=== PATIENT | male | born 1930 | race Caucasian/White ===

== ENCOUNTER 2016-03-02 11:19 | Inpatient (IN) | payer MEDICARE, BC ==
[2016-03-02] MEDS ORDERED: SODIUM CHLORIDE 0.9% 1,000 ML IV STA ×2 (11:51)
--- NOTE | 2016-03-02 12:03 | ED ---
Recheck HPI - General Chief Complaint: Recheck/Abnormal Lab/Rx Stated Complaint: LOW BLOOD PRESSURE Time Seen by Provider: 03/02/16 11:43 Source: patient, family, RN notes reviewed Mode of arrival: wheelchair - History of Present Illness Initial Comments: This 85-year-old male with a history of multiple medical problems was sent over from his doctor's office for evaluation for low blood pressure. States she's been having low blood pressure for last couple days he had CAT scan of his chest done at [facility] he was noted have low blood pressure that was low then it did improve. Today he presents feeling somewhat weak occasionally lightheaded no fevers chills nausea vomiting sweats he states she's been trying drink up to 8 glasses of water per day he denies any chest pain shortness of breath or any other symptoms at this time. - Related Data Home Medications Medication Instructions Recorded Confirmed Aspirin 81 mg PO DAILY 05/20/14 03/02/16 Clopidogrel [Plavix] 75 mg PO DAILY 05/20/14 03/02/16 Docusate [Colace] 100 mg PO DAILY PRN 05/20/14 03/02/16 Ipratropium-Albuterol Nebulize 3 ml IH RT-QID 05/20/14 03/02/16 [Duoneb 0.5 mg-3 mg/3 ml Soln] Lisinopril 40 mg PO BID 05/20/14 03/02/16 Tamsulosin [Flomax] 0.4 mg PO BID 05/20/14 03/02/16 amLODIPine [Norvasc] 5 mg PO DAILY 05/20/14 03/02/16 metFORMIN HCL [metFORMIN HCL ER] 1,000 mg PO BID 05/20/14 03/02/16 guaiFENesin [Mucinex] 600 mg PO BID 01/24/15 03/02/16 Areds Ii Eye Vitamins 1 tab PO BID 03/02/16 03/02/16 Atorvastatin [Lipitor] 20 mg PO DAILY 03/02/16 03/02/16 Budesonide/Formoterol Fumarate 2 puff INHALATION RT-BID 03/02/16 03/02/16 [Symbicort 160-4.5 Mcg Inhaler] Ibuprofen [Motrin] 600 mg PO Q8HR PRN 03/02/16 03/02/16 Lactose-Reduced Food [Boost] 237 ml PO DAILY 03/02/16 03/02/16 Melatonin 3 mg PO HS 03/02/16 03/02/16 Metoprolol Tartrate [Lopressor] 25 mg PO BID 03/02/16 03/02/16 Allergies Allergy/AdvReac Type Severity Reaction Status Date / Time No Known Allergies Allergy Verified 03/02/16 12:44 Review of Systems ROS Statement: Those systems with pertinent positive or pertinent negative responses have been documented in the HPI. ROS Other: All systems not noted in ROS Statement are negative. Past Medical History Past Medical History: Chest Pain / Angina, COPD, Diabetes Mellitus, Eye Disorder , Hyperlipidemia, Hypertension, Renal Disease, Vascular Disorder Additional Past Medical History / Comment(s): 01/15/15irregular heart beat, PVD , SPOT ON RT LUNG AND ESOPHAGUS -01/15/15 History of Any Multi-Drug Resistant Organisms: None Reported Past Surgical History: Heart Catheterization Additional Past Surgical History / Comment(s): veins unblocked in both legs, carotid endarectomy left side, cataracts removal, COLONOSCOPY, BILAT CATARACTS REMOVED, HAD BILAT EYE INJECTIONS 01/11/15 FOR MACULAR DEGENERATION Past Anesthesia/Blood Transfusion Reactions: No Reported Reaction Past Psychological History: No Psychological Hx Reported Smoking Status: Former smoker Past Alcohol Use History: Rare Past Drug Use History: None Reported - Past Family History Brother(s) Family Medical History: Coronary Artery Disease (CAD), Diabetes Mellitus Father Additional Family Medical History / Comment(s): kidney failure Mother Family Medical History: Congestive Heart Failure (CHF), Coronary Artery Disease (CAD) General Exam - General Exam Comments Initial Comments: This is a well-developed well-nourished awake alert oriented 3 male General appearance: alert, in no apparent distress Head exam: Present: atraumatic, normocephalic, normal inspection Eye exam: Present: normal appearance, PERRL, EOMI. Absent: scleral icterus, conjunctival injection, periorbital swelling ENT exam: Present: mucous membranes dry Neck exam: Present: normal inspection. Absent: tenderness, meningismus, lymphadenopathy Respiratory exam: Present: normal lung sounds bilaterally. Absent: respiratory distress, wheezes, rales, rhonchi, stridor Cardiovascular Exam: Present: regular rate, normal rhythm, normal heart sounds. Absent: systolic murmur, diastolic murmur, rubs, gallop, clicks GI/Abdominal exam: Present: soft, normal bowel sounds. Absent: distended, tenderness, guarding, rebound, rigid Extremities exam: Present: normal inspection, full ROM, normal capillary refill. Absent: tenderness, pedal edema, joint swelling, calf tenderness Back exam: Present: normal inspection Neurological exam: Present: alert, oriented X3, CN II-XII intact Psychiatric exam: Present: normal affect, normal mood Skin exam: Present: warm, dry, intact, normal color. Absent: rash Course Vital Signs 03/02/16 03/02/16 03/02/16 11:34 11:44 12:25 Temperature 97.1 F L Pulse Rate 83 76 75 Respiratory 20 16 15 Rate Blood Pressure 82/51 104/56 120/63 O2 Sat by Pulse 92 L 96 91 L Oximetry 03/02/16 03/02/16 13:23 14:23 Temperature 97.1 F L Pulse Rate 76 74 Respiratory 16 16 Rate Blood Pressure 140/65 133/65 O2 Sat by Pulse 92 L 94 L Oximetry Medical Decision Making - Medical Decision Making Patient did get some improvement after IV hydration sodium however was 123 his blood pressure did improve. The patient and his were informed of the findings. I did discuss the case with Dr. Donald the patient will be admitted he will have a nephrology consult. - Lab Data Result diagrams: 03/02/16 11:50 03/02/16 11:50 Lab Results 03/02/16 03/02/16 03/02/16 Range/Units 11:50 11:50 11:50 WBC 9.0 (3.8-10.6) k/uL RBC 4.49 (4.30-5.90) m/uL Hgb 13.5 (13.0-17.5) gm/dL Hct 41.5 (39.0-53.0) % MCV 92.6 (80.0-100.0) fL MCH 30.0 (25.0-35.0) pg MCHC 32.4 (31.0-37.0) g/dL RDW 13.3 (11.5-15.5) % Plt Count 267 (150-450) k/uL Neutrophils % 87 % Lymphocytes % 6 % Monocytes % 6 % Eosinophils % 0 % Basophils % 0 % Neutrophils # 7.8 H (1.3-7.7) k/uL Lymphocytes # 0.5 L (1.0-4.8) k/uL Monocytes # 0.5 (0-1.0) k/uL Eosinophils # 0.0 (0-0.7) k/uL Basophils # 0.0 (0-0.2) k/uL Sodium 123 L (137-145) mmol/L Potassium 5.1 (3.5-5.1) mmol/L Chloride 91 L (98-107) mmol/L Carbon Dioxide 22 (22-30) mmol/L Anion Gap 10 mmol/L BUN 17 (9-20) mg/dL Creatinine 1.00 (0.66-1.25) mg/dL Est GFR (MDRD) Af Amer >60 (>60 ml/min/1.73 sqM) Est GFR (MDRD) Non-Af >60 (>60 ml/min/1.73 sqM) Glucose 125 H (74-99) mg/dL Calcium 8.8 (8.4-10.2) mg/dL Magnesium 1.6 (1.6-2.3) mg/dL Total Bilirubin 1.0 (0.2-1.3) mg/dL AST 32 (17-59) U/L ALT 38 (21-72) U/L Alkaline Phosphatase 71 (38-126) U/L Total Creatine Kinase 59 (55-170) U/L CK-MB (CK-2) 2.7 H* (0.0-2.4) ng/mL CK-MB (CK-2) Rel Index 4.6 Total Protein 6.4 (6.3-8.2) g/dL Albumin 3.8 (3.5-5.0) g/dL Amylase 75 (30-110) U/L Urine Color Urine Appearance (Clear) Urine pH (5.0-8.0) Ur Specific [place] (1.001-1.035) Urine Protein (Negative) Urine Glucose (UA) (Negative) Urine Ketones (Negative) Urine Blood (Negative) Urine Nitrate (Negative) Urine Bilirubin (Negative) Urine Urobilinogen (<2.0) mg/dL Ur Leukocyte Esterase (Negative) Urine RBC (0-5) /hpf Urine WBC (0-5) /hpf Urine Mucus (None) /hpf 03/02/16 Range/Units 12:20 WBC (3.8-10.6) k/uL RBC (4.30-5.90) m/uL Hgb (13.0-17.5) gm/dL Hct (39.0-53.0) % MCV (80.0-100.0) fL MCH (25.0-35.0) pg MCHC (31.0-37.0) g/dL RDW (11.5-15.5) % Plt Count (150-450) k/uL Neutrophils % % Lymphocytes % % Monocytes % % Eosinophils % % Basophils % % Neutrophils # (1.3-7.7) k/uL Lymphocytes # (1.0-4.8) k/uL Monocytes # (0-1.0) k/uL Eosinophils # (0-0.7) k/uL Basophils # (0-0.2) k/uL Sodium (137-145) mmol/L Potassium (3.5-5.1) mmol/L Chloride (98-107) mmol/L Carbon Dioxide (22-30) mmol/L Anion Gap mmol/L BUN (9-20) mg/dL Creatinine (0.66-1.25) mg/dL Est GFR (MDRD) Af Amer (>60 ml/min/1.73 sqM) Est GFR (MDRD) Non-Af (>60 ml/min/1.73 sqM) Glucose (74-99) mg/dL Calcium (8.4-10.2) mg/dL Magnesium (1.6-2.3) mg/dL Total Bilirubin (0.2-1.3) mg/dL AST (17-59) U/L ALT (21-72) U/L Alkaline Phosphatase (38-126) U/L Total Creatine Kinase (55-170) U/L CK-MB (CK-2) (0.0-2.4) ng/mL CK-MB (CK-2) Rel Index Total Protein (6.3-8.2) g/dL Albumin (3.5-5.0) g/dL Amylase (30-110) U/L Urine Color Yellow Urine Appearance Clear (Clear) Urine pH 6.0 (5.0-8.0) Ur Specific [place] 1.015 (1.001-1.035) Urine Protein 1+ H (Negative) Urine Glucose (UA) Negative (Negative) Urine Ketones Trace H (Negative) Urine Blood Negative (Negative) Urine Nitrate Negative (Negative) Urine Bilirubin Negative (Negative) Urine Urobilinogen <2.0 (<2.0) mg/dL Ur Leukocyte Esterase Negative (Negative) Urine RBC 2 (0-5) /hpf Urine WBC 1 (0-5) /hpf Urine Mucus Rare H (None) /hpf - EKG Data -: EKG Interpreted by Nh EKG shows normal: sinus rhythm (Sinus rhythm rate is 76. Interval 186 QRS duration 92 ET/QTC of 372/418 low-voltage poor R-wave progression.) - Radiology Data Radiology results: image reviewed (No definite acute findings) Disposition Clinical Impression: Hyponatremia syndrome, Hypotension, Dehydration Disposition: ADMITTED IP TO THIS HOSP Condition: Stable
--- NOTE | 2016-03-02 12:20 | XR ---
EXAMINATION TYPE: XR chest 2V DATE OF EXAM: 03/02/2016 12:13 PM COMPARISON: 05/20/2014 HISTORY: Cough FINDINGS: The lungs are clear and there is no pneumothorax, pleural effusion, or focal pneumonia. Hyperinflation suggests COPD. Prominent anterior margin the right first rib is stable. No overt failu re. Prominence the pulmonary artery suggests pulmonary arterial hypertension. Degenerative change of the spine noted. Subsegmental changes at the left lung base are stable compatible with chronic scar o r atelectasis. IMPRESSION: 1. No acute process. Correlate for COPD.
[2016-03-02 12:30] LABS: Basophils % (A) 0 %; CH 30.5; CHCM 33.1; Eosinophils % (A) 0 %; HCT 41.5 % (39.0-53.0); HDW 2.31; HGB 13.5 gm/dL (13.0-17.5); Luc # (Auto) 0.11; Luc % (Auto) 1; Lymphocytes # (A) 0.5 k/uL (1.0-4.8); Lymphocytes % (A) 6 %; MCHC 32.4 g/dL (31.0-37.0); MCV 92.6 fL (80.0-100.0); Mean Platelet Volume 7.1; Monocytes # (A) 0.5 k/uL (0-1.0); Monocytes % (A) 6 %; Neutrophils # (A) 7.8 k/uL (1.3-7.7); Neutrophils % (A) 87 %; RBC 4.49 m/uL (4.30-5.90); RDW 13.3 % (11.5-15.5); WBC (Perox) 8.99
[2016-03-02 12:37] LABS: Appearance,Urine Clear (Clear); Bilirubin,Urine Negative (Negative); Glucose,Urine (UA) Negative (Negative); Ketones,Urine Trace (Negative); Leukocyte Esterase,Urine Negative (Negative); Mucus,Urine Rare /hpf; Nitrite,Urine Negative (Negative); Particle Count 994; Protein,Urine 1+ (Negative); RBC,Urine 2 /hpf (0-5); Specific Gravity,Urine 1.015 (1.001-1.035); UA Billing (MACRO vs. MICRO) MICRO; Urobilinogen,Urine <2.0 mg/dL (<2.0); WBC,Urine 1 /hpf (0-5)
[2016-03-02 12:40] LABS: ALT 38 U/L (21-72); AST 32 U/L (17-59); Alkaline Phosphatase 71 U/L (38-126); Amylase 75 U/L (30-110); Anion Gap 10 mmol/L; Blood Urea Nitrogen 17 mg/dL (9-20); Calcium 8.8 mg/dL (8.4-10.2); Carbon Dioxide 22 mmol/L (22-30); Chloride 91 mmol/L (98-107); Glucose 125 mg/dL (74-99); Magnesium 1.6 mg/dL (1.6-2.3); Non-African American GFR(MDRD) >60 (>60 ml/min/1.73 sqM); Potassium 5.1 mmol/L (3.5-5.1); Sodium 123 mmol/L (137-145); Total Protein 6.4 g/dL (6.3-8.2)
[2016-03-02 13:10] LABS: Creatine Kinase MB 2.7 ng/mL (0.0-2.4)
[2016-03-02] MEDS ORDERED: NALOXONE 0.4 MG/ML 1 ML VIAL IV PRN (16:17)
[2016-03-02] MEDS ORDERED: IBUPROFEN 600 MG TAB PO PRN (16:19)
[2016-03-02] MEDS ORDERED: DOCUSATE 100 MG CAP PO PRN (16:19)
[2016-03-02 18:55] LABS: Anion Gap 6 mmol/L; Blood Urea Nitrogen 16 mg/dL (9-20); Calcium 8.5 mg/dL (8.4-10.2); Carbon Dioxide 27 mmol/L (22-30); Chloride 94 mmol/L (98-107); Glucose 164 mg/dL (74-99); Non-African American GFR(MDRD) >60 (>60 ml/min/1.73 sqM); Potassium 4.4 mmol/L (3.5-5.1); Sodium 127 mmol/L (137-145)
[2016-03-02] MEDS: SODIUM CHLORIDE 0.9% 1,000 ML IV SCH (19:45)
[2016-03-02] MEDS: SYMBICORT 160-4.5 MCG INHALER INHALATION SCH (20:38)
[2016-03-02] MEDS: IPRATROPIUM-ALBUTEROL 3 ML NEB IH SCH (20:38)
[2016-03-02] MEDS: MELATONIN 3 MG TABLET PO SCH (20:52)
[2016-03-02] MEDS: TAMSULOSIN 0.4 MG CAP.ER.24H PO SCH (20:53)
[2016-03-02] MEDS: guaiFENesin 600 MG TABLET.ER PO SCH (20:53)
[2016-03-02] MEDS: LISINOPRIL 20 MG TAB PO SCH (20:53)
[2016-03-02] MEDS: METOPROLOL TARTRATE 25 MG TAB PO SCH (20:53)
[2016-03-02 21:40] LABS: Glucose,Whole Blood 101 mg/dL (75-99)
[2016-03-02] MEDS: metFORMIN 500 MG TAB PO SCH (21:46)
[2016-03-03 07:05] LABS: Glucose,Whole Blood 122 mg/dL (75-99)
[2016-03-03] MEDS: ATORVASTATIN 20 MG TAB PO SCH (08:13)
[2016-03-03] MEDS: LISINOPRIL 20 MG TAB PO SCH (08:13)
[2016-03-03] MEDS: metFORMIN 500 MG TAB PO SCH ×2 (08:13→21:28)
[2016-03-03] MEDS: CLOPIDOGREL 75 MG TAB PO SCH (08:13)
[2016-03-03] MEDS: ASPIRIN 81 MG CHEW PO SCH (08:13)
[2016-03-03] MEDS: METOPROLOL TARTRATE 25 MG TAB PO SCH ×2 (08:13→20:22)
[2016-03-03] MEDS: amLODIPine 5 MG TAB PO SCH (08:13)
[2016-03-03] MEDS: guaiFENesin 600 MG TABLET.ER PO SCH ×2 (08:13→20:16)
[2016-03-03] MEDS: TAMSULOSIN 0.4 MG CAP.ER.24H PO SCH ×2 (08:13→20:16)
[2016-03-03 08:32] LABS: ALT 36 U/L (21-72); AST 18 U/L (17-59); Alkaline Phosphatase 78 U/L (38-126); Anion Gap 8 mmol/L; Blood Urea Nitrogen 12 mg/dL (9-20); Calcium 8.5 mg/dL (8.4-10.2); Carbon Dioxide 24 mmol/L (22-30); Chloride 99 mmol/L (98-107); Glucose 126 mg/dL (74-99); Non-African American GFR(MDRD) >60 (>60 ml/min/1.73 sqM); Potassium 4.3 mmol/L (3.5-5.1); Sodium 131 mmol/L (137-145); Total Bilirubin 0.5 mg/dL (0.2-1.3); Total Protein 5.1 g/dL (6.3-8.2)
[2016-03-03] MEDS ORDERED: NON-FORMULARY DRUG (Lactose-Reduced Food [Boost] 237 ML) PO SCH (09:00)
[2016-03-03] MEDS: IPRATROPIUM-ALBUTEROL 3 ML NEB IH SCH ×4 (09:35→20:58)
[2016-03-03] MEDS: SYMBICORT 160-4.5 MCG INHALER INHALATION SCH ×2 (09:35→20:58)
--- NOTE | 2016-03-03 11:45 | P.NPCON ---
History of Present Illness - Reason for Consult hyponatremia - History of Present Illness Reason for consultation: Hyponatremia History of present illness: Patient is a 85-year-old male seen in renal consultation for hyponatremia. Patient went to his primary care physician's office and was noted to be hypotensive with systolic blood pressure in the 80s was subsequently sent to the hospital. Patient states his appetite hasn't been as good the last few days but he has been drinking quite a bit of water. His sodium was 123 on admission for which she was given normal saline bolus and started on 0.9 saline at 75 mL an hour. Sodium level did improve to 127 and overnight he received maintenance IV fluids. Sodium level this morning is 131. Hemodynamically he is stable. He denies any chest pain or shortness of breath. Admits to good urine output. Denies any hematuria or dysuria. Denies any prior history of kidney disease. His urinalysis does reveal 1+ proteinuria without any hematuria. Renal ultrasound from January 2016 revealed no evidence of hydronephrosis and normal sized kidneys. He does have diabetes mellitus. Vital signs are stable. General: The patient appeared well nourished and normally developed. HEENT: Head exam is unremarkable. Neck is without jugular venous distension. LUNGS: Lungs are clear to auscultation and percussion. Breath sounds decreased. HEART: Rate and Rhythm are regular. First and second heart sounds normal. No murmurs, rubs or gallops. ABDOMEN: Abdominal exam reveals normal bowel sounds. Non-tender and non- distended. No evidence of peritonitis. EXTREMITITES: No clubbing, cyanosis, or edema. Past Medical History Past Medical History: Chest Pain / Angina, COPD, Diabetes Mellitus, Eye Disorder , Hyperlipidemia, Hypertension, Memory Impairment, Pneumonia, Vascular Disorder Additional Past Medical History / Comment(s): " irregular heart beat",emphysema PVD,HOME 2 2 LITERS N/C NEEDED, SPOT ON RT LUNG AND ESOPHAGUS -01/15/15 PT AND FAMILY STATED "NO DX OF CANCER OF YET, IN FACT SPOTS HAVE SHRUNK IN SIZE " HAD A CT SCAN OF CHEST 02-29-16 AT [facility] NO RESULTS BACK YET. 2 MONTHS AGO HAD U/ S OF KIDNEY FAMILY STATED BECAUSE HE ELEVATED PROTIEN IN HIS URINE BUT THAT THEY HAVE'NT GOTTEN RESULTS OF IT YET. BRONCHITS, MACULAR DEGENERATION,OCC CONSTIPATION.APPETITE DOWN PAST YEAR NOTHING "TASTES GOOD" WT LOSS APPROX 15-20 # OVER 7 MONTHS". History of Any Multi-Drug Resistant Organisms: None Reported Past Surgical History: Heart Catheterization Additional Past Surgical History / Comment(s): veins unblocked in both legs, carotid endarectomy left side, cataracts removal, COLONOSCOPY, BILAT CATARACTS REMOVED, HAD BILAT EYE INJECTIONS 01/11/15 FOR MACULAR DEGENERATION, BRONCOSCOPY 01-26-15 Past Anesthesia/Blood Transfusion Reactions: No Reported Reaction Past Psychological History: No Psychological Hx Reported Additional Psychological History / Comment(s): PT LIVES AT HOME WITH HIS , IS INDEPENDANT. NO HOME CARE SERVICES. Smoking Status: Former smoker Past Alcohol Use History: Rare Additional Past Alcohol Use History / Comment(s): STARTED SMOKING AT AGE 19(1948 ), QUIT 2011 WAS SMOKING 1.5 PPD Past Drug Use History: None Reported - Past Family History Brother(s) Family Medical History: Coronary Artery Disease (CAD), Diabetes Mellitus Father Additional Family Medical History / Comment(s): kidney failure Mother Family Medical History: Congestive Heart Failure (CHF), Coronary Artery Disease (CAD) Medications and Allergies Home Medications Medication Instructions Recorded Confirmed Type Aspirin 81 mg PO DAILY 05/20/14 03/02/16 History Clopidogrel [Plavix] 75 mg PO DAILY 05/20/14 03/02/16 History Docusate [Colace] 100 mg PO DAILY PRN 05/20/14 03/02/16 History Ipratropium-Albuterol Nebulize 3 ml IH RT-QID 05/20/14 03/02/16 History [Duoneb 0.5 mg-3 mg/3 ml Soln] Lisinopril 40 mg PO BID 05/20/14 03/02/16 History Tamsulosin [Flomax] 0.4 mg PO BID 05/20/14 03/02/16 History amLODIPine [Norvasc] 5 mg PO DAILY 05/20/14 03/02/16 History metFORMIN HCL [metFORMIN HCL ER] 1,000 mg PO BID 05/20/14 03/02/16 History guaiFENesin [Mucinex] 600 mg PO BID 01/24/15 03/02/16 History Areds Ii Eye Vitamins 1 tab PO BID 03/02/16 03/02/16 History Atorvastatin [Lipitor] 20 mg PO DAILY 03/02/16 03/02/16 History Budesonide/Formoterol Fumarate 2 puff INHALATION RT-BID 03/02/16 03/02/16 History [Symbicort 160-4.5 Mcg Inhaler] Ibuprofen [Motrin] 600 mg PO Q8HR PRN 03/02/16 03/02/16 History Lactose-Reduced Food [Boost] 237 ml PO DAILY 03/02/16 03/02/16 History Melatonin 3 mg PO HS 03/02/16 03/02/16 History Metoprolol Tartrate [Lopressor] 25 mg PO BID 03/02/16 03/02/16 History Allergies Allergy/AdvReac Type Severity Reaction Status Date / Time No Known Allergies Allergy Verified 03/02/16 12:44 Physical Exam Vitals: Vital Signs Temp Pulse Pulse Resp BP BP Pulse Ox 03/03/16 09:44 76 03/03/16 09:36 76 03/03/16 07:00 97.0 F L 101 H 19 131/78 98 03/02/16 23:00 97.3 F L 78 18 156/73 97 03/02/16 20:48 78 03/02/16 20:39 78 03/02/16 20:35 79 18 135/69 90 L 03/02/16 18:42 95.6 F L 83 16 130/63 94 L 03/02/16 17:51 97.1 F L 80 16 125/60 98 03/02/16 16:47 96.7 F L 81 16 140/62 94 L Intake and Output 03/02/16 03/03/16 03/03/16 22:59 06:59 14:59 Intake Total 550 Output Total 600 1000 Balance -600 -450 Intake: Intake, IV Titration 550 Amount Sodium Chloride 0.9% 1, 550 000 ml @ 50 mls/hr IV . Q20H [facility] Rx#:[id number] Output: Urine 600 1000 Other: Voiding Method Urinal Toilet Urinal # Voids 1 2 Results - Lab Results Most recent lab results Calcium 8.5 mg/dL (8.4-10.2) 03/03/16 07:47 Magnesium 1.6 mg/dL (1.6-2.3) 03/02/16 11:50 03/02/16 11:50 01/07/17 07:47 Assessment and Plan Plan: Assessment: #1. Hypotonic hypovolemic hyponatremia improved with IV hydration. Sodium level of 131 this morning. #2. Hypotension. Improved with IV hydration. Rule out adrenal insufficiency. #3. Diabetes mellitus. #4. 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 He does have proteinuria on urinalysis. Plan: Continue with normal saline to be run at 50 mL an hour. Check a.m. cortisol level. Quantify proteinuria. Repeat electrolytes in the morning. Avoid NSAIDs. Thank you for the consultation. I will continue to follow patient with you during his hospital stay.
[2016-03-03 12:07] LABS: Glucose,Whole Blood 97 mg/dL (75-99)
--- NOTE | 2016-03-03 12:40 | P.HPIM ---
History of Present Illness H&P Date: 03/03/16 Chief Complaint: Weakness, lightheadedness This is an 85-year-old male patient of Dr. Mike with a past medical history of angina, COPD, diabetes mellitus type 2, hyperlipidemia, hypertension, peripheral vascular disease. He gives history that he went to [facility] as Dr. Holder sent him there for follow-up regarding abnormal chest CAT scan that showed a spot on his right lung and esophagus. Patient was there [address] [facility] and was noted at that time to have a low blood pressure and they're going to admit him but he ended up improving and was sent home. He states he has had low blood pressure for the last couple of days and has been trying to drink a glass of of water per day. He states he has been feeling woozy and tired but not too bad. He states he has had the same trouble in the past a couple months ago. He states that was after he was given prednisone and he was feeling weak and tired but his blood pressure did not drop at that time. He states he just finished of course of steroids 1 week ago and after that he has been feeling weak ever since. Patient had an appointment at Dr. Mike saw the nurse practitioner and was sent into [facility] for evaluation. He was found to be 123 and chloride 91. Chest x-ray showed no acute findings. Initial blood pressure was 82/51 and repeat was 104/ 56. Patient was started on IV fluids at 100 mL per hour and was given fluid bolus and then admitted to the [facility] floor and a consult requested with nephrology. Repeat sodium is 131 and chloride 99. Serum osmolality 273, urine osmolality 318, urine random sodium 94. Patient does state that he is feeling much improved today. We have also ordered a fasting cortisol level which is pending. Review of Systems All systems: negative Constitutional: Reports fatigue, Reports lethargy, Reports weakness, Denies chills, Denies fever Eyes: denies blurred vision, denies pain Ears, nose, mouth and throat: Reports vertigo, Denies headache, Denies sore throat Cardiovascular: Reports lightheadedness, Denies chest pain, Denies shortness of breath Respiratory: Denies cough Gastrointestinal: Denies abdominal pain, Denies diarrhea, Denies nausea, Denies vomiting Musculoskeletal: Denies myalgias Integumentary: Denies pruritus, Denies rash Neurological: Denies numbness, Denies weakness Psychiatric: Denies anxiety, Denies depression Endocrine: Denies fatigue, Denies weight change Past Medical History Past Medical History: Chest Pain / Angina, COPD, Diabetes Mellitus, Eye Disorder , Hyperlipidemia, Hypertension, Memory Impairment, Pneumonia, Vascular Disorder Additional Past Medical History / Comment(s): Chronic hypoxic respiratory failure with home O2 at 2 and half liters, SPOT ON RT LUNG AND ESOPHAGUS -01/09 , PVD with carotid stenosis 90% on the left and 50% on the right, proteinuria, bronchitis, macular degeneration, WT LOSS APPROX 15-20 # OVER 7 MONTHS". History of Any Multi-Drug Resistant Organisms: None Reported Past Surgical History: Heart Catheterization Additional Past Surgical History / Comment(s): veins unblocked in both legs, carotid endarectomy left side, bilateral cataract removal and intraocular lens implants, BILAT EYE INJECTIONS 01/11/15 FOR MACULAR DEGENERATION, BRONCOSCOPY , colonoscopy Past Anesthesia/Blood Transfusion Reactions: No Reported Reaction Past Psychological History: No Psychological Hx Reported Additional Psychological History / Comment(s): PT LIVES AT HOME WITH HIS , IS INDEPENDANT. NO HOME CARE SERVICES. Smoking Status: Former smoker Past Alcohol Use History: Rare Additional Past Alcohol Use History / Comment(s): STARTED SMOKING AT AGE 19(1948 ), QUIT 2011 WAS SMOKING 1.5 PPD Past Drug Use History: None Reported - Past Family History Brother(s) Family Medical History: Coronary Artery Disease (CAD), Diabetes Mellitus Father Additional Family Medical History / Comment(s): kidney failure Mother Family Medical History: Congestive Heart Failure (CHF), Coronary Artery Disease (CAD) Medications and Allergies Home Medications Medication Instructions Recorded Confirmed Type Aspirin 81 mg PO DAILY 05/20/14 03/02/16 History Clopidogrel [Plavix] 75 mg PO DAILY 05/20/14 03/02/16 History Docusate [Colace] 100 mg PO DAILY PRN 05/20/14 03/02/16 History Ipratropium-Albuterol Nebulize 3 ml IH RT-QID 05/20/14 03/02/16 History [Duoneb 0.5 mg-3 mg/3 ml Soln] Lisinopril 40 mg PO BID 05/20/14 03/02/16 History Tamsulosin [Flomax] 0.4 mg PO BID 05/20/14 03/02/16 History amLODIPine [Norvasc] 5 mg PO DAILY 05/20/14 03/02/16 History metFORMIN HCL [metFORMIN HCL ER] 1,000 mg PO BID 05/20/14 03/02/16 History guaiFENesin [Mucinex] 600 mg PO BID 01/24/15 03/02/16 History Areds Ii Eye Vitamins 1 tab PO BID 03/02/16 03/02/16 History Atorvastatin [Lipitor] 20 mg PO DAILY 03/02/16 03/02/16 History Budesonide/Formoterol Fumarate 2 puff INHALATION RT-BID 03/02/16 03/02/16 History [Symbicort 160-4.5 Mcg Inhaler] Ibuprofen [Motrin] 600 mg PO Q8HR PRN 03/02/16 03/02/16 History Lactose-Reduced Food [Boost] 237 ml PO DAILY 03/02/16 03/02/16 History Melatonin 3 mg PO HS 03/02/16 03/02/16 History Metoprolol Tartrate [Lopressor] 25 mg PO BID 03/02/16 03/02/16 History Allergies Allergy/AdvReac Type Severity Reaction Status Date / Time No Known Allergies Allergy Verified 03/02/16 12:44 Physical Exam Vitals: Vital Signs Temp Pulse Pulse Resp BP BP Pulse Ox 03/03/16 09:36 76 03/03/16 07:00 97.0 F L 101 H 19 131/78 98 03/02/16 23:00 97.3 F L 78 18 156/73 97 03/02/16 20:48 78 03/02/16 20:39 78 03/02/16 20:35 79 18 135/69 90 L 03/02/16 18:42 95.6 F L 83 16 130/63 94 L 03/02/16 17:51 97.1 F L 80 16 125/60 98 03/02/16 16:47 96.7 F L 81 16 140/62 94 L Intake and Output 03/02/16 03/03/16 03/03/16 22:59 06:59 14:59 Intake Total 550 Output Total 600 1000 Balance -600 -450 Intake: Intake, IV Titration 550 Amount Sodium Chloride 0.9% 1, 550 000 ml @ 50 mls/hr IV . Q20H [facility] Rx#:[id number] Output: Urine 600 1000 Other: Voiding Method Urinal Toilet # Voids 1 2 Gen: This is an 85-year-old male. He is found sitting up in bed and appears to be in no acute distress. HEENT: Head is atraumatic, normocephalic. Pupils equal, round. Sclerae is anicteric. NECK: Supple. No JVD. No lymphadenopathy. No thyromegaly. LUNGS: Clear to auscultation. No wheezes or rhonchi. No intercostal retractions. HEART: Regular rate and rhythm. No murmur. ABDOMEN: Soft. Bowel sounds are present. No masses. No tenderness. EXTREMITIES: No pedal edema. No calf tenderness. NEUROLOGICAL: Patient is awake, alert and oriented x3. Cranial nerves 2 through 12 are grossly intact. Results CBC & Chem 7: 03/02/16 11:50 03/03/16 07:47 Labs: Abnormal Lab Results - Last 24 Hours (Table) 03/02/16 03/02/16 03/03/16 Range/Units 18:20 21:12 06:58 Sodium 127 L (137-145) mmol/L Chloride 94 L (98-107) mmol/L Glucose 164 H (74-99) mg/dL POC Glucose (mg/dL) 101 H 122 H (75-99) mg/dL Total Protein (6.3-8.2) g/dL Albumin (3.5-5.0) g/dL 03/03/16 Range/Units 07:47 Sodium 131 L (137-145) mmol/L Chloride (98-107) mmol/L Glucose 126 H (74-99) mg/dL POC Glucose (mg/dL) (75-99) mg/dL Total Protein 5.1 L (6.3-8.2) g/dL Albumin 3.1 L (3.5-5.0) g/dL Thrombosis Risk Factor Assmnt - DVT/VTE Prophylaxis DVT/VTE Prophylaxis: Pharmacologic Prophylaxis ordered - Choose All That Apply Any of the Below Risk Factors Present?: Yes Each Factor Represents 1 point: Abnormal pulmonary function (COPD) Other Risk Factors: Yes Each Risk Factor Represents 3 Points: Age 75 years or older Thrombosis Risk Factor Assessment Total Risk Factor Score: 4 Thrombosis Risk Factor Assessment Level: Moderate Risk Assessment and Plan Plan: 1. Generalized weakness and lightheadedness secondary to electrolyte abnormalities with hyponatremia and hypochloremia. Patient has been on IV fluids. Nephrology consult is appreciated. Recheck metabolic panel in the morning. TSH and free T4 added. 2. Hypotension rule out adrenal insufficiency. Patient was recently on oral steroids which were completed 1 week ago when symptoms started. Fasting cortisol level ordered. 3. History of hypertension. Continue Norvasc 5 mg daily and lisinopril 40 mg daily, Lopressor 25 mg twice daily. 4. Hypotonic hypovolemic hyponatremia. Continue as in #1. 5. 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 6. Diabetes mellitus type 2. Continue metformin 1000 mg twice daily. 7. Benign prostatic hypertrophy. Continue Flomax or 0.4 mg twice daily. 8. Moderate protein calorie malnutrition with recent weight loss of 15-20 pounds over 7 months, BMI of 20. Continue protein supplement. 9. COPD. Continue Symbicort 2 puffs twice daily and DuoNeb treatments 4 times daily as needed. 10. Hyperlipidemia. Continue Lipitor 20 mg daily. 11. Chronic hypoxic respiratory failure on home O2 at 2 L. 12. DVT prophylaxis. Heparin subcu. 13. Gastrointestinal prophylaxis. Protonix daily. Patient will be admitted to the hospital for a minimum of 2 night stay. Discharge plan: Most likely return home. PT and OT evaluations requested. Impression and plan of care have been directed as dictated by the signing physician. Dot Koehler nurse practitioner acting as scribe for signing physician. Time with Patient: Greater than 30
[2016-03-03 12:55] VITALS: BMI 20.2
[2016-03-03] MEDS: HEPARIN SODIUM,PORCINE 5,000 UNIT/ML 1 ML VIAL SQ SCH (16:19)
[2016-03-03] MEDS: VIT A,C & E-LUTEIN-MINERALS 1 EACH TAB PO SCH (16:19)
[2016-03-03] MEDS: SODIUM CHLORIDE 0.9% 1,000 ML IV SCH (16:20)
[2016-03-03 17:39] LABS: Glucose,Whole Blood 108 mg/dL (75-99)
[2016-03-03] MEDS: MELATONIN 3 MG TABLET PO SCH (20:15)
[2016-03-03 20:58] LABS: Glucose,Whole Blood 169 mg/dL (75-99)
[2016-03-04] MEDS: HEPARIN SODIUM,PORCINE 5,000 UNIT/ML 1 ML VIAL SQ SCH ×4 (01:28→23:30)
[2016-03-04 07:35] LABS: Glucose,Whole Blood 129 mg/dL (75-99)
[2016-03-04] MEDS: SYMBICORT 160-4.5 MCG INHALER INHALATION SCH ×2 (07:47→20:31)
[2016-03-04] MEDS: IPRATROPIUM-ALBUTEROL 3 ML NEB IH SCH ×4 (07:48→20:31)
[2016-03-04] MEDS: amLODIPine 5 MG TAB PO SCH (07:57)
[2016-03-04] MEDS: metFORMIN 500 MG TAB PO SCH ×2 (07:58→20:01)
[2016-03-04] MEDS: ATORVASTATIN 20 MG TAB PO SCH (07:58)
[2016-03-04] MEDS: CLOPIDOGREL 75 MG TAB PO SCH (07:58)
[2016-03-04] MEDS: ASPIRIN 81 MG CHEW PO SCH (07:58)
[2016-03-04] MEDS: guaiFENesin 600 MG TABLET.ER PO SCH ×2 (07:58→20:01)
[2016-03-04] MEDS: METOPROLOL TARTRATE 25 MG TAB PO SCH ×2 (07:59→20:01)
[2016-03-04] MEDS: LISINOPRIL 20 MG TAB PO SCH (07:59)
[2016-03-04] MEDS: TAMSULOSIN 0.4 MG CAP.ER.24H PO SCH ×2 (07:59→20:01)
[2016-03-04 10:01] LABS: Anion Gap 9 mmol/L; Blood Urea Nitrogen 12 mg/dL (9-20); Calcium 8.8 mg/dL (8.4-10.2); Carbon Dioxide 27 mmol/L (22-30); Chloride 97 mmol/L (98-107); Glucose 181 mg/dL (74-99); Non-African American GFR(MDRD) >60 (>60 ml/min/1.73 sqM); Potassium 4.3 mmol/L (3.5-5.1); Sodium 133 mmol/L (137-145)
--- NOTE | 2016-03-04 11:16 | P.PN ---
Subjective Patient is seen in follow-up for hyponatremia. Sodium level was 123 on admission and has been improving with IV hydration. It is up to 133 today. Cortisol level is normal. He is hemodynamically stable. Appetite is good. No vomiting or diarrhea. Vital signs are stable. General: The patient appeared well nourished and normally developed. HEENT: Head exam is unremarkable. Neck is without jugular venous distension. LUNGS: Lungs are clear to auscultation and percussion. Breath sounds decreased. HEART: Rate and Rhythm are regular. First and second heart sounds normal. No murmurs, rubs or gallops. ABDOMEN: Abdominal exam reveals normal bowel sounds. Non-tender and non- distended. No evidence of peritonitis. EXTREMITITES: No clubbing, cyanosis, or edema. Objective - Vital Signs Vital signs: Vital Signs Temp 97.7 F 03/04/16 07:00 Pulse 72 03/04/16 08:01 Resp 20 03/04/16 07:00 BP 150/67 03/04/16 07:00 Pulse Ox 94 L 03/04/16 07:00 Intake & Output 03/03/16 03/04/16 03/04/16 18:59 06:59 18:59 Intake Total 250 650 Output Total 300 900 800 Balance -50 -250 -800 Weight 65.771 kg Intake: IV 550 Sodium Chloride 0.9% 1, 550 000 ml @ 50 mls/hr IV . Q20H COUNTS INCLUDE 234 BEDS AT THE [facility] Rx#:[id number] Oral 250 100 Output: Urine 300 900 800 Other: Voiding Method Urinal Urinal - Labs CBC & Chem 7: 03/02/16 11:50 03/04/16 09:19 Labs: Abnormal Lab Results - Last 24 Hours (Table) 03/03/16 03/03/16 03/03/16 Range/Units 11:30 17:35 20:53 Sodium (137-145) mmol/L Chloride (98-107) mmol/L Glucose (74-99) mg/dL POC Glucose (mg/dL) 108 H 169 H (75-99) mg/dL Ur Random Sodium 94 H (30-90) mmol/L 03/04/16 03/04/16 Range/Units 07:34 09:19 Sodium 133 L (137-145) mmol/L Chloride 97 L (98-107) mmol/L Glucose 181 H (74-99) mg/dL POC Glucose (mg/dL) 129 H (75-99) mg/dL Ur Random Sodium (30-90) mmol/L Assessment and Plan Plan: Assessment: #1. Hypotonic hypovolemic hyponatremia improved with IV hydration. Sodium level of 133 this morning. #2. Hypotension. Improved with IV hydration. Cortisol level normal. #3. Diabetes mellitus. #4. 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 He does have proteinuria on urinalysis. Plan: Continue with normal saline to be run at 50 mL an hour. Quantify proteinuria. Repeat electrolytes in the morning. Avoid NSAIDs. Stable to be discharged home from nephrology standpoint. I advised him to limit his fluid intake to less than 50 ounces a day.
[2016-03-04] MEDS: VIT A,C & E-LUTEIN-MINERALS 1 EACH TAB PO SCH (12:22)
[2016-03-04 13:13] LABS: Glucose,Whole Blood 103 mg/dL (75-99)
[2016-03-04 17:10] LABS: Glucose,Whole Blood 130 mg/dL (75-99)
[2016-03-04] MEDS: MELATONIN 3 MG TABLET PO SCH (20:01)
[2016-03-04 20:45] LABS: Glucose,Whole Blood 176 mg/dL (75-99)
[2016-03-05 07:04] LABS: Glucose,Whole Blood 127 mg/dL (75-99)
[2016-03-05 07:48] VITALS: BP 119/56; RESP 16; TEMP 96.7
[2016-03-05] MEDS: SYMBICORT 160-4.5 MCG INHALER INHALATION SCH (08:25)
[2016-03-05] MEDS: IPRATROPIUM-ALBUTEROL 3 ML NEB IH SCH (08:25)
[2016-03-05 08:28] VITALS: PULSE 90
[2016-03-05 09:21] LABS: Anion Gap 11 mmol/L; Blood Urea Nitrogen 11 mg/dL (9-20); Carbon Dioxide 24 mmol/L (22-30); Chloride 98 mmol/L (98-107); Glucose 134 mg/dL (74-99); Non-African American GFR(MDRD) >60 (>60 ml/min/1.73 sqM); Potassium 4.2 mmol/L (3.5-5.1); Sodium 133 mmol/L (137-145)
[2016-03-05] MEDS: metFORMIN 500 MG TAB PO SCH (10:10)
[2016-03-05] MEDS: HEPARIN SODIUM,PORCINE 5,000 UNIT/ML 1 ML VIAL SQ SCH (10:10)
[2016-03-05] MEDS: amLODIPine 5 MG TAB PO SCH (10:11)
[2016-03-05] MEDS: guaiFENesin 600 MG TABLET.ER PO SCH (10:11)
[2016-03-05] MEDS: ATORVASTATIN 20 MG TAB PO SCH (10:11)
[2016-03-05] MEDS: ASPIRIN 81 MG CHEW PO SCH (10:11)
[2016-03-05] MEDS: TAMSULOSIN 0.4 MG CAP.ER.24H PO SCH (10:11)
[2016-03-05] MEDS: CLOPIDOGREL 75 MG TAB PO SCH (10:11)
[2016-03-05] MEDS: LISINOPRIL 20 MG TAB PO SCH (10:11)
[2016-03-05] MEDS: METOPROLOL TARTRATE 25 MG TAB PO SCH (10:11)
--- NOTE | 2016-03-05 14:29 | P.PN ---
Subjective This is an 85-year-old male patient of Dr. Mike with a past medical history of angina, COPD, diabetes mellitus type 2, hyperlipidemia, hypertension, peripheral vascular disease. He gives history that he went to [facility] as Dr. Holder sent him there for follow-up regarding abnormal chest CAT scan that showed a spot on his right lung and esophagus. Patient was there 3 days ago at [facility] and was noted at that time to have a low blood pressure and they're going to admit him but he ended up improving and was sent home. He states he has had low blood pressure for the last couple of days and has been trying to drink a glass of of water per day. He states he has been feeling woozy and tired but not too bad. He states he has had the same trouble in the past a couple months ago. He states that was after he was given prednisone and he was feeling weak and tired but his blood pressure did not drop at that time. He states he just finished of course of steroids 1 week ago and after that he has been feeling weak ever since. Patient had an appointment at Dr. Mike saw the nurse practitioner and was sent into [facility] for evaluation. He was found to be 123 and chloride 91. Chest x-ray showed no acute findings. Initial blood pressure was 82/51 and repeat was 104/ 56. Patient was started on IV fluids at 100 mL per hour and was given fluid bolus and [facility] and a consult requested with nephrology. Repeat sodium is 131 and chloride 99. Serum osmolality 273, urine osmolality 318, urine random sodium 94. Patient does state that he is feeling much improved today. We have also ordered a fasting cortisol level which is pending. 03/04: fasting cortisol level was 12, serum osmolality 273, urine osmolality 318, urine sodium 94, TSH 0.555. Patient diagnosed with SIADH and placed on fluid restriction of 1200 mL. IV fluids changed to saline lock. Awaiting repeat electrolytes. Objective - Vital Signs Vital signs: Vital Signs Temp 97.7 F 03/04/16 07:00 Pulse 72 03/04/16 08:01 Resp 20 03/04/16 07:00 BP 150/67 03/04/16 07:00 Pulse Ox 94 L 03/04/16 07:00 Intake & Output 03/03/16 03/04/16 03/04/16 18:59 06:59 18:59 Intake Total 250 650 Output Total 300 900 800 Balance -50 -250 -800 Weight 65.771 kg Intake: IV 550 Sodium Chloride 0.9% 1, 550 000 ml @ 50 mls/hr IV . Q20H [facility] Rx#:[id number] Oral 250 100 Output: Urine 300 900 800 Other: Voiding Method Urinal Urinal - Exam Gen: This is an 85-year-old male. He is found sitting up in bed and appears to be in no acute distress. HEENT: Head is atraumatic, normocephalic. Pupils equal, round. Sclerae is anicteric. NECK: Supple. No JVD. No lymphadenopathy. No thyromegaly. LUNGS: Clear to auscultation. No wheezes or rhonchi. No intercostal retractions. HEART: Regular rate and rhythm. No murmur. ABDOMEN: Soft. Bowel sounds are present. No masses. No tenderness. EXTREMITIES: No pedal edema. No calf tenderness. NEUROLOGICAL: Patient is awake, alert and oriented x3. Cranial nerves 2 through 12 are grossly intact. - Labs CBC & Chem 7: 03/02/16 11:50 03/05/16 08:19 Labs: Abnormal Lab Results - Last 24 Hours (Table) 03/03/16 03/03/16 03/03/16 Range/Units 07:47 11:30 17:35 POC Glucose (mg/dL) 108 H (75-99) mg/dL Osmolality 273 L (280-301) mosm/kg Ur Random Sodium 94 H (30-90) mmol/L 03/03/16 03/04/16 Range/Units 20:53 07:34 POC Glucose (mg/dL) 169 H 129 H (75-99) mg/dL Osmolality (280-301) mosm/kg Ur Random Sodium (30-90) mmol/L Assessment and Plan Plan: 1. Generalized weakness and lightheadedness secondary to electrolyte abnormalities with hyponatremia and hypochloremia. Patient has been on IV fluids. Nephrology consult is appreciated. Recheck metabolic panel in the morning. TSH and free T4 added. 2. Hypotension rule out adrenal insufficiency. Patient was recently on oral steroids which were completed 1 week ago when symptoms started. Fasting cortisol level ordered. 3. History of hypertension. Continue Norvasc 5 mg daily and lisinopril 40 mg daily, Lopressor 25 mg twice daily. 4. Hypotonic hypovolemic hyponatremia. Continue as in #1. 5. 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 6. Diabetes mellitus type 2. Continue metformin 1000 mg twice daily. 7. Benign prostatic hypertrophy. Continue Flomax or 0.4 mg twice daily. 8. Moderate protein calorie malnutrition with recent weight loss of 15-20 pounds over 7 months, BMI of 20. Continue protein supplement. 9. COPD. Continue Symbicort 2 puffs twice daily and DuoNeb treatments 4 times daily as needed. 10. Hyperlipidemia. Continue Lipitor 20 mg daily. 11. Chronic hypoxic respiratory failure on home O2 at 2 L. 12. DVT prophylaxis. Heparin subcu. 13. Gastrointestinal prophylaxis. Protonix daily. Patient will be admitted to the hospital for a minimum of 2 night stay. Discharge plan: Most likely return home. PT and OT evaluations requested. Impression and plan of care have been directed as dictated by the signing physician. Dot Koehler nurse practitioner acting as scribe for signing physician. Time with Patient: Greater than 30
--- NOTE | 2016-03-05 14:37 | P.DS ---
Providers Date of admission: 03/02/16 16:20 Expected date of discharge: 03/05/16 Attending physician: Maria Esther Guan [facility] Course: This is an 85-year-old male patient of Dr. Mike with a past medical history of angina, COPD, diabetes mellitus type 2, hyperlipidemia, hypertension, peripheral vascular disease. He gives history that he went to [facility] as Dr. Holder sent him there for follow-up regarding abnormal chest CAT scan that showed a spot on his right lung and esophagus. Patient was there 3 days ago at [facility] and was noted at that time to have a low blood pressure and they're going to admit him but he ended up improving and was sent home. He states he has had low blood pressure for the last couple of days and has been trying to drink a glass of of water per day. He states he has been feeling woozy and tired but not too bad. He states he has had the same trouble in the past a couple months ago. He states that was after he was given prednisone and he was feeling weak and tired but his blood pressure did not drop at that time. He states he just finished of course of steroids 1 week ago and after that he has been feeling weak ever since. Patient had an appointment at Dr. Mike saw the nurse practitioner and was sent into [facility] for evaluation. He was found to be 123 and chloride 91. Chest x-ray showed no acute findings. Initial blood pressure was 82/51 and repeat was 104/ 56. Patient was started on IV fluids at 100 mL per hour and was given fluid bolus and [facility] and a consult requested with nephrology. Repeat sodium is 131 and chloride 99. Serum osmolality 273, urine osmolality 318, urine random sodium 94. Patient does state that he is feeling much improved today. We have also ordered a fasting cortisol level which is pending. 03/04: fasting cortisol level was 12, serum osmolality 273, urine osmolality 318, urine sodium 94, TSH 0.555. Patient diagnosed with SIADH and placed on fluid restriction of 1200 mL. IV fluids changed to saline lock. Awaiting repeat electrolytes. 03/05: Sodium yesterday was 133 and today 133. He has been on fluid restriction of 1200 mL per day. Patient has been instructed to continue fluid restriction. 1 pressure has been on the low side for which lisinopril will be decreased frequency to 40 mg daily. Patient has been instructed to avoid prednisone in the future as he has now had 2 episodes of weakness and lightheadedness after completing prednisone course. Patient is being discharged home today in stable condition. Discharge diagnoses: 1. Generalized weakness and lightheadedness secondary to electrolyte abnormalities with hyponatremia and hypochloremia due to SIADH. 2. Hypotension rule out adrenal insufficiency ruled out as cortisol level was normal. Patient may be having transient adrenal insufficiency with hypotension. He has been instructed to avoid prednisone. 3. History of hypertension. 4. Hypotonic hypovolemic hyponatremia. 5. 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 6. Diabetes mellitus type 2. 7. Benign prostatic hypertrophy. 8. Moderate protein calorie malnutrition with recent weight loss of 15-20 pounds over 7 months, BMI of 20. 9. COPD without exacerbation. 10. Hyperlipidemia. 11. Chronic hypoxic respiratory failure on home O2 at 2 L. Discharge plan: home. Impression and plan of care have been directed as dictated by the signing physician. Dot Koehler nurse practitioner acting as scribe for signing physician. Patient Condition at Discharge: Good Plan - Discharge Summary Discharge Medication List Aspirin 81 mg PO DAILY 05/20/14 [History] Clopidogrel [Plavix] 75 mg PO DAILY 05/20/14 [History] Docusate [Colace] 100 mg PO DAILY PRN 05/20/14 [History] Ipratropium-Albuterol Nebulize [Duoneb 0.5 mg-3 mg/3 ml Soln] 3 ml IH RT-QID [History] Tamsulosin [Flomax] 0.4 mg PO BID 05/20/14 [History] amLODIPine [Norvasc] 5 mg PO DAILY 05/20/14 [History] metFORMIN HCL [metFORMIN HCL ER] 1,000 mg PO BID 05/20/14 [History] guaiFENesin [Mucinex] 600 mg PO BID 01/24/15 [History] Areds Ii Eye Vitamins 1 tab PO BID 03/02/16 [History] Atorvastatin [Lipitor] 20 mg PO DAILY 03/02/16 [History] Budesonide/Formoterol Fumarate [Symbicort 160-4.5 Mcg Inhaler] 2 puff INHALATION RT-BID 03/02/16 [History] Ibuprofen [Motrin] 600 mg PO Q8HR PRN 03/02/16 [History] Lactose-Reduced Food [Boost] 237 ml PO DAILY 03/02/16 [History] Melatonin 3 mg PO HS 03/02/16 [History] Metoprolol Tartrate [Lopressor] 25 mg PO BID 03/02/16 [History] Lisinopril 40 mg PO DAILY #0 03/05/16 [Rx] Follow up Appointment(s)/Referral(s): Percy Mike MD [Primary Care Provider] - 1 Week Alphonso Comer DO [STAFF PHYSICIAN] - 1 Week Patient Instructions/Handouts: Dehydration (DC), Hyponatremia (DC), Type 2 Diabetes in Adults (DC) Activity/Diet/Wound Care/Special Instructions: heart healthy diet Fluid restriction 1200 cc/day activity as tolerated No NSAIDS Discharge Disposition: HOME SELF-CARE
== END 2016-03-05 11:55 | disposition home or self-care (01) | DRG 644 ==
LOC: EC 11:19 → 4MS4W 16:20
PROVIDERS: ADMIT Internal Medicine; ATTEND Internal Medicine
DX: E22.2 Syndrome of inappropriate secretion of antidiuretic hormone (principal); E44.0 Moderate protein-calorie malnutrition; J96.11 Chronic respiratory failure with hypoxia; I95.9 Hypotension, unspecified; E27.3 Drug-induced adrenocortical insufficiency; E11.22 Type 2 diabetes mellitus with diabetic chronic kidney disease; Z99.81 Dependence on supplemental oxygen; J44.9 Chronic obstructive pulmonary disease, unspecified; E86.0 Dehydration; E78.5 Hyperlipidemia, unspecified; E87.8 Other disorders of electrolyte and fluid balance, not elsewhere classified; H35.30 Unspecified macular degeneration; I12.9 Hypertensive chronic kidney disease with stage 1 through stage 4 chronic kidney disease, or unspecified chronic kidney disease; I73.9 Peripheral vascular disease, unspecified; Z96.1 Presence of intraocular lens; Z87.891 Personal history of nicotine dependence; N18.2 Chronic kidney disease, stage 2 (mild); N40.0 Benign prostatic hyperplasia without lower urinary tract symptoms; Z79.82 Long term (current) use of aspirin; Z82.49 Family history of ischemic heart disease and other diseases of the circulatory system; Z68.20 Body mass index [BMI] 20.0-20.9, adult; T38.0X5A Adverse effect of glucocorticoids and synthetic analogues, initial encounter; Z79.899 Other long term (current) drug therapy
CPT/HCPCS: 36415; 71020; 80048; 80053; 81001; 82043; 82150; 82533; 82550; 82553; 83735; 83930; 83935; 84300; 84443; 85025; 93005; 94640; 94760; 96360; 96361; 99285

== ENCOUNTER 2017-05-23 10:06 | Inpatient (IN) | payer MEDICARE, BC ==
[2017-05-23] MEDS ORDERED: IPRATROPIUM 0.5 MG/2.5 ML NEBU INHALATION STA (10:32)
[2017-05-23] MEDS ORDERED: LEVOFLOXACIN 750MG-D5W PMX 750 MG in DEXTROSE/WATER 1 150ML.BAG IVPB STA (10:32)
[2017-05-23] MEDS ORDERED: methylPREDNISolone SOD SUCCI 125 MG/2 ML VIAL IV STA (10:32)
[2017-05-23] MEDS ORDERED: FUROSEMIDE 10 MG/ML 4 ML VIAL IV STA (10:32)
[2017-05-23] MEDS ORDERED: SODIUM CHLORIDE 0.9% 1,000 ML IV STA (10:32)
[2017-05-23] MEDS ORDERED: ALBUTEROL NEBULIZED 2.5 MG/3 ML INHALATION STA (10:32)
[2017-05-23 10:57] LABS: Basophils % (A) 0 %; Eosinophils # (A) 0.2 k/uL (0-0.7); Eosinophils % (A) 2 %; HCT 37.6 % (39.0-53.0); HGB 12.4 gm/dL (13.0-17.5); Lymphocytes # (A) 0.4 k/uL (1.0-4.8); Lymphocytes % (A) 5 %; MCH 29.4 pg (25.0-35.0); MCHC 32.8 g/dL (31.0-37.0); MCV 89.4 fL (80.0-100.0); Mean Platelet Volume 7.1; Monocytes # (A) 0.6 k/uL (0-1.0); Monocytes % (A) 7 %; Neutrophils # (A) 6.7 k/uL (1.3-7.7); Neutrophils % (A) 84 %; Platelet Count 279 k/uL (150-450); RBC 4.21 m/uL (4.30-5.90); RDW 13.3 % (11.5-15.5)
[2017-05-23 10:59] LABS: INR 1.1 (<1.2); Prothrombin Time 10.5 sec (9.0-12.0)
[2017-05-23 11:00] LABS: Partial Thromboplastin Time 24.4 sec (22.0-30.0)
[2017-05-23 11:11] LABS: ABG Base Excess -7.9 mmol/L; ABG HCO3 17 mmol/L (21-25); ABG Oxygen Saturation 94.5 % (94-97); ABG PCO2 25 mmHg (35-45); ABG PH 7.42 (7.35-7.45); ABG PO2 70 mmHg (83-108); ABG TCO2 17 mmol/L (19-24)
[2017-05-23 11:18] LABS: Albumin 3.7 g/dL (3.5-5.0); Calcium 8.9 mg/dL (8.4-10.2); Potassium 4.7 mmol/L (3.5-5.1); Total Bilirubin 0.5 mg/dL (0.2-1.3); Total Protein 6.3 g/dL (6.3-8.2)
[2017-05-23 11:40] LABS: Creatine Kinase MB 7.4 ng/mL (0.0-2.4); Troponin I 0.067 ng/mL (0.000-0.034)
--- NOTE | 2017-05-23 12:10 | XR ---
EXAMINATION TYPE: XR chest 2V DATE OF EXAM: 05/23/2017 COMPARISON: Chest x-ray March 02, 2016. HISTORY: Difficulty in breathing. TECHNIQUE: Frontal and lateral views of the chest are obtained. FINDINGS: There is background chronic emphysematous change. There is no focal air space opacity, ple ural effusion, or pneumothorax seen. The cardiac silhouette size is within normal limits with athero sclerotic change in aortic knob. The osseous structures are demineralized. IMPRESSION: Chronic emphysematous change without acute pulmonary process.
[2017-05-23] MEDS ORDERED: ACETAMINOPHEN TAB 325 MG TAB PO PRN (12:32)
[2017-05-23] MEDS ORDERED: NITROGLYCERIN SL TABS 0.4 MG TAB SUBLINGUAL PRN (12:32)
[2017-05-23] MEDS ORDERED: HEPARIN SODIUM,PORCINE 5,000 UNIT/ML 1 ML VIAL IV ONE (12:32)
--- NOTE | 2017-05-23 12:32 | ED ---
SOB HPI - General Chief Complaint: Shortness of Breath Stated Complaint: Respiratory distress Time Seen by Provider: 05/23/17 10:25 Source: patient Mode of arrival: wheelchair Limitations: no limitations - History of Present Illness Initial Comments: 47 years old gentleman history of COPD and chronic shortness of breath he does wear oxygen at home with a shortness of breath got worse this morning he denies any chest pain no pleuritic chest pain no nausea no vomiting no diaphoresis he does have a history of COPD history of diabetes hypertension and prostate disease and COPD he has a lump on his lungs or mass on his lungs Dr. Madrid send him to [facility] and a keep an eye on the review of system is unremarkable for any abdominal pain frequency urgency dysuria and is TIA or CVA - Related Data Home Medications Medication Instructions Recorded Confirmed Clopidogrel [Plavix] 75 mg PO DAILY 05/20/14 05/23/17 Docusate [Colace] 100 mg PO DAILY PRN 05/20/14 05/23/17 Ipratropium-Albuterol Nebulize 3 ml INHALATION RT-QID 05/20/14 05/23/17 [Duoneb 0.5 mg-3 mg/3 ml Soln] Tamsulosin [Flomax] 0.8 mg PO DAILY 05/20/14 05/23/17 metFORMIN HCL [metFORMIN HCL ER] 1,000 mg PO BID 05/20/14 05/23/17 guaiFENesin [Mucinex] 600 mg PO BID PRN 01/24/15 05/23/17 Areds Ii Eye Vitamins 1 tab PO DAILY 03/02/16 05/23/17 Atorvastatin [Lipitor] 20 mg PO DAILY 03/02/16 05/23/17 Budesonide/Formoterol Fumarate 2 puff INHALATION RT-BID 03/02/16 05/23/17 [Symbicort 160-4.5 Mcg Inhaler] Lactose-Reduced Food [Boost] 237 ml PO DAILY 03/02/16 05/23/17 Melatonin 3 mg PO HS 03/02/16 05/23/17 Metoprolol Tartrate [Lopressor] 25 mg PO BID 03/02/16 05/23/17 Acyclovir [Zovirax] 400 mg PO TID 05/23/17 05/23/17 Dexamethasone [Hexadrol] 20 mg PO WE 05/23/17 05/23/17 Lenalidomide [Revlimid] 10 mg PO DIRECTED 05/23/17 05/23/17 Prochlorperazine [Compazine] 10 mg PO Q6H PRN 05/23/17 05/23/17 predniSONE 5 mg PO DAILY 05/23/17 05/23/17 Previous Rx's Medication Instructions Recorded Lisinopril 40 mg PO DAILY #0 03/05/16 Allergies Allergy/AdvReac Type Severity Reaction Status Date / Time No Known Allergies Allergy Verified 05/23/17 10:49 Review of Systems ROS Statement: Those systems with pertinent positive or pertinent negative responses have been documented in the HPI. ROS Other: All systems not noted in ROS Statement are negative. Past Medical History Past Medical History: Chest Pain / Angina, COPD, Diabetes Mellitus, Eye Disorder , Hyperlipidemia, Hypertension, Memory Impairment, Pneumonia, Vascular Disorder Additional Past Medical History / Comment(s): Chronic hypoxic respiratory failure with home O2 at 2 and half liters, SPOT ON RT LUNG AND ESOPHAGUS -01/09 , PVD with carotid stenosis 90% on the left and 50% on the right, proteinuria, bronchitis, macular degeneration, WT LOSS APPROX 15-20 # OVER 7 MONTHS". History of Any Multi-Drug Resistant Organisms: None Reported Past Surgical History: Heart Catheterization Additional Past Surgical History / Comment(s): veins unblocked in both legs, carotid endarectomy left side, bilateral cataract removal and intraocular lens implants, BILAT EYE INJECTIONS 01/11/15 FOR MACULAR DEGENERATION, BRONCOSCOPY , colonoscopy Past Anesthesia/Blood Transfusion Reactions: No Reported Reaction Past Psychological History: No Psychological Hx Reported Smoking Status: Former smoker Past Alcohol Use History: Rare Past Drug Use History: None Reported - Past Family History Brother(s) Family Medical History: Coronary Artery Disease (CAD), Diabetes Mellitus Father Additional Family Medical History / Comment(s): kidney failure Mother Family Medical History: Congestive Heart Failure (CHF), Coronary Artery Disease (CAD) General Exam Limitations: no limitations Course Vital Signs 05/23/17 05/23/17 05/23/17 10:16 10:18 10:19 Temperature 97.7 F Pulse Rate 95 64 Respiratory 26 H 16 24 Rate Blood Pressure 134/58 O2 Sat by Pulse 83 L 98 Oximetry 05/23/17 05/23/17 05/23/17 11:03 11:05 11:25 Temperature Pulse Rate 102 H 94 91 Respiratory 20 Rate Blood Pressure 165/70 O2 Sat by Pulse 98 Oximetry 05/23/17 11:50 Temperature Pulse Rate 100 Respiratory Rate Blood Pressure O2 Sat by Pulse Oximetry EKG is atrial flutter ventricular rate is 92 NM interval, QRS duration is 86 QT/ QTc is 338/417 and review of this EKG does not reveal any ST elevation noticed some T-wave inversion in aVL and S2 depression in V6, patient was reviewed and discussed with the Dr. Chu she agrees with the admission with the Dr. Madrid's consult cardiology consult and echocardiogram and heparinization that would help him with his elevated troponin as well as atrial flutter because I do not to see him on any Medical Decision Making - Lab Data Result diagrams: 05/23/17 10:23 05/23/17 10:23 Lab Results 05/23/17 05/23/17 05/23/17 Range/Units 10:23 10:23 10:23 WBC 8.0 (3.8-10.6) k/uL RBC 4.21 L (4.30-5.90) m/uL Hgb 12.4 L (13.0-17.5) gm/dL Hct 37.6 L (39.0-53.0) % MCV 89.4 (80.0-100.0) fL MCH 29.4 (25.0-35.0) pg MCHC 32.8 (31.0-37.0) g/dL RDW 13.3 (11.5-15.5) % Plt Count 279 (150-450) k/uL Neutrophils % 84 % Lymphocytes % 5 % Monocytes % 7 % Eosinophils % 2 % Basophils % 0 % Neutrophils # 6.7 (1.3-7.7) k/uL Lymphocytes # 0.4 L (1.0-4.8) k/uL Monocytes # 0.6 (0-1.0) k/uL Eosinophils # 0.2 (0-0.7) k/uL Basophils # 0.0 (0-0.2) k/uL PT (9.0-12.0) sec INR (<1.2) APTT (22.0-30.0) sec Sample Site ABG pH (7.35-7.45) ABG pCO2 (35-45) mmHg ABG pO2 (83-108) mmHg ABG HCO3 (21-25) mmol/L ABG Total CO2 (19-24) mmol/L ABG O2 Saturation (94-97) % ABG Base Excess mmol/L Ralph Test FiO2 % Sodium 124 L (137-145) mmol/L Potassium 4.7 (3.5-5.1) mmol/L Chloride 89 L (98-107) mmol/L Carbon Dioxide 19 L (22-30) mmol/L Anion Gap 16 mmol/L BUN 15 (9-20) mg/dL Creatinine 0.90 (0.66-1.25) mg/dL Est GFR (CKD-EPI)AfAm 90 (>60 ml/min/1.73 sqM) Est GFR (CKD-EPI)NonAf 78 (>60 ml/min/1.73 sqM) Glucose 222 H (74-99) mg/dL Calcium 8.9 (8.4-10.2) mg/dL Total Bilirubin 0.5 (0.2-1.3) mg/dL AST 34 (17-59) U/L ALT 38 (21-72) U/L Alkaline Phosphatase 76 (38-126) U/L Total Creatine Kinase 171 H (55-170) U/L CK-MB (CK-2) 7.4 H* (0.0-2.4) ng/mL CK-MB (CK-2) Rel Index 4.3 Troponin I 0.067 H* (0.000-0.034) ng/mL Total Protein 6.3 (6.3-8.2) g/dL Albumin 3.7 (3.5-5.0) g/dL 05/23/17 05/23/17 Range/Units 10:23 11:04 WBC (3.8-10.6) k/uL RBC (4.30-5.90) m/uL Hgb (13.0-17.5) gm/dL Hct (39.0-53.0) % MCV (80.0-100.0) fL MCH (25.0-35.0) pg MCHC (31.0-37.0) g/dL RDW (11.5-15.5) % Plt Count (150-450) k/uL Neutrophils % % Lymphocytes % % Monocytes % % Eosinophils % % Basophils % % Neutrophils # (1.3-7.7) k/uL Lymphocytes # (1.0-4.8) k/uL Monocytes # (0-1.0) k/uL Eosinophils # (0-0.7) k/uL Basophils # (0-0.2) k/uL PT 10.5 (9.0-12.0) sec INR 1.1 (<1.2) APTT 24.4 (22.0-30.0) sec Sample Site Left Radial ABG pH 7.42 (7.35-7.45) ABG pCO2 25 L (35-45) mmHg ABG pO2 70 L (83-108) mmHg ABG HCO3 17 L (21-25) mmol/L ABG Total CO2 17 L (19-24) mmol/L ABG O2 Saturation 94.5 (94-97) % ABG Base Excess -7.9 mmol/L Ralph Test Yes FiO2 32 % Sodium (137-145) mmol/L Potassium (3.5-5.1) mmol/L Chloride (98-107) mmol/L Carbon Dioxide (22-30) mmol/L Anion Gap mmol/L BUN (9-20) mg/dL Creatinine (0.66-1.25) mg/dL Est GFR (CKD-EPI)AfAm (>60 ml/min/1.73 sqM) Est GFR (CKD-EPI)NonAf (>60 ml/min/1.73 sqM) Glucose (74-99) mg/dL Calcium (8.4-10.2) mg/dL Total Bilirubin (0.2-1.3) mg/dL AST (17-59) U/L ALT (21-72) U/L Alkaline Phosphatase (38-126) U/L Total Creatine Kinase (55-170) U/L CK-MB (CK-2) (0.0-2.4) ng/mL CK-MB (CK-2) Rel Index Troponin I (0.000-0.034) ng/mL Total Protein (6.3-8.2) g/dL Albumin (3.5-5.0) g/dL Critical Care Time Total Critical Care Time: 45 Critical Care Time: Please see the my dictation patient came in with the atrial flutter he was short winded, neck treatments were started right away that helped him IV steroids started that helped him as well as interviewed noticed that his atrial flutter and not sure if is new or old but his troponin is elevated will require and heparinize him he admitted to Dr. Chu's service cardiology be consulted and Dr. Madrid be consulted Disposition Clinical Impression: Hypoxia, Metabolic acidosis, COPD exacerbation, Atrial flutter, Elevated troponin Disposition: ADMITTED IP TO THIS HOSP Condition: Good Referrals: Alexey Madrid DO [Primary Care Provider] - 1-2 days
[2017-05-23] MEDS ORDERED: guaiFENesin 600 MG TABLET.ER PO PRN (12:42)
[2017-05-23] MEDS ORDERED: DOCUSATE 100 MG CAP PO PRN (12:42)
[2017-05-23] MEDS ORDERED: PROCHLORPERAZINE 10 MG TAB PO PRN (12:42)
[2017-05-23] MEDS ORDERED: HEPARIN SOD,PORK IN 0.45% NACL 25,000 UNIT in 0.45% NACL 1 500ML.BAG IV SCH (12:45)
[2017-05-23] MEDS: SODIUM CHLORIDE 0.9% 1,000 ML IV SCH ×2 (13:15→23:01)
[2017-05-23] MEDS: LENALIDOMIDE 10 MG PO SCH (15:11)
[2017-05-23] MEDS: IPRATROPIUM-ALBUTEROL 3 ML NEB INHALATION SCH ×2 (15:18→19:43)
[2017-05-23] MEDS ORDERED: METOPROLOL SUCCINATE (ER) 25 MG TAB.ER.24H PO STA (16:01)
[2017-05-23] MEDS ORDERED: METOPROLOL TARTRATE 25 MG TAB PO STA (16:02)
[2017-05-23] MEDS: ACYCLOVIR 200 MG CAP PO SCH ×2 (16:05→21:40)
[2017-05-23 17:46] LABS: Troponin I 0.039 ng/mL (0.000-0.034)
--- NOTE | 2017-05-23 17:48 | P.CNPUL ---
History of Present Illness Consult date: 05/23/17 Reason for consult: COPD History of present illness: 87-year-old male patient known history of COPD, hypertension, diabetes mellitus and previous history of pulmonary nodules and mediastinal lymphadenopathy whereas been followed up in our office by Dr. Madrid. The patient has an FEV1 of 72% of predicted consistent with mild COPD and the patient has a diffusion capacity of 23% of predicted and the total lung capacity of 111% of predicted. Note that, the patient's abnormal pulmonary nodules are being monitored and the patient has had several CAT scans at [facility], and the last CAT scan was done on 02/11/2017 that showed Emphysematous changes in the lungs bilaterally consistent with centrilobular emphysema. There was persistent multiple noncalcified pulmonary nodules that are unchanged in size and position and configuration compared to the previous CAT scan from 08/10/2015 and 2014. The largest of these lesions is a 1.6 cm lesion that has spiculated border in the right upper lobe. Also, the patient has mediastinal lymphadenopathy that is not greater than 1 cm in size. No pericardial effusion. The size of the lymph nodes within the mediastinum have not changed significantly compared to the prior CAT scans. Other comorbid conditions include diabetes mellitus, hypertension, hyperlipidemia, peripheral vascular disease and macular degeneration and the patient has carotid artery disease with previous carotid endarterectomy and he is also known to have peripheral vascular disease with previous femoral bypass surgery. He is a [id number] smoking history and he quit smoking back in December 2004. No history of alcoholism. He takes prednisone 5 mg by mouth daily on a chronic basis. As for his COPD he takes Symbicort 160/4.52 puffs twice a day and albuterol solution on yesterday's basis in conjunction with ipratropium bromide..The patient has been also maintained on Revlimid and Decadron probably for treatment of multiple myeloma. Earlier, the patient was receiving Velcade injections and discovered switched to Revlimid. The patient apparently developed shingles also involving the left lower extremity that was treated on outpatient basis. The patient presented to the [facility] department today with increased shortness of breath. His shortness of breath has gotten worse since this morning. He denied having any chest pain. No pleurisy. No hemoptysis. No nausea vomiting or abdominal pain. His chest x-ray showed chronic emphysematous changes without any acute cardiopulmonary process. EKG showed a flutter with variable blocks and left axis deviation. The rate is controlled. The patient is also Q waves over the anterior septal leads. The blood work showed no significant leukocytosis. The blood gas showed a pH of 7.42 with a pCO2 of 25 and pO2 of 70 and this was done and FiO2 of 32%. Sodium level was low at 124 and a glucose was up to 22 and the patient had some limited troponin leak with a troponin level of 0.067. Liver function tests were within normal limits. The patient was placed on DuoNeb nebulized treatments around the clock, IV heparin and he was admitted to the hospital. Review of Systems Constitutional: Reports fatigue, Reports weakness Eyes: denies blurred vision, denies bulging eye, denies decreased vision Ears: deny: decreased hearing, ear discharge, earache, tinnitus Ears, nose, mouth and throat: Denies headache, Denies sore throat Cardiovascular: Reports decreased exercise tolerance, Reports dyspnea on exertion, Reports irregular heart beat, Reports shortness of breath Respiratory: Reports cough, Reports dyspnea, Reports excessive sputum, Reports home oxygen, Reports wheezing Gastrointestinal: Denies abdominal pain, Denies diarrhea, Denies nausea, Denies vomiting Genitourinary: Reports as per HPI Musculoskeletal: Denies myalgias Musculoskeletal: absent: ankle pain, ankle stiffness, ankle swelling Integumentary: Reports as per HPI, Reports lesions (Related to shingles in the left lower extremity) Neurological: Denies numbness, Denies weakness Endocrine: Reports as per HPI, Reports fatigue Hematologic/Lymphatic: Reports as per HPI Allergic/Immunologic: Reports as per HPI Past Medical History Past Medical History: Cancer, Chest Pain / Angina, COPD, Diabetes Mellitus, Eye Disorder, Hyperlipidemia, Hypertension, Memory Impairment, Pneumonia, Renal Disease, Vascular Disorder Additional Past Medical History / Comment(s): Chronic hypoxic respiratory failure with home O2 at 2l n/c(used to use as needed but lately has been using atc.), COPD with an FEV1 of 72% of predicted, multiple pulmonary nodules as mentioned being followed up by serial CAT scans, multiple myeloma currently on Revlimid and Decadron, PVD with carotid stenosis 90% on the left and 50% on the right, proteinuria, bronchitis,alfonzo eye macular degeneration, diabetes mellitus , hyperlipidemia, hypertension, BPH, WT LOSS APPROX 20 # OVER one year. Chronic constipation, Shingles of LLE History of Any Multi-Drug Resistant Organisms: None Reported Past Surgical History: Heart Catheterization Additional Past Surgical History / Comment(s): veins unblocked in both legs, carotid endarectomy left side, bilateral cataract removal and intraocular lens implants, BILAT EYE INJECTIONS 01/11/15 FOR MACULAR DEGENERATION, BRONCOSCOPY , colonoscopy Past Anesthesia/Blood Transfusion Reactions: No Reported Reaction Smoking Status: Former smoker - Past Family History Brother(s) Family Medical History: Coronary Artery Disease (CAD), Diabetes Mellitus Father Additional Family Medical History / Comment(s): kidney failure Mother Family Medical History: Congestive Heart Failure (CHF), Coronary Artery Disease (CAD) Medications and Allergies Home Medications Medication Instructions Recorded Confirmed Type Clopidogrel [Plavix] 75 mg PO DAILY 05/20/14 05/23/17 History Docusate [Colace] 100 mg PO DAILY PRN 05/20/14 05/23/17 History Ipratropium-Albuterol Nebulize 3 ml INHALATION RT-QID 05/20/14 05/23/17 History [Duoneb 0.5 mg-3 mg/3 ml Soln] Tamsulosin [Flomax] 0.8 mg PO DAILY 05/20/14 05/23/17 History metFORMIN HCL [metFORMIN HCL ER] 1,000 mg PO BID 05/20/14 05/23/17 History guaiFENesin [Mucinex] 600 mg PO BID PRN 01/24/15 05/23/17 History Areds Ii Eye Vitamins 1 tab PO DAILY 03/02/16 05/23/17 History Atorvastatin [Lipitor] 20 mg PO DAILY 03/02/16 05/23/17 History Budesonide/Formoterol Fumarate 2 puff INHALATION RT-BID 03/02/16 05/23/17 History [Symbicort 160-4.5 Mcg Inhaler] Lactose-Reduced Food [Boost] 237 ml PO DAILY 03/02/16 05/23/17 History Melatonin 3 mg PO HS 03/02/16 05/23/17 History Metoprolol Tartrate [Lopressor] 25 mg PO BID 03/02/16 05/23/17 History Lisinopril 40 mg PO DAILY #0 03/05/16 05/23/17 Rx Acyclovir [Zovirax] 400 mg PO TID 05/23/17 05/23/17 History Dexamethasone [Hexadrol] 20 mg PO WE 05/23/17 05/23/17 History Lenalidomide [Revlimid] 10 mg PO DIRECTED 05/23/17 05/23/17 History Prochlorperazine [Compazine] 10 mg PO Q6H PRN 05/23/17 05/23/17 History predniSONE 5 mg PO DAILY 05/23/17 05/23/17 History Allergies Allergy/AdvReac Type Severity Reaction Status Date / Time No Known Allergies Allergy Verified 05/23/17 10:49 Physical Exam Vitals: Vital Signs Temp Pulse Pulse Resp BP BP Pulse Ox 05/23/17 16:00 97.7 F 113 H 16 125/78 95 05/23/17 15:28 74 16 05/23/17 15:18 70 96 05/23/17 14:00 97.2 F L 127 H 20 164/95 92 L 05/23/17 13:25 97.8 F 105 H 22 148/98 96 05/23/17 12:00 111 H 20 146/63 96 05/23/17 11:50 100 05/23/17 11:25 91 05/23/17 11:05 94 05/23/17 11:03 102 H 20 165/70 98 05/23/17 10:19 24 05/23/17 10:18 64 16 134/58 98 05/23/17 10:16 97.7 F 95 26 H 83 L Intake and Output 05/23/17 05/23/17 05/23/17 06:59 14:59 22:59 Intake Total 16 Output Total 650 Balance -634 Intake: Intake, IV Titration 16 Amount Heparin Sod,Pork in 0.45% 16 NaCl 25,000 unit In 0.45 % NaCl 1 500ml.bag @ 12 UNITS/KG/HR 16 mls/hr IV .Q24H [facility] Rx#:[id number] Output: Urine 650 Other: Voiding Method Urinal # Voids 1 Weight 66.678 kg Head exam was generally normal. There was no scleral icterus or corneal arcus. Mucous membranes were moist.Neck was supple and without jugular venous distension, thyromegaly, or carotid bruits. Carotids were easily palpable bilaterally. There was no adenopathy.there is positive JVDs and the patient has a scar of previous endarterectomy on the left neck. Lung sounds are diminished bilaterally and the patient has prolongation of expiratory phase of breathing along with scattered rhonchi heard throughout the lung leos bilaterally.Cardiac exam revealed the PMI to be normally situated and sized. The rhythm was regular and no extrasystoles were noted during several minutes of auscultation. The first and second heart sounds were normal and physiologic splitting of the second heart sound was noted. There were no murmurs, rubs, clicks, or gallops.Abdominal exam revealed normal bowel sounds. The abdomen was soft, non-tender, and without masses, organomegaly, or appreciable enlargement of the abdominal aorta.Examination of the extremities revealed easily palpable radial, femoral and pedal pulses. There was no cyanosis, clubbing or edema.neurologically the patient is awake and alert and there is no focal neurological deficit.Examination of the skin revealed no evidence of significant rashes, suspicious appearing nevi or other concerning lesions.scars of a healed shingles involving the left lower extremity. Results - Laboratory Findings CBC and BMP: 05/23/17 10:23 05/23/17 10:23 ABG ABG pH 7.42 (7.35-7.45) 05/23/17 11:04 ABG pCO2 25 mmHg (35-45) L 05/23/17 11:04 ABG pO2 70 mmHg (83-108) L 05/23/17 11:04 ABG O2 Saturation 94.5 % (94-97) 05/23/17 11:04 PT/INR, D-dimer PT 10.5 sec (9.0-12.0) 05/23/17 10:23 INR 1.1 (<1.2) 05/23/17 10:23 Abnormal lab findings: Abnormal Labs 05/23/17 05/23/17 05/23/17 10:23 10:23 10:23 RBC 4.21 L Hgb 12.4 L Hct 37.6 L Lymphocytes # 0.4 L ABG pCO2 ABG pO2 ABG HCO3 ABG Total CO2 Sodium 124 L Chloride 89 L Carbon Dioxide 19 L Glucose 222 H Total Creatine Kinase 171 H CK-MB (CK-2) 7.4 H* Troponin I 0.067 H* 05/23/17 11:04 RBC Hgb Hct Lymphocytes # ABG pCO2 25 L ABG pO2 70 L ABG HCO3 17 L ABG Total CO2 17 L Sodium Chloride Carbon Dioxide Glucose Total Creatine Kinase CK-MB (CK-2) Troponin I - Diagnostic Findings Chest x-ray: image reviewed Assessment and Plan Plan: Assessment 1 acute COPD exacerbation. The patient excessive chest congestion and he is unable to expectorate. He is bronchospastic and wheezy. Reviewed the previous CAT scan of the chest and the patient extensive emphysema related to previous smoking. Pulmonary nodules have been monitored for more than 2 years and there' ve been stable and there is been no mediastinal lymphadenopathy 2 acute shortness of breath secondary to above 3 atrial flutter with 2 to one block with controlled rate. This may be of a new onset and the patient is currently on IV heparin. The rate is controlled 4 minimal troponin elevation, nonspecific 5 COPD FEV1 of 72% of predicted. The patient has severe diffusion impairment and the patient has been oxygen dependent 6 multiple myeloma initiated. With Velcade and currently on a combination of Revlimid and Decadron 7 shingles of the left lower extremity, treated 8 severe peripheral vascular disease with previous vascular intervention involving the legs 9 pulmonary nodules, stable on previous CAT scan monitoring the last CAT scan was done in January 2017 10 acute hyponatremia 13 carotid artery disease with a previous endarterectomy on the left, 50% lesion on the right, 14 diabetes mellitus 15 hyperlipidemia 16 hypertension 17 BPH 18 macular degeneration 19 we'll obtain [id number] smoking history, ex-smoker since 2004 Plan Put the patient on DuoNeb nebulized treatments around the clock. Continue Symbicort and add Spiriva one relation day. Add Mucinex DM for congestion regularly twice a day. Cover the patient with Levaquin 750 mg by mouth daily. IV Solu Medrol 60 mg every 6 hours in regards to COPD exacerbation. Continue IV heparin and the patient may need long-term anticoagulation regarding his new onset atrial flutter. He may also need a follow-up echocardiogram. Check troponins. Stop the oral prednisone for now as the patient will be going IV Solu Medrol treatment for the next few days. Shingles have been treated in the left lower extremity. Resume outpatient medications. Monitor sodium level. We 'll continue to follow.
[2017-05-23] MEDS: methylPREDNISolone SOD SUCCI 125 MG/2 ML VIAL IV SCH (19:39)
[2017-05-23] MEDS: SYMBICORT 160-4.5 MCG INHALER INHALATION SCH (19:43)
[2017-05-23 20:46] LABS: Glucose,Whole Blood 254 mg/dL (75-99)
[2017-05-23] MEDS: INSULIN ASPART 100 UNIT/ML 1 ML 10 ML VIAL SQ SCH (21:07)
[2017-05-23] MEDS: metFORMIN 500 MG TAB PO SCH (21:39)
[2017-05-23] MEDS: ATORVASTATIN 40 MG TAB PO SCH (21:39)
[2017-05-23] MEDS: guaiFENesin-DM 600/30MG 1 EACH TAB.ER.12H PO SCH (21:39)
[2017-05-23] MEDS: METOPROLOL TARTRATE 25 MG TAB PO SCH (21:39)
[2017-05-23] MEDS: MELATONIN 3 MG TABLET PO SCH (21:39)
--- NOTE | 2017-05-23 21:43 | ECHOF ---
Referral Reason:R/o motion abnormality MEASUREMENTS -------- HEIGHT: 152.4 cm WEIGHT: 66.7 kg BP: IVSd: 1.1 cm (0.6 - 1.1) LVIDd: 4.9 cm (3.9 - 5.3) LVPWd: 1.1 cm (0.6 - 1.1) IVSs: 1.4 cm LVIDs: 3.3 cm LVPWs: 1.7 cm LA Diam: 4.3 cm (2.7 - 3.8) LAESV Index (A-L): 35.29 ml/m Ao Diam: 4.0 cm (2.0 - 3.7) AV Cusp: 1.3 cm (1.5 - 2.6) LA Diam: 3.2 cm (2.7 - 3.8) MV EXCURSION: 18.048 mm (> 18.000) MV EF SLOPE: 154 mm/s (70 - 150) EPSS: 0.3 cm MV E Guerrero: 1.22 m/s MV DecT: 155 ms MV A Guerrero: 0.57 m/s MV E/A Ratio: 2.15 RAP: 5.00 mmHg RVSP: 51.26 mmHg FINDINGS -------- The rhythm appears to be atrial flutter. This was a technically adequate study. The left ventricular size is normal. There is mild concentric left ventricular hypertrophy. Overa ll left ventricular systolic function is moderately impaired with, an EF between 35 - 40 %. Anterse ptal Hypokinesis The right ventricle is normal in size. The left atrium is mildly dilated. LA is moderately dilated 34-39 ml/m2 The right atrial size is normal. There is mild aortic valve sclerosis. There is no evidence of aortic regurgitation. Mild mitral annular calcification present. Mild mitral regurgitation is present. Moderate tricuspid regurgitation present. There is moderate pulmonary hypertension. The right celi tricular systolic pressure, as measured by Doppler, is 51.26mmHg. There is no pulmonic regurgitation present. The aortic root size is normal. There is no pericardial effusion. CONCLUSIONS -------- 1. The rhythm appears to be atrial flutter. 2. This was a technically adequate study. 3. The left ventricular size is normal. 4. There is mild concentric left ventricular hypertrophy. 5. Anterseptal Hypokinesis 6. LA is moderately dilated 34-39 ml/m2 7. There is mild aortic valve sclerosis. 8. Mild mitral annular calcification present. 9. Mild mitral regurgitation is present. 10. Moderate tricuspid regurgitation present. 11. There is moderate pulmonary hypertension. 12. The right ventricular systolic pressure, as measured by Doppler, is 51.26mmHg. 13. There is no pulmonic regurgitation present. 14. The aortic root size is normal. 15. There is no pericardial effusion. EDITING INTERN: Velma Hess RDCS
[2017-05-23 23:22] LABS: Troponin I 0.032 ng/mL (0.000-0.034)
[2017-05-23 23:26] LABS: Creatine Kinase MB 7.8 ng/mL (0.0-2.4)
[2017-05-24] MEDS: methylPREDNISolone SOD SUCCI 125 MG/2 ML VIAL IV SCH ×5 (02:06→23:05)
[2017-05-24 05:55] LABS: Glucose,Whole Blood 153 mg/dL (75-99)
[2017-05-24] MEDS: INSULIN ASPART 100 UNIT/ML 1 ML 10 ML VIAL SQ SCH ×4 (06:41→21:19)
[2017-05-24] MEDS ORDERED: SODIUM CHLORIDE 0.9% 1,000 ML IV ONE (08:56)
[2017-05-24] MEDS ORDERED: predniSONE 5 MG TAB PO SCH (09:00)
[2017-05-24] MEDS ORDERED: NON-FORMULARY DRUG (Lactose-Reduced Food [Boost] 237 ML) PO SCH (09:00)
[2017-05-24] MEDS ORDERED: ASPIRIN 325 MG TAB PO SCH (09:00)
[2017-05-24] MEDS: IPRATROPIUM-ALBUTEROL 3 ML NEB INHALATION SCH ×4 (09:37→20:34)
[2017-05-24] MEDS: SYMBICORT 160-4.5 MCG INHALER INHALATION SCH ×2 (09:37→20:34)
--- NOTE | 2017-05-24 09:37 | CONS ---
CONSULTATION CHIEF COMPLAINT: Shortness of breath. Mr. Mendoza is an 87-year-old gentleman with history of questionable coronary artery disease, hypertension, diabetes, dyslipidemia, severe COPD on home O2, who follows with Dr. Gonzalez out of town and apparently has had some work done on his veins in the legs and there is also a questionable history of cardiac catheterization with or without a stent. He comes in complaining of worsening shortness of breath. He felt more and more short of breath yesterday, came to the ER and got admitted. His shortness of breath is moderate to severe intensity. There is no chest pain. No diaphoresis. No palpitations, dizziness or syncope. On his initial arrival to the emergency room, he was found to be in atrial flutter with controlled ventricular rate and also thought to have had COPD exacerbation. His tropes are at 0.06, 0.03 and 0.03, creatinine is normal at 0.9. EKG shows atrial flutter with nonspecific ST-T wave changes. An echocardiogram shows moderate LV dysfunction with an ejection fraction of 35% to 40% with evidence of anteroseptal hypokinesis. There is moderate pulmonary hypertension noted. Patient also has a history of esophageal cancer. It is unclear if there are mets to bones or not. Chest x-ray on this admission revealed emphysematous changes. Given the elevated troponins and his clinical presentation, I talked to him about undergoing heart catheterization. Understanding all the issues, he does not want to go through any invasive procedures. Will follow up with his own right of way clearer on discharge. At the moment, patient is stable, does not have any chest pain and his shortness of breath has improved after being treated with steroids and antibiotics. He apparently was wheezing quite a bit when he first arrived in the ER. PAST MEDICAL HISTORY: Significant for non-insulin diabetes, hypertension, dyslipidemia, COPD, peripheral vascular disease. Patient is on prednisone 5 mg daily, metformin 1000 b.i.d., Mucinex, Flomax, Compazine, Lopressor, lisinopril 40 mg daily, nebulizers, Colace, Plavix, Symbicort, Lipitor, Zovirax. No known drug allergies. FAMILY HISTORY: Negative for premature coronary artery disease. SOCIAL HISTORY: He denies current smoking, EtOH abuse, or drug abuse. REVIEW OF SYSTEMS: HEENT is unremarkable. CARDIAC: As described above. RESPIRATORY: As described above. GI: Negative. GENITOURINARY: Negative. ALLERGY/IMMUNOLOGY: Negative. SKIN: Negative. MUSCULOSKELETAL: Significant for arthritis. PSYCHOSOCIAL: Negative. ENDOCRINE: Negative. DERM: Negative. CONSTITUTIONAL: Significant for fatigue and tiredness. ONCOLOGICAL: Significant for esophageal cancer. PHYSICAL EXAM: Comfortable at rest. Heart rate is 95 to 100 beats per minute. Blood pressure 118/74, respiratory rate is 18, O2 sat is 94% on 3 L, afebrile. There is no jugular venous distention. Chest exam reveals bilateral occasional rhonchi. Carotid upstroke is diminished. Heart exam reveals first and second heart sounds. No gallop. No murmur. Abdomen is soft, nontender. Exam of extremities did not reveal any edema. Peripheral pulses are palpable. LABS: Showed that the tropes are mildly elevated. Sodium is low at 124, potassium is 4.7, creatinine is 0.9. Blood sugars are poorly controlled. ASSESSMENT: 1. Atypical atrial flutter. 2. Non ST-segment elevation myocardial infarction. 3. Ischemic cardiomyopathy. 4. Chronic obstructive pulmonary disease exacerbation. 5. Hypertension. 6. Diabetes dyslipidemia. PLAN: I reviewed his labs, echo on this admission, EKGs. I am going to obtain records from his right of way clearer. I will see if he is covered for Eliquis. If he is, I am going to put him on Eliquis and stop the heparin. He is otherwise on adequate medical therapy for his underlying CAD including aspirin, Plavix, Zestril, and metoprolol. MMODL / IJN: [id number] /
[2017-05-24 10:28] LABS: ALT 161 U/L (21-72); AST 143 U/L (17-59); Albumin 3.8 g/dL (3.5-5.0); Alkaline Phosphatase 141 U/L (38-126); Anion Gap 13 mmol/L; Blood Urea Nitrogen 17 mg/dL (9-20); Calcium 8.9 mg/dL (8.4-10.2); Carbon Dioxide 21 mmol/L (22-30); Chloride 91 mmol/L (98-107); Cholesterol 129 mg/dL (<200); Glucose 175 mg/dL (74-99); HDL Cholesterol 81 mg/dL (40-60); LDL Cholesterol,Calculated 36 mg/dL (0-99); Potassium 5.1 mmol/L (3.5-5.1); Sodium 125 mmol/L (137-145); Total Bilirubin 0.5 mg/dL (0.2-1.3); Total Protein 6.4 g/dL (6.3-8.2); Triglycerides 60 mg/dL (<150)
[2017-05-24] MEDS ORDERED: ASPIRIN 325 MG TAB PO STA (10:30)
[2017-05-24] MEDS ORDERED: SODIUM CHLORIDE 0.9% 1,000 ML in EMPTY BAG 1 BAG IV ONE (10:30)
[2017-05-24] MEDS ORDERED: ALPRAZolam 0.5 MG TAB PO PRN (10:30)
[2017-05-24] MEDS ORDERED: NITROGLYCERIN SL TABS 0.4 MG TAB SUBLINGUAL PRN (10:30)
[2017-05-24] MEDS ORDERED: ALPRAZolam 0.25 MG TAB PO PRN (10:30)
[2017-05-24] MEDS ORDERED: ATORVASTATIN 80 MG TAB PO STA (10:30)
[2017-05-24] MEDS: CLOPIDOGREL 75 MG TAB PO SCH (11:06)
[2017-05-24] MEDS: LISINOPRIL 20 MG TAB PO SCH (11:06)
[2017-05-24] MEDS: METOPROLOL TARTRATE 25 MG TAB PO SCH ×2 (11:06→21:18)
[2017-05-24] MEDS: metFORMIN 500 MG TAB PO SCH ×2 (11:08→21:18)
[2017-05-24] MEDS: ACYCLOVIR 200 MG CAP PO SCH ×3 (11:08→21:17)
[2017-05-24] MEDS: guaiFENesin-DM 600/30MG 1 EACH TAB.ER.12H PO SCH ×2 (11:08→21:18)
[2017-05-24] MEDS: SODIUM CHLORIDE 0.9% 1,000 ML IV SCH ×3 (11:08→17:51)
[2017-05-24 11:10] LABS: Glucose,Whole Blood 191 mg/dL (75-99)
[2017-05-24 12:15] VITALS: BMI 20.4
[2017-05-24] MEDS ORDERED: MIDAZOLAM 2 MG/2 ML VIAL IV ONE ×2 (12:43)
[2017-05-24] MEDS ORDERED: LIDOCAINE 2% INJ 20 MG/ML SQ ONE (12:45)
[2017-05-24] MEDS ORDERED: IV FLUID CONTINUATION 1,000 ML IV ONE (12:45)
[2017-05-24] MEDS ORDERED: IOHEXOL 350 MG/ML 125ML BOTTLE INJ ONE (13:03)
[2017-05-24] MEDS ORDERED: RX INFO: IV CONTRAST WAS GIVEN 1 EACH MISC MISCELLANE PRN (13:20)
[2017-05-24] MEDS: LENALIDOMIDE 10 MG PO SCH (13:50)
[2017-05-24] MEDS: TAMSULOSIN 0.4 MG CAP.ER.24H PO SCH (13:56)
[2017-05-24] MEDS: VIT A,C & E-LUTEIN-MINERALS 1 EACH TAB PO SCH (13:57)
[2017-05-24] MEDS: LEVOFLOXACIN 750 MG TAB PO SCH (13:57)
--- NOTE | 2017-05-24 13:59 | P.HPIM ---
History of Present Illness H&P Date: 05/24/17 This is an 85-year-old male patient of Dr. Mike and Dr. Madrid with a past medical history of angina, COPD on daily prednisone, chronic hypoxic respiratory failure on home O2 at 2 L nasal cannula, diabetes mellitus type 2, hyperlipidemia, hypertension, peripheral vascular disease, carotid artery disease with previous carotid endarterectomy, macular degeneration, multiple myeloma on Revlimid and Decadron, recent treatment for shingles in the left lower extremity. Patient does follow at [facility] regarding pulmonary nodules and mediastinal lymphadenopathy. 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 Patient states that he has been feeling bad for a couple weeks and that he could not do anything as he gets short of breath with even very little activities. He states he can only do activity for a couple seconds and then he has to quit. He states it's hard for him to get any phlegm out. He was previously on oxygen at 2 L just as needed for the past 3-6 months but now he is using it around the clock. He states shortness of breath starts as soon as he gets up in the morning and he can't catch his breath. He denies having any fever or chills. He has some sputum production with white and yellow phlegm. Patient came into [facility] emergency center for evaluation. He had a pulse ox of 83%, afebrile, heart rate initially in the 90s. White count was normal, hemoglobin 12.4, sodium 124, chloride 89, CO2 19, blood sugar 222. Initial troponin was 0.067 followed by 0.039, 0.030. ABGs showed a pH of 7.42, pCO2 25, PaO2 70, bicarb 17, total CO2 17, O2 saturation 94.5 and base excess -7.9. EKG was atrial flutter. Patient was started on IV steroids and then heparin drip for elevated troponin and admitted to the selective care unit. Chest x-ray shows chronic emphysematous change without acute pulmonary process. Echocardiogram reveals EF of 35-40%, mild concentric left ventricular hypertrophy, elderly moderately dilated at 34-39, refill scleral Chin, moderate tricuspid regurgitation and moderate pulmonary hypertension. Patient has been seen by Dr. Thai Shah in and patient is on DuoNeb treatments around the clock along with Symbicort, Spiriva, Mucinex, Levaquin and continued on IV Solu- Medrol. Consult in place with cardiology regarding elevated troponins and atrial flutter. Review of Systems All systems: negative Constitutional: Reports fatigue, Reports poor appetite, Denies chills, Denies fever, Denies weakness Eyes: denies blurred vision, denies pain Ears, nose, mouth and throat: Denies headache, Denies sore throat Cardiovascular: Reports decreased exercise tolerance, Reports dyspnea on exertion, Reports shortness of breath, Denies chest pain, Denies lightheadedness , Denies syncope Respiratory: Reports cough, Reports cough with sputum, Reports dyspnea, Reports home oxygen, Reports wheezing, Denies excessive sputum, Denies hemoptysis Gastrointestinal: Denies abdominal pain, Denies diarrhea, Denies nausea, Denies vomiting Musculoskeletal: Denies myalgias Integumentary: Denies pruritus, Denies rash Neurological: Denies numbness, Denies weakness Psychiatric: Denies anxiety, Denies depression Endocrine: Denies fatigue, Denies weight change Past Medical History Past Medical History: Cancer, Chest Pain / Angina, COPD, Diabetes Mellitus, Eye Disorder, Hyperlipidemia, Hypertension, Memory Impairment, Pneumonia, Renal Disease, Vascular Disorder Additional Past Medical History / Comment(s): Chronic hypoxic respiratory failure with home O2 at 2l n/c(used to use as needed but lately has been using atc.), COPD with an FEV1 of 72% of predicted, multiple pulmonary nodules as mentioned being followed up by serial CAT scans, multiple myeloma currently on Revlimid and Decadron, PVD with carotid stenosis 90% on the left and 50% on the right, proteinuria, bronchitis,alfonzo eye macular degeneration, diabetes mellitus , hyperlipidemia, hypertension, BPH, WT LOSS APPROX 20 # OVER one year. Chronic constipation, Shingles of LLE History of Any Multi-Drug Resistant Organisms: None Reported Past Surgical History: Heart Catheterization Additional Past Surgical History / Comment(s): veins unblocked in both legs, carotid endarectomy left side, bilateral cataract removal and intraocular lens implants, BILAT EYE INJECTIONS 01/11/15 FOR MACULAR DEGENERATION, BRONCOSCOPY , colonoscopy Past Anesthesia/Blood Transfusion Reactions: No Reported Reaction Smoking Status: Former smoker Additional Past Alcohol Use History / Comment(s): Patient started smoking at age 19 and quit in 2011 at one and half packs per day for total of 93 pack year history. Patient lives at home with his . He does not use any device for ambulation. He has home O2 in place. - Past Family History Brother(s) Family Medical History: Coronary Artery Disease (CAD), Diabetes Mellitus Father Additional Family Medical History / Comment(s): kidney failure Mother Family Medical History: Congestive Heart Failure (CHF), Coronary Artery Disease (CAD) Medications and Allergies Home Medications Medication Instructions Recorded Confirmed Type Clopidogrel [Plavix] 75 mg PO DAILY 05/20/14 05/23/17 History Docusate [Colace] 100 mg PO DAILY PRN 05/20/14 05/23/17 History Ipratropium-Albuterol Nebulize 3 ml INHALATION RT-QID 05/20/14 05/23/17 History [Duoneb 0.5 mg-3 mg/3 ml Soln] Tamsulosin [Flomax] 0.8 mg PO DAILY 05/20/14 05/23/17 History metFORMIN HCL [metFORMIN HCL ER] 1,000 mg PO BID 05/20/14 05/23/17 History guaiFENesin [Mucinex] 600 mg PO BID PRN 01/24/15 05/23/17 History Areds Ii Eye Vitamins 1 tab PO DAILY 03/02/16 05/23/17 History Atorvastatin [Lipitor] 20 mg PO DAILY 03/02/16 05/23/17 History Budesonide/Formoterol Fumarate 2 puff INHALATION RT-BID 03/02/16 05/23/17 History [Symbicort 160-4.5 Mcg Inhaler] Lactose-Reduced Food [Boost] 237 ml PO DAILY 03/02/16 05/23/17 History Melatonin 3 mg PO HS 03/02/16 05/23/17 History Metoprolol Tartrate [Lopressor] 25 mg PO BID 03/02/16 05/23/17 History Lisinopril 40 mg PO DAILY #0 03/05/16 05/23/17 Rx Acyclovir [Zovirax] 400 mg PO TID 05/23/17 05/23/17 History Dexamethasone [Hexadrol] 20 mg PO WE 05/23/17 05/23/17 History Lenalidomide [Revlimid] 10 mg PO DIRECTED 05/23/17 05/23/17 History Prochlorperazine [Compazine] 10 mg PO Q6H PRN 05/23/17 05/23/17 History predniSONE 5 mg PO DAILY 05/23/17 05/23/17 History Allergies Allergy/AdvReac Type Severity Reaction Status Date / Time No Known Allergies Allergy Verified 05/23/17 10:49 Physical Exam Vitals: Vital Signs Temp Pulse Pulse Resp BP BP BP 05/24/17 03:30 97.6 F 102 H 18 118/74 05/24/17 00:00 97.8 F 95 18 130/74 05/23/17 20:00 97.5 F L 79 18 147/79 05/23/17 19:54 77 16 05/23/17 19:44 71 16 05/23/17 16:20 120 H 05/23/17 16:00 97.7 F 113 H 16 125/78 05/23/17 15:28 74 16 05/23/17 15:18 70 05/23/17 14:00 97.2 F L 127 H 20 164/95 05/23/17 13:25 97.8 F 105 H 22 148/98 05/23/17 12:00 111 H 20 146/63 05/23/17 11:50 100 05/23/17 11:25 91 05/23/17 11:05 94 05/23/17 11:03 102 H 20 165/70 05/23/17 10:19 24 05/23/17 10:18 64 16 134/58 05/23/17 10:16 97.7 F 95 26 H Pulse Ox 05/24/17 03:30 94 L 05/24/17 00:00 95 05/23/17 20:00 95 05/23/17 19:54 05/23/17 19:44 05/23/17 16:20 05/23/17 16:00 95 05/23/17 15:28 05/23/17 15:18 96 05/23/17 14:00 92 L 05/23/17 13:25 96 05/23/17 12:00 96 05/23/17 11:50 05/23/17 11:25 05/23/17 11:05 05/23/17 11:03 98 05/23/17 10:19 05/23/17 10:18 98 05/23/17 10:16 83 L Intake and Output 05/23/17 05/24/17 05/24/17 22:59 06:59 14:59 Intake Total 307.2 960.667 Output Total 650 300 Balance -342.8 660.667 Intake: Intake, IV Titration 127.2 960.667 Amount Heparin Sod,Pork in 0.45% 127.2 135.667 NaCl 25,000 unit In 0.45 % NaCl 1 500ml.bag @ 12 UNITS/KG/HR 16 mls/hr IV .Q24H ALEX Rx#:[id number] Sodium Chloride 0.9% 1, 825 000 ml @ 75 mls/hr IV . [id number] STA Rx#:[id number] Oral 180 0 Output: Urine 650 300 Other: Voiding Method Urinal Urinal # Voids 1 Weight 64.5 kg Gen: This is an 85-year-old male. He is found sitting up in bed and appears to be in no acute distress. HEENT: Head is atraumatic, normocephalic. Pupils equal, round. Sclerae is anicteric. NECK: Supple. No JVD. No lymphadenopathy. No thyromegaly. LUNGS: Positive rales and crackles throughout scattered.. No intercostal retractions. HEART: Regular rate and rhythm. No murmur. ABDOMEN: Soft. Bowel sounds are present. No masses. No tenderness. EXTREMITIES: 1+ to 2+ pedal edema. No calf tenderness. NEUROLOGICAL: Patient is awake, alert and oriented x3. Cranial nerves 2 through 12 are grossly intact. Results CBC & Chem 7: 05/23/17 10:23 05/24/17 09:58 Labs: Abnormal Lab Results - Last 24 Hours (Table) 05/23/17 05/23/17 05/23/17 Range/Units 10:23 10:23 10:23 RBC 4.21 L (4.30-5.90) m/uL Hgb 12.4 L (13.0-17.5) gm/dL Hct 37.6 L (39.0-53.0) % Lymphocytes # 0.4 L (1.0-4.8) k/uL APTT (22.0-30.0) sec ABG pCO2 (35-45) mmHg ABG pO2 (83-108) mmHg ABG HCO3 (21-25) mmol/L ABG Total CO2 (19-24) mmol/L Sodium 124 L (137-145) mmol/L Chloride 89 L (98-107) mmol/L Carbon Dioxide 19 L (22-30) mmol/L Glucose 222 H (74-99) mg/dL POC Glucose (mg/dL) (75-99) mg/dL Total Creatine Kinase 171 H (55-170) U/L CK-MB (CK-2) 7.4 H* (0.0-2.4) ng/mL Troponin I 0.067 H* (0.000-0.034) ng/mL 05/23/17 05/23/17 05/23/17 Range/Units 11:04 16:47 19:14 RBC (4.30-5.90) m/uL Hgb (13.0-17.5) gm/dL Hct (39.0-53.0) % Lymphocytes # (1.0-4.8) k/uL APTT 33.4 H (22.0-30.0) sec ABG pCO2 25 L (35-45) mmHg ABG pO2 70 L (83-108) mmHg ABG HCO3 17 L (21-25) mmol/L ABG Total CO2 17 L (19-24) mmol/L Sodium (137-145) mmol/L Chloride (98-107) mmol/L Carbon Dioxide (22-30) mmol/L Glucose (74-99) mg/dL POC Glucose (mg/dL) (75-99) mg/dL Total Creatine Kinase 175 H (55-170) U/L CK-MB (CK-2) 8.0 H* (0.0-2.4) ng/mL Troponin I 0.039 H* (0.000-0.034) ng/mL 05/23/17 05/23/17 05/24/17 Range/Units 20:45 22:17 02:18 RBC (4.30-5.90) m/uL Hgb (13.0-17.5) gm/dL Hct (39.0-53.0) % Lymphocytes # (1.0-4.8) k/uL APTT 39.7 H (22.0-30.0) sec ABG pCO2 (35-45) mmHg ABG pO2 (83-108) mmHg ABG HCO3 (21-25) mmol/L ABG Total CO2 (19-24) mmol/L Sodium (137-145) mmol/L Chloride (98-107) mmol/L Carbon Dioxide (22-30) mmol/L Glucose (74-99) mg/dL POC Glucose (mg/dL) 254 H (75-99) mg/dL Total Creatine Kinase 176 H (55-170) U/L CK-MB (CK-2) 7.8 H* (0.0-2.4) ng/mL Troponin I (0.000-0.034) ng/mL 05/24/17 Range/Units 05:54 RBC (4.30-5.90) m/uL Hgb (13.0-17.5) gm/dL Hct (39.0-53.0) % Lymphocytes # (1.0-4.8) k/uL APTT (22.0-30.0) sec ABG pCO2 (35-45) mmHg ABG pO2 (83-108) mmHg ABG HCO3 (21-25) mmol/L ABG Total CO2 (19-24) mmol/L Sodium (137-145) mmol/L Chloride (98-107) mmol/L Carbon Dioxide (22-30) mmol/L Glucose (74-99) mg/dL POC Glucose (mg/dL) 153 H (75-99) mg/dL Total Creatine Kinase (55-170) U/L CK-MB (CK-2) (0.0-2.4) ng/mL Troponin I (0.000-0.034) ng/mL Thrombosis Risk Factor Assmnt - DVT/VTE Prophylaxis DVT/VTE Prophylaxis: Pharmacologic Prophylaxis ordered Assessment and Plan Plan: 1. New onset atrial flutter. Patient has been started on heparin drip and Lopressor. Patient required extra dose of Lopressor last evening. Cardiology consult in place. TSH and free T4 ordered. 2. Elevated troponin with possible non-ST elevated myocardial infarction. Cardiology consult. 3. Acute on chronic hypoxic respiratory failure with COPD exacerbation. Patient is normally on home O2 at 2 L nasal cannula. Consult with Dr. Mccullough is appreciated. Continue DuoNeb treatments 4 times daily, Symbicort 2 puffs twice daily, Mucinex, Levaquin, Solu-Medrol 60 mg IV every 6 hours. 4. Hypotonic hypovolemic hyponatremia. 5. History of hypertension. Continue lisinopril 40 mg daily, Lopressor 25 mg twice daily. 6. 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 Currently stable, avoid nephrotoxic agents and recheck lab work. 7. Diabetes mellitus type 2. Continue metformin 1000 mg twice daily and NovoLog scale before meals and at bedtime. 8. Benign prostatic hypertrophy. Continue Flomax or 0.4 mg twice daily. 9. Moderate protein calorie malnutrition with recent weight loss of 15-20 pounds over 10 months, BMI of 20. Continue protein supplement. 10. Multiple myeloma on Revlimid and Decadron. 11. Peripheral vascular disease with carotid artery disease previous endarterectomies. Continue Plavix. 12. Hyperlipidemia. Continue Lipitor 20 mg daily. 13. Chronic hypoxic respiratory failure on home O2 at 2 L. 14. DVT prophylaxis. Heparin gtt. 15 Gastrointestinal prophylaxis. Protonix daily. Patient will be admitted to the hospital for a minimum of 2 night stay. Discharge plan: Most likely return home. PT and OT evaluations requested. Impression and plan of care have been directed as dictated by the signing physician. Dot Koehler nurse practitioner acting as scribe for signing physician.
[2017-05-24] MEDS ORDERED: SODIUM CHLORIDE 0.9% 500 ML IV ONE (14:07)
--- NOTE | 2017-05-24 14:25 | CC ---
CARDIAC CATHETERIZATION REPORT INDICATION: Non ST-segment elevation [place]. PROCEDURE NOTE: After obtaining informed consent, left heart catheterization and coronary angiogram are performed via the right femoral artery using standard Danya catheters. The patient tolerated the procedure well without any obvious immediate complications. A femoral angiogram was performed and Angio-Seal was deployed for hemostasis. Patient received moderate conscious sedation and total sedation time was 15 minutes. FINDINGS: 1. HEMODYNAMICS: Left ventricular end-diastolic pressure is 14 mm. There is no significant gradient across the aortic valve. 2. LEFT VENTRICULOGRAM: Left ventriculogram is not performed. 3. ANGIOGRAPHIC DATA: Left main coronary artery: Left main coronary artery appears calcified but is free of significant stenosis. Divides into left anterior descending coronary artery and circumflex coronary artery. LAD shows 30% to 40% proximal atherosclerotic plaque, but rest of the LAD and the diagonals appear normal. Circumflex coronary artery is a large dominant system. It shows mild nonobstructive disease. There is a large ramus intermedius that comes off that shows moderate diffuse disease at its worse it is 60% to 70% stenosis. It is a small caliber vessel. Right coronary artery is a small nondominant vessel and is free of significant stenosis. CONCLUSIONS: Mild nonobstructive coronary artery disease with moderate to severe disease involving a small caliber ramus intermedius. PLAN: Patient's troponins may be related to plaque rupture and non ST-segment elevation [place]. He does not have vessels that can be stented to help him with his symptoms, so his management is going to be in the form of optimal medical therapy with aspirin, nitrates, beta blockers, RUBENS inhibitors and statins. Thank you for allowing us to participate in the care of this pleasant gentleman. MMODL / IJN: [id number] /
--- NOTE | 2017-05-24 15:48 | P.PN ---
Subjective Progress Note Date: 05/24/17 87-year-old male patient known history of COPD, hypertension, diabetes mellitus and previous history of pulmonary nodules and mediastinal lymphadenopathy whereas been followed up in our office by Dr. Madrid. The patient has an FEV1 of 72% of predicted consistent with mild COPD and the patient has a diffusion capacity of 23% of predicted and the total lung capacity of 111% of predicted. Note that, the patient's abnormal pulmonary nodules are being monitored and the patient has had several CAT scans at [facility], and the last CAT scan was done on 02/11/2017 that showed Emphysematous changes in the lungs bilaterally consistent with centrilobular emphysema. There was persistent multiple noncalcified pulmonary nodules that are unchanged in size and position and configuration compared to the previous CAT scan from 08/10/2015 and 2014. The largest of these lesions is a 1.6 cm lesion that has spiculated border in the right upper lobe. Also, the patient has mediastinal lymphadenopathy that is not greater than 1 cm in size. No pericardial effusion. The size of the lymph nodes within the mediastinum have not changed significantly compared to the prior CAT scans. Other comorbid conditions include diabetes mellitus, hypertension, hyperlipidemia, peripheral vascular disease and macular degeneration and the patient has carotid artery disease with previous carotid endarterectomy and he is also known to have peripheral vascular disease with previous femoral bypass surgery. He is a [id number] smoking history and he quit smoking back in December 2004. No history of alcoholism. He takes prednisone 5 mg by mouth daily on a chronic basis. As for his COPD he takes Symbicort 160/4.52 puffs twice a day and albuterol solution on yesterday's basis in conjunction with ipratropium bromide..The patient has been also maintained on Revlimid and Decadron probably for treatment of multiple myeloma. Earlier, the patient was receiving Velcade injections and discovered switched to Revlimid. The patient apparently developed shingles also involving the left lower extremity that was treated on outpatient basis. The patient presented to the [facility] department today with increased shortness of breath. His shortness of breath has gotten worse since this morning. He denied having any chest pain. No pleurisy. No hemoptysis. No nausea vomiting or abdominal pain. His chest x-ray showed chronic emphysematous changes without any acute cardiopulmonary process. EKG showed a flutter with variable blocks and left axis deviation. The rate is controlled. The patient is also Q waves over the anterior septal leads. The blood work showed no significant leukocytosis. The blood gas showed a pH of 7.42 with a pCO2 of 25 and pO2 of 70 and this was done and FiO2 of 32%. Sodium level was low at 124 and a glucose was up to 22 and the patient had some limited troponin leak with a troponin level of 0.067. Liver function tests were within normal limits. The patient was placed on DuoNeb nebulized treatments around the clock, IV heparin and he was admitted to the hospital. On today's evaluation of 05/24/2017, the patient is looking better. Less short of breath. Last bronchus spastic and wheezy. Still has a congested cough although it is improving compared to yesterday. The patient was seen by cardiology. Cardiac examination was done and showed a nonocclusive disease. The patient has atrial flutter. The patient will need long-term and to coagulation. The patient is also on a combination of antibiotics, bronchodilators and steroids. No other significant events overnight and he is stable from the pulmonary standpoint. Objective - Vital Signs Vital signs: Vital Signs Temp 98 F 05/24/17 09:10 Pulse 100 05/24/17 15:05 Resp 16 05/24/17 15:05 BP 126/72 05/24/17 15:05 Pulse Ox 95 05/24/17 15:05 Intake & Output 05/23/17 05/24/17 05/24/17 18:59 06:59 18:59 Intake Total 196 2214.286 7951 Output Total 650 300 350 Balance -454 192.528 3787 Weight 66.678 kg 64.5 kg 64.5 kg Intake: IV 50 Intake, IV Titration 16 2631.599 1861 Amount Heparin Sod,Pork in 0.45% 16 246.867 NaCl 25,000 unit In 0.45 % NaCl 1 500ml.bag @ 12 UNITS/KG/HR 16 mls/hr IV .Q24H [facility] Rx#:[id number] Sodium Chloride 0.9% 1, 600 000 ml @ 75 mls/hr IV . [id number] [facility] Rx#:[id number] Sodium Chloride 0.9% 1, 825 000 ml @ 75 mls/hr IV . [id number] [facility] Rx#:[id number] Sodium Chloride 0.9% 500 500 ml @ 999 mls/hr IV .Q31M [facility] Rx#:[id number] Oral 180 0 240 Output: Urine 650 300 350 Other: Voiding Method Urinal Urinal Urinal # Voids 1 - Exam Head exam was generally normal. There was no scleral icterus or corneal arcus. Mucous membranes were moist.Neck was supple and without jugular venous distension, thyromegaly, or carotid bruits. Carotids were easily palpable bilaterally. There was no adenopathy.there is positive JVDs and the patient has a scar of previous endarterectomy on the left neck. Lung sounds are diminished bilaterally and the patient has prolongation of expiratory phase of breathing along with scattered rhonchi heard throughout the lung leos bilaterally.Cardiac exam revealed the PMI to be normally situated and sized. The rhythm was regular and no extrasystoles were noted during several minutes of auscultation. The first and second heart sounds were normal and physiologic splitting of the second heart sound was noted. There were no murmurs, rubs, clicks, or gallops.Abdominal exam revealed normal bowel sounds. The abdomen was soft, non-tender, and without masses, organomegaly, or appreciable enlargement of the abdominal aorta.Examination of the extremities revealed easily palpable radial, femoral and pedal pulses. There was no cyanosis, clubbing or edema.neurologically the patient is awake and alert and there is no focal neurological deficit.Examination of the skin revealed no evidence of significant rashes, suspicious appearing nevi or other concerning lesions.scars of a healed shingles involving the left lower extremity. - Labs CBC & Chem 7: 05/23/17 10:23 05/24/17 13:14 Labs: Abnormal Lab Results - Last 24 Hours (Table) 05/23/17 05/23/17 05/23/17 Range/Units 16:47 19:14 20:45 APTT 33.4 H (22.0-30.0) sec Sodium (137-145) mmol/L Chloride (98-107) mmol/L Carbon Dioxide (22-30) mmol/L Glucose (74-99) mg/dL POC Glucose (mg/dL) 254 H (75-99) mg/dL Osmolality (280-301) mosm/kg Uric Acid (3.5-8.5) mg/dL AST (17-59) U/L ALT (21-72) U/L Alkaline Phosphatase (38-126) U/L Total Creatine Kinase 175 H (55-170) U/L CK-MB (CK-2) 8.0 H* (0.0-2.4) ng/mL Troponin I 0.039 H* (0.000-0.034) ng/mL HDL Cholesterol (40-60) mg/dL 05/23/17 05/24/17 05/24/17 Range/Units 22:17 02:18 05:54 APTT 39.7 H (22.0-30.0) sec Sodium (137-145) mmol/L Chloride (98-107) mmol/L Carbon Dioxide (22-30) mmol/L Glucose (74-99) mg/dL POC Glucose (mg/dL) 153 H (75-99) mg/dL Osmolality (280-301) mosm/kg Uric Acid (3.5-8.5) mg/dL AST (17-59) U/L ALT (21-72) U/L Alkaline Phosphatase (38-126) U/L Total Creatine Kinase 176 H (55-170) U/L CK-MB (CK-2) 7.8 H* (0.0-2.4) ng/mL Troponin I (0.000-0.034) ng/mL HDL Cholesterol (40-60) mg/dL 05/24/17 05/24/17 05/24/17 Range/Units 09:58 09:58 11:08 APTT 49.0 H (22.0-30.0) sec Sodium 125 L (137-145) mmol/L Chloride 91 L (98-107) mmol/L Carbon Dioxide 21 L (22-30) mmol/L Glucose 175 H (74-99) mg/dL POC Glucose (mg/dL) 191 H (75-99) mg/dL Osmolality 265 L (280-301) mosm/kg Uric Acid (3.5-8.5) mg/dL AST 143 H (17-59) U/L ALT 161 H (21-72) U/L Alkaline Phosphatase 141 H (38-126) U/L Total Creatine Kinase (55-170) U/L CK-MB (CK-2) (0.0-2.4) ng/mL Troponin I (0.000-0.034) ng/mL HDL Cholesterol 81 H (40-60) mg/dL 05/24/17 05/24/17 Range/Units 13:14 13:14 APTT (22.0-30.0) sec Sodium 123 L (137-145) mmol/L Chloride (98-107) mmol/L Carbon Dioxide (22-30) mmol/L Glucose (74-99) mg/dL POC Glucose (mg/dL) (75-99) mg/dL Osmolality (280-301) mosm/kg Uric Acid 2.6 L (3.5-8.5) mg/dL AST (17-59) U/L ALT (21-72) U/L Alkaline Phosphatase (38-126) U/L Total Creatine Kinase (55-170) U/L CK-MB (CK-2) (0.0-2.4) ng/mL Troponin I (0.000-0.034) ng/mL HDL Cholesterol (40-60) mg/dL Assessment and Plan Plan: Assessment 1 acute COPD exacerbation, slightly improved compared to yesterday. Reviewed the previous CAT scan of the chest and the patient extensive emphysema related to previous smoking. Pulmonary nodules have been monitored for more than 2 years and there've been stable and there is been no mediastinal lymphadenopathy 2 acute shortness of breath secondary to above, improving 3 atrial flutter with 2 to one block with controlled rate. This may be of a new onset and the patient is currently on IV heparin. The rate is controlled 4 minimal troponin elevation, nonspecific, and a cardiac catheterization was done and the patient was found to have a nonocclusive disease 5 COPD FEV1 of 72% of predicted. The patient has severe diffusion impairment and the patient has been oxygen dependent 6 multiple myeloma initiated. With Velcade and currently on a combination of Revlimid and Decadron 7 shingles of the left lower extremity, treated 8 severe peripheral vascular disease with previous vascular intervention involving the legs 9 pulmonary nodules, stable on previous CAT scan monitoring the last CAT scan was done in January 2017 10 acute hyponatremia 13 carotid artery disease with a previous endarterectomy on the left, 50% lesion on the right, 14 diabetes mellitus 15 hyperlipidemia 16 hypertension 17 BPH 18 macular degeneration 19 [id number] smoking history, ex-smoker since 2004 Plan Continue same treatment. Continue bronchodilators and steroids and antibiotics. Stop the IV heparin and switch this patient to oral anticoagulants. Heart rate is controlled. We'll continue to follow.
[2017-05-24 16:14] LABS: Glucose,Whole Blood 200 mg/dL (75-99)
[2017-05-24 17:48] LABS: Hemoglobin A1C 7.5 % (4.0-6.0)
[2017-05-24 19:20] LABS: Magnesium 1.6 mg/dL (1.6-2.3); Potassium 4.5 mmol/L (3.5-5.1)
[2017-05-24 20:44] LABS: Glucose,Whole Blood 265 mg/dL (75-99)
[2017-05-24] MEDS: MELATONIN 3 MG TABLET PO SCH (21:17)
[2017-05-24] MEDS: APIXABAN 2.5 MG TABLET PO SCH (21:19)
[2017-05-24] MEDS: ATORVASTATIN 40 MG TAB PO SCH (21:27)
[2017-05-25 06:02] LABS: ALT 124 U/L (21-72); AST 68 U/L (17-59); Albumin 2.9 g/dL (3.5-5.0); Alkaline Phosphatase 92 U/L (38-126); Anion Gap 10 mmol/L; Blood Urea Nitrogen 16 mg/dL (9-20); Calcium 8.2 mg/dL (8.4-10.2); Carbon Dioxide 21 mmol/L (22-30); Chloride 94 mmol/L (98-107); Glucose 169 mg/dL (74-99); Potassium 5.1 mmol/L (3.5-5.1); Sodium 125 mmol/L (137-145); Total Bilirubin 0.3 mg/dL (0.2-1.3)
[2017-05-25 06:10] LABS: Glucose,Whole Blood 169 mg/dL (75-99)
[2017-05-25] MEDS: INSULIN ASPART 100 UNIT/ML 1 ML 10 ML VIAL SQ SCH ×4 (06:21→20:36)
[2017-05-25] MEDS: methylPREDNISolone SOD SUCCI 125 MG/2 ML VIAL IV SCH ×4 (06:23→23:00)
[2017-05-25 06:36] LABS: HCT 33.3 % (39.0-53.0); HGB 10.8 gm/dL (13.0-17.5); MCH 29.5 pg (25.0-35.0); MCHC 32.6 g/dL (31.0-37.0); MCV 90.6 fL (80.0-100.0); Mean Platelet Volume 7.9; Platelet Count 261 k/uL (150-450); RBC 3.67 m/uL (4.30-5.90); RDW 13.4 % (11.5-15.5); WBC 6.6 k/uL (3.8-10.6)
[2017-05-25] MEDS: SYMBICORT 160-4.5 MCG INHALER INHALATION SCH ×2 (07:34→19:50)
[2017-05-25] MEDS: IPRATROPIUM-ALBUTEROL 3 ML NEB INHALATION SCH ×4 (07:34→19:50)
--- NOTE | 2017-05-25 10:13 | P.PN ---
Subjective Progress Note Date: 05/25/17 Principal diagnosis: Shortness of breath This is an 87-year-old gentleman with history of severe COPD on home O2, hypertension, diabetes, hyperlipidemia, who presented to the hospital with symptoms of progressively worsening shortness of breath. He was found to have mild abnormality in his troponins. EKG showed atrial flutter with nonspecific ST-T wave changes. Echocardiogram with Doppler study revealed moderate LV dysfunction with an ejection fraction of 35-40%. Patient also has a history of esophageal cancer and there is question as to whether or not there is no metastases to the bone or not. Patient underwent a cardiac catheterization yesterday by Dr. Gunderson which revealed mild non obstructive coronary artery disease, with moderate to severe disease involving a small caliber ramus intermedius. Medical therapy was advised. Patient was seen and examined this morning, he states he did have an episode of shortness of breath when he was up walking to the bathroom earlier, denies any chest discomfort. Continues to be in an atrial flutter this morning with a heart rate of 90-100. Blood pressure 136/70. White blood cell count 6.6, hemoglobin 10.8, platelet count 261. Sodium 125, potassium 5.1, BUN 16, creatinine 0.7. Patient has been resumed on his Eliquis 2-1/2 mg one tablet by mouth twice a day. We will increase metoprolol to 25 mg one tablet by mouth 3 times a day for more optimal heart rate control today. From cardiology's perspective, he may be able to be discharged once cleared by the primary. Objective - Vital Signs Vital signs: Vital Signs Temp 97.5 F L 05/25/17 04:00 Pulse 110 H 05/25/17 07:45 Resp 22 05/25/17 04:00 BP 136/71 05/25/17 04:00 Pulse Ox 91 L 05/25/17 04:00 Intake & Output 05/24/17 05/25/17 05/25/17 18:59 06:59 18:59 Intake Total 1612 600 480 Output Total 350 600 Balance 1262 0 480 Weight 64.5 kg 66.1 kg Intake: IV 50 Intake, IV Titration 1100 600 Amount Sodium Chloride 0.9% 1, 600 600 000 ml @ 75 mls/hr IV . [id number] [facility] Rx#:[id number] Sodium Chloride 0.9% 500 500 ml @ 999 mls/hr IV .Q31M ONE Rx#:[id number] Oral 462 480 Output: Urine 350 600 Other: Voiding Method Urinal Urinal - Exam PHYSICAL EXAMINATION: HEENT: Head is atraumatic, normocephalic. Pupils equal, round. Neck is supple. There is no elevated jugular venous pressure. HEART EXAMINATION: Heart S1, S2 irregularly irregular . No murmur or gallop heard. CHEST EXAMINATION: Lungs are clear to auscultation and precussion. No chest wall tenderness is noted on palpation or with deep breathing. ABDOMEN: Soft, nontender. Bowel sounds are heard. No organomegaly noted. Right groin soft, no evidence of any hematoma. EXTREMITIES: 2+ peripheral pulses with no evidence of peripheral edema and no calf tenderness noted. NEUROLOGIC patient is awake, alert and oriented -3. . - Labs CBC & Chem 7: 05/25/17 05:29 05/25/17 05:29 Labs: Abnormal Lab Results - Last 24 Hours (Table) 05/24/17 05/24/17 05/24/17 Range/Units 09:58 09:58 09:58 RBC (4.30-5.90) m/uL Hgb (13.0-17.5) gm/dL Hct (39.0-53.0) % APTT 49.0 H (22.0-30.0) sec Sodium 125 L (137-145) mmol/L Chloride 91 L (98-107) mmol/L Carbon Dioxide 21 L (22-30) mmol/L Glucose 175 H (74-99) mg/dL POC Glucose (mg/dL) (75-99) mg/dL Hemoglobin A1c 7.5 H (4.0-6.0) % Osmolality 265 L (280-301) mosm/kg Uric Acid (3.5-8.5) mg/dL Calcium (8.4-10.2) mg/dL AST 143 H (17-59) U/L ALT 161 H (21-72) U/L Alkaline Phosphatase 141 H (38-126) U/L Total Protein (6.3-8.2) g/dL Albumin (3.5-5.0) g/dL HDL Cholesterol 81 H (40-60) mg/dL 05/24/17 05/24/17 05/24/17 Range/Units 11:08 13:14 13:14 RBC (4.30-5.90) m/uL Hgb (13.0-17.5) gm/dL Hct (39.0-53.0) % APTT (22.0-30.0) sec Sodium 123 L (137-145) mmol/L Chloride (98-107) mmol/L Carbon Dioxide (22-30) mmol/L Glucose (74-99) mg/dL POC Glucose (mg/dL) 191 H (75-99) mg/dL Hemoglobin A1c (4.0-6.0) % Osmolality (280-301) mosm/kg Uric Acid 2.6 L (3.5-8.5) mg/dL Calcium (8.4-10.2) mg/dL AST (17-59) U/L ALT (21-72) U/L Alkaline Phosphatase (38-126) U/L Total Protein (6.3-8.2) g/dL Albumin (3.5-5.0) g/dL HDL Cholesterol (40-60) mg/dL 05/24/17 05/24/17 05/25/17 Range/Units 16:07 20:42 05:29 RBC 3.67 L (4.30-5.90) m/uL Hgb 10.8 L (13.0-17.5) gm/dL Hct 33.3 L (39.0-53.0) % APTT (22.0-30.0) sec Sodium (137-145) mmol/L Chloride (98-107) mmol/L Carbon Dioxide (22-30) mmol/L Glucose (74-99) mg/dL POC Glucose (mg/dL) 200 H 265 H (75-99) mg/dL Hemoglobin A1c (4.0-6.0) % Osmolality (280-301) mosm/kg Uric Acid (3.5-8.5) mg/dL Calcium (8.4-10.2) mg/dL AST (17-59) U/L ALT (21-72) U/L Alkaline Phosphatase (38-126) U/L Total Protein (6.3-8.2) g/dL Albumin (3.5-5.0) g/dL HDL Cholesterol (40-60) mg/dL 05/25/17 05/25/17 Range/Units 05:29 06:08 RBC (4.30-5.90) m/uL Hgb (13.0-17.5) gm/dL Hct (39.0-53.0) % APTT (22.0-30.0) sec Sodium 125 L (137-145) mmol/L Chloride 94 L (98-107) mmol/L Carbon Dioxide 21 L (22-30) mmol/L Glucose 169 H (74-99) mg/dL POC Glucose (mg/dL) 169 H (75-99) mg/dL Hemoglobin A1c (4.0-6.0) % Osmolality (280-301) mosm/kg Uric Acid (3.5-8.5) mg/dL Calcium 8.2 L (8.4-10.2) mg/dL AST 68 H (17-59) U/L ALT 124 H (21-72) U/L Alkaline Phosphatase (38-126) U/L Total Protein 5.0 L (6.3-8.2) g/dL Albumin 2.9 L (3.5-5.0) g/dL HDL Cholesterol (40-60) mg/dL Assessment and Plan Plan: Assessment and plan #1 exacerbation of COPD #2 atrial flutter with a moderately rapid ventricular response. On Eliquis for anticoagulation #3 mild abnormality in troponin, status post cardiac catheterization which revealed mild nonobstructive coronary artery disease with a moderate lesion in the ramus intermedius medical therapy advised #4 multiple myeloma # 5 shingles of lower extremity, treated #6 severe PVD with prior intervention #7 prior carotid endarterectomy #8 hypertension #9 hyperlipidemia Plan From cardiology's perspective, patient may be able to be discharged home today. We will increase the dose of metoprolol to 3 times a day for more optimal heart rate control. Patient may be able to be discharged once cleared by pulmonary and the primary care doctor. Follow-up appointment with Dr. Gunderson in the office post discharge. DNP note has been reviewed, I agree with a documented findings and plan of care. Patient was seen and examined.
--- NOTE | 2017-05-25 10:15 | P.NPCON ---
History of Present Illness - Reason for Consult Consult date: 05/25/17 hyponatremia - Chief Complaint Shortness of breath - History of Present Illness Mr. Mendoza is a 87-year-old gentleman coming to the hospital with worsening shortness of breath. Has a long history of COPD with pulmonary hypertension. He has long history of smoking as well. His COPD with pleural effusions he had thoracentesis and the cytology was negative for malignancy long time ago. He was also diagnosed with multiple myeloma follows with Dr. Esparza currently on Revlimid and steroids. He has long history of hyponatremia since last year. His sodium improved to 131 during last admission. And at that time he was diagnosed with hypovolemic hyponatremia. He did not follow up in the office and when he presented here his sodium was 124 improved to 126 today. He denies any symptoms of hyponatremia. He is not on any antidepressant or antipsychotic medications he is not on hydrochlorothiazide diuretics. His breathing is better he had a cardiac cath which showed multivessel disease. He has no nausea vomiting or diarrhea. He denies excessive fluid intake. Review of Systems Gen. no nausea vomiting diarrhea No chest pain shortness of breath PND orthopnea No abdominal pain nausea vomiting diarrhea No cough tenderness or joint pains No headache lightheadedness or confusion Past Medical History Past Medical History: Cancer, Chest Pain / Angina, COPD, Diabetes Mellitus, Eye Disorder, Hyperlipidemia, Hypertension, Memory Impairment, Pneumonia, Renal Disease, Vascular Disorder Additional Past Medical History / Comment(s): Chronic hypoxic respiratory failure with home O2 at 2l n/c(used to use as needed but lately has been using atc.), COPD with an FEV1 of 72% of predicted, multiple pulmonary nodules as mentioned being followed up by serial CAT scans, multiple myeloma currently on Revlimid and Decadron, PVD with carotid stenosis 90% on the left and 50% on the right, proteinuria, bronchitis,alfonzo eye macular degeneration, diabetes mellitus , hyperlipidemia, hypertension, BPH, WT LOSS APPROX 20 # OVER one year. Chronic constipation, Shingles of LLE History of Any Multi-Drug Resistant Organisms: None Reported Past Surgical History: Heart Catheterization Additional Past Surgical History / Comment(s): veins unblocked in both legs, carotid endarectomy left side, bilateral cataract removal and intraocular lens implants, BILAT EYE INJECTIONS 01/11/15 FOR MACULAR DEGENERATION, BRONCOSCOPY 12 -2-15, colonoscopy Past Anesthesia/Blood Transfusion Reactions: No Reported Reaction Smoking Status: Former smoker Additional Past Alcohol Use History / Comment(s): Patient started smoking at age 19 and quit in 2011 at one and half packs per day for total of 93 pack year history. Patient lives at home with his . He does not use any device for ambulation. He has home O2 in place. - Past Family History Brother(s) Family Medical History: Coronary Artery Disease (CAD), Diabetes Mellitus Father Additional Family Medical History / Comment(s): kidney failure Mother Family Medical History: Congestive Heart Failure (CHF), Coronary Artery Disease (CAD) Medications and Allergies Home Medications Medication Instructions Recorded Confirmed Type Clopidogrel [Plavix] 75 mg PO DAILY 05/20/14 05/23/17 History Docusate [Colace] 100 mg PO DAILY PRN 05/20/14 05/23/17 History Ipratropium-Albuterol Nebulize 3 ml INHALATION RT-QID 05/20/14 05/23/17 History [Duoneb 0.5 mg-3 mg/3 ml Soln] Tamsulosin [Flomax] 0.8 mg PO DAILY 05/20/14 05/23/17 History metFORMIN HCL [metFORMIN HCL ER] 1,000 mg PO BID 05/20/14 05/23/17 History guaiFENesin [Mucinex] 600 mg PO BID PRN 01/24/15 05/23/17 History Areds Ii Eye Vitamins 1 tab PO DAILY 03/02/16 05/23/17 History Atorvastatin [Lipitor] 20 mg PO DAILY 03/02/16 05/23/17 History Budesonide/Formoterol Fumarate 2 puff INHALATION RT-BID 03/02/16 05/23/17 History [Symbicort 160-4.5 Mcg Inhaler] Lactose-Reduced Food [Boost] 237 ml PO DAILY 03/02/16 05/23/17 History Melatonin 3 mg PO HS 03/02/16 05/23/17 History Metoprolol Tartrate [Lopressor] 25 mg PO BID 03/02/16 05/23/17 History Lisinopril 40 mg PO DAILY #0 03/05/16 05/23/17 Rx Acyclovir [Zovirax] 400 mg PO TID 05/23/17 05/23/17 History Dexamethasone [Hexadrol] 20 mg PO WE 05/23/17 05/23/17 History Lenalidomide [Revlimid] 10 mg PO DIRECTED 05/23/17 05/23/17 History Prochlorperazine [Compazine] 10 mg PO Q6H PRN 05/23/17 05/23/17 History predniSONE 5 mg PO DAILY 05/23/17 05/23/17 History Allergies Allergy/AdvReac Type Severity Reaction Status Date / Time No Known Allergies Allergy Verified 05/23/17 10:49 Physical Exam Vitals: Vital Signs Temp Pulse Pulse Resp BP BP Pulse Ox 05/25/17 07:45 110 H 05/25/17 07:34 105 H 05/25/17 04:00 97.5 F L 92 22 136/71 91 L 05/24/17 23:34 97.5 F L 80 18 119/57 100 05/24/17 20:44 118 H 05/24/17 20:34 112 H 05/24/17 20:00 97.6 F 96 20 167/101 94 L 05/24/17 18:53 14 05/24/17 17:53 66 16 172/92 95 05/24/17 16:51 106 H 05/24/17 16:42 110 H 05/24/17 16:05 98.2 F 100 16 138/92 94 L 05/24/17 15:05 100 16 126/72 95 05/24/17 15:00 16 05/24/17 14:35 94 16 138/64 95 05/24/17 14:05 92 137/72 05/24/17 13:50 99 135/80 97 05/24/17 13:35 86 16 126/77 97 05/24/17 13:20 80 16 120/75 97 05/24/17 11:05 16 05/24/17 10:30 95 18 123/88 95 Intake and Output 05/24/17 05/25/17 05/25/17 22:59 06:59 14:59 Intake Total 297 525 480 Output Total 600 Balance 297 -75 480 Intake: Intake, IV Titration 75 525 Amount Sodium Chloride 0.9% 1, 75 525 000 ml @ 75 mls/hr IV . [id number] [facility] Rx#:[id number] Oral 222 480 Output: Urine 600 Other: Voiding Method Urinal Urinal Weight 66.1 kg General lying in bed no acute distress S1 and S2 heard Lungs clear Trace edema Results - Lab Results Most recent lab results ABG pH 7.42 (7.35-7.45) 05/23/17 11:04 ABG pCO2 25 mmHg (35-45) L 05/23/17 11:04 ABG pO2 70 mmHg (83-108) L 05/23/17 11:04 ABG HCO3 17 mmol/L (21-25) L 05/23/17 11:04 ABG O2 Saturation 94.5 % (94-97) 05/23/17 11:04 Calcium 8.2 mg/dL (8.4-10.2) L 05/25/17 05:29 Magnesium 1.6 mg/dL (1.6-2.3) 05/24/17 18:48 05/25/17 05:29 05/25/17 05:29 Assessment and Plan Assessment: Impression: #1 hypotonic hyponatremia 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 #2 COPD exacerbation #3 cardiomyopathy with the EF of 25% and pulmonary hypertension #4 metabolic acidosis #5 multiple myeloma on treatment Recommendations: #1 agree with stopping IV fluids. #2 fluid restriction to 1200 ML's per day #3 labs consistent with SIADH. Add low-dose Lasix. Also check TSH and cortisol in the morning #4 repeat labs in the morning monitor goal correction of not more than 6 mEq of serum sodium in next 24 hours. Thank you very much for this consultation we'll follow along while he is in the hospital
[2017-05-25 10:16] VITALS: RESP 18
[2017-05-25] MEDS: APIXABAN 2.5 MG TABLET PO SCH ×2 (10:16→20:37)
[2017-05-25] MEDS: ACYCLOVIR 200 MG CAP PO SCH ×3 (10:16→20:37)
[2017-05-25] MEDS: metFORMIN 500 MG TAB PO SCH (10:17)
[2017-05-25] MEDS: TAMSULOSIN 0.4 MG CAP.ER.24H PO SCH (10:17)
[2017-05-25] MEDS: CLOPIDOGREL 75 MG TAB PO SCH (10:17)
[2017-05-25] MEDS: LISINOPRIL 20 MG TAB PO SCH (10:17)
[2017-05-25] MEDS: guaiFENesin-DM 600/30MG 1 EACH TAB.ER.12H PO SCH ×2 (10:17→20:37)
[2017-05-25] MEDS: ASPIRIN 81 MG PO SCH (10:17)
[2017-05-25] MEDS: FUROSEMIDE 20 MG TAB PO SCH (11:28)
[2017-05-25] MEDS: METOPROLOL TARTRATE 25 MG TAB PO SCH ×3 (11:28→20:38)
--- NOTE | 2017-05-25 11:32 | P.PN ---
Subjective Progress Note Date: 05/25/17 Principal diagnosis: Acute exacerbation of chronic obstructive pulmonary disease 87-year-old male patient known history of COPD, hypertension, diabetes mellitus and previous history of pulmonary nodules and mediastinal lymphadenopathy whereas been followed up in our office by Dr. Madrid. The patient has an FEV1 of 72% of predicted consistent with mild COPD and the patient has a diffusion capacity of 23% of predicted and the total lung capacity of 111% of predicted. Note that, the patient's abnormal pulmonary nodules are being monitored and the patient has had several CAT scans at [facility], and the last CAT scan was done on 02/11/2017 that showed Emphysematous changes in the lungs bilaterally consistent with centrilobular emphysema. There was persistent multiple noncalcified pulmonary nodules that are unchanged in size and position and configuration compared to the previous CAT scan from 08/10/2015 and 2014. The largest of these lesions is a 1.6 cm lesion that has spiculated border in the right upper lobe. Also, the patient has mediastinal lymphadenopathy that is not greater than 1 cm in size. No pericardial effusion. The size of the lymph nodes within the mediastinum have not changed significantly compared to the prior CAT scans. Other comorbid conditions include diabetes mellitus, hypertension, hyperlipidemia, peripheral vascular disease and macular degeneration and the patient has carotid artery disease with previous carotid endarterectomy and he is also known to have peripheral vascular disease with previous femoral bypass surgery. He is a [id number] smoking history and he quit smoking back in December 2004. No history of alcoholism. He takes prednisone 5 mg by mouth daily on a chronic basis. As for his COPD he takes Symbicort 160/4.52 puffs twice a day and albuterol solution on yesterday's basis in conjunction with ipratropium bromide..The patient has been also maintained on Revlimid and Decadron probably for treatment of multiple myeloma. Earlier, the patient was receiving Velcade injections and discovered switched to Revlimid. The patient apparently developed shingles also involving the left lower extremity that was treated on outpatient basis. The patient presented to the [facility] department today with increased shortness of breath. His shortness of breath has gotten worse since this morning. He denied having any chest pain. No pleurisy. No hemoptysis. No nausea vomiting or abdominal pain. His chest x-ray showed chronic emphysematous changes without any acute cardiopulmonary process. EKG showed a flutter with variable blocks and left axis deviation. The rate is controlled. The patient is also Q waves over the anterior septal leads. The blood work showed no significant leukocytosis. The blood gas showed a pH of 7.42 with a pCO2 of 25 and pO2 of 70 and this was done and FiO2 of 32%. Sodium level was low at 124 and a glucose was up to 22 and the patient had some limited troponin leak with a troponin level of 0.067. Liver function tests were within normal limits. The patient was placed on DuoNeb nebulized treatments around the clock, IV heparin and he was admitted to the hospital. On today's evaluation of 05/24/2017, the patient is looking better. Less short of breath. Last bronchus spastic and wheezy. Still has a congested cough although it is improving compared to yesterday. The patient was seen by cardiology. Cardiac examination was done and showed a nonocclusive disease. The patient has atrial flutter. The patient will need long-term and to coagulation. The patient is also on a combination of antibiotics, bronchodilators and steroids. No other significant events overnight and he is stable from the pulmonary standpoint. Patient is seen again today 05/25/2017 in follow-up. He is awake and alert in no acute distress. Breathing easier today as compared to yesterday. Maintaining good O2 saturations in the 90s on 3 L/m per nasal cannula. Afebrile. Hemodynamically stable. No chest pain palpitations lightheadedness or dizziness Objective - Vital Signs Vital signs: Vital Signs Temp 97.9 F 05/25/17 09:00 Pulse 107 H 05/25/17 09:00 Resp 18 05/25/17 09:00 BP 134/67 05/25/17 09:00 Pulse Ox 92 L 05/25/17 09:00 Intake & Output 05/24/17 05/25/17 05/25/17 18:59 06:59 18:59 Intake Total 1612 600 480 Output Total 350 600 Balance 1262 0 480 Weight 64.5 kg 66.1 kg Intake: IV 50 Intake, IV Titration 1100 600 Amount Sodium Chloride 0.9% 1, 600 600 000 ml @ 75 mls/hr IV . [id number] [facility] Rx#:[id number] Sodium Chloride 0.9% 500 500 ml @ 999 mls/hr IV .Q31M ONE Rx#:[id number] Oral 462 480 Output: Urine 350 600 Other: Voiding Method Urinal Urinal - Exam GENERAL EXAM: Alert, active, comfortable in no apparent distress. HEAD: Normocephalic. EYES: Normal reaction of pupils, equal size. NOSE: Clear with pink turbinates. THROAT: No erythema or exudates. NECK: No masses, no JVD. CHEST: No chest wall deformity. LUNGS: Equal air entry with no crackles, wheeze, rhonchi or dullness. Diminished. CVS: S1 and S2 normal with no audible murmur, regular rhythm. ABDOMEN: No hepatosplenomegaly, normal bowel sounds, no guarding or rigidity. SPINE: No scoliosis or deformity SKIN: No rashes CENTRAL NERVOUS SYSTEM: No focal deficits, tone is normal in all 4 extremities. EXTREMITIES: There is no peripheral edema. No clubbing, no cyanosis. Peripheral pulses are intact. - Labs CBC & Chem 7: 05/25/17 05:29 05/25/17 05:29 Labs: Abnormal Lab Results - Last 24 Hours (Table) 05/24/17 05/24/17 05/24/17 Range/Units 09:58 13:14 13:14 RBC (4.30-5.90) m/uL Hgb (13.0-17.5) gm/dL Hct (39.0-53.0) % Sodium 123 L (137-145) mmol/L Chloride (98-107) mmol/L Carbon Dioxide (22-30) mmol/L Glucose (74-99) mg/dL POC Glucose (mg/dL) (75-99) mg/dL Hemoglobin A1c 7.5 H (4.0-6.0) % Uric Acid 2.6 L (3.5-8.5) mg/dL Calcium (8.4-10.2) mg/dL AST (17-59) U/L ALT (21-72) U/L Total Protein (6.3-8.2) g/dL Albumin (3.5-5.0) g/dL 05/24/17 05/24/17 05/25/17 Range/Units 16:07 20:42 05:29 RBC 3.67 L (4.30-5.90) m/uL Hgb 10.8 L (13.0-17.5) gm/dL Hct 33.3 L (39.0-53.0) % Sodium (137-145) mmol/L Chloride (98-107) mmol/L Carbon Dioxide (22-30) mmol/L Glucose (74-99) mg/dL POC Glucose (mg/dL) 200 H 265 H (75-99) mg/dL Hemoglobin A1c (4.0-6.0) % Uric Acid (3.5-8.5) mg/dL Calcium (8.4-10.2) mg/dL AST (17-59) U/L ALT (21-72) U/L Total Protein (6.3-8.2) g/dL Albumin (3.5-5.0) g/dL 05/25/17 05/25/17 Range/Units 05:29 06:08 RBC (4.30-5.90) m/uL Hgb (13.0-17.5) gm/dL Hct (39.0-53.0) % Sodium 125 L (137-145) mmol/L Chloride 94 L (98-107) mmol/L Carbon Dioxide 21 L (22-30) mmol/L Glucose 169 H (74-99) mg/dL POC Glucose (mg/dL) 169 H (75-99) mg/dL Hemoglobin A1c (4.0-6.0) % Uric Acid (3.5-8.5) mg/dL Calcium 8.2 L (8.4-10.2) mg/dL AST 68 H (17-59) U/L ALT 124 H (21-72) U/L Total Protein 5.0 L (6.3-8.2) g/dL Albumin 2.9 L (3.5-5.0) g/dL Assessment and Plan Assessment: Assessment 1 acute COPD exacerbation, slightly improved compared to yesterday. Reviewed the previous CAT scan of the chest and the patient extensive emphysema related to previous smoking. Pulmonary nodules have been monitored for more than 2 years and there've been stable and there is been no mediastinal lymphadenopathy 2 acute shortness of breath secondary to above, improving 3 atrial flutter with 2 to one block with controlled rate. This may be of a new onset and the patient is currently on IV heparin. The rate is controlled 4 minimal troponin elevation, nonspecific, and a cardiac catheterization was done and the patient was found to have a nonocclusive disease 5 COPD FEV1 of 72% of predicted. The patient has severe diffusion impairment and the patient has been oxygen dependent 6 multiple myeloma initiated. With Velcade and currently on a combination of Revlimid and Decadron 7 shingles of the left lower extremity, treated 8 severe peripheral vascular disease with previous vascular intervention involving the legs 9 pulmonary nodules, stable on previous CAT scan monitoring the last CAT scan was done in January 2017 10 acute hyponatremia 13 carotid artery disease with a previous endarterectomy on the left, 50% lesion on the right, 14 diabetes mellitus 15 hyperlipidemia 16 hypertension 17 BPH 18 macular degeneration 19 [id number] smoking history, ex-smoker since 2004 Plan The patient was seen and evaluated by Dr. Mccullough. He is stable from the pulmonary standpoint. Continue with his current medications. Increase his activity as tolerated. We'll continue to follow. I, the cosigning physician, performed a history & physical examination of the patient. Lungs sounds are clear. Managed. Maintaining good O2 saturations in the 90s on 2 L/m per nasal cannula. I discussed the assessment and plan of care with my nurse practitioner, Debby Reyes. I attest to the above note as dictated by her.
[2017-05-25 12:01] LABS: Glucose,Whole Blood 264 mg/dL (75-99)
[2017-05-25] MEDS: LENALIDOMIDE 10 MG PO SCH (12:32)
[2017-05-25] MEDS: LEVOFLOXACIN 750 MG TAB PO SCH (12:41)
[2017-05-25] MEDS: VIT A,C & E-LUTEIN-MINERALS 1 EACH TAB PO SCH (12:42)
--- NOTE | 2017-05-25 14:02 | P.PN ---
Subjective Progress Note Date: 05/25/17 This is an 85-year-old male patient of Dr. Mike and Dr. Madrid with a past medical history of angina, COPD on daily prednisone, chronic hypoxic respiratory failure on home O2 at 2 L nasal cannula, diabetes mellitus type 2, hyperlipidemia, hypertension, peripheral vascular disease, carotid artery disease with previous carotid endarterectomy, macular degeneration, multiple myeloma on Revlimid and Decadron, recent treatment for shingles in the left lower extremity. Patient does follow at [facility] regarding pulmonary nodules and mediastinal lymphadenopathy. 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 Patient states that he has been feeling bad for a couple weeks and that he could not do anything as he gets short of breath with even very little activities. He states he can only do activity for a couple seconds and then he has to quit. He states it's hard for him to get any phlegm out. He was previously on oxygen at 2 L just as needed for the past 3-6 months but now he is using it around the clock. He states shortness of breath starts as soon as he gets up in the morning and he can't catch his breath. He denies having any fever or chills. He has some sputum production with white and yellow phlegm. Patient came into [facility] emergency center for evaluation. He had a pulse ox of 83%, afebrile, heart rate initially in the 90s. White count was normal, hemoglobin 12.4, sodium 124, chloride 89, CO2 19, blood sugar 222. Initial troponin was 0.067 followed by 0.039, 0.030. ABGs showed a pH of 7.42, pCO2 25, PaO2 70, bicarb 17, total CO2 17, O2 saturation 94.5 and base excess -7.9. EKG was atrial flutter. Patient was started on IV steroids and then heparin drip for elevated troponin and admitted to the selective care unit. Chest x-ray shows chronic emphysematous change without acute pulmonary process. Echocardiogram reveals EF of 35-40%, mild concentric left ventricular hypertrophy, moderate pulmonary hypertension and moderate tricuspid regurgitation, patient was seen in consultation by pulmonary medicine as well as by cardiology for further evaluation. 05/25: Patient is feeling a bit better today he is able to bring a bit of phlegm today he continues to be somewhat short of breath, he continues to feel generally weak, he was seen earlier by nephrology and patient was diagnosed with SIADH he was placed on fluid restriction 1200 mL in 24 hours, he was given 1 dose of Lasix repeat his labs tomorrow morning. Objective - Vital Signs Vital signs: Vital Signs Temp 97.5 F L 05/25/17 04:00 Pulse 110 H 05/25/17 07:45 Resp 22 05/25/17 04:00 BP 136/71 05/25/17 04:00 Pulse Ox 91 L 05/25/17 04:00 Intake & Output 05/24/17 05/25/17 05/25/17 18:59 06:59 18:59 Intake Total 1612 600 480 Output Total 350 600 Balance 1262 0 480 Weight 64.5 kg 66.1 kg Intake: IV 50 Intake, IV Titration 1100 600 Amount Sodium Chloride 0.9% 1, 600 600 000 ml @ 75 mls/hr IV . [id number] [facility] Rx#:[id number] Sodium Chloride 0.9% 500 500 ml @ 999 mls/hr IV .Q31M ONE Rx#:[id number] Oral 462 480 Output: Urine 350 600 Other: Voiding Method Urinal Urinal - Constitutional General appearance: Present: mild distress - EENT Eyes: Present: anicteric sclerae, EOMI, PERRLA, normal appearance. Absent: ptosis, scleral icterus ENT: Present: hearing grossly normal, NA/AT, normal oropharynx. Absent: thrush Ears: bilateral: normal - Neck Neck: Present: normal ROM, thyromegaly. Absent: lymphadenopathy, rigidity, stridor Carotids: bilateral: upstroke delayed Thyroid: bilateral: normal size - Respiratory Respiratory: bilateral: diminished, wheezing, prolonged expiration, negative: dullness, rales, rhonchi - Cardiovascular Rhythm: irregularly irregular Heart sounds: normal: S1, S2 Abnormal Heart Sounds: Present: systolic murmur - Gastrointestinal General gastrointestinal: Present: normal bowel sounds, soft. Absent: splenomegaly, tenderness, umbilical hernia - Integumentary Integumentary: Present: normal, normal turgor - Neurologic Neurologic: Present: CNII-XII intact. Absent: focal deficits - Musculoskeletal Musculoskeletal: Present: strength equal bilaterally - Psychiatric Psychiatric: Present: A&O x's 3, appropriate affect, intact judgment & insight - Labs CBC & Chem 7: 05/25/17 05:29 05/25/17 05:29 Labs: Abnormal Lab Results - Last 24 Hours (Table) 05/24/17 05/24/17 05/24/17 Range/Units 09:58 09:58 09:58 RBC (4.30-5.90) m/uL Hgb (13.0-17.5) gm/dL Hct (39.0-53.0) % APTT 49.0 H (22.0-30.0) sec Sodium 125 L (137-145) mmol/L Chloride 91 L (98-107) mmol/L Carbon Dioxide 21 L (22-30) mmol/L Glucose 175 H (74-99) mg/dL POC Glucose (mg/dL) (75-99) mg/dL Hemoglobin A1c 7.5 H (4.0-6.0) % Osmolality 265 L (280-301) mosm/kg Uric Acid (3.5-8.5) mg/dL Calcium (8.4-10.2) mg/dL AST 143 H (17-59) U/L ALT 161 H (21-72) U/L Alkaline Phosphatase 141 H (38-126) U/L Total Protein (6.3-8.2) g/dL Albumin (3.5-5.0) g/dL HDL Cholesterol 81 H (40-60) mg/dL 05/24/17 05/24/17 05/24/17 Range/Units 11:08 13:14 13:14 RBC (4.30-5.90) m/uL Hgb (13.0-17.5) gm/dL Hct (39.0-53.0) % APTT (22.0-30.0) sec Sodium 123 L (137-145) mmol/L Chloride (98-107) mmol/L Carbon Dioxide (22-30) mmol/L Glucose (74-99) mg/dL POC Glucose (mg/dL) 191 H (75-99) mg/dL Hemoglobin A1c (4.0-6.0) % Osmolality (280-301) mosm/kg Uric Acid 2.6 L (3.5-8.5) mg/dL Calcium (8.4-10.2) mg/dL AST (17-59) U/L ALT (21-72) U/L Alkaline Phosphatase (38-126) U/L Total Protein (6.3-8.2) g/dL Albumin (3.5-5.0) g/dL HDL Cholesterol (40-60) mg/dL 05/24/17 05/24/17 05/25/17 Range/Units 16:07 20:42 05:29 RBC 3.67 L (4.30-5.90) m/uL Hgb 10.8 L (13.0-17.5) gm/dL Hct 33.3 L (39.0-53.0) % APTT (22.0-30.0) sec Sodium (137-145) mmol/L Chloride (98-107) mmol/L Carbon Dioxide (22-30) mmol/L Glucose (74-99) mg/dL POC Glucose (mg/dL) 200 H 265 H (75-99) mg/dL Hemoglobin A1c (4.0-6.0) % Osmolality (280-301) mosm/kg Uric Acid (3.5-8.5) mg/dL Calcium (8.4-10.2) mg/dL AST (17-59) U/L ALT (21-72) U/L Alkaline Phosphatase (38-126) U/L Total Protein (6.3-8.2) g/dL Albumin (3.5-5.0) g/dL HDL Cholesterol (40-60) mg/dL 05/25/17 05/25/17 Range/Units 05:29 06:08 RBC (4.30-5.90) m/uL Hgb (13.0-17.5) gm/dL Hct (39.0-53.0) % APTT (22.0-30.0) sec Sodium 125 L (137-145) mmol/L Chloride 94 L (98-107) mmol/L Carbon Dioxide 21 L (22-30) mmol/L Glucose 169 H (74-99) mg/dL POC Glucose (mg/dL) 169 H (75-99) mg/dL Hemoglobin A1c (4.0-6.0) % Osmolality (280-301) mosm/kg Uric Acid (3.5-8.5) mg/dL Calcium 8.2 L (8.4-10.2) mg/dL AST 68 H (17-59) U/L ALT 124 H (21-72) U/L Alkaline Phosphatase (38-126) U/L Total Protein 5.0 L (6.3-8.2) g/dL Albumin 2.9 L (3.5-5.0) g/dL HDL Cholesterol (40-60) mg/dL Assessment and Plan Assessment: Assessment and Plan Plan: 1. New onset atrial flutter. Patient will be transitioned to Eliquis 2.5 mg orally twice every day along with metoprolol 25 mg orally 3 times every day For rate control. 2. Elevated troponin thought to be due to demand ischemia. Continue patient on metoprolol 25 mg orally 3 times every day. 3. Acute on chronic hypoxic respiratory failure with COPD exacerbation. Patient is normally on home O2 at 2 L nasal cannula. Consult with Dr. Mccullough is appreciated. Continue DuoNeb treatments 4 times daily, Symbicort 2 puffs twice daily, Mucinex, Levaquin, Solu-Medrol 60 mg IV every 6 hours. 4. 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 Continue fluid restriction patient was given 1 dose of Lasix. 5. History of hypertension. Continue lisinopril 40 mg daily, metoprolol 25 mg orally 3 times every day. 6. 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 Currently stable, avoid nephrotoxic agents and recheck lab work. 7. Diabetes mellitus type 2. Discontinue metformin because of elevated liver function tests, continue with a sliding scale insulin for now. 8. Benign prostatic hypertrophy. Continue Flomax or 0.4 mg twice daily. 9. Moderate protein calorie malnutrition with recent weight loss of 15-20 pounds over 10 months, BMI of 20. Continue protein supplement. 10. Multiple myeloma on Revlimid and Decadron. 11. Peripheral vascular disease with carotid artery disease previous endarterectomies. Continue Plavix. 12. Hyperlipidemia. Continue Lipitor 20 mg daily. 13. Chronic hypoxic respiratory failure on home O2 at 2 L. 14. DVT prophylaxis. Continue with Eliquis 2.5 mg orally twice every day. 15 Gastrointestinal prophylaxis. Protonix daily. 16. Repeat labs tomorrow morning.
[2017-05-25] MEDS ORDERED: METOPROLOL TARTRATE 25 MG TAB PO SCH (16:00)
[2017-05-25 16:25] LABS: Glucose,Whole Blood 176 mg/dL (75-99)
[2017-05-25 20:25] LABS: Glucose,Whole Blood 246 mg/dL (75-99)
[2017-05-25] MEDS: ATORVASTATIN 40 MG TAB PO SCH (20:37)
[2017-05-25] MEDS: MELATONIN 3 MG TABLET PO SCH (20:37)
[2017-05-26 03:21] VITALS: TEMP 96.9
[2017-05-26 06:03] LABS: Glucose,Whole Blood 200 mg/dL (75-99)
[2017-05-26] MEDS: INSULIN ASPART 100 UNIT/ML 1 ML 10 ML VIAL SQ SCH (06:45)
[2017-05-26] MEDS: methylPREDNISolone SOD SUCCI 125 MG/2 ML VIAL IV SCH (06:45)
[2017-05-26 06:51] LABS: ALT 132 U/L (21-72); AST 53 U/L (17-59); Albumin 3.2 g/dL (3.5-5.0); Alkaline Phosphatase 91 U/L (38-126); Anion Gap 10 mmol/L; Blood Urea Nitrogen 16 mg/dL (9-20); Calcium 8.6 mg/dL (8.4-10.2); Carbon Dioxide 24 mmol/L (22-30); Chloride 91 mmol/L (98-107); Glucose 190 mg/dL (74-99); Sodium 125 mmol/L (137-145); Total Bilirubin 0.3 mg/dL (0.2-1.3); Total Protein 5.6 g/dL (6.3-8.2); Uric Acid 2.5 mg/dL (3.5-8.5)
[2017-05-26] MEDS: SYMBICORT 160-4.5 MCG INHALER INHALATION SCH (07:55)
[2017-05-26] MEDS: IPRATROPIUM-ALBUTEROL 3 ML NEB INHALATION SCH ×2 (07:55→11:03)
[2017-05-26 07:56] VITALS: BP 129/69
[2017-05-26] MEDS: CLOPIDOGREL 75 MG TAB PO SCH (08:05)
[2017-05-26] MEDS: FUROSEMIDE 20 MG TAB PO SCH (08:05)
[2017-05-26] MEDS: APIXABAN 2.5 MG TABLET PO SCH (08:05)
[2017-05-26] MEDS: ACYCLOVIR 200 MG CAP PO SCH (08:05)
[2017-05-26] MEDS: ASPIRIN 81 MG PO SCH (08:05)
[2017-05-26] MEDS: LISINOPRIL 20 MG TAB PO SCH (08:06)
[2017-05-26] MEDS: METOPROLOL TARTRATE 25 MG TAB PO SCH (08:06)
[2017-05-26] MEDS: TAMSULOSIN 0.4 MG CAP.ER.24H PO SCH (08:06)
--- NOTE | 2017-05-26 08:31 | P.PN ---
Subjective Progress Note Date: 05/26/17 Principal diagnosis: atrial fibrillation this is a pleasant 87-year-old gentleman who presented to the hospital with shortness of breath and was ruled in for acute non-ST elevation myocardial infarction. He underwent an echocardiogram which revealed severe LV dysfunction with an ejection fraction of 35%. Subsequently the patient underwent a heart catheterization which revealed mild nonobstructive coronary artery disease. The patient does also have history of esophageal cancer. On follow-up with him today, he seems to be doing good. He denies having any chest pain or discomfort but continues to have exertional dyspnea seems to be better overall. No dizziness or lightheadedness and no syncope. He continues to be in atrial fibrillation with controlled heart rate. Beside that he is on oral anticoagulation. Objective - Vital Signs Vital signs: Vital Signs Temp 96.9 F L 05/26/17 03:17 Pulse 68 05/26/17 07:56 Resp 18 05/26/17 07:54 BP 129/69 05/26/17 07:54 Pulse Ox 95 05/26/17 07:56 Intake & Output 05/25/17 05/26/17 05/26/17 18:59 06:59 18:59 Intake Total 480 Output Total 500 300 Balance -20 -300 Intake: Oral 480 Output: Urine 500 300 Other: Voiding Method Urinal Urinal - Constitutional General appearance: Present: no acute distress - Respiratory Respiratory: bilateral: CTA - Cardiovascular Rhythm: irregularly irregular Heart sounds: normal: S1, S2 - Labs CBC & Chem 7: 05/25/17 05:29 05/26/17 05:41 Labs: Abnormal Lab Results - Last 24 Hours (Table) 05/25/17 05/25/17 05/25/17 Range/Units 11:49 16:23 20:23 Sodium (137-145) mmol/L Chloride (98-107) mmol/L Glucose (74-99) mg/dL POC Glucose (mg/dL) 264 H 176 H 246 H (75-99) mg/dL Osmolality (280-301) mosm/kg Uric Acid (3.5-8.5) mg/dL ALT (21-72) U/L Total Protein (6.3-8.2) g/dL Albumin (3.5-5.0) g/dL 05/26/17 05/26/17 Range/Units 05:41 06:01 Sodium 125 L (137-145) mmol/L Chloride 91 L (98-107) mmol/L Glucose 190 H (74-99) mg/dL POC Glucose (mg/dL) 200 H (75-99) mg/dL Osmolality 268 L (280-301) mosm/kg Uric Acid 2.5 L (3.5-8.5) mg/dL ALT 132 H (21-72) U/L Total Protein 5.6 L (6.3-8.2) g/dL Albumin 3.2 L (3.5-5.0) g/dL Assessment and Plan Assessment: assessment #1 atrial fibrillation/atrial flutter was controlled heart rate and on oral anticoagulation #2 mild nonobstructive coronary artery disease based on recent heart catheterization #3 shortness of breath likely related to the cardiomyopathy as well as COPD #4 multiple comorbid conditions. Plan #1 the patient seems to be hemodynamically stable. #2 from the cardiac vascular standpoint overview, he can be discharged home.
[2017-05-26] MEDS ORDERED: TOLVAPTAN 30 MG TABLET PO ONE (08:42)
--- NOTE | 2017-05-26 08:45 | P.PN ---
Subjective Progress Note Date: 05/26/17 Patient is seen and examined for the follow-up of hyponatremia. Clinically doing better no nausea vomiting or diarrhea. No dizziness lightheadedness or falls. Making good amount of urine. Objective - Vital Signs Vital signs: Vital Signs Temp 96.9 F L 05/26/17 03:17 Pulse 76 05/26/17 08:05 Resp 18 05/26/17 07:54 BP 129/69 05/26/17 07:54 Pulse Ox 95 05/26/17 07:56 Intake & Output 05/25/17 05/26/17 05/26/17 18:59 06:59 18:59 Intake Total 480 Output Total 500 300 Balance -20 -300 Intake: Oral 480 Output: Urine 500 300 Other: Voiding Method Urinal Urinal - Exam Lying comfortable in no acute distress S1-S2 heard Lungs clear No edema - Labs CBC & Chem 7: 05/25/17 05:29 05/26/17 05:41 Labs: Abnormal Lab Results - Last 24 Hours (Table) 05/25/17 05/25/17 05/25/17 Range/Units 11:49 16:23 20:23 Sodium (137-145) mmol/L Chloride (98-107) mmol/L Glucose (74-99) mg/dL POC Glucose (mg/dL) 264 H 176 H 246 H (75-99) mg/dL Osmolality (280-301) mosm/kg Uric Acid (3.5-8.5) mg/dL ALT (21-72) U/L Total Protein (6.3-8.2) g/dL Albumin (3.5-5.0) g/dL 05/26/17 05/26/17 Range/Units 05:41 06:01 Sodium 125 L (137-145) mmol/L Chloride 91 L (98-107) mmol/L Glucose 190 H (74-99) mg/dL POC Glucose (mg/dL) 200 H (75-99) mg/dL Osmolality 268 L (280-301) mosm/kg Uric Acid 2.5 L (3.5-8.5) mg/dL ALT 132 H (21-72) U/L Total Protein 5.6 L (6.3-8.2) g/dL Albumin 3.2 L (3.5-5.0) g/dL Assessment and Plan Assessment: Impression: #1 hypotonic hyponatremia 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 #2 COPD exacerbation #3 cardiomyopathy with the EF of 25% and pulmonary hypertension #4 metabolic acidosis #5 multiple myeloma on treatment Recommendations: #1 agree with stopping IV fluids. #2 fluid restriction to 1200 ML's per day #3 labs consistent with SIADH. Continue with low-dose Lasix. Low normal TSH and cortisol pending. #4 give 1 more dose soft all wrapped in today. Stable from nephrology point of view to be discharged to be followed up in the office in a week with repeat labs.
[2017-05-26 08:54] VITALS: PULSE 51
[2017-05-26] MEDS ORDERED: guaiFENesin-DM 100-10MG/5ML 10 ML CUP PO SCH (09:00)
--- NOTE | 2017-05-26 09:47 | P.PN ---
Subjective Progress Note Date: 05/26/17 This is an 85-year-old male patient of Dr. Mike and Dr. Madrid with a past medical history of angina, COPD on daily prednisone, chronic hypoxic respiratory failure on home O2 at 2 L nasal cannula, diabetes mellitus type 2, hyperlipidemia, hypertension, peripheral vascular disease, carotid artery disease with previous carotid endarterectomy, macular degeneration, multiple myeloma on Revlimid and Decadron, recent treatment for shingles in the left lower extremity. Patient does [facility] at [facility] regarding pulmonary nodules and mediastinal lymphadenopathy. 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 Patient states that he has been feeling bad for a couple weeks and that he could not do anything as he gets short of breath with even very little activities. He states he can only do activity for a couple seconds and then he has to quit. He states it's hard for him to get any phlegm out. He was previously on oxygen at 2 L just as needed for the past 3-6 months but now he is using it around the clock. He states shortness of breath starts as soon as he gets up in the morning and he can't catch his breath. He denies having any fever or chills. He has some sputum production with white and yellow phlegm. Patient came into [facility] emergency center for evaluation. He had a pulse ox of 83%, afebrile, heart rate initially in the 90s. White count was normal, hemoglobin 12.4, sodium 124, chloride 89, CO2 19, blood sugar 222. Initial troponin was 0.067 followed by 0.039, 0.030. ABGs showed a pH of 7.42, pCO2 25, PaO2 70, bicarb 17, total CO2 17, O2 saturation 94.5 and base excess -7.9. EKG was atrial flutter. Patient was started on IV steroids and then heparin drip for elevated troponin and admitted to the selective care unit. Chest x-ray shows chronic emphysematous change without acute pulmonary process. Echocardiogram reveals EF of 35-40%, mild concentric left ventricular hypertrophy, moderate pulmonary hypertension and moderate tricuspid regurgitation, patient was seen in consultation by pulmonary medicine as well as by cardiology for further evaluation. 05/25: Patient is feeling a bit better today he is able to bring a bit of phlegm today he continues to be somewhat short of breath, he continues to feel generally weak, he was seen earlier by nephrology and patient was diagnosed with SIADH he was placed on fluid restriction 1200 mL in 24 hours, he was given 1 dose of Lasix repeat his labs tomorrow morning. 05/26: Patient is a lot better today he denies any chest pain or any shortness of breath he is having less coughing, no fever or chills, his sodium is up to 125, patient is on fluid restriction 1200 mL on a daily basis, he would be discharged home today in follow-up with us as an outpatient one week for repeated BMP. Objective - Vital Signs Vital signs: Vital Signs Temp 96.9 F L 05/26/17 03:17 Pulse 82 05/26/17 03:17 Resp 18 05/26/17 03:17 BP 146/83 05/26/17 03:17 Pulse Ox 98 05/26/17 03:17 Intake & Output 05/25/17 05/26/17 05/26/17 18:59 06:59 18:59 Intake Total 480 Output Total 500 300 Balance -20 -300 Intake: Oral 480 Output: Urine 500 300 Other: Voiding Method Urinal Urinal - Exam - Constitutional General appearance: Present: mild distress - EENT Eyes: Present: anicteric sclerae, EOMI, PERRLA, normal appearance. Absent: ptosis, scleral icterus ENT: Present: hearing grossly normal, NA/AT, normal oropharynx. Absent: thrush Ears: bilateral: normal - Neck Neck: Present: normal ROM, thyromegaly. Absent: lymphadenopathy, rigidity, stridor Carotids: bilateral: upstroke delayed Thyroid: bilateral: normal size - Respiratory Respiratory: bilateral: diminished, wheezing, prolonged expiration, negative: dullness, rales, rhonchi - Cardiovascular Rhythm: irregularly irregular Heart sounds: normal: S1, S2 Abnormal Heart Sounds: Present: systolic murmur - Gastrointestinal General gastrointestinal: Present: normal bowel sounds, soft. Absent: splenomegaly, tenderness, umbilical hernia - Integumentary Integumentary: Present: normal, normal turgor - Neurologic Neurologic: Present: CNII-XII intact. Absent: focal deficits - Musculoskeletal Musculoskeletal: Present: strength equal bilaterally - Psychiatric Psychiatric: Present: A&O x's 3, appropriate affect, intact judgment & insight - Labs CBC & Chem 7: 05/25/17 05:29 05/26/17 05:41 Labs: Abnormal Lab Results - Last 24 Hours (Table) 05/25/17 05/25/17 05/25/17 Range/Units 11:49 16:23 20:23 Sodium (137-145) mmol/L Chloride (98-107) mmol/L Glucose (74-99) mg/dL POC Glucose (mg/dL) 264 H 176 H 246 H (75-99) mg/dL Osmolality (280-301) mosm/kg Uric Acid (3.5-8.5) mg/dL ALT (21-72) U/L Total Protein (6.3-8.2) g/dL Albumin (3.5-5.0) g/dL 05/26/17 05/26/17 Range/Units 05:41 06:01 Sodium 125 L (137-145) mmol/L Chloride 91 L (98-107) mmol/L Glucose 190 H (74-99) mg/dL POC Glucose (mg/dL) 200 H (75-99) mg/dL Osmolality 268 L (280-301) mosm/kg Uric Acid 2.5 L (3.5-8.5) mg/dL ALT 132 H (21-72) U/L Total Protein 5.6 L (6.3-8.2) g/dL Albumin 3.2 L (3.5-5.0) g/dL Assessment and Plan Assessment: Assessment and Plan Plan: 1. New onset atrial flutter. Patient will be transitioned to Eliquis 2.5 mg orally twice every day along with metoprolol 25 mg orally 3 times every day For rate control. 2. Elevated troponin thought to be due to demand ischemia. Continue patient on metoprolol 25 mg orally 3 times every day. 3. Acute on chronic hypoxic respiratory failure with COPD exacerbation. Patient is normally on home O2 at 2 L nasal cannula. Consult with Dr. Mccullough is appreciated. Continue DuoNeb treatments 4 times daily, Symbicort 2 puffs twice daily, Mucinex, Levaquin, Solu-Medrol 60 mg IV every 6 hours. 4. 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 Continue fluid restriction patient was given 1 dose of Lasix. 5. History of hypertension. Continue lisinopril 40 mg daily, metoprolol 25 mg orally 3 times every day. 6. 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 Currently stable, avoid nephrotoxic agents and recheck lab work. 7. Diabetes mellitus type 2. Discontinue metformin because of elevated liver function tests, continue with a sliding scale insulin for now. 8. Benign prostatic hypertrophy. Continue Flomax or 0.4 mg twice daily. 9. Moderate protein calorie malnutrition with recent weight loss of 15-20 pounds over 10 months, BMI of 20. Continue protein supplement. 10. Multiple myeloma on Revlimid and Decadron. 11. Peripheral vascular disease with carotid artery disease previous endarterectomies. Continue Plavix. 12. Hyperlipidemia. Continue Lipitor 20 mg daily. 13. Chronic hypoxic respiratory failure on home O2 at 2 L. 14. DVT prophylaxis. Continue with Eliquis 2.5 mg orally twice every day. 15 Gastrointestinal prophylaxis. Protonix daily. 16. Patient is ready to be discharged today in follow-up with us as an outpatient next week for a repeated BMP.
--- NOTE | 2017-05-26 09:57 | P.DS ---
Providers Date of admission: 05/23/17 12:32 Expected date of discharge: 05/26/17 Attending physician: Kayley Phipps MD Consults: 05/23/17 12:32 Consult Physician Stat Consulting Provider: Alexey Madrid Consult Reason/Comments: Hypoxia, exacerbation of COPD Do you want consulting provider notified?: Yes Consult Physician Urgent Consulting Provider: Anselmo Gunderson Consult Reason/Comments: Shortness of breath atrial flutter elevated troponin Do you want consulting provider notified?: Yes 05/24/17 14:08 Consult Physician Routine Consulting Provider: Alphonso Comer Consult Reason/Comments: hyponatremia Do you want consulting provider notified?: Yes Primary care physician: [facility] Course: This is an 85-year-old male patient of Dr. Mike and Dr. Madrid with a past medical history of angina, COPD on daily prednisone, chronic hypoxic respiratory failure on home O2 at 2 L nasal cannula, diabetes mellitus type 2, hyperlipidemia, hypertension, peripheral vascular disease, carotid artery disease with previous carotid endarterectomy, macular degeneration, multiple myeloma on Revlimid and Decadron, recent treatment for shingles in the left lower extremity. Patient does follow at [facility] regarding pulmonary nodules and mediastinal lymphadenopathy. 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 Patient states that he has been feeling bad for a couple weeks and that he could not do anything as he gets short of breath with even very little activities. He states he can only do activity for a couple seconds and then he has to quit. He states it's hard for him to get any phlegm out. He was previously on oxygen at 2 L just as needed for the past 3-6 months but now he is using it around the clock. He states shortness of breath starts as soon as he gets up in the morning and he can't catch his breath. He denies having any fever or chills. He has some sputum production with white and yellow phlegm. Patient came into [facility] emergency center for evaluation. He had a pulse ox of 83%, afebrile, heart rate initially in the 90s. White count was normal, hemoglobin 12.4, sodium 124, chloride 89, CO2 19, blood sugar 222. Initial troponin was 0.067 followed by 0.039, 0.030. ABGs showed a pH of 7.42, pCO2 25, PaO2 70, bicarb 17, total CO2 17, O2 saturation 94.5 and base excess -7.9. EKG was atrial flutter. Patient was started on IV steroids and then heparin drip for elevated troponin and admitted to the selective care unit. Chest x-ray shows chronic emphysematous change without acute pulmonary process. Echocardiogram reveals EF of 35-40%, mild concentric left ventricular hypertrophy, moderate pulmonary hypertension and moderate tricuspid regurgitation, patient was seen in consultation by pulmonary medicine as well as by cardiology for further evaluation. 05/25: Patient is feeling a bit better today he is able to bring a bit of phlegm today he continues to be somewhat short of breath, he continues to feel generally weak, he was seen earlier by nephrology and patient was diagnosed with SIADH he was placed on fluid restriction 1200 mL in 24 hours, he was given 1 dose of Lasix repeat his labs tomorrow morning. 05/26: Patient is a lot better today he denies any chest pain or any shortness of breath he is having less coughing, no fever or chills, his sodium is up to 125, patient is on fluid restriction 1200 mL on a daily basis, he would be discharged home today in follow-up with us as an outpatient one week for repeated BMP. Discharge diagnoses: 1. New onset atrial flutter. 2. Elevated troponin thought to be due to demand ischemia. 3. Acute on chronic hypoxic respiratory failure with COPD exacerbation. 4. 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 5. History of hypertension. 6. 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 7. Diabetes mellitus type 2. 8. Benign prostatic hypertrophy. 9. Moderate protein calorie malnutrition with recent weight loss of 15-20 pounds over 10 months, BMI of 20. 10. Multiple myeloma on Revlimid and Decadron. 11. Peripheral vascular disease with carotid artery disease previous endarterectomies. 12. Hyperlipidemia. 13. Chronic hypoxic respiratory failure on home O2 at 2 L. Patient Condition at Discharge: Good Plan - Discharge Summary Discharge Rx Participant: Yes New Discharge Prescriptions: No Action metFORMIN HCL [metFORMIN HCL ER] 1,000 mg PO BID Clopidogrel [Plavix] 75 mg PO DAILY Ipratropium-Albuterol Nebulize [Duoneb 0.5 mg-3 mg/3 ml Soln] 3 ml INHALATION RT-QID Docusate [Colace] 100 mg PO DAILY PRN PRN Reason: Constipation Tamsulosin [Flomax] 0.8 mg PO DAILY guaiFENesin [Mucinex] 600 mg PO BID PRN PRN Reason: Congestion Melatonin 3 mg PO HS Areds Ii Eye Vitamins 1 tab PO DAILY Metoprolol Tartrate [Lopressor] 25 mg PO BID Atorvastatin [Lipitor] 20 mg PO DAILY Budesonide/Formoterol Fumarate [Symbicort 160-4.5 Mcg Inhaler] 2 puff INHALATION RT-BID Lactose-Reduced Food [Boost] 237 ml PO DAILY Lisinopril 40 mg PO DAILY #0 predniSONE 5 mg PO DAILY Prochlorperazine [Compazine] 10 mg PO Q6H PRN PRN Reason: Nausea Dexamethasone [Hexadrol] 20 mg PO WE Acyclovir [Zovirax] 400 mg PO TID Lenalidomide [Revlimid] 10 mg PO DIRECTED Discharge Medication List Clopidogrel [Plavix] 75 mg PO DAILY 05/20/14 [History] Docusate [Colace] 100 mg PO DAILY PRN 05/20/14 [History] Ipratropium-Albuterol Nebulize [Duoneb 0.5 mg-3 mg/3 ml Soln] 3 ml INHALATION RT -QID 05/20/14 [History] Tamsulosin [Flomax] 0.8 mg PO DAILY 05/20/14 [History] metFORMIN HCL [metFORMIN HCL ER] 1,000 mg PO BID 05/20/14 [History] guaiFENesin [Mucinex] 600 mg PO BID PRN 01/24/15 [History] Areds Ii Eye Vitamins 1 tab PO DAILY 03/02/16 [History] Atorvastatin [Lipitor] 20 mg PO DAILY 03/02/16 [History] Budesonide/Formoterol Fumarate [Symbicort 160-4.5 Mcg Inhaler] 2 puff INHALATION RT-BID 03/02/16 [History] Lactose-Reduced Food [Boost] 237 ml PO DAILY 03/02/16 [History] Melatonin 3 mg PO HS 03/02/16 [History] Metoprolol Tartrate [Lopressor] 25 mg PO BID 03/02/16 [History] Lisinopril 40 mg PO DAILY #0 01/09/17 [Rx] Acyclovir [Zovirax] 400 mg PO TID 05/23/17 [History] Dexamethasone [Hexadrol] 20 mg PO WE 05/23/17 [History] Lenalidomide [Revlimid] 10 mg PO DIRECTED 05/23/17 [History] Prochlorperazine [Compazine] 10 mg PO Q6H PRN 05/23/17 [History] predniSONE 5 mg PO DAILY 05/23/17 [History] Follow up Appointment(s)/Referral(s): Percy Mike MD [Primary Care Provider] - 1-2 Days (Office currently closed, please call to schedule appointment soon. ) Alexey Madrid DO [Doctor of Osteopathic Medicine] - 1-2 days (Please call office to make appointment. ) Activity/Diet/Wound Care/Special Instructions: Mindi pavon @[facility] -free 30 day supply given to on Saturday-pt to follow up for future coupons- follow [facility] - script faxed to [facility]
[2017-05-26] MEDS: LEVOFLOXACIN 750 MG TAB PO SCH (11:03)
--- NOTE | 2017-05-26 11:32 | P.PN ---
Subjective Progress Note Date: 05/26/17 87-year-old male patient known history of COPD, hypertension, diabetes mellitus and previous history of pulmonary nodules and mediastinal lymphadenopathy whereas been followed up in our office by Dr. Madrid. The patient has an FEV1 of 72% of predicted consistent with mild COPD and the patient has a diffusion capacity of 23% of predicted and the total lung capacity of 111% of predicted. Note that, the patient's abnormal pulmonary nodules are being monitored and the patient has had several CAT scans at [facility], and the last CAT scan was done on 02/11/2017 that showed Emphysematous changes in the lungs bilaterally consistent with centrilobular emphysema. There was persistent multiple noncalcified pulmonary nodules that are unchanged in size and position and configuration compared to the previous CAT scan from 08/10/2015 and 2014. The largest of these lesions is a 1.6 cm lesion that has spiculated border in the right upper lobe. Also, the patient has mediastinal lymphadenopathy that is not greater than 1 cm in size. No pericardial effusion. The size of the lymph nodes within the mediastinum have not changed significantly compared to the prior CAT scans. Other comorbid conditions include diabetes mellitus, hypertension, hyperlipidemia, peripheral vascular disease and macular degeneration and the patient has carotid artery disease with previous carotid endarterectomy and he is also known to have peripheral vascular disease with previous femoral bypass surgery. He is a [id number] smoking history and he quit smoking back in December 2004. No history of alcoholism. He takes prednisone 5 mg by mouth daily on a chronic basis. As for his COPD he takes Symbicort 160/4.52 puffs twice a day and albuterol solution on yesterday's basis in conjunction with ipratropium bromide..The patient has been also maintained on Revlimid and Decadron probably for treatment of multiple myeloma. Earlier, the patient was receiving Velcade injections and discovered switched to Revlimid. The patient apparently developed shingles also involving the left lower extremity that was treated on outpatient basis. The patient presented to the [facility] department today with increased shortness of breath. His shortness of breath has gotten worse since this morning. He denied having any chest pain. No pleurisy. No hemoptysis. No nausea vomiting or abdominal pain. His chest x-ray showed chronic emphysematous changes without any acute cardiopulmonary process. EKG showed a flutter with variable blocks and left axis deviation. The rate is controlled. The patient is also Q waves over the anterior septal leads. The blood work showed no significant leukocytosis. The blood gas showed a pH of 7.42 with a pCO2 of 25 and pO2 of 70 and this was done and FiO2 of 32%. Sodium level was low at 124 and a glucose was up to 22 and the patient had some limited troponin leak with a troponin level of 0.067. Liver function tests were within normal limits. The patient was placed on DuoNeb nebulized treatments around the clock, IV heparin and he was admitted to the hospital. On today's evaluation of 05/24/2017, the patient is looking better. Less short of breath. Last bronchus spastic and wheezy. Still has a congested cough although it is improving compared to yesterday. The patient was seen by cardiology. Cardiac examination was done and showed a nonocclusive disease. The patient has atrial flutter. The patient will need long-term and to coagulation. The patient is also on a combination of antibiotics, bronchodilators and steroids. No other significant events overnight and he is stable from the pulmonary standpoint. Patient is seen again today 05/25/2017 in follow-up. He is awake and alert in no acute distress. Breathing easier today as compared to yesterday. Maintaining good O2 saturations in the 90s on 3 L/m per nasal cannula. Afebrile. Hemodynamically stable. No chest pain palpitations lightheadedness or dizziness On 05/26/2017 the patient is looking well. Sputum production is improved considerably. Bronchospasm and wheezing has completely subsided. No chest pain. No fever or chills. Ambulating. There has been no other significant events overnight and the patient seems to be ready to go home today. He'll be sent home on a course of Levaquin and a prednisone burst taper. Discussed the case with the primary care physician. He is an ex-smoker. He also has underlying history of multiple myeloma. Objective - Vital Signs Vital signs: Vital Signs Temp 96.9 F L 05/26/17 03:17 Pulse 76 05/26/17 08:05 Resp 18 05/26/17 08:00 BP 129/69 05/26/17 07:54 Pulse Ox 95 05/26/17 07:56 Intake & Output 05/25/17 05/26/17 05/26/17 18:59 06:59 18:59 Intake Total 480 Output Total 500 300 Balance -20 -300 Intake: Oral 480 Output: Urine 500 300 Other: Voiding Method Urinal Urinal - Exam Head exam was generally normal. There was no scleral icterus or corneal arcus. Mucous membranes were moist.Neck was supple and without jugular venous distension, thyromegaly, or carotid bruits. Carotids were easily palpable bilaterally. There was no adenopathy.there is positive JVDs and the patient has a scar of previous endarterectomy on the left neck. Lung sounds are diminished bilaterally , otherwise clear.Cardiac exam revealed the PMI to be normally situated and sized. The rhythm was regular and no extrasystoles were noted during several minutes of auscultation. The first and second heart sounds were normal and physiologic splitting of the second heart sound was noted. There were no murmurs, rubs, clicks, or gallops.Abdominal exam revealed normal bowel sounds. The abdomen was soft, non-tender, and without masses, organomegaly, or appreciable enlargement of the abdominal aorta.Examination of the extremities revealed easily palpable radial, femoral and pedal pulses. There was no cyanosis , clubbing or edema.neurologically the patient is awake and alert and there is no focal neurological deficit.Examination of the skin revealed no evidence of significant rashes, suspicious appearing nevi or other concerning lesions.scars of a healed shingles involving the left lower extremity. - Labs CBC & Chem 7: 05/25/17 05:29 05/26/17 05:41 Labs: Abnormal Lab Results - Last 24 Hours (Table) 05/25/17 05/25/17 05/25/17 Range/Units 11:49 16:23 20:23 Sodium (137-145) mmol/L Chloride (98-107) mmol/L Glucose (74-99) mg/dL POC Glucose (mg/dL) 264 H 176 H 246 H (75-99) mg/dL Osmolality (280-301) mosm/kg Uric Acid (3.5-8.5) mg/dL ALT (21-72) U/L Total Protein (6.3-8.2) g/dL Albumin (3.5-5.0) g/dL 05/26/17 05/26/17 Range/Units 05:41 06:01 Sodium 125 L (137-145) mmol/L Chloride 91 L (98-107) mmol/L Glucose 190 H (74-99) mg/dL POC Glucose (mg/dL) 200 H (75-99) mg/dL Osmolality 268 L (280-301) mosm/kg Uric Acid 2.5 L (3.5-8.5) mg/dL ALT 132 H (21-72) U/L Total Protein 5.6 L (6.3-8.2) g/dL Albumin 3.2 L (3.5-5.0) g/dL Assessment and Plan Plan: Assessment 1 acute COPD exacerbation, improving and the patient shortness of breath is also improved and the patient is back to his baseline. 2 acute shortness of breath secondary to above, improving 3 atrial flutter with 2 to one block with controlled rate, currently on oral anticoagulation 4 minimal troponin elevation, nonspecific, and a cardiac catheterization was done and the patient was found to have a nonocclusive disease 5 COPD FEV1 of 72% of predicted. The patient has severe diffusion impairment and the patient has been oxygen dependent 6 multiple myeloma initiated. With Velcade and currently on a combination of Revlimid and Decadron 7 shingles of the left lower extremity, treated 8 severe peripheral vascular disease with previous vascular intervention involving the legs 9 pulmonary nodules, stable on previous CAT scan monitoring the last CAT scan was done in January 2017 10 acute hyponatremia 13 carotid artery disease with a previous endarterectomy on the left, 50% lesion on the right, 14 diabetes mellitus 15 hyperlipidemia 16 hypertension 17 BPH 18 macular degeneration 19 [id number] smoking history, ex-smoker since 2004 Plan Discharge the patient home on a prednisone burst taper on a 5 day course of Levaquin. The patient is on oral anticoagulation. The patient had a cardiac catheterization that came back showing nonocclusive disease. Continue Symbicort as maintenance. Follow-up in the office.
--- NOTE | 2017-05-28 14:44 | CDI ---
Last Revision, January 2017 Documentation Clarification Form Date: 05/28/17 From: Candi Corey Ofelia Raygoza, Dba Developer between 8:30 am & 5 pm [place]y Admit Date: 05/23/2017 12:32:00 PM Patient Name: Miah Mendoza Visit Number: [id number] Discharge Date: 05/26/17 ATTENTION: The Clinical Documentation Specialists (CDI) and [facility] Coding Staff appreciate your assistance in clarifying documentation. Please respond to the clarification below the line at the bottom and electronically sign. The CDI & [facility] Coding staff will review the response and follow-up if needed. Please note: Queries are made part of the Legal Health Record. If you have any questions, please contact the author of this message via ITS. Dr. Wilder Escobar Atrial fibrillation is documented in the 05/26 PN. History/Risk Factors: atypical atrial flutter, emphysema On oral anticoagulation In your professional opinion, can you please clarify the type of atrial fibrillation, if known? Chronic/Permanent Paroxysmal Persistent Other, please specify Unable to determine Please continue to document in your progress notes and discharge summary in order to capture severity of illness and risk of mortality. Include clinical findings that support your diagnosis. MTDD
--- NOTE | 2017-05-28 14:59 | CDI ---
Last Revision, January 2017 Documentation Clarification Form Date: 05/28/17 From: Candi Corey Ofelia Raygoza, Exceptional Needs Teacher between 8:30 am & 5 pm Betsy Admit Date: 05/23/2017 12:32:00 PM Patient Name: Miah Mendoza Visit Number: [id number] Discharge Date: 05/26/17 ATTENTION: The Clinical Documentation Specialists (CDI) and [facility] Coding Staff appreciate your assistance in clarifying documentation. Please respond to the clarification below the line at the bottom and electronically sign. The CDI & [facility] Coding staff will review the response and follow-up if needed. Please note: Queries are made part of the Legal Health Record. If you have any questions, please contact the author of this message via ITS. Dr. Nishant Momin Elevated troponins secondary to demand ischemia is documented in the discharge summary and PNs on 05/25 & 05/26. Patient history /Risk Factors: atypical atrial flutter, emphysema, ac/chr hypoxic resp failure, multiple myeloma, Type II DM, SIADH, pulm htn, ischemic cardiomyopathy Troponin I: 0.067, 0.039, 0.032 EKG: Atrial flutter with variable AV block w premature ventricular or aberrantly conducted complexes Heart Cath: Mild nonobstructive coronary artery disease with moderate to severe disease involving a small caliber ramus intermedius. In order to capture the severity of condition and necessary documentation specificity, please clarify if the elevated Troponins secondary to demand mismatch resulted in: Type 2 [place] Unable to determine Other condition, please specify Please continue to document in your progress notes and discharge summary in order to capture severity of illness and risk of mortality. Include clinical findings that support your diagnosis. ____unable to determine MTDD
[2017-05-29] MEDS ORDERED: DEXAMETHASONE 4 MG TAB PO SCH (09:00)
--- NOTE | 2017-06-04 13:05 | CDI ---
Last Revision, January 2017 Documentation Clarification Form Date: 06/04/17 From: Candi Corey Ofelia Raygoza, Director Gift between 8:30 am & 5 pm Betsy Admit Date: 05/23/2017 12:32:00 PM Patient Name: Miah Mendoza Visit Number: [id number] Discharge Date: 05/26/17 ATTENTION: The Clinical Documentation Specialists (CDI) and [facility] Coding Staff appreciate your assistance in clarifying documentation. Please respond to the clarification below the line at the bottom and electronically sign. The CDI & [facility] Coding staff will review the response and follow-up if needed. Please note: Queries are made part of the Legal Health Record. If you have any questions, please contact the author of this message via ITS. Dr. Anselmo Gunderson Atrial fibrillation is documented in the 05/26 PN. History/Risk Factors: atypical atrial flutter, emphysema On oral anticoagulation In your professional opinion, can you please clarify the type of atrial fibrillation, if known? Chronic/Permanent Paroxysmal Persistent Other, please specify Unable to determine Please continue to document in your progress notes and discharge summary in order to capture severity of illness and risk of mortality. Include clinical findings that support your diagnosis. MTDD
--- NOTE | 2017-06-04 13:08 | CDI ---
Last Revision, January 2017 Documentation Clarification Form Date: 06/04/17 From: Candi Corey Ofelia Raygoza, Director It between 8:30 am & 5 pm Betsy Admit Date: 05/23/2017 12:32:00 PM Patient Name: Miah Mendoza Visit Number: [id number] Discharge Date: 05/26/17 ATTENTION: The Clinical Documentation Specialists (CDI) and [facility] Coding Staff appreciate your assistance in clarifying documentation. Please respond to the clarification below the line at the bottom and electronically sign. The CDI & [facility] Coding staff will review the response and follow-up if needed. Please note: Queries are made part of the Legal Health Record. If you have any questions, please contact the author of this message via ITS. Dr. Anselmo Gunderson Elevated troponins secondary to demand ischemia is documented in the discharge summary and PNs on 05/25 & 05/26. Patient history /Risk Factors: atypical atrial flutter, emphysema, ac/chr hypoxic resp failure, multiple myeloms, Type II DM, SIADH, pulm htn, ischemic cardiomyopathy Troponin I: 0.067, 0.039, 0.032 EKG: Atrial flutter with variable AV block w premature ventricular or aberrantly conducted complexes Heart Cath: Mild nonobstructive coronary artery disease with moderate to severe disease involving a small caliber ramus intermedius. In order to capture the severity of condition and necessary documentation specificity, please clarify if the elevated Troponins secondary to demand mismatch resulted in: Type 2 [place] Unable to determine Other condition, please specify Please continue to document in your progress notes and discharge summary in order to capture severity of illness and risk of mortality. Include clinical findings that support your diagnosis. MTDD
--- NOTE | 2017-06-07 14:15 | CDI ---
Last Revision, January 2017 Documentation Clarification Form Date: 06/07/17 From: Candi Corey Ofelia Raygoza, Rehab Trainer between 8:30 am & 5 pm Betsy Admit Date: 05/23/2017 12:32:00 PM Patient Name: Miah Mendoza Visit Number: [id number] Discharge Date: 05/26/17 ATTENTION: The Clinical Documentation Specialists (CDI) and [facility] Coding Staff appreciate your assistance in clarifying documentation. Please respond to the clarification below the line at the bottom and electronically sign. The CDI & [facility] Coding staff will review the response and follow-up if needed. Please note: Queries are made part of the Legal Health Record. If you have any questions, please contact the author of this message via ITS. Dr. Anselmo Gunderson Atrial fibrillation is documented in the 05/26 PN. History/Risk Factors: atypical atrial flutter, emphysema On oral anticoagulation In your professional opinion, can you please clarify the type of atrial fibrillation, if known? Chronic/Permanent Paroxysmal Persistent Other, please specify Unable to determine Please continue to document in your progress notes and discharge summary in order to capture severity of illness and risk of mortality. Include clinical findings that support your diagnosis. MTDD
== END 2017-05-26 11:53 | disposition home or self-care (01) | DRG 286 ==
LOC: EC 10:06 → 6SEL 12:32
PROVIDERS: ADMIT Internal Medicine; ATTEND Internal Medicine
PROC: B2111ZZ Fluoroscopy of Multiple Coronary Arteries using Low Osmolar Contrast (ICD-10-PCS; 2017-05-24)
PROC: 4A023N7 Measurement of Cardiac Sampling and Pressure, Left Heart, Percutaneous Approach (ICD-10-PCS; principal; 2017-05-24 12:21)
DX: I48.4 Atypical atrial flutter (principal); J96.21 Acute and chronic respiratory failure with hypoxia; E44.0 Moderate protein-calorie malnutrition; C90.00 Multiple myeloma not having achieved remission; E22.2 Syndrome of inappropriate secretion of antidiuretic hormone; E87.2 Acidosis; E11.22 Type 2 diabetes mellitus with diabetic chronic kidney disease; E11.51 Type 2 diabetes mellitus with diabetic peripheral angiopathy without gangrene; B02.9 Zoster without complications; J43.2 Centrilobular emphysema; I27.20 Pulmonary hypertension, unspecified; Z99.81 Dependence on supplemental oxygen; I25.5 Ischemic cardiomyopathy; I65.21 Occlusion and stenosis of right carotid artery; I07.1 Rheumatic tricuspid insufficiency; I25.10 Atherosclerotic heart disease of native coronary artery without angina pectoris; R40.2362 Coma scale, best motor response, obeys commands, at arrival to emergency department; R40.2142 Coma scale, eyes open, spontaneous, at arrival to emergency department; R40.2252 Coma scale, best verbal response, oriented, at arrival to emergency department; I48.2 Chronic atrial fibrillation; I12.9 Hypertensive chronic kidney disease with stage 1 through stage 4 chronic kidney disease, or unspecified chronic kidney disease; N18.2 Chronic kidney disease, stage 2 (mild); Z68.20 Body mass index [BMI] 20.0-20.9, adult; K59.09 Other constipation; E78.5 Hyperlipidemia, unspecified; R59.0 Localized enlarged lymph nodes; R91.8 Other nonspecific abnormal finding of lung field; H35.30 Unspecified macular degeneration; N40.0 Benign prostatic hyperplasia without lower urinary tract symptoms; Z79.02 Long term (current) use of antithrombotics/antiplatelets; Z79.51 Long term (current) use of inhaled steroids; Z79.52 Long term (current) use of systemic steroids; Z79.84 Long term (current) use of oral hypoglycemic drugs; Z79.899 Other long term (current) drug therapy; Z87.01 Personal history of pneumonia (recurrent); Z98.42 Cataract extraction status, left eye; Z98.41 Cataract extraction status, right eye; Z96.1 Presence of intraocular lens; Z87.891 Personal history of nicotine dependence; Z85.01 Personal history of malignant neoplasm of esophagus; Z82.49 Family history of ischemic heart disease and other diseases of the circulatory system; Z83.3 Family history of diabetes mellitus; Z84.1 Family history of disorders of kidney and ureter
CPT/HCPCS: 36415; 36600; 71046; 80053; 80061; 82533; 82550; 82553; 82805; 83036; 83735; 83930; 83935; 84132; 84295; 84300; 84443; 84484; 84550; 85025; 85027; 85610; 85730; 93005; 93306; 93458; 94640; 94644; 94760; 96365; 96367; 96375; 96376; 99291

== ENCOUNTER 2017-06-04 08:32 | Day surgery (SDC) | payer MEDICARE, BC ==
[2017-05-30 14:29] VITALS: BMI 21.7
[~2017-06-04 08:32] MED LIST: ALBUTEROL NEB (CONC) 2.5 MG/0.5 ML INHALATION ONE; ATROPINE SULFATE 0.4 MG/ML 1 ML VIAL IM ONE; LACTATED RINGERS 1,000 ML IV ONE; LACTATED RINGERS 1,000 ML IV SCH; LIDOCAINE 2% (PF) 20 MG/ML 2 ML AMP INHALATION ONE
[2017-06-04 09:20] VITALS: TEMP 98.1
[2017-06-04] MEDS ORDERED: LIDOCAINE 1% 20 ML VIAL (10MG/ML) FOR IV START INTRADERMA ONE (09:20)
[2017-06-04] MEDS ORDERED: LACTATED RINGERS 1,000 ML IV ONE (09:20)
[2017-06-04 09:31] LABS: Glucose,Whole Blood 106 mg/dL (75-99)
[2017-06-04] MEDS ORDERED: LIDOCAINE 1% INJ 10MG/ML (20 ML MDV) ONE (10:00)
[2017-06-04] MEDS ORDERED: PROPOFOL 10 MG/ML 20 ML VIAL IV ONE (10:00)
[2017-06-04] MEDS ORDERED: LIDOCAINE 2% (PF) 20 MG/ML 10 ML AMP INHALATION ONE (10:23)
--- NOTE | 2017-06-04 11:16 | PCN ---
PROCEDURE NOTE PROCEDURE: Bronchoscopy, airway examination, therapeutic lavage, BAL right middle lobe. PREOPERATIVE DIAGNOSES: 1. Retained secretions. 2. Chronic obstructive pulmonary disease. 3. Bronchiectasis. POSTOPERATIVE DIAGNOSES: 1. Retained secretions. 2. Chronic obstructive pulmonary disease. 3. Bronchiectasis. Dr. Madrid was the concrete mixer operator helper. CHIPS SCREEN TENDER provided unconsciousness sedation and general anesthesia. The patient's procedure was done in room #2. There was informed consent. There was universal timeout. After the patient was adequately sedated and being fully monitored, the bronchoscope was inserted through the right nostril. It passed through the right nasopharynx into the oropharynx. The hypopharynx was identified. The hypopharyngeal structures including anterior commissure, true cords, false cords, arytenoids, piriform sinuses, right and left vallecula and epiglottis all appeared normal. After topicalization, bronchoscope was pushed through the glottic opening into the trachea. There were thick secretions noted throughout the trachea. They were suctioned. Tracheal jaja was sharp. The right and left mainstem were topicalized. The right upper lobe and its 3 segments, the right middle lobe and its 2 segments, the right lower lobe and its 5 segments, the left upper lobe proper and its 2 segments, the lingula and its 2 segments and the left lower lobe and its 4 segments all had similar findings of diffuse bronchitic airways. There was diffuse erythema and hyperemia of the airways. The airways were very friable and bled easily. There was no dominant mass or tumor. There were thick secretions noted throughout. There were thick mucus plugs noted as well. The bronchoscope was used to suction these plugs with the assistance of saline lavage. Next, the bronchoscope was inserted and wedged into the right middle lobe. The BAL took place. The patient tolerated the procedure well. There was no immediate complication. The bronchoscope was withdrawn. The patient will be recovered. MMODL / IJN: [id number] /
[2017-06-04 11:20] VITALS: BP 136/74; PULSE 82; RESP 20
[2017-06-04 14:29] LABS: Appearance,BF Cloudy; Color,BF Red
[2017-06-05 08:02] LABS: Nucleated Cells, Body Fluid 60 /uL
[2017-06-05 08:03] LABS: RBC, Body Fluid 11900 /uL
[2017-06-05 08:09] LABS: Mononuclear WBC,Body Fluid 29 %; Polynuclear WBC,Body Fluid 71 %; Total Cells Counted,Body Fluid 100
== END 2017-06-04 12:20 | disposition home or self-care (01) ==
LOC: ORWHC2ENDO 08:32
PROVIDERS: ATTEND Internal Medicine Critical Care Medicine
DX: J47.9 Bronchiectasis, uncomplicated (principal); E78.5 Hyperlipidemia, unspecified; I25.10 Atherosclerotic heart disease of native coronary artery without angina pectoris; I11.0 Hypertensive heart disease with heart failure; I50.20 Unspecified systolic (congestive) heart failure; R91.1 Solitary pulmonary nodule; R09.1 Pleurisy; E11.9 Type 2 diabetes mellitus without complications; C90.00 Multiple myeloma not having achieved remission; I27.20 Pulmonary hypertension, unspecified; Z79.01 Long term (current) use of anticoagulants; Z79.84 Long term (current) use of oral hypoglycemic drugs; Z79.82 Long term (current) use of aspirin; Z79.51 Long term (current) use of inhaled steroids; Z79.52 Long term (current) use of systemic steroids; Z79.899 Other long term (current) drug therapy; Z87.891 Personal history of nicotine dependence
CPT/HCPCS: 94640; 88108; 88305; 89050; 87252; 87070; 87205; 87116; 87102; 87206; 31624; 31645; J0461; J2001 ×3; J2704; 87496; 87498; 87502; 87529; 87634; 87798

== ENCOUNTER → 2017-08-12 | Outpatient (CLI) | payer MEDICARE, BC ==
--- NOTE | 2017-08-12 13:57 | XR ---
EXAMINATION TYPE: XR chest 2V DATE OF EXAM: 08/12/2017 COMPARISON: 05/23/2017 and 03/02/2016 HISTORY: 87-year-old male pulmonary nodule TECHNIQUE: Frontal and lateral views FINDINGS: Heart normal size. Atherosclerotic arch calcifications. Hyperinflation. Strandy atelectasis at the dean ng bases. Nodularity peripherally at the right base appears to have been present a 2017 IMPRESSION: 1. COPD without acute process seen. 2. Peripheral right basilar pulmonary nodule remains unchanged from 03/02/2016.
== END | disposition home or self-care (01) ==
LOC: RADXRMAIN 11:34
PROVIDERS: ATTEND Internal Medicine Geriatric Medicine
DX: C90.00 Multiple myeloma not having achieved remission (principal); J44.9 Chronic obstructive pulmonary disease, unspecified; R91.8 Other nonspecific abnormal finding of lung field; D47.2 Monoclonal gammopathy; E22.2 Syndrome of inappropriate secretion of antidiuretic hormone
CPT/HCPCS: 71046

== ENCOUNTER 2018-02-26 12:31 | Inpatient (IN) | payer MEDICARE, BC ==
[2018-02-26] MEDS ORDERED: FUROSEMIDE 10 MG/ML 4 ML VIAL IV STA (13:10)
[2018-02-26] MEDS ORDERED: NITROGLYCERIN SL TABS 0.4 MG TAB SUBLINGUAL STA (13:11)
[2018-02-26] MEDS ORDERED: METOCLOPRAMIDE 5 MG/ML 2 ML VIAL IVP STA (13:39)
[2018-02-26 13:48] LABS: Anisocytosis Slight; Basophils % (A) 1 %; Eosinophils % (A) 1 %; HCT 34.1 % (39.0-53.0); HGB 10.7 gm/dL (13.0-17.5); Hypochromasia Moderate; Lymphocytes # (A) 0.2 k/uL (1.0-4.8); Lymphocytes % (A) 7 %; MCH 32.8 pg (25.0-35.0); MCHC 31.4 g/dL (31.0-37.0); MCV 104.6 fL (80.0-100.0); Macrocytosis Moderate; Mean Platelet Volume 8.7; Monocytes # (A) 0.2 k/uL (0-1.0); Monocytes % (A) 6 %; Neutrophils # (A) 2.7 k/uL (1.3-7.7); Neutrophils % (A) 82 %; Platelet Count 232 k/uL (150-450); RBC 3.26 m/uL (4.30-5.90); RDW 17.6 % (11.5-15.5); WBC 3.3 k/uL (3.8-10.6)
[2018-02-26 13:54] LABS: INR 1.1 (<1.2); Partial Thromboplastin Time 24.8 sec (22.0-30.0); Prothrombin Time 11.5 sec (9.0-12.0)
[2018-02-26 13:56] LABS: Albumin 3.5 g/dL (3.5-5.0); Calcium 8.8 mg/dL (8.4-10.2); Potassium 5.2 mmol/L (3.5-5.1); Total Bilirubin 0.7 mg/dL (0.2-1.3); Total Protein 6.2 g/dL (6.3-8.2)
--- NOTE | 2018-02-26 14:18 | XR ---
EXAMINATION TYPE: XR chest 1V portable DATE OF EXAM: 02/26/2018 COMPARISON: 08/12/2017 HISTORY: COPD. Shortness of breath. TECHNIQUE: Single frontal view of the chest is obtained. FINDINGS: There is new strand-like reticular opacities in the right infrahilar region and left midlu ng. Underlying emphysema is demonstrated with tapering of the pulmonary vasculature and biapical luce ncy as well as pulmonary hyperinflation. Nodular density seen on the prior chest report 08/12/2017 is now obscured near the right costophrenic angle due to a new trace right pleural effusion . Cardia mediastinal silhouette is mildly enlarged. Lobular density in the retrocardiac airspace coul d relate to diaphragmatic eventration, additional site of airspace disease or new retrocardiac mass. IMPRESSION: 1 1. Multifocal airspace disease suggestive of pneumonia superimposed upon pulmonary emphysema. 2. Retrocardiac consolidation that could also relate to pneumonia although follow-up chest radiograph is recommended after treatment to ensure no underlying pulmonary mass. 3. Obscuration of the previously seen nodule at the right costophrenic angle secondary to a new trace pleural effusion.
[2018-02-26 14:19] LABS: Creatine Kinase MB 6.7 ng/mL (0.0-2.4)
[2018-02-26 14:26] LABS: Troponin I 0.071 ng/mL (0.000-0.034)
[2018-02-26] MEDS ORDERED: HEPARIN SODIUM,PORCINE 5,000 UNIT/ML 1 ML VIAL IV ONE (14:26)
[2018-02-26] MEDS ORDERED: HEPARIN SODIUM,PORCINE 5,000 UNIT/ML 1 ML VIAL IV PRN (14:26)
[2018-02-26] MEDS ORDERED: HEPARIN SOD,PORK IN 0.45% NACL 25,000 UNIT in 0.45% NACL 1 250ML.BAG IV SCH (14:30)
[2018-02-26] MEDS ORDERED: ASPIRIN 81 MG PO STA (15:04)
[2018-02-26] MEDS ORDERED: NALOXONE 0.4 MG/ML 1 ML VIAL IV PRN (15:17)
--- NOTE | 2018-02-26 15:17 | ED ---
General Adult HPI - General Chief complaint: Shortness of Breath Stated complaint: LEVY Source: patient Mode of arrival: wheelchair Limitations: no limitations - Related Data Home Medications Medication Instructions Recorded Confirmed Docusate [Colace] 100 mg PO DAILY PRN 05/20/14 02/26/18 Ipratropium-Albuterol Nebulize 3 ml INHALATION RT-QID 05/20/14 02/26/18 [Duoneb 0.5 mg-3 mg/3 ml Soln] Tamsulosin [Flomax] 0.8 mg PO HS 05/20/14 02/26/18 metFORMIN HCL [metFORMIN HCL ER] 1,000 mg PO BID 05/20/14 02/26/18 guaiFENesin [Mucinex] 600 mg PO Q12HR PRN 01/24/15 02/26/18 Budesonide/Formoterol Fumarate 2 puff INHALATION RT-BID 03/02/16 02/26/18 [Symbicort 160-4.5 Mcg Inhaler] Melatonin 3 mg PO HS 03/02/16 02/26/18 Acyclovir [Zovirax] 400 mg PO BID 05/23/17 02/26/18 Sulfamethox-Tmp 800-160Mg [Bactrim 1 tab PO MOWEFR 05/30/17 02/26/18 DS 800-160 mg] Vit C/E/Zn/Coppr/Lutein/Zeaxan 1 cap PO BID 05/30/17 02/26/18 [Preservision Areds 2 Softgel] Insulin Aspart (Niacinamide) See Protocol SQ DAILY PRN 02/26/18 02/26/18 [Fiasp 100 Unit/ml Flextouch] Lenalidomide [Revlimid] 25 mg PO DAILY 02/26/18 02/26/18 Megestrol [Megace] 800 mg PO DAILY 02/26/18 02/26/18 Sennosides/Docusate Sodium 1 tab PO BID 02/26/18 02/26/18 [Senna-S Laxative Tablet] Previous Rx's Medication Instructions Recorded Apixaban [Eliquis] 2.5 mg PO BID tablet 05/26/17 Aspirin 81 mg PO DAILY chew 05/26/17 Atorvastatin [Lipitor] 40 mg PO HS #30 tab 05/26/17 Metoprolol Tartrate [Lopressor] 25 mg PO TID #90 tab 05/26/17 Allergies Allergy/AdvReac Type Severity Reaction Status Date / Time No Known Allergies Allergy Verified 02/26/18 13:50 Review of Systems ROS Statement: Those systems with pertinent positive or pertinent negative responses have been documented in the HPI. ROS Other: All systems not noted in ROS Statement are negative. Past Medical History Past Medical History: Atrial Flutter, Cancer, COPD, Diabetes Mellitus, Eye Disorder, Hyperlipidemia, Hypertension, Pneumonia, Renal Disease, Respiratory Disorder, Vascular Disorder Additional Past Medical History / Comment(s): Chronic respiratory failure with home O2 at 2L n/c. multiple pulmonary nodules(scar tissue), multiple myeloma( chemo currently on hold), carotid stenosis rt side, hx kidney disorder-resolved now per pt, bronchitis, alfonzo eye macular degeneration(gets injectons for tx), History of Any Multi-Drug Resistant Organisms: None Reported Past Surgical History: Heart Catheterization Additional Past Surgical History / Comment(s): left carotid endarterectomy , bilateral cataract removal and intraocular lens implants, surgery on rt eye to remove scar tissue, colonoscopy, rt leg vein surgery, surgery on "left leg to clean out veins", bronchoscopy, rt leg angiogram /angioplasty/stents, angiogram and heart cath 05/24/17. Past Anesthesia/Blood Transfusion Reactions: No Reported Reaction Past Psychological History: No Psychological Hx Reported Smoking Status: Former smoker - Past Family History Brother(s) Family Medical History: Coronary Artery Disease (CAD), Diabetes Mellitus Father Additional Family Medical History / Comment(s): kidney failure Mother Family Medical History: No Reported History General Exam Limitations: no limitations Course Vital Signs 02/26/18 02/26/18 12:38 12:58 Temperature 97.9 F Pulse Rate 83 Respiratory 24 25 H Rate Blood Pressure 165/83 O2 Sat by Pulse 82 L Oximetry Medical Decision Making - Medical Decision Making Dictation was produced using [employer] dictation software. please excuse any grammatical, word or spelling errors. Chief Complaint: 87-year-old male with multiple comorbidities presents with acute onset dyspnea. History of Present Illness: He to symptoms began 2-3 days ago. Patient has history of flutter, CHF with ejection fraction measured approximately 35%. States that he's been acutely short of breath. Patient does have a history of COPD he felt that his COPD is acting up. Patient also notes some swelling to his bilateral lower extremities. He over, constitutional symptoms. No cough. Denies any chest pain. Patient's currently on chemo pills. He has history of multiple myeloma. The ROS documented in this emergency department record has been reviewed and confirmed by me. Those systems with pertinent positive or negative responses have been documented in the HPI. All other systems are other negative and/or noncontributory. PHYSICAL EXAM: General Impression: Alert and oriented x3, dyspenic HEENT: Normocephalic atraumatic, extra-ocular movements intact, pupils equal and reactive to light bilaterally, mucous membranes moist. Cardiovascular: Heart regular rate and rhythm, S1&S2 audible, no murmurs, rubs or gallops Chest: Clear lungs bilaterally, mild wheeze of the left upper lobe anteriorly Abdomen: Bowel sounds present, abdomen soft, non-tender, non-distended, no organomegaly Musculoskeletal: Pulses present and equal in all extremities, 2+ pitting edema bilateral lower extremities Motor: Power 5/5 bilaterally, no focal deficits noted Neurological: CN II-XII grossly intact, no focal motor or sensory deficits noted Skin: Intact with no visualized rashes Psych: Normal affect and mood ED course: 87-year-old male with multiple comorbid is presents with acute dyspnea. Patient was dyspneic upon arrival with a respiratory rate of 25. Rest vital signs shows hypoxia 82%. Patient given supplemental oxygen and then eventually placed on BiPAP. Patient given Lasix 40 mg IV. Patient given metoprolol for rate control. Patient is on L class periods laboratory evaluation obtained. Leukopenia of 3.3., Coag panel unremarkable. Metabolic panel shows potassium 5.2. Patient given Lasix to address this. Mild elevation in renal markers. Patient given intravenous fluids. Troponin of 0.071 likely secondary to strain secondary to arrhythmia. Patient started heparin drip. EKG does not show any findings to suggest ischemia or infarction. Patient reevaluated after some time on BiPAP. He reports improvement of symptoms. Patient be admitted with cardiology consultation. EKG Interpretation: A 12 lead EKG was obtained. It was interpreted by myself and attending physician. There is a P wave before every QRS complex. Rate is 126, atrial flutter, QRS 90, QTC 49. ]. QT is not prolonged. No ST segment depression or elevation. - Lab Data Result diagrams: 02/26/18 13:25 02/26/18 13:25 Lab Results 02/26/18 02/26/18 02/26/18 Range/Units 13:25 13:25 13:25 WBC 3.3 L (3.8-10.6) k/uL RBC 3.26 L (4.30-5.90) m/uL Hgb 10.7 L (13.0-17.5) gm/dL Hct 34.1 L (39.0-53.0) % MCV 104.6 H (80.0-100.0) fL MCH 32.8 (25.0-35.0) pg MCHC 31.4 (31.0-37.0) g/dL RDW 17.6 H (11.5-15.5) % Plt Count 232 (150-450) k/uL Neutrophils % 82 % Lymphocytes % 7 % Monocytes % 6 % Eosinophils % 1 % Basophils % 1 % Neutrophils # 2.7 (1.3-7.7) k/uL Lymphocytes # 0.2 L (1.0-4.8) k/uL Monocytes # 0.2 (0-1.0) k/uL Eosinophils # 0.0 (0-0.7) k/uL Basophils # 0.0 (0-0.2) k/uL Hypochromasia Moderate Anisocytosis Slight Macrocytosis Moderate PT (9.0-12.0) sec INR (<1.2) APTT (22.0-30.0) sec Sodium 133 L (137-145) mmol/L Potassium 5.2 H (3.5-5.1) mmol/L Chloride 103 (98-107) mmol/L Carbon Dioxide 17 L (22-30) mmol/L Anion Gap 13 mmol/L BUN 25 H (9-20) mg/dL Creatinine 1.27 H (0.66-1.25) mg/dL Est GFR (CKD-EPI)AfAm 59 (>60 ml/min/1.73 sqM) Est GFR (CKD-EPI)NonAf 51 (>60 ml/min/1.73 sqM) Glucose 248 H (74-99) mg/dL Calcium 8.8 (8.4-10.2) mg/dL Magnesium 2.0 (1.6-2.3) mg/dL Total Bilirubin 0.7 (0.2-1.3) mg/dL AST 97 H (17-59) U/L ALT 118 H (21-72) U/L Alkaline Phosphatase 98 (38-126) U/L Total Creatine Kinase 163 (55-170) U/L CK-MB (CK-2) 6.7 H (0.0-2.4) ng/mL CK-MB (CK-2) Rel Index 4.1 Troponin I 0.071 H* (0.000-0.034) ng/mL NT-Pro-B Natriuret Pep pg/mL Total Protein 6.2 L (6.3-8.2) g/dL Albumin 3.5 (3.5-5.0) g/dL 02/26/18 02/26/18 Range/Units 13:25 13:25 WBC (3.8-10.6) k/uL RBC (4.30-5.90) m/uL Hgb (13.0-17.5) gm/dL Hct (39.0-53.0) % MCV (80.0-100.0) fL MCH (25.0-35.0) pg MCHC (31.0-37.0) g/dL RDW (11.5-15.5) % Plt Count (150-450) k/uL Neutrophils % % Lymphocytes % % Monocytes % % Eosinophils % % Basophils % % Neutrophils # (1.3-7.7) k/uL Lymphocytes # (1.0-4.8) k/uL Monocytes # (0-1.0) k/uL Eosinophils # (0-0.7) k/uL Basophils # (0-0.2) k/uL Hypochromasia Anisocytosis Macrocytosis PT 11.5 (9.0-12.0) sec INR 1.1 (<1.2) APTT 24.8 (22.0-30.0) sec Sodium (137-145) mmol/L Potassium (3.5-5.1) mmol/L Chloride (98-107) mmol/L Carbon Dioxide (22-30) mmol/L Anion Gap mmol/L BUN (9-20) mg/dL Creatinine (0.66-1.25) mg/dL Est GFR (CKD-EPI)AfAm (>60 ml/min/1.73 sqM) Est GFR (CKD-EPI)NonAf (>60 ml/min/1.73 sqM) Glucose (74-99) mg/dL Calcium (8.4-10.2) mg/dL Magnesium (1.6-2.3) mg/dL Total Bilirubin (0.2-1.3) mg/dL AST (17-59) U/L ALT (21-72) U/L Alkaline Phosphatase (38-126) U/L Total Creatine Kinase (55-170) U/L CK-MB (CK-2) (0.0-2.4) ng/mL CK-MB (CK-2) Rel Index Troponin I (0.000-0.034) ng/mL NT-Pro-B Natriuret Pep 8180 pg/mL Total Protein (6.3-8.2) g/dL Albumin (3.5-5.0) g/dL Disposition Clinical Impression: Congestive heart failure Disposition: ADMITTED IP TO THIS HOSP Condition: Fair Referrals: Percy Mike MD [Primary Care Provider] - 1-2 days Time of Disposition: 15:17 Decision Time: 15:17
[2018-02-26 21:09] LABS: Glucose,Whole Blood 166 mg/dL (75-99)
[2018-02-26] MEDS ORDERED: DOCUSATE 100 MG CAP PO PRN (21:31)
[2018-02-26] MEDS: METOPROLOL TARTRATE 25 MG TAB PO SCH (22:15)
[2018-02-26] MEDS: FUROSEMIDE 10 MG/ML 4 ML VIAL IV SCH (22:16)
[2018-02-26] MEDS: INSULIN ASPART 100 UNIT/ML 1 ML 10 ML VIAL SQ SCH (22:16)
[2018-02-26] MEDS: TAMSULOSIN 0.4 MG CAP.ER.24H PO SCH (22:16)
[2018-02-26] MEDS: ATORVASTATIN 40 MG TAB PO SCH (22:18)
[2018-02-26] MEDS: MELATONIN 3 MG TABLET PO SCH (22:19)
[2018-02-27 04:17] LABS: Hemoglobin A1C 6.8 % (4.0-6.0)
[2018-02-27 06:22] LABS: Glucose,Whole Blood 109 mg/dL (75-99)
[2018-02-27] MEDS: SYMBICORT 160-4.5 MCG INHALER INHALATION SCH ×2 (07:08→20:48)
[2018-02-27] MEDS: IPRATROPIUM-ALBUTEROL 3 ML NEB INHALATION SCH ×4 (07:08→20:48)
[2018-02-27 07:11] LABS: Anisocytosis Slight; Basophils % (A) 1 %; Eosinophils # (A) 0.1 k/uL (0-0.7); Eosinophils % (A) 2 %; HCT 28.4 % (39.0-53.0); Hypochromasia Slight; Lymphocytes # (A) 0.8 k/uL (1.0-4.8); Lymphocytes % (A) 31 %; MCHC 32.5 g/dL (31.0-37.0); MCV 101.7 fL (80.0-100.0); Macrocytosis Moderate; Mean Platelet Volume 8.7; Monocytes # (A) 0.3 k/uL (0-1.0); Monocytes % (A) 11 %; Neutrophils # (A) 1.3 k/uL (1.3-7.7); Neutrophils % (A) 52 %; Platelet Count 185 k/uL (150-450); RBC 2.79 m/uL (4.30-5.90); RDW 17.3 % (11.5-15.5); WBC 2.5 k/uL (3.8-10.6)
[2018-02-27 07:12] LABS: HGB 9.2 gm/dL (13.0-17.5)
[2018-02-27 07:34] LABS: Calcium 8.2 mg/dL (8.4-10.2); Potassium 4.3 mmol/L (3.5-5.1)
[2018-02-27] MEDS: ACYCLOVIR 200 MG CAP PO SCH (08:18)
[2018-02-27] MEDS: VIT A,C & E-LUTEIN-MINERALS 1 EACH TAB PO SCH (08:18)
[2018-02-27] MEDS: SENNOSIDES-DOCUSATE SODIUM 1 EACH TAB PO SCH ×2 (08:19→21:47)
[2018-02-27] MEDS: FUROSEMIDE 10 MG/ML 4 ML VIAL IV SCH ×2 (08:19→21:47)
[2018-02-27] MEDS: ASPIRIN 81 MG PO SCH (08:19)
[2018-02-27] MEDS: METOPROLOL TARTRATE 25 MG TAB PO SCH ×2 (08:19→16:44)
[2018-02-27] MEDS: MEGESTROL 400 MG/10 ML CUP PO SCH (08:19)
[2018-02-27] MEDS: metFORMIN 500 MG TAB PO SCH ×2 (08:19→21:46)
[2018-02-27] MEDS: INSULIN ASPART 100 UNIT/ML 1 ML 10 ML VIAL SQ SCH ×4 (08:21→21:47)
[2018-02-27] MEDS ORDERED: NON-FORMULARY DRUG (Lenalidomide [Revlimid] 25 MG) PO SCH (09:00)
[2018-02-27] MEDS ORDERED: ACETAMINOPHEN TAB 325 MG TAB PO PRN (09:17)
[2018-02-27] MEDS: MORPHINE SULFATE 4 MG/ML SYRINGE IVP PRN ×2 (09:52→14:15)
--- NOTE | 2018-02-27 12:00 | P.CNPUL ---
History of Present Illness Consult date: 02/27/18 Requesting physician: Maria Esther Guan Reason for consult: dyspnea, abnormal CXR/CT Chief complaint: Shortness of breath History of present illness: This is a very pleasant 87-year-old gentleman who follows with Dr. Mike as his primary care physician. He has a history of diabetes mellitus, hypertension, hyperlipidemia, peripheral vascular disease, macular degeneration, carotid artery disease with previous carotid endarterectomy, peripheral vascular disease with previous femoral bypass surgery, atrial flutter anticoagulated with Eliquis. He does have coronary artery disease and the most recent catheterization revealed an mild nonobstructive disease with moderate to severe involving a small caliber ramus intermedius. He was treated medically in April 2017. He does have impaired left ventricular systolic function with ejection fraction 35-40%. He also has a history of multiple myeloma and is currently on Revlimid. He also has a [id number] smoking history and quit in December 2004. He does have chronic obstructive pulmonary disease and follows with Dr. Madrid in our office for the same. He presented here to the emergency room yesterday after developing increasing shortness of breath, cough and congestion. Onset 2- 3 days prior. He also had some swelling in his lower extremities. He was quite dyspneic on arrival. He was placed on BiPAP and admitted to the selective care unit. His chest x-ray shows multiple airspace disease suggestive of pneumonia superimposed upon pulmonary emphysema. There is some retrocardiac consolidation representing either pneumonia versus underlying pulmonary mass. There is obscuration of the previously seen nodule in the right costophrenic angle secondary to a new trace pleural effusion. EKG revealed atrial flutter with a rapid ventricular response. Troponin 0.077. 0.063. ProBNP 8180. He is currently on a heparin drip. He is seen today in consultation. He is currently awake and alert in no acute distress. He is currently off the BiPAP. He diurese quite well. Remains on IV Lasix 40 mg every 12 hours. Maintaining O2 saturations in the low 90s on room air. He's been afebrile. Feeling quite a bit better already. White count 2.5. Hemoglobin 9.2. Platelet count 185,000. Creatinine 1.39. Review of Systems 14 point review of system was conducted. All negative other than as mentioned in HPI. Past Medical History Past Medical History: Atrial Flutter, Cancer, Chest Pain / Angina, COPD, Diabetes Mellitus, Eye Disorder, Hyperlipidemia, Hypertension, Pneumonia, Renal Disease, Respiratory Disorder, Vascular Disorder Additional Past Medical History / Comment(s): Chronic respiratory failure with home O2 at 2L n/c. multiple pulmonary nodules(scar tissue), multiple myeloma( oral chemo), carotid stenosis rt side, hx kidney disorder-resolved now per pt, bronchitis, alfonzo eye macular degeneration(gets injectons for tx),past shingles lt lowe leg. History of Any Multi-Drug Resistant Organisms: None Reported Past Surgical History: Heart Catheterization Additional Past Surgical History / Comment(s): left carotid endarterectomy , bilateral cataract removal and intraocular lens implants, surgery on rt eye to remove scar tissue, colonoscopy, rt leg vein surgery, surgery on "left leg to clean out veins", bronchoscopy, rt leg angiogram /angioplasty/stents, angiogram and heart cath 05/24/17. Past Anesthesia/Blood Transfusion Reactions: No Reported Reaction Smoking Status: Former smoker - Past Family History Brother(s) Family Medical History: Coronary Artery Disease (CAD), Diabetes Mellitus Father Additional Family Medical History / Comment(s): kidney failure Mother Family Medical History: No Reported History Medications and Allergies Home Medications Medication Instructions Recorded Confirmed Type Docusate [Colace] 100 mg PO DAILY PRN 05/20/14 02/26/18 History Ipratropium-Albuterol Nebulize 3 ml INHALATION RT-QID 05/20/14 02/26/18 History [Duoneb 0.5 mg-3 mg/3 ml Soln] Tamsulosin [Flomax] 0.8 mg PO HS 05/20/14 02/26/18 History metFORMIN HCL [metFORMIN HCL ER] 1,000 mg PO BID 05/20/14 02/26/18 History guaiFENesin [Mucinex] 600 mg PO Q12HR PRN 01/24/15 02/26/18 History Budesonide/Formoterol Fumarate 2 puff INHALATION RT-BID 03/02/16 02/26/18 History [Symbicort 160-4.5 Mcg Inhaler] Melatonin 3 mg PO HS 03/02/16 02/26/18 History Acyclovir [Zovirax] 400 mg PO BID 05/23/17 02/26/18 History Apixaban [Eliquis] 2.5 mg PO BID tablet 05/26/17 02/26/18 Rx Aspirin 81 mg PO DAILY chew 05/26/17 02/26/18 Rx Atorvastatin [Lipitor] 40 mg PO HS #30 tab 05/26/17 02/26/18 Rx Metoprolol Tartrate [Lopressor] 25 mg PO TID #90 tab 05/26/17 02/26/18 Rx Sulfamethox-Tmp 800-160Mg [Bactrim 1 tab PO MOWEFR 05/30/17 02/26/18 History DS 800-160 mg] Vit C/E/Zn/Coppr/Lutein/Zeaxan 1 cap PO BID 05/30/17 02/26/18 History [Preservision Areds 2 Softgel] Insulin Aspart (Niacinamide) See Protocol SQ DAILY PRN 02/26/18 02/26/18 History [Fiasp 100 Unit/ml Flextouch] Lenalidomide [Revlimid] 25 mg PO DAILY 02/26/18 02/26/18 History Megestrol [Megace] 800 mg PO DAILY 02/26/18 02/26/18 History Sennosides/Docusate Sodium 1 tab PO BID 02/26/18 02/26/18 History [Senna-S Laxative Tablet] Allergies Allergy/AdvReac Type Severity Reaction Status Date / Time No Known Allergies Allergy Verified 02/26/18 13:50 Physical Exam Vitals: Vital Signs Temp Pulse Pulse Resp BP BP Pulse Ox 02/27/18 11:10 72 02/27/18 10:58 72 02/27/18 08:00 98.0 F 109 H 16 132/62 91 L 02/27/18 07:27 76 02/27/18 07:10 72 02/27/18 03:28 97.9 F 80 27 H 104/60 100 02/26/18 23:11 88 22 119/87 100 02/26/18 21:00 97.8 F 107 H 25 H 118/73 100 02/26/18 16:00 112 H 17 137/82 100 02/26/18 14:00 102 H 18 158/94 100 02/26/18 12:58 25 H 02/26/18 12:38 97.9 F 83 24 165/83 82 L Intake and Output 02/26/18 02/27/1802/27/19 22:59 06:59 14:59 Intake Total 80.127 68.856 Output Total 1700 Balance -1619.873 68.856 Intake: Intake, IV Titration 80.127 68.856 Amount Heparin Sod,Pork in 0.45% 80.127 68.856 NaCl 25,000 unit In 0.45 % NaCl 1 250ml.bag @ 12 UNITS/KG/HR 7.83 mls/hr IV .Q24H [facility] Rx#: [id number] Output: Urine 1700 Other: # Voids 1 Weight 66 kg GENERAL EXAM: Frail, cachectic. Alert, comfortable in no apparent distress. Off BiPAP. HEAD: Normocephalic. EYES: Normal reaction of pupils, equal size. NOSE: Clear with pink turbinates. THROAT: No erythema or exudates. NECK: No masses, no JVD. CHEST: No chest wall deformity. LUNGS: Equal air entry with few scattered rhonchi bilaterally. Few crackles in the posterior bases. Diminished. CVS: S1 and S2 normal with an audible murmur, irregular rhythm. ABDOMEN: No hepatosplenomegaly, normal bowel sounds, no guarding or rigidity. SPINE: No scoliosis or deformity SKIN: No rashes CENTRAL NERVOUS SYSTEM: No focal deficits, tone is normal in all 4 extremities. EXTREMITIES: There is trace peripheral edema. No clubbing, no cyanosis. Peripheral pulses are intact. Results - Laboratory Findings CBC and BMP: 02/27/18 06:42 02/27/18 06:42 PT/INR, D-dimer PT 11.5 sec (9.0-12.0) 02/26/18 13:25 INR 1.1 (<1.2) 02/26/18 13:25 Abnormal lab findings: Abnormal Labs 02/26/18 02/26/18 02/26/18 13:25 13:25 13:25 WBC 3.3 L RBC 3.26 L Hgb 10.7 L Hct 34.1 L MCV 104.6 H RDW 17.6 H Lymphocytes # 0.2 L APTT Sodium 133 L Potassium 5.2 H Carbon Dioxide 17 L BUN 25 H Creatinine 1.27 H Glucose 248 H POC Glucose (mg/dL) Hemoglobin A1c Calcium AST 97 H ALT 118 H CK-MB (CK-2) 6.7 H Troponin I 0.071 H* Total Protein 6.2 L 02/26/18 02/26/18 02/26/18 13:25 18:43 21:07 WBC RBC Hgb Hct MCV RDW Lymphocytes # APTT Sodium Potassium Carbon Dioxide BUN Creatinine Glucose POC Glucose (mg/dL) 166 H Hemoglobin A1c 6.8 H Calcium AST ALT CK-MB (CK-2) Troponin I 0.077 H* Total Protein 02/27/18 02/27/18 02/27/18 00:06 01:18 06:20 WBC RBC Hgb Hct MCV RDW Lymphocytes # APTT 31.3 H Sodium Potassium Carbon Dioxide BUN Creatinine Glucose POC Glucose (mg/dL) 109 H Hemoglobin A1c Calcium AST ALT CK-MB (CK-2) Troponin I 0.063 H* Total Protein 02/27/18 02/27/18 02/27/18 06:42 06:42 06:42 WBC 2.5 L RBC 2.79 L Hgb 9.2 L D Hct 28.4 L MCV 101.7 H RDW 17.3 H Lymphocytes # 0.8 L APTT 41.4 H Sodium 135 L Potassium Carbon Dioxide BUN 24 H Creatinine 1.39 H Glucose 102 H POC Glucose (mg/dL) Hemoglobin A1c Calcium 8.2 L AST ALT CK-MB (CK-2) Troponin I Total Protein - Diagnostic Findings Chest x-ray: image reviewed Assessment and Plan Assessment: Impression: #1 Acute hypoxic respiratory failure secondary to an acute exacerbation of chronic systolic congestive heart failure. Ejection fraction 35-40%. #2 Atrial flutter with a rapid ventricular response. Currently on heparin drip. On Eliquis in the outpatient setting. #3 Troponin leak. Previous cardiac catheterization in April 2017 revealed severe disease involving a small caliber ramus intermedius and recommended medical therapy. #4 Acute renal failure. #5 Acute exacerbation of chronic obstructive pulmonary disease with FEV1 value 72% of predicted. Severe diffusion impairment and has been oxygen dependent. [id number] smoking history however quit in 2004. #6 Multiple myeloma currently on Revlimid. #7 Severe peripheral vascular disease with previous vascular intervention involving the lower extremities. #8 History of shingles. #9 History of pulmonary nodule seen on previous CAT scans. #10 Carotid artery disease with previous carotid endarterectomy on the left. #11 Hypertension. #12 Hyperlipidemia. #13 Benign prostatic hypertrophy. #14 Macular degeneration. Plan: The patient was seen and evaluated by Dr. Oneill. Chest x-ray and labs were reviewed. We will continue Symbicort and DuoNeb's. Mainly a component of CHF exacerbation. Improved significantly overnight. Continue with diuretics. Cardiology has been consulted. We will increase his activity as tolerated. We' ll continue to follow and make further recommendations based on his clinical status. I, the cosigning physician, performed a history & physical examination of the patient. Lungs sounds with few scattered rhonchi, crackles in the posterior bases. Maintaining good O2 saturations in the 90s on room air. I discussed the assessment and plan of care with my nurse practitioner, Debby Reyes. I attest to the above note as dictated by her. Time with Patient: Greater than 30
[2018-02-27 12:13] LABS: Glucose,Whole Blood 213 mg/dL (75-99)
[2018-02-27] MEDS: APIXABAN 2.5 MG TABLET PO SCH ×2 (13:09→21:54)
[2018-02-27] MEDS ORDERED: guaiFENesin 600 MG TABLET.ER PO PRN (15:40)
--- NOTE | 2018-02-27 15:44 | P.HPIM ---
History of Present Illness H&P Date: 02/27/18 This is an 87-year-old male patient of Dr. Mike and Dr. Madrid with a past medical history of angina, COPD on daily prednisone, chronic hypoxic respiratory failure on home O2 at 2 L nasal cannula, diabetes mellitus type 2, hyperlipidemia, hypertension, peripheral vascular disease, carotid artery disease with previous carotid endarterectomy, macular degeneration, multiple myeloma on Revlimid under the care of Dr. Honeycutt. Patient does follow at [facility] regarding pulmonary nodules and mediastinal lymphadenopathy. 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 Patient states that he had sudden onset of congestion in his chest with shortness of breath runny nose and a cough that started yesterday morning when he got up out of bed. He states he had extreme shortness of breath with even minimal activity. He denies any orthopnea or nocturnal postural dyspnea. Patient came into [facility] emergency center for evaluation. He had a pulse ox of 82%, afebrile, heart rate initially in the 80s. White count 3.3, hemoglobin 10.7, sodium 133, potassium 5.2 chloride 103, CO2 17, blood sugar 248, BUN 25 and creatinine 1.27. Initial troponin was 0.071. ProBNP 8180. EKG was atrial flutter. Patient was started on IV steroids and then heparin drip for elevated troponin and admitted to the selective care unit. Chest x-ray shows multifocal airspace disease suggestive of pneumonia superimposed upon pulmonary emphysema. Retrocardiac consolidation that could also relate to pneumonia although follow-up chest x-ray is recommended to ensure no underlying pulmonary mass. Obscuration of the previously seen nodule at the right costophrenic angle secondary to a new trace pleural effusion. Previous Echocardiogram reveals EF of 35-40%, mild concentric left ventricular hypertrophy, elderly moderately dilated at 34-39,moderate tricuspid regurgitation and moderate pulmonary hypertension. Consult in place with cardiology regarding elevated troponins and heart failure. Consult with Dr. Oneill regarding heart failure. Patient has been started on IV Lasix 40 mg IV every 12 hours and he was started on heparin drip regarding elevated troponins and admitted to the cardiac stepdown unit patient does state that he has had a big improvement of his breathing status since yesterday.. Review of Systems All systems: negative Constitutional: Reports fatigue, Denies chills, Denies fever, Denies poor appetite, Denies weight loss Eyes: denies blurred vision, denies pain Ears, nose, mouth and throat: Denies dysphagia, Denies epistaxis, Denies headache, Denies mouth pain, Denies sore throat, Denies vertigo Cardiovascular: Reports decreased exercise tolerance, Reports dyspnea on exertion, Denies chest pain, Denies edema, Denies leg edema, Denies lightheadedness, Denies orthopnea, Denies palpitations, Denies paroxysmal nocturnal dyspnea, Denies shortness of breath Respiratory: Reports dyspnea, Reports home oxygen, Denies cough, Denies cough with sputum, Denies excessive sputum, Denies hemoptysis, Denies wheezing Gastrointestinal: Denies abdominal pain, Denies diarrhea, Denies loss of appetite, Denies nausea, Denies vomiting Genitourinary: Denies dysuria, Denies urinary frequency Musculoskeletal: Denies frequent falls, Denies gait dysfunction, Denies myalgias Integumentary: Denies pruritus, Denies rash, Denies wounds Neurological: Denies aphasia, Denies change in mentation, Denies change in speech, Denies confusion, Denies convulsions, Denies double vision, Denies numbness, Denies seizures, Denies weakness Psychiatric: Denies anxiety, Denies depression Endocrine: Denies fatigue, Denies weight change Past Medical History Past Medical History: Atrial Flutter, Cancer, Chest Pain / Angina, COPD, Diabetes Mellitus, Eye Disorder, Hyperlipidemia, Hypertension, Pneumonia, Renal Disease, Respiratory Disorder, Vascular Disorder Additional Past Medical History / Comment(s): Chronic respiratory failure with home O2 at 2L n/c. multiple pulmonary nodules(scar tissue), multiple myeloma( oral chemo), carotid stenosis rt side, hx kidney disorder-resolved now per pt, bronchitis, alfonzo eye macular degeneration(gets injectons for tx),past shingles lt lowe leg. History of Any Multi-Drug Resistant Organisms: None Reported Past Surgical History: Heart Catheterization Additional Past Surgical History / Comment(s): left carotid endarterectomy , bilateral cataract removal and intraocular lens implants, surgery on rt eye to remove scar tissue, colonoscopy, rt leg vein surgery, surgery on "left leg to clean out veins", bronchoscopy, rt leg angiogram /angioplasty/stents, angiogram and heart cath 05/24/17. Past Anesthesia/Blood Transfusion Reactions: No Reported Reaction Smoking Status: Former smoker Additional Past Alcohol Use History / Comment(s): Patient started smoking at age 19 and quit in 2012-1/2 packs per day for total of 93 pack year history. Patient was home with his . He does not use any device for ambulation. He has home O2 and nebulizer in place. - Past Family History Brother(s) Family Medical History: Coronary Artery Disease (CAD), Diabetes Mellitus Father Additional Family Medical History / Comment(s): kidney failure Mother Family Medical History: No Reported History Medications and Allergies Home Medications Medication Instructions Recorded Confirmed Type Docusate [Colace] 100 mg PO DAILY PRN 05/20/14 02/26/18 History Ipratropium-Albuterol Nebulize 3 ml INHALATION RT-QID 05/20/14 02/26/18 History [Duoneb 0.5 mg-3 mg/3 ml Soln] Tamsulosin [Flomax] 0.8 mg PO HS 05/20/14 02/26/18 History metFORMIN HCL [metFORMIN HCL ER] 1,000 mg PO BID 05/20/14 02/26/18 History guaiFENesin [Mucinex] 600 mg PO Q12HR PRN 01/24/15 02/26/18 History Budesonide/Formoterol Fumarate 2 puff INHALATION RT-BID 03/02/16 02/26/18 History [Symbicort 160-4.5 Mcg Inhaler] Melatonin 3 mg PO HS 03/02/16 02/26/18 History Acyclovir [Zovirax] 400 mg PO BID 05/23/17 02/26/18 History Apixaban [Eliquis] 2.5 mg PO BID tablet 05/26/17 02/26/18 Rx Aspirin 81 mg PO DAILY chew 05/26/17 02/26/18 Rx Atorvastatin [Lipitor] 40 mg PO HS #30 tab 05/26/17 02/26/18 Rx Metoprolol Tartrate [Lopressor] 25 mg PO TID #90 tab 05/26/17 02/26/18 Rx Sulfamethox-Tmp 800-160Mg [Bactrim 1 tab PO MOWEFR 05/30/17 02/26/18 History DS 800-160 mg] Vit C/E/Zn/Coppr/Lutein/Zeaxan 1 cap PO BID 05/30/17 02/26/18 History [Preservision Areds 2 Softgel] Insulin Aspart (Niacinamide) See Protocol SQ DAILY PRN 02/26/18 02/26/18 History [Fiasp 100 Unit/ml Flextouch] Lenalidomide [Revlimid] 25 mg PO DAILY 02/26/18 02/26/18 History Megestrol [Megace] 800 mg PO DAILY 02/26/18 02/26/18 History Sennosides/Docusate Sodium 1 tab PO BID 02/26/18 02/26/18 History [Senna-S Laxative Tablet] Allergies Allergy/AdvReac Type Severity Reaction Status Date / Time No Known Allergies Allergy Verified 02/26/18 13:50 Physical Exam Vitals: Vital Signs Temp Pulse Pulse Resp BP BP Pulse Ox 02/27/18 07:27 76 02/27/18 07:10 72 02/27/18 03:28 97.9 F 80 27 H 104/60 100 02/26/18 23:11 88 22 119/87 100 02/26/18 21:00 97.8 F 107 H 25 H 118/73 100 02/26/18 16:00 112 H 17 137/82 100 02/26/18 14:00 102 H 18 158/94 100 02/26/18 12:58 25 H 02/26/18 12:38 97.9 F 83 24 165/83 82 L Intake and Output 02/26/18 02/27/18 02/27/18 22:59 06:59 14:59 Intake Total 80.127 68.856 Output Total 1700 Balance -1619.873 68.856 Intake: Intake, IV Titration 80.127 68.856 Amount Heparin Sod,Pork in 0.45% 80.127 68.856 NaCl 25,000 unit In 0.45 % NaCl 1 250ml.bag @ 12 UNITS/KG/HR 7.83 mls/hr IV .Q24H [facility] Rx#: [id number] Output: Urine 1700 Other: # Voids 1 Weight 66 kg Gen: This is an 87-year-old male. He is found sitting up in bed and appears to be in no acute distress. HEENT: Head is atraumatic, normocephalic. Pupils equal, round. Sclerae is anicteric. NECK: Supple. No JVD. No lymphadenopathy. No thyromegaly. LUNGS: Positive rales and crackles throughout scattered.. No intercostal retractions. HEART: Regular rate and rhythm. No murmur. ABDOMEN: Soft. Bowel sounds are present. No masses. No tenderness. EXTREMITIES: no pedal edema. No calf tenderness. NEUROLOGICAL: Patient is awake, alert and oriented x3. Cranial nerves 2 through 12 are grossly intact. Results CBC & Chem 7: 02/27/18 06:42 02/27/18 06:42 Labs: Abnormal Lab Results - Last 24 Hours (Table) 02/26/18 02/26/18 02/26/18 Range/Units 13:25 13:25 13:25 WBC 3.3 L (3.8-10.6) k/uL RBC 3.26 L (4.30-5.90) m/uL Hgb 10.7 L (13.0-17.5) gm/dL Hct 34.1 L (39.0-53.0) % MCV 104.6 H (80.0-100.0) fL RDW 17.6 H (11.5-15.5) % Lymphocytes # 0.2 L (1.0-4.8) k/uL APTT (22.0-30.0) sec Sodium 133 L (137-145) mmol/L Potassium 5.2 H (3.5-5.1) mmol/L Carbon Dioxide 17 L (22-30) mmol/L BUN 25 H (9-20) mg/dL Creatinine 1.27 H (0.66-1.25) mg/dL Glucose 248 H (74-99) mg/dL POC Glucose (mg/dL) (75-99) mg/dL Hemoglobin A1c (4.0-6.0) % Calcium (8.4-10.2) mg/dL AST 97 H (17-59) U/L ALT 118 H (21-72) U/L CK-MB (CK-2) 6.7 H (0.0-2.4) ng/mL Troponin I 0.071 H* (0.000-0.034) ng/mL Total Protein 6.2 L (6.3-8.2) g/dL 02/26/18 02/26/18 02/26/18 Range/Units 13:25 18:43 21:07 WBC (3.8-10.6) k/uL RBC (4.30-5.90) m/uL Hgb (13.0-17.5) gm/dL Hct (39.0-53.0) % MCV (80.0-100.0) fL RDW (11.5-15.5) % Lymphocytes # (1.0-4.8) k/uL APTT (22.0-30.0) sec Sodium (137-145) mmol/L Potassium (3.5-5.1) mmol/L Carbon Dioxide (22-30) mmol/L BUN (9-20) mg/dL Creatinine (0.66-1.25) mg/dL Glucose (74-99) mg/dL POC Glucose (mg/dL) 166 H (75-99) mg/dL Hemoglobin A1c 6.8 H (4.0-6.0) % Calcium (8.4-10.2) mg/dL AST (17-59) U/L ALT (21-72) U/L CK-MB (CK-2) (0.0-2.4) ng/mL Troponin I 0.077 H* (0.000-0.034) ng/mL Total Protein (6.3-8.2) g/dL 02/27/18 02/27/18 02/27/18 Range/Units 00:06 01:18 06:20 WBC (3.8-10.6) k/uL RBC (4.30-5.90) m/uL Hgb (13.0-17.5) gm/dL Hct (39.0-53.0) % MCV (80.0-100.0) fL RDW (11.5-15.5) % Lymphocytes # (1.0-4.8) k/uL APTT 31.3 H (22.0-30.0) sec Sodium (137-145) mmol/L Potassium (3.5-5.1) mmol/L Carbon Dioxide (22-30) mmol/L BUN (9-20) mg/dL Creatinine (0.66-1.25) mg/dL Glucose (74-99) mg/dL POC Glucose (mg/dL) 109 H (75-99) mg/dL Hemoglobin A1c (4.0-6.0) % Calcium (8.4-10.2) mg/dL AST (17-59) U/L ALT (21-72) U/L CK-MB (CK-2) (0.0-2.4) ng/mL Troponin I 0.063 H* (0.000-0.034) ng/mL Total Protein (6.3-8.2) g/dL 02/27/18 02/27/18 02/27/18 Range/Units 06:42 06:42 06:42 WBC 2.5 L (3.8-10.6) k/uL RBC 2.79 L (4.30-5.90) m/uL Hgb 9.2 L D (13.0-17.5) gm/dL Hct 28.4 L (39.0-53.0) % MCV 101.7 H (80.0-100.0) fL RDW 17.3 H (11.5-15.5) % Lymphocytes # 0.8 L (1.0-4.8) k/uL APTT 41.4 H (22.0-30.0) sec Sodium 135 L (137-145) mmol/L Potassium (3.5-5.1) mmol/L Carbon Dioxide (22-30) mmol/L BUN 24 H (9-20) mg/dL Creatinine 1.39 H (0.66-1.25) mg/dL Glucose 102 H (74-99) mg/dL POC Glucose (mg/dL) (75-99) mg/dL Hemoglobin A1c (4.0-6.0) % Calcium 8.2 L (8.4-10.2) mg/dL AST (17-59) U/L ALT (21-72) U/L CK-MB (CK-2) (0.0-2.4) ng/mL Troponin I (0.000-0.034) ng/mL Total Protein (6.3-8.2) g/dL Thrombosis Risk Factor Assmnt - DVT/VTE Prophylaxis DVT/VTE Prophylaxis: Pharmacologic Prophylaxis ordered - Choose All That Apply Any of the Below Risk Factors Present?: Yes Each Factor Represents 1 point: Abnormal pulmonary function (COPD), Swollen legs (current) Each Risk Factor Represents 3 Points: Age 75 years or older Thrombosis Risk Factor Assessment Total Risk Factor Score: 5 Thrombosis Risk Factor Assessment Level: High Risk Assessment and Plan Plan: 1. Acute on chronic hypoxic respiratory failure secondary to acute systolic heart failure and acute exacerbation of COPD. Continue IV Lasix to 40 mg every 12 hours, I&O, daily weights, monitor electrolytes and renal function. Cardiology and pulmonary consults. 2. Atrial flutter with rapid ventricular response. Heparin drip will be discontinued and eliquis resumed. Continue Lopressor 25 mg 3 times daily. Cardiology consult in place. TSH is normal. 3. Elevated troponin most likely secondary to heart failure and atrial flutter. Cardiology consult. 4. Acute COPD exacerbation. Patient is normally on home O2 at 2 L nasal cannula. Consult with Dr. Oneill is appreciated. Continue DuoNeb treatments 4 times daily, Symbicort 2 puffs twice daily, Mucinex, Levaquin, Zosyn, Solu- Medrol 40 mg IV every 8 hours. 5. History of hypertension. Continue Lopressor 25 mg 3 times daily. 6. 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 Avoid nephrotoxic agents and recheck lab work. 7. Diabetes mellitus type 2. Continue metformin 1000 mg twice daily and NovoLog scale before meals and at bedtime. 8. Benign prostatic hypertrophy. Continue Flomax or 0.4 mg twice daily. 9. Moderate protein calorie malnutrition with BMI of 20. Continue protein supplement. 10. Multiple myeloma on Revlimid which will be continued and his will bring from home. 11. Peripheral vascular disease with carotid artery disease previous endarterectomies. 12. Hyperlipidemia. Continue Lipitor 40 mg daily. 13. Chronic hypoxic respiratory failure on home O2 at 2 L. 14. DVT prophylaxis. Eliquis. 15 Gastrointestinal prophylaxis. Protonix daily. Patient will be admitted to the hospital for a minimum of 2 night stay. Discharge plan: Most likely return home. PT and OT evaluations requested. Impression and plan of care have been directed as dictated by the signing physician. Dot Koehler nurse practitioner acting as scribe for signing physician.
[2018-02-27] MEDS ORDERED: LEVOFLOXACIN 500MG-D5W PMX 500 MG in DEXTROSE/WATER 1 100ML.BAG IVPB SCH (16:00)
[2018-02-27] MEDS: methylPREDNISolone SOD SUCCI 40 MG/ML 1 ML VIAL IV SCH (16:44)
[2018-02-27 16:53] LABS: Glucose,Whole Blood 112 mg/dL (75-99)
[2018-02-27] MEDS: PIPERACILLIN-TAZOBACTAM 3.375 GM in SODIUM CHLORIDE 0.9% 100 ML IVPB SCH (18:03)
[2018-02-27] MEDS: LENALIDOMIDE 25 MG PO SCH ×2 (18:22→21:50)
--- NOTE | 2018-02-27 18:54 | P.CONS ---
History of Present Illness - Reason for Consult Consult date: 02/27/18 on Revlimid for MM - Chief Complaint LEVY - History of Present Illness Mr. Mendoza is a very pleasant male pt of Dr. Honeycutt initially seen in August of 2016 for elevated light chains, further work up with BM Bx 10/25/16 revealed multiple myeloma. He was initiated on velcade and dexamethasone for which he had a partial response. He continued on revlimid and dex, doses adjusted to improve response. Most recently he had dose increased to 25mg daily , 21 days on 7 days off, he is in week 2. Pt was at home and was having increased LEVY, he is on O2 and denies that he had it off for any length of time. Pt was admitted through ER last night, was placed on bipap, received lasix and today he is breathing and resting comfortably. No c/o on a 14 point ROS. Review of Systems 14 point ROS as stated in HPI Past Medical History Past Medical History: Atrial Flutter, Cancer, Chest Pain / Angina, COPD, Diabetes Mellitus, Eye Disorder, Hyperlipidemia, Hypertension, Pneumonia, Renal Disease, Respiratory Disorder, Vascular Disorder Additional Past Medical History / Comment(s): Chronic respiratory failure with home O2 at 2L n/c. multiple pulmonary nodules(scar tissue), multiple myeloma( oral chemo), carotid stenosis rt side, hx kidney disorder-resolved now per pt, bronchitis, alfonzo eye macular degeneration(gets injectons for tx),past shingles lt lowe leg. History of Any Multi-Drug Resistant Organisms: None Reported Past Surgical History: Heart Catheterization Additional Past Surgical History / Comment(s): left carotid endarterectomy , bilateral cataract removal and intraocular lens implants, surgery on rt eye to remove scar tissue, colonoscopy, rt leg vein surgery, surgery on "left leg to clean out veins", bronchoscopy, rt leg angiogram /angioplasty/stents, angiogram and heart cath 05/24/17. Past Anesthesia/Blood Transfusion Reactions: No Reported Reaction Past Psychological History: No Psychological Hx Reported Smoking Status: Former smoker Past Alcohol Use History: None Reported Additional Past Alcohol Use History / Comment(s): Patient started smoking at age 19 and quit in 2012-1/2 packs per day for total of 93 pack year history. Patient was home with his . He does not use any device for ambulation. He has home O2 and nebulizer in place. Past Drug Use History: None Reported - Past Family History Brother(s) Family Medical History: Coronary Artery Disease (CAD), Diabetes Mellitus Father Additional Family Medical History / Comment(s): kidney failure Mother Family Medical History: No Reported History Medications and Allergies Home Medications Medication Instructions Recorded Confirmed Type Docusate [Colace] 100 mg PO DAILY PRN 05/20/14 02/26/18 History Ipratropium-Albuterol Nebulize 3 ml INHALATION RT-QID 05/20/14 02/26/18 History [Duoneb 0.5 mg-3 mg/3 ml Soln] Tamsulosin [Flomax] 0.8 mg PO HS 05/20/14 02/26/18 History metFORMIN HCL [metFORMIN HCL ER] 1,000 mg PO BID 05/20/14 02/26/18 History guaiFENesin [Mucinex] 600 mg PO Q12HR PRN 01/24/15 02/26/18 History Budesonide/Formoterol Fumarate 2 puff INHALATION RT-BID 03/02/16 02/26/18 History [Symbicort 160-4.5 Mcg Inhaler] Melatonin 3 mg PO HS 03/02/16 02/26/18 History Acyclovir [Zovirax] 400 mg PO BID 05/23/17 02/26/18 History Apixaban [Eliquis] 2.5 mg PO BID tablet 05/26/17 02/26/18 Rx Aspirin 81 mg PO DAILY chew 05/26/17 02/26/18 Rx Atorvastatin [Lipitor] 40 mg PO HS #30 tab 05/26/17 02/26/18 Rx Metoprolol Tartrate [Lopressor] 25 mg PO TID #90 tab 05/26/17 02/26/18 Rx Sulfamethox-Tmp 800-160Mg [Bactrim 1 tab PO MOWEFR 05/30/17 02/26/18 History DS 800-160 mg] Vit C/E/Zn/Coppr/Lutein/Zeaxan 1 cap PO BID 05/30/17 02/26/18 History [Preservision Areds 2 Softgel] Insulin Aspart (Niacinamide) See Protocol SQ DAILY PRN 02/26/18 02/26/18 History [Fiasp 100 Unit/ml Flextouch] Lenalidomide [Revlimid] 25 mg PO DAILY 02/26/18 02/26/18 History Megestrol [Megace] 800 mg PO DAILY 02/26/18 02/26/18 History Sennosides/Docusate Sodium 1 tab PO BID 02/26/18 02/26/18 History [Senna-S Laxative Tablet] Allergies Allergy/AdvReac Type Severity Reaction Status Date / Time No Known Allergies Allergy Verified 02/26/18 13:50 Physical Exam Vitals: Vital Signs Temp Pulse Pulse Resp BP Pulse Ox 02/27/18 16:16 70 02/27/18 16:03 68 02/27/18 12:00 98.0 F 104 H 18 93/75 88 L 02/27/18 11:10 72 02/27/18 10:58 72 02/27/18 08:00 98.0 F 109 H 16 132/62 91 L 02/27/18 07:27 76 02/27/18 07:10 72 02/27/18 03:28 97.9 F 80 27 H 104/60 100 02/26/18 23:11 88 22 119/87 100 02/26/18 21:00 97.8 F 107 H 25 H 118/73 100 Intake and Output 02/27/18 02/27/18 02/27/18 06:59 14:59 22:59 Intake Total 80.127 1170.856 Output Total 1700 Balance -5602.065 9106.856 Intake: Intake, IV Titration 80.127 68.856 Amount Heparin Sod,Pork in 0.45% 80.127 68.856 NaCl 25,000 unit In 0.45 % NaCl 1 250ml.bag @ 12 UNITS/KG/HR 7.83 mls/hr IV .Q24H [facility] Rx#: [id number] Oral 1102 Output: Urine 1700 Other: # Voids 1 Weight 66 kg - Constitutional General appearance: cooperative, no acute distress, thin - EENT Eyes: anicteric sclerae, EOMI ENT: hearing grossly normal, normal oropharynx - Neck Neck: no lymphadenopathy - Respiratory Respiratory: bilateral: rhonchi - Cardiovascular Heart sounds: normal: S1, S2 Abnormal Heart Sounds: systolic murmur leg Peripheral Edema: bilateral: Trace - Gastrointestinal General gastrointestinal: no absent bowel sounds, no decreased bowel sounds, no distended, no hepatomegaly, no hyperactive bowel sounds, normal bowel sounds, no organomegaly, no rigid, no scaphoid, soft, no splenomegaly, no tenderness, no umbilical hernia, no ventral hernia - Integumentary Integumentary: normal - Neurologic Neurologic: CNII-XII intact - Musculoskeletal Musculoskeletal: generalized weakness, strength equal bilaterally - Psychiatric Psychiatric: A&O x's 3, appropriate affect, intact judgment & insight Results CBC & Chem 7: 02/27/18 06:42 02/27/18 06:42 Labs: Abnormal Lab Results - Last 24 Hours (Table) 02/26/18 02/26/18 02/26/18 Range/Units 13:25 18:43 21:07 WBC (3.8-10.6) k/uL RBC (4.30-5.90) m/uL Hgb (13.0-17.5) gm/dL Hct (39.0-53.0) % MCV (80.0-100.0) fL RDW (11.5-15.5) % Lymphocytes # (1.0-4.8) k/uL APTT (22.0-30.0) sec Sodium (137-145) mmol/L BUN (9-20) mg/dL Creatinine (0.66-1.25) mg/dL Glucose (74-99) mg/dL POC Glucose (mg/dL) 166 H (75-99) mg/dL Hemoglobin A1c 6.8 H (4.0-6.0) % Calcium (8.4-10.2) mg/dL Troponin I 0.077 H* (0.000-0.034) ng/mL 02/27/18 02/27/18 02/27/18 Range/Units 00:06 01:18 06:20 WBC (3.8-10.6) k/uL RBC (4.30-5.90) m/uL Hgb (13.0-17.5) gm/dL Hct (39.0-53.0) % MCV (80.0-100.0) fL RDW (11.5-15.5) % Lymphocytes # (1.0-4.8) k/uL APTT 31.3 H (22.0-30.0) sec Sodium (137-145) mmol/L BUN (9-20) mg/dL Creatinine (0.66-1.25) mg/dL Glucose (74-99) mg/dL POC Glucose (mg/dL) 109 H (75-99) mg/dL Hemoglobin A1c (4.0-6.0) % Calcium (8.4-10.2) mg/dL Troponin I 0.063 H* (0.000-0.034) ng/mL 02/27/18 02/27/18 02/27/18 Range/Units 06:42 06:42 06:42 WBC 2.5 L (3.8-10.6) k/uL RBC 2.79 L (4.30-5.90) m/uL Hgb 9.2 L D (13.0-17.5) gm/dL Hct 28.4 L (39.0-53.0) % MCV 101.7 H (80.0-100.0) fL RDW 17.3 H (11.5-15.5) % Lymphocytes # 0.8 L (1.0-4.8) k/uL APTT 41.4 H (22.0-30.0) sec Sodium 135 L (137-145) mmol/L BUN 24 H (9-20) mg/dL Creatinine 1.39 H (0.66-1.25) mg/dL Glucose 102 H (74-99) mg/dL POC Glucose (mg/dL) (75-99) mg/dL Hemoglobin A1c (4.0-6.0) % Calcium 8.2 L (8.4-10.2) mg/dL Troponin I (0.000-0.034) ng/mL 02/27/18 Range/Units 11:53 WBC (3.8-10.6) k/uL RBC (4.30-5.90) m/uL Hgb (13.0-17.5) gm/dL Hct (39.0-53.0) % MCV (80.0-100.0) fL RDW (11.5-15.5) % Lymphocytes # (1.0-4.8) k/uL APTT (22.0-30.0) sec Sodium (137-145) mmol/L BUN (9-20) mg/dL Creatinine (0.66-1.25) mg/dL Glucose (74-99) mg/dL POC Glucose (mg/dL) 213 H (75-99) mg/dL Hemoglobin A1c (4.0-6.0) % Calcium (8.4-10.2) mg/dL Troponin I (0.000-0.034) ng/mL Chest x-ray: report reviewed Assessment and Plan (1) Multiple myeloma Narrative/Plan: Pt was encouraged to continue his revlimid for now, his did bring med from home. His CBC has been being monitored, as his dose was increased this cycle, he is in his 2nd week of 3 week cycle. Compared to recent labs in office his counts are low but stable. Cont CBC monitoring while acutely ill. Did investigate Revlimid to see if there are any concerns for cardiac side effects. The incidence is rather rare. Pt is getting better with Cardio/ pulmonary treatments so, would keep pt on Revlimid at same dose for now and cont to follow with you while he is inpatient to monitor responses/or is a lack of response to treatments. Current Visit: Yes Status: Chronic Priority: Medium Code(s): C90.00 - MULTIPLE MYELOMA NOT HAVING ACHIEVED REMISSION SNOMED Code(s): 364310683
[2018-02-27 21:10] LABS: Glucose,Whole Blood 188 mg/dL (75-99)
[2018-02-27] MEDS: METOPROLOL TARTRATE 50 MG TAB PO SCH (21:46)
[2018-02-27] MEDS: MELATONIN 3 MG TABLET PO SCH (21:46)
[2018-02-27] MEDS: TAMSULOSIN 0.4 MG CAP.ER.24H PO SCH (21:46)
[2018-02-27] MEDS: ATORVASTATIN 40 MG TAB PO SCH (21:46)
[2018-02-28] MEDS: ACYCLOVIR 200 MG CAP PO SCH ×3 (00:11→22:26)
[2018-02-28] MEDS: VIT A,C & E-LUTEIN-MINERALS 1 EACH TAB PO SCH ×3 (00:12→22:26)
[2018-02-28] MEDS: methylPREDNISolone SOD SUCCI 40 MG/ML 1 ML VIAL IV SCH ×4 (00:24→22:27)
[2018-02-28] MEDS: PIPERACILLIN-TAZOBACTAM 3.375 GM in SODIUM CHLORIDE 0.9% 100 ML IVPB SCH ×3 (04:10→22:26)
[2018-02-28 05:40] LABS: Glucose,Whole Blood 119 mg/dL (75-99)
[2018-02-28] MEDS: INSULIN ASPART 100 UNIT/ML 1 ML 10 ML VIAL SQ SCH ×4 (06:22→22:27)
--- NOTE | 2018-02-28 08:58 | XR ---
EXAMINATION TYPE: XR chest 1V portable DATE OF EXAM: 02/28/2018 HISTORY: Shortness of breath. COMPARISON: 02/26/2018 TECHNIQUE: Single view of the chest is submitted. FINDINGS: Demonstrated are scattered senescent parenchymal change. Patchy basilar densities noted. Correlate for underlying pneumonia. The heart is stable. Hilar and mediastinal structures are within normal limits. Degenerative changes are seen of the dorsal spine. IMPRESSION: 1. Patchy basilar densities noted. Correlate for underlying pneumonia.
[2018-02-28] MEDS: MEGESTROL 400 MG/10 ML CUP PO SCH (09:23)
[2018-02-28] MEDS: metFORMIN 500 MG TAB PO SCH ×2 (09:23→20:24)
[2018-02-28] MEDS: FUROSEMIDE 10 MG/ML 4 ML VIAL IV SCH ×2 (09:24→20:25)
[2018-02-28] MEDS: SENNOSIDES-DOCUSATE SODIUM 1 EACH TAB PO SCH ×2 (09:24→20:25)
[2018-02-28] MEDS: METOPROLOL TARTRATE 50 MG TAB PO SCH ×3 (09:24→20:25)
[2018-02-28] MEDS: ASPIRIN 81 MG PO SCH (09:24)
[2018-02-28] MEDS: APIXABAN 2.5 MG TABLET PO SCH ×2 (09:24→20:24)
[2018-02-28] MEDS: LENALIDOMIDE 25 MG PO SCH (09:32)
[2018-02-28] MEDS: SYMBICORT 160-4.5 MCG INHALER INHALATION SCH ×2 (09:39→20:54)
[2018-02-28] MEDS: IPRATROPIUM-ALBUTEROL 3 ML NEB INHALATION SCH ×4 (09:39→20:54)
[2018-02-28 12:07] LABS: Glucose,Whole Blood 202 mg/dL (75-99)
[2018-02-28 12:10] VITALS: BMI 19.0
--- NOTE | 2018-02-28 12:44 | P.PN ---
Subjective Progress Note Date: 02/28/18 Principal diagnosis: Pneumonia, MM Pt seen in f/u, he did use biPAP last night, his breathing is stable, he is urinating a lot, he is not getting out of bed. Objective - Vital Signs Vital signs: Vital Signs Temp 97.8 F 02/28/18 08:00 Pulse 84 02/28/18 09:39 Resp 20 02/28/18 04:00 BP 95/51 02/28/18 08:00 Pulse Ox 91 L 02/28/18 08:00 Intake & Output 02/27/18 02/28/18 02/28/18 18:59 06:59 18:59 Intake Total 1170.856 700 Output Total 3300 Balance 1170.856 -2600 Weight 61.9 kg 61.9 kg Intake: Intake, IV Titration 68.856 200 Amount Heparin Sod,Pork in 0.45% 68.856 NaCl 25,000 unit In 0.45 % NaCl 1 250ml.bag @ 12 UNITS/KG/HR 7.83 mls/hr IV .Q24H [facility] Rx#: [id number] Levofloxacin 500Mg-D5w 100 Pmx 500 mg In Dextrose/ Water 1 100ml.bag @ 100 mls/hr IVPB Q24H [facility] Rx#: [id number] Piperacillin-Tazobactam 3 100 .375 gm In Sodium Chloride 0.9% 100 ml @ 25 mls/hr IVPB Q12H [facility] Rx# :[id number] Oral 1102 500 Output: Urine 3300 Other: # Voids 2 - Constitutional General appearance: Present: cooperative, no acute distress, thin - EENT Eyes: Present: anicteric sclerae, EOMI - Respiratory Respiratory: right: rhonchi (base, improved breath sounds from yesterday) - Cardiovascular Heart sounds: normal: S1, S2 - Gastrointestinal General gastrointestinal: Present: normal bowel sounds, soft - Integumentary Integumentary: Present: normal - Neurologic Neurologic: Present: CNII-XII intact - Musculoskeletal Musculoskeletal: Present: generalized weakness - Psychiatric Psychiatric: Present: A&O x's 3, appropriate affect, intact judgment & insight - Labs CBC & Chem 7: 02/27/18 06:42 02/27/18 06:42 Labs: Abnormal Lab Results - Last 24 Hours (Table) 02/27/18 02/27/18 02/28/18 Range/Units 16:51 21:09 05:39 POC Glucose (mg/dL) 112 H 188 H 119 H (75-99) mg/dL 02/28/18 Range/Units 11:43 POC Glucose (mg/dL) 202 H (75-99) mg/dL - Imaging and Cardiology Chest x-ray: report reviewed Assessment and Plan (1) Multiple myeloma Narrative/Plan: Labs reviewed this AM, CrCl calculated and based on todays Cr decision is to hold Revlimid for now as I am not able to do a dose reduction-that would require a new Rx and delivery of medication. Documented in chart, pt and informed that pt is not to resume Revlimid until he is explicitly told to do so. Cont CBC monitoring while acutely ill. Current Visit: Yes Status: Chronic Priority: Medium Code(s): C90.00 - MULTIPLE MYELOMA NOT HAVING ACHIEVED REMISSION SNOMED Code(s): 560375491
[2018-02-28 13:39] LABS: ABG Base Excess -2.8 mmol/L; ABG HCO3 22 mmol/L (21-25); ABG Oxygen Saturation 99.8 % (94-97); ABG PCO2 33 mmHg (35-45); ABG PH 7.43 (7.35-7.45); ABG PO2 137 mmHg (83-108); ABG TCO2 23 mmol/L (19-24)
--- NOTE | 2018-02-28 14:59 | P.PN ---
Subjective Progress Note Date: 02/28/18 This is an 87-year-old male patient of Dr. Mike and Dr. Madrid with a past medical history of angina, COPD on daily prednisone, chronic hypoxic respiratory failure on home O2 at 2 L nasal cannula, diabetes mellitus type 2, hyperlipidemia, hypertension, peripheral vascular disease, carotid artery disease with previous carotid endarterectomy, macular degeneration, multiple myeloma on Revlimid under the care of Dr. Honeycutt. Patient does follow at [facility] regarding pulmonary nodules and mediastinal lymphadenopathy. 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 Patient states that he had sudden onset of congestion in his chest with shortness of breath runny nose and a cough that started yesterday morning when he got up out of bed. He states he had extreme shortness of breath with even minimal activity. He denies any orthopnea or nocturnal postural dyspnea. Patient came into [facility] emergency center for evaluation. He had a pulse ox of 82%, afebrile, heart rate initially in the 80s. White count 3.3, hemoglobin 10.7, sodium 133, potassium 5.2 chloride 103, CO2 17, blood sugar 248, BUN 25 and creatinine 1.27. Initial troponin was 0.071. ProBNP 8180. EKG was atrial flutter. Patient was started on IV steroids and then heparin drip for elevated troponin and admitted to the selective care unit. Chest x-ray shows multifocal airspace disease suggestive of pneumonia superimposed upon pulmonary emphysema. Retrocardiac consolidation that could also relate to pneumonia although follow-up chest x-ray is recommended to ensure no underlying pulmonary mass. Obscuration of the previously seen nodule at the right costophrenic angle secondary to a new trace pleural effusion. Previous Echocardiogram reveals EF of 35-40%, mild concentric left ventricular hypertrophy, elderly moderately dilated at 34-39,moderate tricuspid regurgitation and moderate pulmonary hypertension. Consult in place with cardiology regarding elevated troponins and heart failure. Consult with Dr. Oneill regarding heart failure. Patient has been started on IV Lasix 40 mg IV every 12 hours and he was started on heparin drip regarding elevated troponins and admitted to the cardiac stepdown unit patient does state that he has had a big improvement of his breathing status since yesterday.. 02/28: Patient was on BiPAP during the night and also return to BiPAP today as his pulse ox dropped on 4 L nasal cannula. He has been afebrile. Repeat chest x-ray shows patchy basilar densities noted. Correlate for underlying pneumonia. Dr. Oneill has started the patient on IV Levaquin and Zosyn. He is still on Solu-Medrol 40 mg IV every 8 hours. He is continued on IV Lasix to 40 mg every 12 hours and is diuresing well. Oncology is now stated that patient is not to resume Revlimid until he is explicitly told to do so. Review of Systems All systems: negative Constitutional: Reports fatigue, Denies chills, Denies fever, Denies poor appetite, Denies weight loss Eyes: denies blurred vision, denies pain Ears, nose, mouth and throat: Denies dysphagia, Denies epistaxis, Denies headache, Denies mouth pain, Denies sore throat, Denies vertigo Cardiovascular: Reports decreased exercise tolerance, Reports dyspnea on exertion, Denies chest pain, Denies edema, Denies leg edema, Denies lightheadedness, Denies orthopnea, Denies palpitations, Denies paroxysmal nocturnal dyspnea, reports shortness of breath Respiratory: Reports dyspnea, Reports home oxygen, Denies cough, Denies cough with sputum, Denies excessive sputum, Denies hemoptysis, Denies wheezing Gastrointestinal: Denies abdominal pain, Denies diarrhea, Denies loss of appetite, Denies nausea, Denies vomiting Genitourinary: Denies dysuria, Denies urinary frequency Musculoskeletal: Denies frequent falls, Denies gait dysfunction, Denies myalgias Integumentary: Denies pruritus, Denies rash, Denies wounds Neurological: Denies aphasia, Denies change in mentation, Denies change in speech, Denies confusion, Denies convulsions, Denies double vision, Denies numbness, Denies seizures, Denies weakness Psychiatric: Denies anxiety, Denies depression Endocrine: Denies fatigue, Denies weight change Objective - Vital Signs Vital signs: Vital Signs Temp 97.9 F 02/28/18 04:00 Pulse 84 02/28/18 09:39 Resp 20 02/28/18 04:00 BP 117/51 02/28/18 04:00 Pulse Ox 100 02/28/18 04:00 Intake & Output 02/27/18 02/28/18 02/28/18 18:59 06:59 18:59 Intake Total 1170.856 700 Output Total 3300 Balance 1170.856 -2600 Weight 61.9 kg Intake: Intake, IV Titration 68.856 200 Amount Heparin Sod,Pork in 0.45% 68.856 NaCl 25,000 unit In 0.45 % NaCl 1 250ml.bag @ 12 UNITS/KG/HR 7.83 mls/hr IV .Q24H [facility] Rx#: [id number] Levofloxacin 500Mg-D5w 100 Pmx 500 mg In Dextrose/ Water 1 100ml.bag @ 100 mls/hr IVPB Q24H [facility] Rx#: [id number] Piperacillin-Tazobactam 3 100 .375 gm In Sodium Chloride 0.9% 100 ml @ 25 mls/hr IVPB Q12H [facility] Rx# :[id number] Oral 1102 500 Output: Urine 3300 Other: # Voids 2 - Exam Gen: This is an 87-year-old male. He is found sitting up in bed and appears to be in mild respiratory distress. HEENT: Head is atraumatic, normocephalic. Pupils equal, round. Sclerae is anicteric. NECK: Supple. No JVD. No lymphadenopathy. No thyromegaly. LUNGS: Positive rales and crackles throughout scattered.. Mild intercostal retractions. HEART: Regular rate and rhythm. No murmur. ABDOMEN: Soft. Bowel sounds are present. No masses. No tenderness. EXTREMITIES: no pedal edema. No calf tenderness. NEUROLOGICAL: Patient is awake, alert and oriented x3. Cranial nerves 2 through 12 are grossly intact. - Labs CBC & Chem 7: 02/27/18 06:42 02/27/18 06:42 Labs: Abnormal Lab Results - Last 24 Hours (Table) 02/27/18 02/27/18 02/27/18 Range/Units 11:53 16:51 21:09 POC Glucose (mg/dL) 213 H 112 H 188 H (75-99) mg/dL 02/28/18 Range/Units 05:39 POC Glucose (mg/dL) 119 H (75-99) mg/dL Assessment and Plan Plan: 1. Acute on chronic hypoxic respiratory failure secondary to acute systolic heart failure and acute exacerbation of COPD and gram-negative pneumonia, all present on admission. Continue IV Lasix to 40 mg every 12 hours, I&O, daily weights, monitor electrolytes and renal function. Cardiology and pulmonary consults appreciated. Patient started on IV Levaquin and Zosyn. 2. Atrial flutter with rapid ventricular response. Heparin drip will be discontinued and eliquis resumed. Continue Lopressor 25 mg 3 times daily. Cardiology consult in place. TSH is normal. 3. Elevated troponin most likely secondary to heart failure and atrial flutter. Cardiology consult. 4. Acute COPD exacerbation. Patient is normally on home O2 at 2 L nasal cannula. Consult with Dr. Oneill is appreciated. Continue DuoNeb treatments 4 times daily, Symbicort 2 puffs twice daily, Mucinex, Levaquin, Zosyn, Solu- Medrol 40 mg IV every 8 hours. 5. History of hypertension. Continue Lopressor 25 mg 3 times daily. 6. 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 Avoid nephrotoxic agents and recheck lab work. 7. Diabetes mellitus type 2. Continue metformin 1000 mg twice daily and NovoLog scale before meals and at bedtime. 8. Benign prostatic hypertrophy. Continue Flomax or 0.4 mg twice daily. 9. Moderate protein calorie malnutrition with BMI of 20. Continue protein supplement. 10. Multiple myeloma. Patient has been instructed by oncology to hold Revlimid until explicitly instructed to resume. 11. Peripheral vascular disease with carotid artery disease previous endarterectomies. 12. Hyperlipidemia. Continue Lipitor 40 mg daily. 13. Chronic hypoxic respiratory failure on home O2 at 2 L. 14. DVT prophylaxis. Eliquis. 15 Gastrointestinal prophylaxis. Protonix daily. Discharge plan: Most likely return home. PT and OT evaluations requested. Impression and plan of care have been directed as dictated by the signing physician. Dot Koehler nurse practitioner acting as scribe for signing physician.
--- NOTE | 2018-02-28 15:17 | P.PN ---
Subjective Progress Note Date: 02/28/18 Principal diagnosis: Acute exacerbation of chronic systolic congestive heart failure with acute hypoxic respiratory failure This is a very pleasant 87-year-old gentleman who follows with Dr. Mike as his primary care physician. He has a history of diabetes mellitus, hypertension, hyperlipidemia, peripheral vascular disease, macular degeneration, carotid artery disease with previous carotid endarterectomy, peripheral vascular disease with previous femoral bypass surgery, atrial flutter anticoagulated with Eliquis. He does have coronary artery disease and the most recent catheterization revealed an mild nonobstructive disease with moderate to severe involving a small caliber ramus intermedius. He was treated medically in April 2017. He does have impaired left ventricular systolic function with ejection fraction 35-40%. He also has a history of multiple myeloma and is currently on Revlimid. He also has a [id number] smoking history and quit in December 2004. He does have chronic obstructive pulmonary disease and follows with Dr. Madrid in our office for the same. He presented here to the emergency room yesterday after developing increasing shortness of breath, cough and congestion. Onset 2- 3 days prior. He also had some swelling in his lower extremities. He was quite dyspneic on arrival. He was placed on BiPAP and admitted to the selective care unit. His chest x-ray shows multiple airspace disease suggestive of pneumonia superimposed upon pulmonary emphysema. There is some retrocardiac consolidation representing either pneumonia versus underlying pulmonary mass. There is obscuration of the previously seen nodule in the right costophrenic angle secondary to a new trace pleural effusion. EKG revealed atrial flutter with a rapid ventricular response. Troponin 0.077. 0.063. ProBNP 8180. He is currently on a heparin drip. He is seen today in consultation. He is currently awake and alert in no acute distress. He is currently off the BiPAP. He diurese quite well. Remains on IV Lasix 40 mg every 12 hours. Maintaining O2 saturations in the low 90s on room air. He's been afebrile. Feeling quite a bit better already. White count 2.5. Hemoglobin 9.2. Platelet count 185,000. Creatinine 1.39. The patient is seen again today in 02/28/2018 in follow-up on the selective care unit. He is more awake and alert today. He currently denies any worsening shortness of breath, cough or congestion. He does continue to have low O2 saturations in the 80s while on her liters per minute per nasal cannula. He's been on the BiPAP during the evening and throughout the day as needed. Saturations up in the upper 90s. ABGs on 50% FiO2 revealed a pO2 of 137, pCO2 33, pH 7.43. He remains afebrile. Hemodynamically stable. He is continued on DuoNeb inhalations, Symbicort, IV Solu-Medrol. Antibiotics in the form of Zosyn and Levaquin. Chest x-ray reveals bilateral patchy densities. Objective - Vital Signs Vital signs: Vital Signs Temp 97.6 F 02/28/18 12:00 Pulse 98 02/28/18 12:00 Resp 20 02/28/18 12:00 BP 114/55 02/28/18 12:00 Pulse Ox 96 02/28/18 12:00 Intake & Output 02/27/18 02/28/18 02/28/18 18:59 06:59 18:59 Intake Total 1170.856 700 Output Total 3300 Balance 1170.856 -2600 Weight 61.9 kg 61.9 kg Intake: Intake, IV Titration 68.856 200 Amount Heparin Sod,Pork in 0.45% 68.856 NaCl 25,000 unit In 0.45 % NaCl 1 250ml.bag @ 12 UNITS/KG/HR 7.83 mls/hr IV .Q24H ALEX Rx#: [id number] Levofloxacin 500Mg-D5w 100 Pmx 500 mg In Dextrose/ Water 1 100ml.bag @ 100 mls/hr IVPB Q24H ALEX Rx#: [id number] Piperacillin-Tazobactam 3 100 .375 gm In Sodium Chloride 0.9% 100 ml @ 25 mls/hr IVPB Q12H ALEX Rx# :[id number] Oral 1102 500 Output: Urine 3300 Other: # Voids 2 - Exam GENERAL EXAM: Frail, cachectic. Alert, comfortable in no apparent distress. On BiPAP. HEAD: Normocephalic. EYES: Normal reaction of pupils, equal size. NOSE: Clear with pink turbinates. THROAT: No erythema or exudates. NECK: No masses, no JVD. CHEST: No chest wall deformity. LUNGS: Equal air entry with few scattered rhonchi bilaterally. Few crackles in the posterior bases. Diminished. CVS: S1 and S2 normal with an audible murmur, irregular rhythm. ABDOMEN: No hepatosplenomegaly, normal bowel sounds, no guarding or rigidity. SPINE: No scoliosis or deformity SKIN: No rashes CENTRAL NERVOUS SYSTEM: No focal deficits, tone is normal in all 4 extremities. EXTREMITIES: There is trace peripheral edema. No clubbing, no cyanosis. Peripheral pulses are intact. - Labs CBC & Chem 7: 02/27/18 06:42 02/27/18 06:42 Labs: Abnormal Lab Results - Last 24 Hours (Table) 02/27/18 02/27/18 02/28/18 Range/Units 16:51 21:09 05:39 ABG pCO2 (35-45) mmHg ABG pO2 (83-108) mmHg ABG O2 Saturation (94-97) % POC Glucose (mg/dL) 112 H 188 H 119 H (75-99) mg/dL 02/28/18 02/28/18 Range/Units 11:43 13:35 ABG pCO2 33 L (35-45) mmHg ABG pO2 137 H (83-108) mmHg ABG O2 Saturation 99.8 H (94-97) % POC Glucose (mg/dL) 202 H (75-99) mg/dL Assessment and Plan Assessment: Impression: #1 Acute hypoxic respiratory failure secondary to an acute exacerbation of chronic systolic congestive heart failure. Ejection fraction 35-40%. #2 Atrial flutter with a rapid ventricular response. On Eliquis. #3 Troponin leak. Previous cardiac catheterization in April 2017 revealed severe disease involving a small caliber ramus intermedius and recommended medical therapy. #4 Acute renal failure. #5 Acute exacerbation of chronic obstructive pulmonary disease with FEV1 value 72% of predicted. Severe diffusion impairment and has been oxygen dependent. [id number] smoking history however quit in 2004. #6 Multiple myeloma currently on Revlimid. #7 Severe peripheral vascular disease with previous vascular intervention involving the lower extremities. #8 History of shingles. #9 History of pulmonary nodule seen on previous CAT scans. #10 Carotid artery disease with previous carotid endarterectomy on the left. #11 Hypertension. #12 Hyperlipidemia. #13 Benign prostatic hypertrophy. #14 Macular degeneration. Plan: The patient was seen and evaluated by Dr. Oneill. Chest x-ray reviewed. Continue current antibiotics along with bronchodilators and IV Solu-Medrol. Continue to titrate the FiO2 L maintain O2 saturations in the 90s. We will increase his activity as tolerated. We'll continue to follow and make further recommendations based on his clinical status. I, the cosigning physician, performed a history & physical examination of the patient. Lungs sounds with few scattered rhonchi, crackles in the posterior bases. Maintaining good O2 saturations in the 90s on 4 L/m per nasal cannula alternating with BiPAP. I discussed the assessment and plan of care with my nurse practitioner, Debby Reyes. I attest to the above note as dictated by her.
[2018-02-28] MEDS: LEVOFLOXACIN 250MG-D5W PMX 250 MG in DEXTROSE/WATER 1 50ML.BAG IVPB SCH (15:58)
[2018-02-28 16:13] LABS: Glucose,Whole Blood 146 mg/dL (75-99)
[2018-02-28] MEDS: TAMSULOSIN 0.4 MG CAP.ER.24H PO SCH (20:24)
[2018-02-28] MEDS: MELATONIN 3 MG TABLET PO SCH (20:24)
[2018-02-28] MEDS: ATORVASTATIN 40 MG TAB PO SCH (20:25)
[2018-02-28 20:59] LABS: Glucose,Whole Blood 217 mg/dL (75-99)
[2018-02-28] MEDS ORDERED: LENALIDOMIDE 25 MG PO SCH (21:00)
[2018-03-01 06:28] LABS: Glucose,Whole Blood 171 mg/dL (75-99)
[2018-03-01] MEDS: INSULIN ASPART 100 UNIT/ML 1 ML 10 ML VIAL SQ SCH ×4 (06:31→21:08)
[2018-03-01 07:28] LABS: Glucose,Whole Blood 151 mg/dL (75-99)
[2018-03-01 07:30] LABS: Anisocytosis Slight; HCT 28.3 % (39.0-53.0); Hypochromasia Slight; MCH 33.2 pg (25.0-35.0); MCHC 31.8 g/dL (31.0-37.0); MCV 104.4 fL (80.0-100.0); Macrocytosis Moderate; Mean Platelet Volume 8.4; Platelet Count 163 k/uL (150-450); RBC 2.71 m/uL (4.30-5.90); RDW 18.5 % (11.5-15.5); WBC 2.2 k/uL (3.8-10.6)
[2018-03-01 07:59] LABS: Albumin 2.9 g/dL (3.5-5.0); Calcium 8.1 mg/dL (8.4-10.2); Potassium 4.3 mmol/L (3.5-5.1); Total Bilirubin 0.4 mg/dL (0.2-1.3); Total Protein 5.2 g/dL (6.3-8.2)
[2018-03-01] MEDS: IPRATROPIUM-ALBUTEROL 3 ML NEB INHALATION SCH ×4 (08:46→19:34)
[2018-03-01] MEDS: SYMBICORT 160-4.5 MCG INHALER INHALATION SCH ×2 (08:47→19:34)
[2018-03-01] MEDS: ACYCLOVIR 200 MG CAP PO SCH ×2 (09:18→21:06)
[2018-03-01] MEDS: PIPERACILLIN-TAZOBACTAM 3.375 GM in SODIUM CHLORIDE 0.9% 100 ML IVPB SCH ×3 (09:18→23:52)
[2018-03-01] MEDS: methylPREDNISolone SOD SUCCI 40 MG/ML 1 ML VIAL IV SCH ×3 (09:18→23:52)
[2018-03-01] MEDS: APIXABAN 2.5 MG TABLET PO SCH ×2 (09:19→21:06)
[2018-03-01] MEDS: ASPIRIN 81 MG PO SCH (09:19)
[2018-03-01] MEDS: metFORMIN 500 MG TAB PO SCH ×2 (09:19→21:09)
[2018-03-01] MEDS: METOPROLOL TARTRATE 50 MG TAB PO SCH ×3 (09:19→21:09)
[2018-03-01] MEDS: FUROSEMIDE 10 MG/ML 4 ML VIAL IV SCH ×2 (09:19→21:07)
[2018-03-01] MEDS: guaiFENesin 600 MG TABLET.ER PO SCH ×2 (09:19→21:08)
[2018-03-01] MEDS: SENNOSIDES-DOCUSATE SODIUM 1 EACH TAB PO SCH ×2 (09:19→21:09)
[2018-03-01] MEDS: MEGESTROL 400 MG/10 ML CUP PO SCH (09:20)
[2018-03-01] MEDS: VIT A,C & E-LUTEIN-MINERALS 1 EACH TAB PO SCH ×2 (09:20→21:10)
--- NOTE | 2018-03-01 09:34 | XR ---
EXAMINATION TYPE: XR chest 1V portable DATE OF EXAM: 03/01/2018 HISTORY: pneumonia/ chf. REFERENCE: Previous study dated 02/28/2018. FINDINGS: Lung volumes are prominent. Heart size is upper limits of normal. There is improved aeratio n of both lung bases. There continues be some atelectatic change in the left upper lobe. IMPRESSION: 1. COPD. 2. BORDERLINE CARDIOMEGALY. 3. IMPROVED AERATION, BOTH LUNGS.
[2018-03-01 10:52] LABS: Glucose,Whole Blood 220 mg/dL (75-99)
--- NOTE | 2018-03-01 11:37 | P.PN ---
Progress Note - Text Progress Note Date: 03/01/18 This is in an addendum to the cardiology progress note dictated for the discharge dated 05/26/2017, patient had paroxysmal atrial fibrillation. DNP note has been reviewed, I agree with a documented findings and plan of care. Patient was seen and examined.
--- NOTE | 2018-03-01 12:04 | P.CRDCN ---
History of Present Illness Consult date: 03/01/18 Requesting physician: Maria Esther Guan Consult reason: congestive heart failure Chief complaint: Shortness of breath History of present illness: This is a very pleasant 87-year-old gentleman who follows with Dr. Gunderson in the office . He has a history of diabetes mellitus, hypertension, hyperlipidemia, peripheral vascular disease, macular degeneration, carotid artery disease with previous carotid endarterectomy, peripheral vascular disease with previous femoral bypass surgery, atrial flutter anticoagulated with Eliquis. He does have coronary artery disease and the most recent catheterization revealed an mild nonobstructive disease with moderate to severe involving a small caliber ramus intermedius. He was treated medically in April 2017. He does have impaired left ventricular systolic function with ejection fraction 35-40%. He also has a history of multiple myeloma and is currently on Revlimid. He also has a 35-[id number]-[id number] smoking history and quit in December 2004. He does have chronic obstructive pulmonary disease and follows with Dr. Madrid in our office for the same. He presented here to the emergency room yesterday after developing increasing shortness of breath, cough and congestion. Onset 2-3 days prior. He also had some swelling in his lower extremities. He was quite dyspneic on arrival. He was placed on BiPAP and admitted to the selective care unit. His chest x-ray shows multiple airspace disease suggestive of pneumonia superimposed upon pulmonary emphysema. There is some retrocardiac consolidation representing either pneumonia versus underlying pulmonary mass. There is obscuration of the previously seen nodule in the right costophrenic angle secondary to a new trace pleural effusion. EKG revealed atrial flutter with a rapid ventricular response. Troponin 0.077. 0.063. ProBNP 8180. He is currently on a heparin drip. Patient was seen and examined today, he states that his breathing is significantly improved from admission here. He continues to diurese well on IV Lasix. Blood cell count is 2.2, hemoglobin 9.0, platelet count 163. Sodium 135, potassium 4.3, BUN 38, creatinine 1.4. Past Medical History Past Medical History: Atrial Flutter, Cancer, Chest Pain / Angina, COPD, Diabetes Mellitus, Eye Disorder, Hyperlipidemia, Hypertension, Pneumonia, Renal Disease, Respiratory Disorder, Vascular Disorder Additional Past Medical History / Comment(s): Chronic respiratory failure with home O2 at 2L n/c. multiple pulmonary nodules(scar tissue), multiple myeloma( oral chemo), carotid stenosis rt side, hx kidney disorder-resolved now per pt, bronchitis, alfonzo eye macular degeneration(gets injectons for tx),past shingles lt lowe leg. History of Any Multi-Drug Resistant Organisms: None Reported Past Surgical History: Heart Catheterization Additional Past Surgical History / Comment(s): left carotid endarterectomy , bilateral cataract removal and intraocular lens implants, surgery on rt eye to remove scar tissue, colonoscopy, rt leg vein surgery, surgery on "left leg to clean out veins", bronchoscopy, rt leg angiogram /angioplasty/stents, angiogram and heart cath 05/24/17. Past Anesthesia/Blood Transfusion Reactions: No Reported Reaction Past Psychological History: No Psychological Hx Reported Smoking Status: Former smoker Past Alcohol Use History: None Reported Additional Past Alcohol Use History / Comment(s): Patient started smoking at age 19 and quit in 2012-1/2 packs per day for total of 93 pack year history. Patient was home with his . He does not use any device for ambulation. He has home O2 and nebulizer in place. Past Drug Use History: None Reported - Past Family History Brother(s) Family Medical History: Coronary Artery Disease (CAD), Diabetes Mellitus Father Additional Family Medical History / Comment(s): kidney failure Mother Family Medical History: No Reported History Medications and Allergies Home Medications Medication Instructions Recorded Confirmed Type Docusate [Colace] 100 mg PO DAILY PRN 05/20/14 02/26/18 History Ipratropium-Albuterol Nebulize 3 ml INHALATION RT-QID 05/20/14 02/26/18 History [Duoneb 0.5 mg-3 mg/3 ml Soln] Tamsulosin [Flomax] 0.8 mg PO HS 05/20/14 02/26/18 History metFORMIN HCL [metFORMIN HCL ER] 1,000 mg PO BID 05/20/14 02/26/18 History guaiFENesin [Mucinex] 600 mg PO Q12HR PRN 01/24/15 02/26/18 History Budesonide/Formoterol Fumarate 2 puff INHALATION RT-BID 03/02/16 02/26/18 History [Symbicort 160-4.5 Mcg Inhaler] Melatonin 3 mg PO HS 03/02/16 02/26/18 History Acyclovir [Zovirax] 400 mg PO BID 05/23/17 02/26/18 History Apixaban [Eliquis] 2.5 mg PO BID tablet 05/26/17 02/26/18 Rx Aspirin 81 mg PO DAILY chew 05/26/17 02/26/18 Rx Atorvastatin [Lipitor] 40 mg PO HS #30 tab 05/26/17 02/26/18 Rx Metoprolol Tartrate [Lopressor] 25 mg PO TID #90 tab 05/26/17 02/26/18 Rx Sulfamethox-Tmp 800-160Mg [Bactrim 1 tab PO MOWEFR 05/30/17 02/26/18 History DS 800-160 mg] Vit C/E/Zn/Coppr/Lutein/Zeaxan 1 cap PO BID 05/30/17 02/26/18 History [Preservision Areds 2 Softgel] Insulin Aspart (Niacinamide) See Protocol SQ DAILY PRN 02/26/18 02/26/18 History [Fiasp 100 Unit/ml Flextouch] Lenalidomide [Revlimid] 25 mg PO DAILY 02/26/18 02/26/18 History Megestrol [Megace] 800 mg PO DAILY 02/26/18 02/26/18 History Sennosides/Docusate Sodium 1 tab PO BID 02/26/18 02/26/18 History [Senna-S Laxative Tablet] Allergies Allergy/AdvReac Type Severity Reaction Status Date / Time No Known Allergies Allergy Verified 02/26/18 13:50 Physical Exam Vitals: Vital Signs Temp Pulse Pulse Resp BP Pulse Ox 03/01/18 09:35 97.6 F 73 18 106/47 91 L 03/01/18 08:57 92 03/01/18 08:47 90 03/01/18 03:59 98.2 F 64 18 115/47 93 L 03/01/18 00:00 97.9 F 87 18 121/60 92 L 02/28/18 21:08 96 02/28/18 20:55 96 02/28/18 19:54 98.0 F 84 26 H 109/63 88 L 02/28/18 16:11 92 02/28/18 16:00 98.2 F 82 18 129/65 91 L 02/28/18 15:59 92 02/28/18 12:00 97.6 F 98 18 114/55 96 Intake and Output 02/28/18 03/01/18 03/01/18 22:59 06:59 14:59 Intake Total 240 Output Total 400 Balance -400 240 Intake: Oral 240 Output: Urine 400 Other: Weight 64.5 kg GENERAL EXAM: Frail, cachectic. Alert, comfortable in no apparent distress. Off BiPAP. HEAD: Normocephalic. EYES: Normal reaction of pupils, equal size. NOSE: Clear with pink turbinates. THROAT: No erythema or exudates. NECK: No masses, no JVD. CHEST: No chest wall deformity. LUNGS: Equal air entry with few scattered rhonchi bilaterally. Few crackles in the posterior bases. Diminished. CVS: S1 and S2 normal with an audible murmur, irregular rhythm. ABDOMEN: No hepatosplenomegaly, normal bowel sounds, no guarding or rigidity. SPINE: No scoliosis or deformity SKIN: No rashes CENTRAL NERVOUS SYSTEM: No focal deficits, tone is normal in all 4 extremities. EXTREMITIES: There is trace peripheral edema. No clubbing, no cyanosis. Peripheral pulses are intact. Results 03/01/18 06:35 03/01/18 06:35 Cardiac Enzymes 03/01/18 Range/Units 06:35 AST 24 (17-59) U/L CBC 03/01/18 Range/Units 06:35 WBC 2.2 L (3.8-10.6) k/uL RBC 2.71 L (4.30-5.90) m/uL Hgb 9.0 L (13.0-17.5) gm/dL Hct 28.3 L (39.0-53.0) % Plt Count 163 (150-450) k/uL Comprehensive Metabolic Panel 03/01/18 Range/Units 06:35 Sodium 135 L (137-145) mmol/L Potassium 4.3 (3.5-5.1) mmol/L Chloride 102 (98-107) mmol/L Carbon Dioxide 23 (22-30) mmol/L BUN 38 H (9-20) mg/dL Creatinine 1.45 H (0.66-1.25) mg/dL Glucose 154 H (74-99) mg/dL Calcium 8.1 L (8.4-10.2) mg/dL AST 24 (17-59) U/L ALT 79 H (21-72) U/L Alkaline Phosphatase 68 (38-126) U/L Total Protein 5.2 L (6.3-8.2) g/dL Albumin 2.9 L (3.5-5.0) g/dL Current Medications Generic Name Dose Route Start Last Admin Trade Name Freq PRN Reason Stop Dose Admin Acetaminophen 650 mg 02/27/18 09:17 02/27/18 09:39 Tylenol Tab PO 650 mg Q4HR PRN Administration Fever and/ or Pain Acyclovir 400 mg 02/27/18 09:00 03/01/18 09:18 Zovirax PO 400 mg BID ALEX Administration Albuterol/Ipratropium 3 ml 02/27/18 08:00 03/01/18 08:46 Duoneb 0.5 Mg-3 Mg/3 Ml Soln INHALATION 3 ml RT-QID ALEX Administration Apixaban 2.5 mg 02/27/18 13:00 03/01/18 09:19 Eliquis PO 2.5 mg BID ALEX Administration Aspirin 81 mg 02/27/18 09:00 03/01/18 09:19 Aspirin PO 81 mg DAILY ALEX Administration Atorvastatin Calcium 40 mg 02/26/18 21:45 02/28/18 20:25 Lipitor PO 40 mg HS ALEX Administration Budesonide/Formoterol Fumarate 2 puff 02/27/18 08:00 03/01/18 08:47 Symbicort 160-4.5 Mcg Inhaler INHALATION 2 puff RT-BID ALEX Administration Docusate Sodium 100 mg 02/26/18 21:31 Colace PO DAILY PRN Constipation Furosemide 40 mg 02/26/18 21:00 03/01/18 09:19 Lasix IV 40 mg Q12HR ALEX Administration Guaifenesin 1,200 mg 03/01/18 09:00 03/01/18 09:19 Mucinex PO 1,200 mg Q12HR ALEX Administration Piperacillin Sod/Tazobactam 100 mls @ 25 mls/hr 02/28/18 16:00 03/01/18 09:18 Sod 3.375 gm/ Sodium Chloride IVPB 25 mls/hr Q8HR ALEX Administration Levofloxacin/Dextrose 250 mg/ 50 mls @ 50 mls/hr 02/28/18 16:00 02/28/18 15: 58 IV Solution IVPB 50 mls/hr Q24H ALEX Administration Insulin Aspart 0 unit 02/26/18 21:00 03/01/18 06:31 Novolog SQ 1 unit ACHS ALEX Administration Protocol Megestrol Acetate 800 mg 02/27/18 09:00 03/01/18 09:20 Megace PO 800 mg DAILY ALEX Administration Melatonin 3 mg 02/26/18 21:45 02/28/18 20:24 Melatonin PO 3 mg HS ALEX Administration Metformin HCl 1,000 mg 02/27/18 09:00 03/01/18 09:19 Glucophage PO 1,000 mg BID ALEX Administration Methylprednisolone Sodium Succinate 40 mg 02/27/18 16:00 03/01/18 09:18 Solu-Medrol IV 40 mg Q8HR ALEX Administration Metoprolol Tartrate 50 mg 02/27/18 22:00 03/01/18 09:19 Lopressor PO 50 mg TID ALEX Administration Morphine Sulfate 4 mg 02/27/18 09:46 02/27/18 14:15 Morphine Sulfate (Inj) IVP 4 mg Q4HR PRN Administration Muscle Pain Multivitamins/Minerals 1 each 02/27/18 09:00 03/01/18 09:20 Ivite PO 1 each BID ALEX Administration Naloxone HCl 0.2 mg 02/26/18 15:17 Narcan IV Q2M PRN Opioid Reversal Senna/Docusate Sodium 1 each 02/27/18 09:00 03/01/18 09:19 Senokot-S PO 1 each BID ALEX Administration Tamsulosin HCl 0.8 mg 02/26/18 21:45 02/28/18 20:24 Flomax PO 0.8 mg HS ALEX Administration Intake and Output 02/28/18 03/01/18 03/01/18 22:59 06:59 14:59 Intake Total 240 Output Total 400 Balance -400 240 Intake: Oral 240 Output: Urine 400 Other: Weight 64.5 kg 03/01/18 06:35 03/01/18 06:35 EKG Interpretations (text) EKG on admission showed atrial flutter with a moderately rapid ventricular response, atypical Assessment and Plan Plan: Assessment and plan #1 Acute hypoxic respiratory failure secondary to an acute exacerbation of chronic systolic congestive heart failure. Ejection fraction 35-40%. #2 Atrial flutter with a rapid ventricular response. On Eliquis 2-1/2 mg one tablet by mouth twice a day . #3 Troponin leak. Previous cardiac catheterization in April 2017 revealed severe disease involving a small caliber ramus intermedius and recommended medical therapy. #4 Acute renal failure. #5 Acute exacerbation of chronic obstructive pulmonary disease with FEV1 value 72% of predicted. Severe diffusion impairment and has been oxygen dependent. [id number] smoking history however quit in 2004. #6 Multiple myeloma currently on Revlimid. #7 Severe peripheral vascular disease with previous vascular intervention involving the lower extremities. #8 History of shingles. #9 History of pulmonary nodule seen on previous CAT scans. #10 Carotid artery disease with previous carotid endarterectomy on the left. #11 Hypertension. #12 Hyperlipidemia. #13 Benign prostatic hypertrophy. #14 Macular degeneration. #15 diabetes Plan From cardiology's perspective, we'll continue current dose of IV Lasix. Continue to monitor intake and output along with daily weights and daily lytes BUN and creatinine. Obtain repeat echocardiogram with Doppler study. Start Entresto from today. Further recommendations to follow. DNP note has been reviewed, I agree with a documented findings and plan of care. Patient was seen and examined.
--- NOTE | 2018-03-01 12:59 | P.PN ---
Subjective Progress Note Date: 03/01/18 This is an 87-year-old male patient of Dr. Mike and Dr. Madrid with a past medical history of angina, COPD on daily prednisone, chronic hypoxic respiratory failure on home O2 at 2 L nasal cannula, diabetes mellitus type 2, hyperlipidemia, hypertension, peripheral vascular disease, carotid artery disease with previous carotid endarterectomy, macular degeneration, multiple myeloma on Revlimid under the care of Dr. Honeycutt. Patient does follow at [facility] regarding pulmonary nodules and mediastinal lymphadenopathy. 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 Patient states that he had sudden onset of congestion in his chest with shortness of breath runny nose and a cough that started yesterday morning when he got up out of bed. He states he had extreme shortness of breath with even minimal activity. He denies any orthopnea or nocturnal postural dyspnea. Patient came into [facility] emergency center for evaluation. He had a pulse ox of 82%, afebrile, heart rate initially in the 80s. White count 3.3, hemoglobin 10.7, sodium 133, potassium 5.2 chloride 103, CO2 17, blood sugar 248, BUN 25 and creatinine 1.27. Initial troponin was 0.071. ProBNP 8180. EKG was atrial flutter. Patient was started on IV steroids and then heparin drip for elevated troponin and admitted to the selective care unit. Chest x-ray shows multifocal airspace disease suggestive of pneumonia superimposed upon pulmonary emphysema. Retrocardiac consolidation that could also relate to pneumonia although follow-up chest x-ray is recommended to ensure no underlying pulmonary mass. Obscuration of the previously seen nodule at the right costophrenic angle secondary to a new trace pleural effusion. Previous Echocardiogram reveals EF of 35-40%, mild concentric left ventricular hypertrophy, elderly moderately dilated at 34-39,moderate tricuspid regurgitation and moderate pulmonary hypertension. Consult in place with cardiology regarding elevated troponins and heart failure. Consult with Dr. Oneill regarding heart failure. Patient has been started on IV Lasix 40 mg IV every 12 hours and he was started on heparin drip regarding elevated troponins and admitted to the cardiac stepdown unit patient does state that he has had a big improvement of his breathing status since yesterday.. 02/28: Patient was on BiPAP during the night and also return to BiPAP today as his pulse ox dropped on 4 L nasal cannula. He has been afebrile. Repeat chest x-ray shows patchy basilar densities noted. Correlate for underlying pneumonia. Dr. Oneill has started the patient on IV Levaquin and Zosyn. He is still on Solu-Medrol 40 mg IV every 8 hours. He is continued on IV Lasix to 40 mg every 12 hours and is diuresing well. Oncology is now stated that patient is not to resume Revlimid until he is explicitly told to do so. 03/01: Patient states that his breathing status is much improved today. He did not use BiPAP during the night. He does have a cough but unable to bring sputum up. Mucinex will be increased to 1200 mg and scheduled versus are as needed. His pulse ox is 93% on 4 L. He does have home O2 at 3 L normally at 2 L but recently increased to 3 L. Cardiology is planning to continue current dose of Lasix at 40 mg IV every 12 hours and start Entresto. Solu-Medrol is currently at 40 mg IV every 8 hours. Anticipate possible discharge by Saturday or Saturday Review of Systems All systems: negative Constitutional: Reports fatigue, Denies chills, Denies fever, Denies poor appetite, Denies weight loss Eyes: denies blurred vision, denies pain Ears, nose, mouth and throat: Denies dysphagia, Denies epistaxis, Denies headache, Denies mouth pain, Denies sore throat, Denies vertigo Cardiovascular: Reports decreased exercise tolerance, Reports dyspnea on exertion-improving, Denies chest pain, Denies edema, Denies leg edema, Denies lightheadedness, Denies orthopnea, Denies palpitations, Denies paroxysmal nocturnal dyspnea, reports shortness of breath Respiratory: Reports dyspnea, Reports home oxygen, Denies cough, Denies cough with sputum, Denies excessive sputum, Denies hemoptysis, Denies wheezing Gastrointestinal: Denies abdominal pain, Denies diarrhea, Denies loss of appetite, Denies nausea, Denies vomiting Genitourinary: Denies dysuria, Denies urinary frequency Musculoskeletal: Denies frequent falls, Denies gait dysfunction, Denies myalgias Integumentary: Denies pruritus, Denies rash, Denies wounds Neurological: Denies aphasia, Denies change in mentation, Denies change in speech, Denies confusion, Denies convulsions, Denies double vision, Denies numbness, Denies seizures, Denies weakness Psychiatric: Denies anxiety, Denies depression Endocrine: Denies fatigue, Denies weight change Objective - Vital Signs Vital signs: Vital Signs Temp 98.2 F 03/01/18 03:59 Pulse 64 03/01/18 03:59 Resp 18 03/01/18 03:59 BP 115/47 03/01/18 03:59 Pulse Ox 93 L 03/01/18 03:59 Intake & Output 02/28/18 03/01/18 03/01/18 18:59 06:59 18:59 Output Total 500 400 Balance -500 -400 Weight 61.9 kg 64.5 kg Output: Urine 500 400 Other: # Voids 2 - Exam Gen: This is an 87-year-old male. He is found sitting up in bed and appears to be in mild respiratory distress. Patient's is at bedside HEENT: Head is atraumatic, normocephalic. Pupils equal, round. Sclerae is anicteric. NECK: Supple. No JVD. No lymphadenopathy. No thyromegaly. LUNGS: Positive rales and crackles throughout scattered.. Mild intercostal retractions. HEART: Regular rate and rhythm. No murmur. ABDOMEN: Soft. Bowel sounds are present. No masses. No tenderness. EXTREMITIES: no pedal edema. No calf tenderness. NEUROLOGICAL: Patient is awake, alert and oriented x3. Cranial nerves 2 through 12 are grossly intact. - Labs CBC & Chem 7: 03/01/18 06:35 03/01/18 06:35 Labs: Abnormal Lab Results - Last 24 Hours (Table) 02/28/18 02/28/18 02/28/18 Range/Units 11:43 13:35 16:07 WBC (3.8-10.6) k/uL RBC (4.30-5.90) m/uL Hgb (13.0-17.5) gm/dL Hct (39.0-53.0) % MCV (80.0-100.0) fL RDW (11.5-15.5) % ABG pCO2 33 L (35-45) mmHg ABG pO2 137 H (83-108) mmHg ABG O2 Saturation 99.8 H (94-97) % Sodium (137-145) mmol/L BUN (9-20) mg/dL Creatinine (0.66-1.25) mg/dL Glucose (74-99) mg/dL POC Glucose (mg/dL) 202 H 146 H (75-99) mg/dL Calcium (8.4-10.2) mg/dL ALT (21-72) U/L Total Protein (6.3-8.2) g/dL Albumin (3.5-5.0) g/dL 02/28/18 03/01/18 03/01/18 Range/Units 20:57 06:27 06:35 WBC 2.2 L (3.8-10.6) k/uL RBC 2.71 L (4.30-5.90) m/uL Hgb 9.0 L (13.0-17.5) gm/dL Hct 28.3 L (39.0-53.0) % MCV 104.4 H (80.0-100.0) fL RDW 18.5 H (11.5-15.5) % ABG pCO2 (35-45) mmHg ABG pO2 (83-108) mmHg ABG O2 Saturation (94-97) % Sodium (137-145) mmol/L BUN (9-20) mg/dL Creatinine (0.66-1.25) mg/dL Glucose (74-99) mg/dL POC Glucose (mg/dL) 217 H 171 H (75-99) mg/dL Calcium (8.4-10.2) mg/dL ALT (21-72) U/L Total Protein (6.3-8.2) g/dL Albumin (3.5-5.0) g/dL 03/01/18 03/01/18 Range/Units 06:35 07:27 WBC (3.8-10.6) k/uL RBC (4.30-5.90) m/uL Hgb (13.0-17.5) gm/dL Hct (39.0-53.0) % MCV (80.0-100.0) fL RDW (11.5-15.5) % ABG pCO2 (35-45) mmHg ABG pO2 (83-108) mmHg ABG O2 Saturation (94-97) % Sodium 135 L (137-145) mmol/L BUN 38 H (9-20) mg/dL Creatinine 1.45 H (0.66-1.25) mg/dL Glucose 154 H (74-99) mg/dL POC Glucose (mg/dL) 151 H (75-99) mg/dL Calcium 8.1 L (8.4-10.2) mg/dL ALT 79 H (21-72) U/L Total Protein 5.2 L (6.3-8.2) g/dL Albumin 2.9 L (3.5-5.0) g/dL Assessment and Plan Plan: 1. Acute on chronic hypoxic respiratory failure secondary to acute systolic heart failure and acute exacerbation of COPD and gram-negative pneumonia, all present on admission. Continue IV Lasix to 40 mg every 12 hours, I&O, daily weights, monitor electrolytes and renal function. Cardiology and pulmonary consults appreciated. Patient started on IV Levaquin and Zosyn. Entresto to start. 2. Atrial flutter with rapid ventricular response. Heparin drip will be discontinued and eliquis resumed. Continue Lopressor 25 mg 3 times daily. Cardiology consult in place. TSH is normal. 3. Elevated troponin most likely secondary to heart failure and atrial flutter. Cardiology consult. 4. Acute COPD exacerbation. Patient is normally on home O2 at 2 L nasal cannula. Consult with Dr. Oneill is appreciated. Continue DuoNeb treatments 4 times daily, Symbicort 2 puffs twice daily, Mucinex, Levaquin, Zosyn, Solu- Medrol 40 mg IV every 8 hours. 5. History of hypertension. Continue Lopressor 25 mg 3 times daily. 6. 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 Avoid nephrotoxic agents and recheck lab work. 7. Diabetes mellitus type 2. Continue metformin 1000 mg twice daily and NovoLog scale before meals and at bedtime. 8. Benign prostatic hypertrophy. Continue Flomax or 0.4 mg twice daily. 9. Moderate protein calorie malnutrition with BMI of 20. Continue protein supplement. 10. Multiple myeloma. Patient has been instructed by oncology to hold Revlimid until explicitly instructed to resume. 11. Peripheral vascular disease with carotid artery disease previous endarterectomies. 12. Hyperlipidemia. Continue Lipitor 40 mg daily. 13. Chronic hypoxic respiratory failure on home O2 at 2 L. 14. DVT prophylaxis. Eliquis. 15 Gastrointestinal prophylaxis. Protonix daily. Discharge plan: Most likely return home with [facility]. PT and OT evaluations requested. Impression and plan of care have been directed as dictated by the signing physician. Dot Koehler nurse practitioner acting as scribe for signing physician.
--- NOTE | 2018-03-01 13:32 | P.PN ---
Subjective Progress Note Date: 03/01/18 Principal diagnosis: Acute exacerbation of chronic systolic congestive heart failure with acute hypoxic respiratory failure This is a very pleasant 87-year-old gentleman who follows with Dr. Mike as his primary care physician. He has a history of diabetes mellitus, hypertension, hyperlipidemia, peripheral vascular disease, macular degeneration, carotid artery disease with previous carotid endarterectomy, peripheral vascular disease with previous femoral bypass surgery, atrial flutter anticoagulated with Eliquis. He does have coronary artery disease and the most recent catheterization revealed an mild nonobstructive disease with moderate to severe involving a small caliber ramus intermedius. He was treated medically in April 2017. He does have impaired left ventricular systolic function with ejection fraction 35-40%. He also has a history of multiple myeloma and is currently on Revlimid. He also has a [id number] smoking history and quit in December 2004. He does have chronic obstructive pulmonary disease and follows with Dr. Madrid in our office for the same. He presented here to the emergency room yesterday after developing increasing shortness of breath, cough and congestion. Onset 2- 3 days prior. He also had some swelling in his lower extremities. He was quite dyspneic on arrival. He was placed on BiPAP and admitted to the selective care unit. His chest x-ray shows multiple airspace disease suggestive of pneumonia superimposed upon pulmonary emphysema. There is some retrocardiac consolidation representing either pneumonia versus underlying pulmonary mass. There is obscuration of the previously seen nodule in the right costophrenic angle secondary to a new trace pleural effusion. EKG revealed atrial flutter with a rapid ventricular response. Troponin 0.077. 0.063. ProBNP 8180. He is currently on a heparin drip. He is seen today in consultation. He is currently awake and alert in no acute distress. He is currently off the BiPAP. He diurese quite well. Remains on IV Lasix 40 mg every 12 hours. Maintaining O2 saturations in the low 90s on room air. He's been afebrile. Feeling quite a bit better already. White count 2.5. Hemoglobin 9.2. Platelet count 185,000. Creatinine 1.39. The patient is seen again today in 02/28/2018 in follow-up on the selective care unit. He is more awake and alert today. He currently denies any worsening shortness of breath, cough or congestion. He does continue to have low O2 saturations in the 80s while on her liters per minute per nasal cannula. He's been on the BiPAP during the evening and throughout the day as needed. Saturations up in the upper 90s. ABGs on 50% FiO2 revealed a pO2 of 137, pCO2 33, pH 7.43. He remains afebrile. Hemodynamically stable. He is continued on DuoNeb inhalations, Symbicort, IV Solu-Medrol. Antibiotics in the form of Zosyn and Levaquin. Chest x-ray reveals bilateral patchy densities. Patient seen again today 03/01/2018 in follow-up on the selective care unit. He is currently resting quite comfortably in bed. He is awake and alert in no acute distress. He states his breathing is improved today as compared to yesterday. Chest x-ray reveals improved aeration in both lungs. There is cardiomegaly and COPD. He is maintaining good O2 saturations in the 90s on 3 L high flow nasal cannula. He's been afebrile. Hemodynamically stable. White count 2.2. Hemoglobin 9.0. Creatinine 1.45. He remains on Zosyn and Levaquin. Objective - Vital Signs Vital signs: Vital Signs Temp 97.7 F 03/01/18 12:20 Pulse 90 03/01/18 12:35 Resp 18 03/01/18 12:20 BP 98/51 03/01/18 12:20 Pulse Ox 90 L 03/01/18 12:20 Intake & Output 02/28/18 03/01/18 03/01/18 18:59 06:59 18:59 Intake Total 240 Output Total 500 400 Balance -500 -400 240 Weight 61.9 kg 64.5 kg Intake: Oral 240 Output: Urine 500 400 Other: # Voids 2 - Exam GENERAL EXAM: Frail, cachectic. Alert, comfortable in no apparent distress. On 3 liters per minute per nasal cannula. HEAD: Normocephalic. EYES: Normal reaction of pupils, equal size. NOSE: Clear with pink turbinates. THROAT: No erythema or exudates. NECK: No masses, no JVD. CHEST: No chest wall deformity. LUNGS: Equal air entry with few scattered rhonchi bilaterally. Few crackles in the posterior bases. Diminished. CVS: S1 and S2 normal with an audible murmur, irregular rhythm. ABDOMEN: No hepatosplenomegaly, normal bowel sounds, no guarding or rigidity. SPINE: No scoliosis or deformity SKIN: No rashes CENTRAL NERVOUS SYSTEM: No focal deficits, tone is normal in all 4 extremities. EXTREMITIES: There is trace peripheral edema. No clubbing, no cyanosis. Peripheral pulses are intact. - Labs CBC & Chem 7: 03/01/18 06:35 03/01/18 06:35 Labs: Abnormal Lab Results - Last 24 Hours (Table) 02/28/18 02/28/18 02/28/18 Range/Units 13:35 16:07 20:57 WBC (3.8-10.6) k/uL RBC (4.30-5.90) m/uL Hgb (13.0-17.5) gm/dL Hct (39.0-53.0) % MCV (80.0-100.0) fL RDW (11.5-15.5) % ABG pCO2 33 L (35-45) mmHg ABG pO2 137 H (83-108) mmHg ABG O2 Saturation 99.8 H (94-97) % Sodium (137-145) mmol/L BUN (9-20) mg/dL Creatinine (0.66-1.25) mg/dL Glucose (74-99) mg/dL POC Glucose (mg/dL) 146 H 217 H (75-99) mg/dL Calcium (8.4-10.2) mg/dL ALT (21-72) U/L Total Protein (6.3-8.2) g/dL Albumin (3.5-5.0) g/dL 03/01/18 03/01/18 03/01/18 Range/Units 06:27 06:35 06:35 WBC 2.2 L (3.8-10.6) k/uL RBC 2.71 L (4.30-5.90) m/uL Hgb 9.0 L (13.0-17.5) gm/dL Hct 28.3 L (39.0-53.0) % MCV 104.4 H (80.0-100.0) fL RDW 18.5 H (11.5-15.5) % ABG pCO2 (35-45) mmHg ABG pO2 (83-108) mmHg ABG O2 Saturation (94-97) % Sodium 135 L (137-145) mmol/L BUN 38 H (9-20) mg/dL Creatinine 1.45 H (0.66-1.25) mg/dL Glucose 154 H (74-99) mg/dL POC Glucose (mg/dL) 171 H (75-99) mg/dL Calcium 8.1 L (8.4-10.2) mg/dL ALT 79 H (21-72) U/L Total Protein 5.2 L (6.3-8.2) g/dL Albumin 2.9 L (3.5-5.0) g/dL 03/01/18 03/01/18 Range/Units 07:27 10:51 WBC (3.8-10.6) k/uL RBC (4.30-5.90) m/uL Hgb (13.0-17.5) gm/dL Hct (39.0-53.0) % MCV (80.0-100.0) fL RDW (11.5-15.5) % ABG pCO2 (35-45) mmHg ABG pO2 (83-108) mmHg ABG O2 Saturation (94-97) % Sodium (137-145) mmol/L BUN (9-20) mg/dL Creatinine (0.66-1.25) mg/dL Glucose (74-99) mg/dL POC Glucose (mg/dL) 151 H 220 H (75-99) mg/dL Calcium (8.4-10.2) mg/dL ALT (21-72) U/L Total Protein (6.3-8.2) g/dL Albumin (3.5-5.0) g/dL Assessment and Plan Assessment: Impression: #1 Acute hypoxic respiratory failure secondary to an acute exacerbation of chronic systolic congestive heart failure. Ejection fraction 35-40%. Initially required BiPAP. Currently on 3 L. #2 Atrial flutter with a rapid ventricular response. On Eliquis. #3 Troponin leak. Previous cardiac catheterization in April 2017 revealed severe disease involving a small caliber ramus intermedius and recommended medical therapy. #4 Acute renal failure. Creatinine 1.45. #5 Acute exacerbation of chronic obstructive pulmonary disease with FEV1 value 72% of predicted. Severe diffusion impairment and has been oxygen dependent. [id number] smoking history however quit in 2004. #6 Multiple myeloma currently on Revlimid. #7 Severe peripheral vascular disease with previous vascular intervention involving the lower extremities. #8 History of shingles. #9 History of pulmonary nodule seen on previous CAT scans. #10 Carotid artery disease with previous carotid endarterectomy on the left. #11 Hypertension. #12 Hyperlipidemia. #13 Benign prostatic hypertrophy. #14 Macular degeneration. Plan: The patient was seen and evaluated by Dr. Oneill. Patient is improved both radiographically and clinically from the pulmonary standpoint. Continue current antibiotics along with bronchodilators and IV Solu-Medrol. Continue to titrate the FiO2 L maintain O2 saturations in the 90s. We will increase his activity as tolerated. We'll continue to follow and make further recommendations based on his clinical status. I, the cosigning physician, performed a history & physical examination of the patient. Lungs sounds with few scattered rhonchi, crackles in the posterior bases. Maintaining good O2 saturations in the 90s on 3 L/m per nasal cannula alternating with BiPAP. I discussed the assessment and plan of care with my nurse practitioner, Debby Reyes. I attest to the above note as dictated by her.
[2018-03-01] MEDS: SACUBITRIL/VALSARTAN 24 MG-26 MG TABLET PO SCH ×2 (16:00→23:53)
[2018-03-01] MEDS: LEVOFLOXACIN 250MG-D5W PMX 250 MG in DEXTROSE/WATER 1 50ML.BAG IVPB SCH (16:00)
[2018-03-01 16:45] LABS: Glucose,Whole Blood 216 mg/dL (75-99)
[2018-03-01 20:50] LABS: Glucose,Whole Blood 271 mg/dL (75-99)
[2018-03-01] MEDS: ATORVASTATIN 40 MG TAB PO SCH (21:07)
[2018-03-01] MEDS: TAMSULOSIN 0.4 MG CAP.ER.24H PO SCH (21:09)
[2018-03-01] MEDS: MELATONIN 3 MG TABLET PO SCH (21:09)
[2018-03-02 06:08] LABS: Glucose,Whole Blood 207 mg/dL (75-99)
[2018-03-02] MEDS: INSULIN ASPART 100 UNIT/ML 1 ML 10 ML VIAL SQ SCH ×4 (06:53→21:15)
[2018-03-02 07:10] LABS: Glucose,Whole Blood 218 mg/dL (75-99)
--- NOTE | 2018-03-02 07:17 | XR ---
EXAMINATION TYPE: XR chest 1V portable DATE OF EXAM: 03/02/2018 HISTORY: chf. REFERENCE: Previous study dated 03/01/2018. FINDINGS: Lung volumes are prominent. The heart is not enlarged. There are increased interstitial mar kings. The overall appearance the chest is unchanged. IMPRESSION: 1. COPD. 2. NO SIGNIFICANT INTERVAL CHANGE IN THE APPEARANCE OF THE CHEST.
[2018-03-02] MEDS: IPRATROPIUM-ALBUTEROL 3 ML NEB INHALATION SCH ×4 (08:45→20:35)
[2018-03-02] MEDS: SYMBICORT 160-4.5 MCG INHALER INHALATION SCH ×2 (08:45→20:35)
[2018-03-02] MEDS: ACYCLOVIR 200 MG CAP PO SCH ×2 (08:52→21:11)
[2018-03-02] MEDS: APIXABAN 2.5 MG TABLET PO SCH ×2 (08:53→21:12)
[2018-03-02] MEDS: ASPIRIN 81 MG PO SCH (08:53)
[2018-03-02] MEDS: MEGESTROL 400 MG/10 ML CUP PO SCH (08:53)
[2018-03-02] MEDS: methylPREDNISolone SOD SUCCI 40 MG/ML 1 ML VIAL IV SCH ×2 (08:53→21:14)
[2018-03-02] MEDS: guaiFENesin 600 MG TABLET.ER PO SCH ×2 (08:53→21:13)
[2018-03-02] MEDS: VIT A,C & E-LUTEIN-MINERALS 1 EACH TAB PO SCH ×2 (08:53→21:12)
[2018-03-02] MEDS: PIPERACILLIN-TAZOBACTAM 3.375 GM in SODIUM CHLORIDE 0.9% 100 ML IVPB SCH ×3 (08:54→23:14)
[2018-03-02] MEDS: SENNOSIDES-DOCUSATE SODIUM 1 EACH TAB PO SCH ×2 (09:04→21:13)
--- NOTE | 2018-03-02 09:38 | P.PN ---
Subjective Progress Note Date: 03/02/18 This is an 87-year-old male patient of Dr. Mike and Dr. Madrid with a past medical history of angina, COPD on daily prednisone, chronic hypoxic respiratory failure on home O2 at 2 L nasal cannula, diabetes mellitus type 2, hyperlipidemia, hypertension, peripheral vascular disease, carotid artery disease with previous carotid endarterectomy, macular degeneration, multiple myeloma on Revlimid under the care of Dr. Honeycutt. Patient does follow at [facility] regarding pulmonary nodules and mediastinal lymphadenopathy. 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 Patient states that he had sudden onset of congestion in his chest with shortness of breath runny nose and a cough that started yesterday morning when he got up out of bed. He states he had extreme shortness of breath with even minimal activity. He denies any orthopnea or nocturnal postural dyspnea. Patient came into [facility] emergency center for evaluation. He had a pulse ox of 82%, afebrile, heart rate initially in the 80s. White count 3.3, hemoglobin 10.7, sodium 133, potassium 5.2 chloride 103, CO2 17, blood sugar 248, BUN 25 and creatinine 1.27. Initial troponin was 0.071. ProBNP 8180. EKG was atrial flutter. Patient was started on IV steroids and then heparin drip for elevated troponin and admitted to the selective care unit. Chest x-ray shows multifocal airspace disease suggestive of pneumonia superimposed upon pulmonary emphysema. Retrocardiac consolidation that could also relate to pneumonia although follow-up chest x-ray is recommended to ensure no underlying pulmonary mass. Obscuration of the previously seen nodule at the right costophrenic angle secondary to a new trace pleural effusion. Previous Echocardiogram reveals EF of 35-40%, mild concentric left ventricular hypertrophy, elderly moderately dilated at 34-39,moderate tricuspid regurgitation and moderate pulmonary hypertension. Consult in place with cardiology regarding elevated troponins and heart failure. Consult with Dr. Oneill regarding heart failure. Patient has been started on IV Lasix 40 mg IV every 12 hours and he was started on heparin drip regarding elevated troponins and admitted to the cardiac stepdown unit patient does state that he has had a big improvement of his breathing status since yesterday.. 02/28: Patient was on BiPAP during the night and also return to BiPAP today as his pulse ox dropped on 4 L nasal cannula. He has been afebrile. Repeat chest x-ray shows patchy basilar densities noted. Correlate for underlying pneumonia. Dr. Oneill has started the patient on IV Levaquin and Zosyn. He is still on Solu-Medrol 40 mg IV every 8 hours. He is continued on IV Lasix to 40 mg every 12 hours and is diuresing well. Oncology is now stated that patient is not to resume Revlimid until he is explicitly told to do so. 03/01: Patient states that his breathing status is much improved today. He did not use BiPAP during the night. He does have a cough but unable to bring sputum up. Mucinex will be increased to 1200 mg and scheduled versus are as needed. His pulse ox is 93% on 4 L. He does have home O2 at 3 L normally at 2 L but recently increased to 3 L. Cardiology is planning to continue current dose of Lasix at 40 mg IV every 12 hours and start Entresto. Solu-Medrol is currently at 40 mg IV every 8 hours. Anticipate possible discharge by Saturday or Thursday 03/02: Patient continues to show improvement. Solu-Medrol decreased to 40 mg every 12 hours. Patient is also continued on IV antibiotics with Levaquin and Zosyn per pulmonary medicine. Pro-calcitonin came back normal. Lasix will be changed to 40 mg orally. Patient has been afebrile, pulse ox 93% on 3 L nasal cannula. Blood pressures on the lower side 86/50. Blood blood sugars are in the 200s. Patient is anxious to be discharged. Plan for discharge by tomorrow. Review of Systems Constitutional: Reports fatigue, Denies chills, Denies fever, Denies poor appetite, Denies weight loss Eyes: denies blurred vision, denies pain Ears, nose, mouth and throat: Denies dysphagia, Denies epistaxis, Denies headache, Denies mouth pain, Denies sore throat, Denies vertigo Cardiovascular: Reports decreased exercise tolerance, Reports dyspnea on exertion-improving, Denies chest pain, Denies edema, Denies leg edema, Denies lightheadedness, Denies orthopnea, Denies palpitations, Denies paroxysmal nocturnal dyspnea, reports shortness of breath Respiratory: Denies dyspnea, Reports home oxygen, Denies cough, Denies cough with sputum, Denies excessive sputum, Denies hemoptysis, Denies wheezing Gastrointestinal: Denies abdominal pain, Denies diarrhea, Denies loss of appetite, Denies nausea, Denies vomiting Genitourinary: Denies dysuria, Denies urinary frequency Musculoskeletal: Denies frequent falls, Denies gait dysfunction, Denies myalgias Integumentary: Denies pruritus, Denies rash, Denies wounds Neurological: Denies aphasia, Denies change in mentation, Denies change in speech, Denies confusion, Denies convulsions, Denies double vision, Denies numbness, Denies seizures, Denies weakness Psychiatric: Denies anxiety, Denies depression Endocrine: Denies fatigue, Denies weight change Objective - Vital Signs Vital signs: Vital Signs Temp 97.4 F L 03/02/18 04:00 Pulse 70 03/02/18 04:00 Resp 18 03/02/18 04:00 BP 100/57 03/02/18 04:00 Pulse Ox 92 L 03/02/18 04:00 Intake & Output 03/01/18 03/02/18 03/02/18 18:59 06:59 18:59 Intake Total 480 200 Output Total 450 1100 Balance 30 -900 Weight 63 kg Intake: Oral 480 200 Output: Urine 450 1100 Other: # Voids 1 - Exam Gen: This is an 87-year-old male. He is found sitting up in bed and appears to be in no respiratory distress. HEENT: Head is atraumatic, normocephalic. Pupils equal, round. Sclerae is anicteric. NECK: Supple. No JVD. No lymphadenopathy. No thyromegaly. LUNGS: Decreased rales and crackles throughout scattered. No intercostal retractions. HEART: Regular rate and rhythm. No murmur. ABDOMEN: Soft. Bowel sounds are present. No masses. No tenderness. EXTREMITIES: no pedal edema. No calf tenderness. NEUROLOGICAL: Patient is awake, alert and oriented x3. Cranial nerves 2 through 12 are grossly intact. - Labs CBC & Chem 7: 03/01/18 06:35 03/01/18 06:35 Labs: Abnormal Lab Results - Last 24 Hours (Table) 03/01/18 03/01/18 03/01/18 Range/Units 06:35 10:51 16:44 Sodium 135 L (137-145) mmol/L BUN 38 H (9-20) mg/dL Creatinine 1.45 H (0.66-1.25) mg/dL Glucose 154 H (74-99) mg/dL POC Glucose (mg/dL) 220 H 216 H (75-99) mg/dL Calcium 8.1 L (8.4-10.2) mg/dL ALT 79 H (21-72) U/L Total Protein 5.2 L (6.3-8.2) g/dL Albumin 2.9 L (3.5-5.0) g/dL 03/01/18 03/02/18 03/02/18 Range/Units 20:49 06:07 07:08 Sodium (137-145) mmol/L BUN (9-20) mg/dL Creatinine (0.66-1.25) mg/dL Glucose (74-99) mg/dL POC Glucose (mg/dL) 271 H 207 H 218 H (75-99) mg/dL Calcium (8.4-10.2) mg/dL ALT (21-72) U/L Total Protein (6.3-8.2) g/dL Albumin (3.5-5.0) g/dL Assessment and Plan Plan: 1. Acute on chronic hypoxic respiratory failure secondary to acute systolic heart failure and acute exacerbation of COPD and pneumonia not entirely ruled out, all present on admission. Continue Lasix changed to oral 40 mg daily, continue I&O, daily weights, monitor electrolytes and renal function. Cardiology and pulmonary consults appreciated. Patient started on IV Levaquin and Zosyn. Entresto started. 2. Atrial flutter with rapid ventricular response. Heparin drip will be discontinued and eliquis resumed. Continue Lopressor 25 mg 3 times daily. Cardiology consult in place. TSH is normal. 3. Elevated troponin most likely secondary to heart failure and atrial flutter. Cardiology consult. 4. Acute COPD exacerbation. Patient is normally on home O2 at 2 L nasal cannula. Consult with Dr. Oneill is appreciated. Continue DuoNeb treatments 4 times daily, Symbicort 2 puffs twice daily, Mucinex, Levaquin, Zosyn, Solu- Medrol 40 mg IV every 8 hours. 5. History of hypertension. Continue Lopressor 25 mg 3 times daily. 6. 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 Avoid nephrotoxic agents and recheck lab work. 7. Diabetes mellitus type 2. Continue metformin 1000 mg twice daily and NovoLog scale before meals and at bedtime. 8. Benign prostatic hypertrophy. Continue Flomax or 0.4 mg twice daily. 9. Moderate protein calorie malnutrition with BMI of 20. Continue protein supplement. 10. Multiple myeloma. Patient has been instructed by oncology to hold Revlimid until explicitly instructed to resume. 11. Peripheral vascular disease with carotid artery disease previous endarterectomies. 12. Hyperlipidemia. Continue Lipitor 40 mg daily. 13. Chronic hypoxic respiratory failure on home O2 at 2 L. 14. DVT prophylaxis. Eliquis. 15 Gastrointestinal prophylaxis. Protonix daily. Discharge plan: Most likely return home with [facility] on Saturday. PT and OT evaluations requested. Impression and plan of care have been directed as dictated by the signing physician. Dot Koehler nurse practitioner acting as scribe for signing physician.
[2018-03-02 10:48] LABS: Glucose,Whole Blood 208 mg/dL (75-99)
[2018-03-02] MEDS: FUROSEMIDE 40 MG TAB PO SCH (12:08)
[2018-03-02] MEDS: METOPROLOL TARTRATE 50 MG TAB PO SCH ×3 (12:08→21:17)
[2018-03-02] MEDS: SACUBITRIL/VALSARTAN 24 MG-26 MG TABLET PO SCH ×2 (12:08→21:12)
[2018-03-02 13:54] LABS: Calcium 8.4 mg/dL (8.4-10.2); Potassium 4.5 mmol/L (3.5-5.1)
--- NOTE | 2018-03-02 16:17 | P.PN ---
Subjective Progress Note Date: 03/02/18 This is a very pleasant 87-year-old gentleman who follows with Dr. Gunderson in the office . He has a history of diabetes mellitus, hypertension, hyperlipidemia, peripheral vascular disease, macular degeneration, carotid artery disease with previous carotid endarterectomy, peripheral vascular disease with previous femoral bypass surgery, atrial flutter anticoagulated with Eliquis. He does have coronary artery disease and the most recent catheterization revealed an mild nonobstructive disease with moderate to severe involving a small caliber ramus intermedius. He was treated medically in April 2017. He does have impaired left ventricular systolic function with ejection fraction 35-40%. He also has a history of multiple myeloma and is currently on Revlimid. He also has a 87-[id number] smoking history and quit in December 2004. He does have chronic obstructive pulmonary disease and follows with Dr. Madrid in our office for the same. He presented here to the emergency room yesterday after developing increasing shortness of breath, cough and congestion. Onset 2-3 days prior. He also had some swelling in his lower extremities. He was quite dyspneic on arrival. He was placed on BiPAP and admitted to the selective care unit. His chest x-ray shows multiple airspace disease suggestive of pneumonia superimposed upon pulmonary emphysema. There is some retrocardiac consolidation representing either pneumonia versus underlying pulmonary mass. There is obscuration of the previously seen nodule in the right costophrenic angle secondary to a new trace pleural effusion. EKG revealed atrial flutter with a rapid ventricular response. Troponin 0.077. 0.063. ProBNP 8180. He is currently on a heparin drip. Patient was seen and examined today, he states that his breathing is significantly improved from admission here. He continues to diurese well on IV Lasix. Blood cell count is 2.2, hemoglobin 9.0, platelet count 163. Sodium 135, potassium 4.3, BUN 38, creatinine 1.4. 03/02/2018 Patient seen and examined today, continues to show improvement. Changed to oral diuretics today. Potassium on an level came back to be normal. Blood pressure 99/60 with a heart rate in the 70s, 93% on 3 L of oxygen. Objective - Vital Signs Vital signs: Vital Signs Temp 98.1 F 03/02/18 12:21 Pulse 88 03/02/18 13:28 Resp 18 03/02/18 12:21 BP 99/65 03/02/18 12:21 Pulse Ox 93 L 03/02/18 12:21 Intake & Output 03/01/18 03/02/18 03/02/18 18:59 06:59 18:59 Intake Total 480 200 500 Output Total 450 1100 800 Balance 30 -900 -300 Weight 63 kg Intake: Oral 480 200 500 Output: Urine 450 1100 800 Other: # Voids 1 - Exam GENERAL EXAM: Frail, cachectic. Alert, comfortable in no apparent distress. Off BiPAP. HEAD: Normocephalic. EYES: Normal reaction of pupils, equal size. NOSE: Clear with pink turbinates. THROAT: No erythema or exudates. NECK: No masses, no JVD. CHEST: No chest wall deformity. LUNGS: Equal air entry with few scattered rhonchi bilaterally. Few crackles in the posterior bases. Diminished. CVS: S1 and S2 normal with an audible murmur, irregular rhythm. ABDOMEN: No hepatosplenomegaly, normal bowel sounds, no guarding or rigidity. SPINE: No scoliosis or deformity SKIN: No rashes CENTRAL NERVOUS SYSTEM: No focal deficits, tone is normal in all 4 extremities. EXTREMITIES: There is trace peripheral edema. No clubbing, no cyanosis. Peripheral pulses are intact. - Labs CBC & Chem 7: 03/01/18 06:35 03/02/18 13:10 Labs: Abnormal Lab Results - Last 24 Hours (Table) 03/01/18 03/01/18 03/02/18 Range/Units 16:44 20:49 06:07 Sodium (137-145) mmol/L Carbon Dioxide (22-30) mmol/L BUN (9-20) mg/dL Creatinine (0.66-1.25) mg/dL Glucose (74-99) mg/dL POC Glucose (mg/dL) 216 H 271 H 207 H (75-99) mg/dL 03/02/18 03/02/18 03/02/18 Range/Units 07:08 10:46 13:10 Sodium 133 L (137-145) mmol/L Carbon Dioxide 19 L (22-30) mmol/L BUN 43 H (9-20) mg/dL Creatinine 1.40 H (0.66-1.25) mg/dL Glucose 272 H (74-99) mg/dL POC Glucose (mg/dL) 218 H 208 H (75-99) mg/dL Assessment and Plan Plan: Assessment and plan #1 Acute hypoxic respiratory failure secondary to an acute exacerbation of chronic systolic congestive heart failure. Ejection fraction 35-40%. #2 Atrial flutter with a rapid ventricular response. On Eliquis 2-1/2 mg one tablet by mouth twice a day . #3 Troponin leak. Previous cardiac catheterization in April 2017 revealed severe disease involving a small caliber ramus intermedius and recommended medical therapy. #4 Acute renal failure. #5 Acute exacerbation of chronic obstructive pulmonary disease with FEV1 value 72% of predicted. Severe diffusion impairment and has been oxygen dependent. 70-[id number] smoking history however quit in 2004. #6 Multiple myeloma currently on Revlimid. #7 Severe peripheral vascular disease with previous vascular intervention involving the lower extremities. #8 History of shingles. #9 History of pulmonary nodule seen on previous CAT scans. #10 Carotid artery disease with previous carotid endarterectomy on the left. #11 Hypertension. #12 Hyperlipidemia. #13 Benign prostatic hypertrophy. #14 Macular degeneration. #15 diabetes Plan From cardiology's perspective, the Lasix will be discontinued and patient will be switched over to oral diuretics. Plan for possible discharge home in 24 hours if stable. DNP note has been reviewed, I agree with a documented findings and plan of care. Patient was seen and examined.
[2018-03-02] MEDS: LEVOFLOXACIN 250MG-D5W PMX 250 MG in DEXTROSE/WATER 1 50ML.BAG IVPB SCH (16:26)
[2018-03-02 17:13] LABS: Glucose,Whole Blood 329 mg/dL (75-99)
[2018-03-02 20:43] LABS: Glucose,Whole Blood 315 mg/dL (75-99)
[2018-03-02] MEDS: MELATONIN 3 MG TABLET PO SCH (21:11)
[2018-03-02] MEDS: ATORVASTATIN 40 MG TAB PO SCH (21:12)
[2018-03-02] MEDS: TAMSULOSIN 0.4 MG CAP.ER.24H PO SCH (21:12)
[2018-03-03 06:11] LABS: Glucose,Whole Blood 224 mg/dL (75-99)
[2018-03-03] MEDS: INSULIN ASPART 100 UNIT/ML 1 ML 10 ML VIAL SQ SCH ×3 (06:23→17:09)
[2018-03-03 06:55] LABS: Calcium 8.2 mg/dL (8.4-10.2); Potassium 4.6 mmol/L (3.5-5.1)
[2018-03-03] MEDS: IPRATROPIUM-ALBUTEROL 3 ML NEB INHALATION SCH ×3 (07:00→15:39)
[2018-03-03] MEDS: SYMBICORT 160-4.5 MCG INHALER INHALATION SCH (07:00)
[2018-03-03 07:18] LABS: Anisocytosis Slight; Basophils % (A) 0 %; Eosinophils % (A) 0 %; HCT 34.7 % (39.0-53.0); HGB 10.6 gm/dL (13.0-17.5); Hypochromasia Slight; Lymphocytes # (A) 0.3 k/uL (1.0-4.8); Lymphocytes % (A) 10 %; MCHC 30.6 g/dL (31.0-37.0); MCV 104.6 fL (80.0-100.0); Macrocytosis Moderate; Mean Platelet Volume 8.3; Monocytes # (A) 0.4 k/uL (0-1.0); Monocytes % (A) 14 %; Neutrophils # (A) 2.2 k/uL (1.3-7.7); Neutrophils % (A) 71 %; Platelet Count 190 k/uL (150-450); RBC 3.32 m/uL (4.30-5.90); RDW 18.7 % (11.5-15.5); WBC 3.1 k/uL (3.8-10.6)
[2018-03-03] MEDS: PIPERACILLIN-TAZOBACTAM 3.375 GM in SODIUM CHLORIDE 0.9% 100 ML IVPB SCH (09:50)
[2018-03-03] MEDS: MEGESTROL 400 MG/10 ML CUP PO SCH (09:52)
[2018-03-03] MEDS: guaiFENesin 600 MG TABLET.ER PO SCH (09:52)
[2018-03-03] MEDS: ACYCLOVIR 200 MG CAP PO SCH (09:52)
[2018-03-03] MEDS: APIXABAN 2.5 MG TABLET PO SCH (09:52)
[2018-03-03] MEDS: FUROSEMIDE 40 MG TAB PO SCH (09:52)
[2018-03-03] MEDS: ASPIRIN 81 MG PO SCH (09:52)
[2018-03-03] MEDS: METOPROLOL TARTRATE 50 MG TAB PO SCH (09:53)
[2018-03-03] MEDS: SENNOSIDES-DOCUSATE SODIUM 1 EACH TAB PO SCH (09:53)
[2018-03-03] MEDS: SACUBITRIL/VALSARTAN 24 MG-26 MG TABLET PO SCH (09:53)
[2018-03-03] MEDS: VIT A,C & E-LUTEIN-MINERALS 1 EACH TAB PO SCH (09:53)
[2018-03-03] MEDS: methylPREDNISolone SOD SUCCI 40 MG/ML 1 ML VIAL IV SCH (09:53)
[2018-03-03 10:07] VITALS: RESP 20
[2018-03-03 12:06] LABS: Glucose,Whole Blood 232 mg/dL (75-99)
--- NOTE | 2018-03-03 12:26 | P.PN ---
Subjective Progress Note Date: 03/03/18 This is a very pleasant 87-year-old gentleman who follows with Dr. Gunderson in the office . He has a history of diabetes mellitus, hypertension, hyperlipidemia, peripheral vascular disease, macular degeneration, carotid artery disease with previous carotid endarterectomy, peripheral vascular disease with previous femoral bypass surgery, atrial flutter anticoagulated with Eliquis. He does have coronary artery disease and the most recent catheterization revealed an mild nonobstructive disease with moderate to severe involving a small caliber ramus intermedius. He was treated medically in April 2017. He does have impaired left ventricular systolic function with ejection fraction 35-40%. He also has a history of multiple myeloma and is currently on Revlimid. He also has a [id number] smoking history and quit in December 2004. He does have chronic obstructive pulmonary disease and follows with Dr. Madrid in our office for the same. He presented here to the emergency room yesterday after developing increasing shortness of breath, cough and congestion. Onset 2-3 days prior. He also had some swelling in his lower extremities. He was quite dyspneic on arrival. He was placed on BiPAP and admitted to the selective care unit. His chest x-ray shows multiple airspace disease suggestive of pneumonia superimposed upon pulmonary emphysema. There is some retrocardiac consolidation representing either pneumonia versus underlying pulmonary mass. There is obscuration of the previously seen nodule in the right costophrenic angle secondary to a new trace pleural effusion. EKG revealed atrial flutter with a rapid ventricular response. Troponin 0.077. 0.063. ProBNP 8180. He is currently on a heparin drip. Patient was seen and examined today, he states that his breathing is significantly improved from admission here. He continues to diurese well on IV Lasix. Blood cell count is 2.2, hemoglobin 9.0, platelet count 163. Sodium 135, potassium 4.3, BUN 38, creatinine 1.4. 03/02/2018 Patient seen and examined today, continues to show improvement. Changed to oral diuretics today. Potassium on an level came back to be normal. Blood pressure 99/60 with a heart rate in the 70s, 93% on 3 L of oxygen. 03/03/2018 Patient was seen and examined this morning, overall doing better. Blood pressure 122/60 with a heart rate in the 80s, 94% on 3 L of oxygen. White blood cell count 3.1, hemoglobin 10.6, platelet count 190. Sodium 132, potassium 4.6, BUN 43, creatinine 1.3. Objective - Vital Signs Vital signs: Vital Signs Temp 98.0 F 03/03/18 08:15 Pulse 86 03/03/18 11:22 Resp 20 03/03/18 08:15 BP 122/65 03/03/18 08:15 Pulse Ox 94 L 03/03/18 08:15 Intake & Output 03/02/18 03/03/18 03/03/18 18:59 06:59 18:59 Intake Total 500 1300 240 Output Total 800 1150 Balance -300 150 240 Weight 62 kg Intake: Intake, IV Titration 100 Amount Piperacillin-Tazobactam 3 100 .375 gm In Sodium Chloride 0.9% 100 ml @ 25 mls/hr IVPB Q8HR [facility] Rx# :[id number] Oral 500 1200 240 Output: Urine 800 1150 Other: Voiding Method Urinal - Exam GENERAL EXAM: Frail, cachectic. Alert, comfortable in no apparent distress. Off BiPAP. HEAD: Normocephalic. EYES: Normal reaction of pupils, equal size. NOSE: Clear with pink turbinates. THROAT: No erythema or exudates. NECK: No masses, no JVD. CHEST: No chest wall deformity. LUNGS: Equal air entry with few scattered rhonchi bilaterally. Few crackles in the posterior bases. Diminished. CVS: S1 and S2 normal with an audible murmur, irregular rhythm. ABDOMEN: No hepatosplenomegaly, normal bowel sounds, no guarding or rigidity. SPINE: No scoliosis or deformity SKIN: No rashes CENTRAL NERVOUS SYSTEM: No focal deficits, tone is normal in all 4 extremities. EXTREMITIES: There is trace peripheral edema. No clubbing, no cyanosis. Peripheral pulses are intact. - Labs CBC & Chem 7: 03/03/18 05:48 03/03/18 05:48 Labs: Abnormal Lab Results - Last 24 Hours (Table) 03/02/18 03/02/18 03/02/18 Range/Units 13:10 17:11 20:42 WBC (3.8-10.6) k/uL RBC (4.30-5.90) m/uL Hgb (13.0-17.5) gm/dL Hct (39.0-53.0) % MCV (80.0-100.0) fL MCHC (31.0-37.0) g/dL RDW (11.5-15.5) % Lymphocytes # (1.0-4.8) k/uL Sodium 133 L (137-145) mmol/L Carbon Dioxide 19 L (22-30) mmol/L BUN 43 H (9-20) mg/dL Creatinine 1.40 H (0.66-1.25) mg/dL Glucose 272 H (74-99) mg/dL POC Glucose (mg/dL) 329 H 315 H (75-99) mg/dL Calcium (8.4-10.2) mg/dL 03/03/18 03/03/18 03/03/18 Range/Units 05:48 05:48 06:09 WBC 3.1 L (3.8-10.6) k/uL RBC 3.32 L (4.30-5.90) m/uL Hgb 10.6 L (13.0-17.5) gm/dL Hct 34.7 L (39.0-53.0) % MCV 104.6 H (80.0-100.0) fL MCHC 30.6 L (31.0-37.0) g/dL RDW 18.7 H (11.5-15.5) % Lymphocytes # 0.3 L (1.0-4.8) k/uL Sodium 132 L (137-145) mmol/L Carbon Dioxide 21 L (22-30) mmol/L BUN 43 H (9-20) mg/dL Creatinine 1.32 H (0.66-1.25) mg/dL Glucose 243 H (74-99) mg/dL POC Glucose (mg/dL) 224 H (75-99) mg/dL Calcium 8.2 L (8.4-10.2) mg/dL 03/03/18 Range/Units 12:01 WBC (3.8-10.6) k/uL RBC (4.30-5.90) m/uL Hgb (13.0-17.5) gm/dL Hct (39.0-53.0) % MCV (80.0-100.0) fL MCHC (31.0-37.0) g/dL RDW (11.5-15.5) % Lymphocytes # (1.0-4.8) k/uL Sodium (137-145) mmol/L Carbon Dioxide (22-30) mmol/L BUN (9-20) mg/dL Creatinine (0.66-1.25) mg/dL Glucose (74-99) mg/dL POC Glucose (mg/dL) 232 H (75-99) mg/dL Calcium (8.4-10.2) mg/dL Assessment and Plan Plan: Assessment and plan #1 Acute hypoxic respiratory failure secondary to an acute exacerbation of chronic systolic congestive heart failure. Ejection fraction 35-40%. #2 Atrial flutter with a rapid ventricular response. On Eliquis 2-1/2 mg one tablet by mouth twice a day . #3 Troponin leak. Previous cardiac catheterization in April 2017 revealed severe disease involving a small caliber ramus intermedius and recommended medical therapy. #4 Acute renal failure. #5 Acute exacerbation of chronic obstructive pulmonary disease with FEV1 value 72% of predicted. Severe diffusion impairment and has been oxygen dependent. 20-[id number]-[id number] smoking history however quit in 2004. #6 Multiple myeloma currently on Revlimid. #7 Severe peripheral vascular disease with previous vascular intervention involving the lower extremities. #8 History of shingles. #9 History of pulmonary nodule seen on previous CAT scans. #10 Carotid artery disease with previous carotid endarterectomy on the left. #11 Hypertension. #12 Hyperlipidemia. #13 Benign prostatic hypertrophy. #14 Macular degeneration. #15 diabetes Plan From cardiology's perspective, patient may be able to be discharged home once cleared by primary. We will make a follow-up appointment in the office post discharge. DNP note has been reviewed, I agree with a documented findings and plan of care. Patient was seen and examined.
[2018-03-03 15:21] VITALS: BP 102/57; PULSE 72; TEMP 97.3
--- NOTE | 2018-03-03 15:50 | PN ---
PROGRESS NOTE This is an 87-year-old gentleman with history of acute hypoxemic respiratory failure secondary to acute exacerbation of chronic systolic heart failure. The patient has ejection fraction of 35-40 percent. He also has a history of atrial flutter with RVR, troponin leak, acute renal failure, COPD exacerbation, multiple myeloma, severe peripheral vascular occlusive disease, shingles, pulmonary nodule, carotid artery disease with previous left-sided carotid endarterectomy, hypertension, hyperlipidemia, BPH, and macular degeneration. The patient is doing reasonably well. He states his breathing is improved. The patient was seen on the , but not on the . The patient's blood pressures remain relatively stable. He does apparently have an appointment to see me in the future, likely a week from today on March 10. In addition, his asked me whether or not he is stable [facility]. I told her that it would depend on when he gets out of the hospital and how he is feeling. He does have an appointment to see me on March 10 a week from today. He is profoundly weak. Does admit to shortness of breath on exertion. Does have worsening dyspnea on any sort of exertion. Current vital signs are reviewed. Temperature 98, heart rate 86, respiratory rate 20, blood pressure 122/65. Mean of 84 and 3 L saturation is 94%. Appears in no acute distress. He is wearing oxygen. Lying flat in bed. HEENT examination is grossly unremarkable. Mucous membranes are moist. No oral lesions. Neck is supple. Full range of motion. No adenopathy or thyromegaly. Neck veins are flat. Cardiovascular examination reveals a bit of an irregular rhythm. S1, S2 normal. Soft systolic murmur is heard. Lungs reveal a few scattered rhonchi. Some bibasilar crackles. Breath sounds equal bilaterally but diminished throughout. Abdomen is soft. Bowel sounds are heard. Extremities are intact. No edema. Skin without rash. Neurologic examination is brief but nonfocal. LABORATORY DATA: Reviewed. White count 3.1, hemoglobin 10.6, hematocrit 34.7, platelet count 190,000. Sodium 132, potassium 4.6, chloride 102, CO2 21, anion gap is 9. BUN and creatinine were 43 and 1.32. The most recent chest x-ray was done on the and does show changes of COPD. There was some mild changes of interstitial edema noted. Medications are reviewed. Microbiologic studies are negative or pending. ASSESSMENT: 1. Acute hypoxemic respiratory failure secondary to acute exacerbation of chronic systolic heart failure. The patient has an ejection fraction of 35-40 percent. He was initially maintained on BiPAP but has not required it currently. 2. History of atrial flutter with rapid ventricular response. 3. Troponin leak, which may relate to underlying ischemic cardiac disease. 4. Acute renal failure. 5. Chronic obstructive pulmonary disease exacerbation in a patient with a history of moderate/stage 2 COPD with an FEV1 that is 72% of predicted. 6. Multiple myeloma, currently on Revlimid. 7. Severe peripheral vascular occlusive disease. 8. History of shingles. 9. Solitary pulmonary nodule. 10.Carotid artery disease, status post left carotid endarterectomy. 11.Benign essential hypertension. 12.Hyperlipidemia. 13.Benign prostatic hypertrophy. 14.Macular degeneration. PLAN: The patient may or may not get out of the hospital. That will depend on the primary. The patient's COPD is reasonably well controlled. His biggest issue on this admission was heart failure. Initially was on BiPAP therapy. He will follow with me in the office in a week's time. He apparently has an appointment on March 10. In addition, he is requesting to know whether not he stable enough to [facility] [place] to see if he might be considered in getting his multiple myeloma medication from their facility. I told him it depends on how he is feeling whether or not he is out of the hospital or not. We will continue to follow. Prognosis is guarded. No additional recommendations are made. MMODL / IJN: [id number] /
--- NOTE | 2018-03-03 16:05 | P.DS ---
Providers Date of admission: 02/26/18 15:17 Expected date of discharge: 03/03/18 Attending physician: Maria Esther Guan Consults: 02/27/18 09:17 Consult Physician Urgent Consulting Provider: Octavio Pack Consult Reason/Comments: elevated troponins, chf Do you want consulting provider notified?: Yes 02/27/18 14:52 Consult Physician Routine Consulting Provider: Alexey Madrid Consult Reason/Comments: chf Do you want consulting provider notified?: Yes Primary care physician: Percy Mike [place] [facility] Course: This is an 87-year-old male patient of Dr. Miek and Dr. Madrid with a past medical history of angina, COPD on daily prednisone, chronic hypoxic respiratory failure on home O2 at 2 L nasal cannula, diabetes mellitus type 2, hyperlipidemia, hypertension, peripheral vascular disease, carotid artery disease with previous carotid endarterectomy, macular degeneration, multiple myeloma on Revlimid under the care of Dr. Honeycutt. Patient does follow at [facility] regarding pulmonary nodules and mediastinal lymphadenopathy. 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 Patient states that he had sudden onset of congestion in his chest with shortness of breath runny nose and a cough that started yesterday morning when he got up out of bed. He states he had extreme shortness of breath with even minimal activity. He denies any orthopnea or nocturnal postural dyspnea. Patient came into [facility] emergency center for evaluation. He had a pulse ox of 82%, afebrile, heart rate initially in the 80s. White count 3.3, hemoglobin 10.7, sodium 133, potassium 5.2 chloride 103, CO2 17, blood sugar 248, BUN 25 and creatinine 1.27. Initial troponin was 0.071. ProBNP 8180. EKG was atrial flutter. Patient was started on IV steroids and then heparin drip for elevated troponin and admitted to the selective care unit. Chest x-ray shows multifocal airspace disease suggestive of pneumonia superimposed upon pulmonary emphysema. Retrocardiac consolidation that could also relate to pneumonia although follow-up chest x-ray is recommended to ensure no underlying pulmonary mass. Obscuration of the previously seen nodule at the right costophrenic angle secondary to a new trace pleural effusion. Previous Echocardiogram reveals EF of 35-40%, mild concentric left ventricular hypertrophy, elderly moderately dilated at 34-39,moderate tricuspid regurgitation and moderate pulmonary hypertension. Consult in place with cardiology regarding elevated troponins and heart failure. Consult with Dr. Oneill regarding heart failure. Patient has been started on IV Lasix 40 mg IV every 12 hours and he was started on heparin drip regarding elevated troponins and admitted to the cardiac stepdown unit patient does state that he has had a big improvement of his breathing status since yesterday.. 02/28: Patient was on BiPAP during the night and also return to BiPAP today as his pulse ox dropped on 4 L nasal cannula. He has been afebrile. Repeat chest x-ray shows patchy basilar densities noted. Correlate for underlying pneumonia. Dr. Oneill has started the patient on IV Levaquin and Zosyn. He is still on Solu-Medrol 40 mg IV every 8 hours. He is continued on IV Lasix to 40 mg every 12 hours and is diuresing well. Oncology is now stated that patient is not to resume Revlimid until he is explicitly told to do so. 03/01: Patient states that his breathing status is much improved today. He did not use BiPAP during the night. He does have a cough but unable to bring sputum up. Mucinex will be increased to 1200 mg and scheduled versus are as needed. His pulse ox is 93% on 4 L. He does have home O2 at 3 L normally at 2 L but recently increased to 3 L. Cardiology is planning to continue current dose of Lasix at 40 mg IV every 12 hours and start Entresto. Solu-Medrol is currently at 40 mg IV every 8 hours. Anticipate possible discharge by Saturday or Thursday 03/02: Patient continues to show improvement. Solu-Medrol decreased to 40 mg every 12 hours. Patient is also continued on IV antibiotics with Levaquin and Zosyn per pulmonary medicine. Pro-calcitonin came back normal. Lasix will be changed to 40 mg orally. Patient has been afebrile, pulse ox 93% on 3 L nasal cannula. Blood pressures on the lower side 86/50. Blood blood sugars are in the 200s. Patient is anxious to be discharged. Plan for discharge by tomorrow. 03/03: Patient states that his breathing status is improved. He is requesting to go home. Blood pressure is improved at 122/60 and heart rate is running in the 80s, pulse ox 94% on 3 L nasal cannula. White count is 3.1, hemoglobin 10.6, platelet count 190, sodium 132, potassium 4.6, BUN 43 and creatinine 1.3. We will plan for discharge home once he is cleared by consultants. Prescriptions have been sent through to his pharmacy and paper copies provided for MS. Patient will be discharged home today in stable condition. Discharge diagnoses: 1. Acute on chronic hypoxic respiratory failure secondary to acute systolic heart failure and acute exacerbation of COPD and pneumonia not entirely ruled out, all present on admission. 2. Atrial flutter with rapid ventricular response. 3. Elevated troponin most likely secondary to heart failure and atrial flutter. 4. Acute COPD exacerbation. 5. History of hypertension. 6. 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 7. Diabetes mellitus type 2. 8. Benign prostatic hypertrophy. 9. Moderate protein calorie malnutrition with BMI of 20. 10. Multiple myeloma. 11. Peripheral vascular disease with carotid artery disease previous endarterectomies. 12. Hyperlipidemia. 13. Chronic hypoxic respiratory failure on home O2 at 2 L. Discharge plan: home with [facility] Impression and plan of care have been directed as dictated by the signing physician. Dot Koehler nurse practitioner acting as scribe for signing physician. Patient Condition at Discharge: Good Plan - Discharge Summary Discharge Rx Participant: No New Discharge Prescriptions: New Furosemide [Lasix] 40 mg PO DAILY #30 tab guaiFENesin [Mucinex] 1,200 mg PO Q12HR tablet.er Levofloxacin [Levaquin] 250 mg PO DAILY #5 tab Metoprolol Tartrate [Lopressor] 50 mg PO TID #90 tab Sacubitril/Valsartan [Entresto 24 mg-26 mg Tablet] 1 each PO BID #60 tablet predniSONE 0 mg PO DIRECTED #30 tab Continue Ipratropium-Albuterol Nebulize [Duoneb 0.5 mg-3 mg/3 ml Soln] 3 ml INHALATION RT-QID Docusate [Colace] 100 mg PO DAILY PRN PRN Reason: Constipation Tamsulosin [Flomax] 0.8 mg PO HS Melatonin 3 mg PO HS Budesonide/Formoterol Fumarate [Symbicort 160-4.5 Mcg Inhaler] 2 puff INHALATION RT-BID Acyclovir [Zovirax] 400 mg PO BID Apixaban [Eliquis] 2.5 mg PO BID tablet Aspirin 81 mg PO DAILY chew Atorvastatin [Lipitor] 40 mg PO HS #30 tab Vit C/E/Zn/Coppr/Lutein/Zeaxan [Preservision Areds 2 Softgel] 1 cap PO BID Insulin Aspart (Niacinamide) [Fiasp 100 Unit/ml Flextouch] See Protocol SQ DAILY PRN PRN Reason: Blood Sugar - High Megestrol [Megace] 800 mg PO DAILY Sennosides/Docusate Sodium [Senna-S Laxative Tablet] 1 tab PO BID Sulfamethox-Tmp 800-160Mg [Bactrim DS 800-160 mg] 1 tab PO MOWEFR #0 Discontinued metFORMIN HCL [metFORMIN HCL ER] 1,000 mg PO BID guaiFENesin [Mucinex] 600 mg PO Q12HR PRN PRN Reason: Congestion Metoprolol Tartrate [Lopressor] 25 mg PO TID #90 tab Lenalidomide [Revlimid] 25 mg PO DAILY Discharge Medication List Docusate [Colace] 100 mg PO DAILY PRN 05/20/14 [History] Ipratropium-Albuterol Nebulize [Duoneb 0.5 mg-3 mg/3 ml Soln] 3 ml INHALATION RT -QID 05/20/14 [History] Tamsulosin [Flomax] 0.8 mg PO HS 05/20/14 [History] Budesonide/Formoterol Fumarate [Symbicort 160-4.5 Mcg Inhaler] 2 puff INHALATION RT-BID 03/02/16 [History] Melatonin 3 mg PO HS 03/02/16 [History] Acyclovir [Zovirax] 400 mg PO BID 05/23/17 [History] Apixaban [Eliquis] 2.5 mg PO BID tablet 05/26/17 [Rx] Aspirin 81 mg PO DAILY chew 05/26/17 [Rx] Atorvastatin [Lipitor] 40 mg PO HS #30 tab 05/26/17 [Rx] Vit C/E/Zn/Coppr/Lutein/Zeaxan [Preservision Areds 2 Softgel] 1 cap PO BID 05/30 [History] Insulin Aspart (Niacinamide) [Fiasp 100 Unit/ml Flextouch] See Protocol SQ DAILY PRN 02/26/18 [History] Megestrol [Megace] 800 mg PO DAILY 02/26/18 [History] Sennosides/Docusate Sodium [Senna-S Laxative Tablet] 1 tab PO BID 02/26/18 [ History] Furosemide [Lasix] 40 mg PO DAILY #30 tab 03/03/18 [Rx] Levofloxacin [Levaquin] 250 mg PO DAILY #5 tab 03/03/18 [Rx] Metoprolol Tartrate [Lopressor] 50 mg PO TID #90 tab 03/03/18 [Rx] Sacubitril/Valsartan [Entresto 24 mg-26 mg Tablet] 1 each PO BID #60 tablet 09/12 [Rx] Sulfamethox-Tmp 800-160Mg [Bactrim DS 800-160 mg] 1 tab PO MOWEFR #0 03/03/18 [ Rx] guaiFENesin [Mucinex] 1,200 mg PO Q12HR tablet.er 03/03/18 [Rx] predniSONE 0 mg PO DIRECTED #30 tab 03/03/18 [Rx] Follow up Appointment(s)/Referral(s): Joe Honeycutt MD [STAFF PHYSICIAN] - 03/11/18 11:30 am (Saturday) Percy Mike MD [Primary Care Provider] - 03/10/18 10:30 am (Saturday with PRIMARY CARE COORDINATOR) Alexey Madrid DO [Doctor of Osteopathic Medicine] - 03/10/18 1:00 pm (saturday) [facility], [NON-STAFF] - Anselmo Gunderson MD [STAFF PHYSICIAN] - 03/14/18 3:00 pm (Saturday) Patient Instructions/Handouts: Heart Failure (DC) Activity/Diet/Wound Care/Special Instructions: HOLD REVLIMID UNTIL FURTHER NOTICE Discharge Disposition: HOME WITH HOME HEALTH SERVICES
[2018-03-03 16:15] LABS: Glucose,Whole Blood 304 mg/dL (75-99)
== END 2018-03-03 17:21 | disposition home health service (06) | DRG 291 ==
LOC: EC 12:31 → 3SCARD 15:17
PROVIDERS: ADMIT Internal Medicine; ATTEND Internal Medicine
DX: I13.0 Hypertensive heart and chronic kidney disease with heart failure and stage 1 through stage 4 chronic kidney disease, or unspecified chronic kidney disease (principal); I50.23 Acute on chronic systolic (congestive) heart failure; J18.9 Pneumonia, unspecified organism; J96.21 Acute and chronic respiratory failure with hypoxia; E44.0 Moderate protein-calorie malnutrition; C90.00 Multiple myeloma not having achieved remission; I48.92 Unspecified atrial flutter; N17.9 Acute kidney failure, unspecified; E11.51 Type 2 diabetes mellitus with diabetic peripheral angiopathy without gangrene; D72.819 Decreased white blood cell count, unspecified; E11.22 Type 2 diabetes mellitus with diabetic chronic kidney disease; J43.9 Emphysema, unspecified; E78.5 Hyperlipidemia, unspecified; H35.30 Unspecified macular degeneration; I07.1 Rheumatic tricuspid insufficiency; I25.10 Atherosclerotic heart disease of native coronary artery without angina pectoris; I27.20 Pulmonary hypertension, unspecified; I48.0 Paroxysmal atrial fibrillation; N18.2 Chronic kidney disease, stage 2 (mild); N40.0 Benign prostatic hyperplasia without lower urinary tract symptoms; Z79.01 Long term (current) use of anticoagulants; Z79.51 Long term (current) use of inhaled steroids; Z79.52 Long term (current) use of systemic steroids; Z79.82 Long term (current) use of aspirin; Z79.84 Long term (current) use of oral hypoglycemic drugs; Z79.899 Other long term (current) drug therapy; Z82.49 Family history of ischemic heart disease and other diseases of the circulatory system; Z83.3 Family history of diabetes mellitus; Z86.19 Personal history of other infectious and parasitic diseases; Z87.891 Personal history of nicotine dependence; Z98.42 Cataract extraction status, left eye; Z98.41 Cataract extraction status, right eye; Z96.1 Presence of intraocular lens; Z99.81 Dependence on supplemental oxygen
CPT/HCPCS: 36415; 36600; 71045; 80048; 80053; 82550; 82553; 82805; 83036; 83735; 83880; 84145; 84443; 84484; 85025; 85027; 85610; 85730; 93005; 94640; 94660; 96365; 96366; 96375; 96376; 99285

== ENCOUNTER 2018-06-20 12:28 | Emergency (ER) | payer MEDICARE, BC ==
[2018-06-20 13:08] LABS: Anisocytosis Slight; Basophils % (A) 0 %; Eosinophils # (A) 0.1 k/uL (0-0.7); Eosinophils % (A) 2 %; HCT 35.3 % (39.0-53.0); HGB 11.2 gm/dL (13.0-17.5); Hypochromasia Moderate; Lymphocytes # (A) 0.7 k/uL (1.0-4.8); Lymphocytes % (A) 19 %; MCH 33.3 pg (25.0-35.0); MCHC 31.8 g/dL (31.0-37.0); MCV 104.6 fL (80.0-100.0); Macrocytosis Moderate; Mean Platelet Volume 8.2; Monocytes # (A) 0.1 k/uL (0-1.0); Monocytes % (A) 4 %; Neutrophils # (A) 2.6 k/uL (1.3-7.7); Neutrophils % (A) 74 %; Platelet Count 236 k/uL (150-450); RBC 3.37 m/uL (4.30-5.90); RDW 17.9 % (11.5-15.5); WBC 3.4 k/uL (3.8-10.6)
--- NOTE | 2018-06-20 13:10 | ED ---
Arrhythmia/Palpitations HPI - General Chief Complaint: Arrhythmia/Palpitations Stated Complaint: High Heart Rate-Cancer pt Time Seen by Provider: 06/20/18 12:57 Source: patient Mode of arrival: ambulatory Limitations: no limitations - History of Present Illness Initial Comments: Patient complains of irregular and accelerated heartbeat. He was seen by his physical therapist today. It'll signs were obtained which showed the patient to have a very high heart rate. Patient complains of worsening shortness of breath. He has no belly pain. He denies any chest pain or pressure. He has no pain or swelling in the arms or legs. He has taken no extra medications. He has no lightheadedness or dizziness. He has no syncope recently. - Related Data Home Medications Medication Instructions Recorded Confirmed Docusate [Colace] 100 mg PO DAILY PRN 05/20/14 02/26/18 Ipratropium-Albuterol Nebulize 3 ml INHALATION RT-QID 05/20/14 02/26/18 [Duoneb 0.5 mg-3 mg/3 ml Soln] Tamsulosin [Flomax] 0.8 mg PO HS 05/20/14 02/26/18 Budesonide/Formoterol Fumarate 2 puff INHALATION RT-BID 03/02/16 02/26/18 [Symbicort 160-4.5 Mcg Inhaler] Melatonin 3 mg PO HS 03/02/16 02/26/18 Acyclovir [Zovirax] 400 mg PO BID 05/23/17 02/26/18 Vit C/E/Zn/Coppr/Lutein/Zeaxan 1 cap PO BID 05/30/17 02/26/18 [Preservision Areds 2 Softgel] Insulin Aspart (Niacinamide) See Protocol SQ DAILY PRN 02/26/18 02/26/18 [Fiasp 100 Unit/ml Flextouch] Megestrol [Megace] 800 mg PO DAILY 02/26/18 02/26/18 Sennosides/Docusate Sodium 1 tab PO BID 02/26/18 02/26/18 [Senna-S Laxative Tablet] Previous Rx's Medication Instructions Recorded Apixaban [Eliquis] 2.5 mg PO BID tablet 05/26/17 Aspirin 81 mg PO DAILY chew 05/26/17 Atorvastatin [Lipitor] 40 mg PO HS #30 tab 05/26/17 Furosemide [Lasix] 40 mg PO DAILY #30 tab 03/03/18 Levofloxacin [Levaquin] 250 mg PO DAILY #5 tab 03/03/18 Metoprolol Tartrate [Lopressor] 50 mg PO TID #90 tab 03/03/18 Sacubitril/Valsartan [Entresto 24 1 each PO BID #60 tablet 03/03/18 mg-26 mg Tablet] Sulfamethox-Tmp 800-160Mg [Bactrim 1 tab PO MOWEFR #0 03/03/18 DS 800-160 mg] guaiFENesin [Mucinex] 1,200 mg PO Q12HR tablet.er 03/03/18 predniSONE 0 mg PO DIRECTED #30 tab 03/03/18 Allergies Allergy/AdvReac Type Severity Reaction Status Date / Time No Known Allergies Allergy Verified 06/20/18 12:38 Review of Systems ROS Statement: Those systems with pertinent positive or pertinent negative responses have been documented in the HPI. ROS Other: All systems not noted in ROS Statement are negative. Past Medical History Past Medical History: Atrial Flutter, Cancer, Chest Pain / Angina, COPD, Diabetes Mellitus, Eye Disorder, Hyperlipidemia, Hypertension, Pneumonia, Renal Disease, Respiratory Disorder, Vascular Disorder Additional Past Medical History / Comment(s): Chronic respiratory failure with home O2 at 2L n/c. multiple pulmonary nodules(scar tissue), multiple myeloma(oral chemo), carotid stenosis rt side, hx kidney disorder-resolved now per pt, bronchitis, alfonzo eye macular degeneration(gets injectons for tx),past shingles lt lowe leg. History of Any Multi-Drug Resistant Organisms: None Reported Past Surgical History: Heart Catheterization Additional Past Surgical History / Comment(s): left carotid endarterectomy , bilateral cataract removal and intraocular lens implants, surgery on rt eye to remove scar tissue, colonoscopy, rt leg vein surgery, surgery on "left leg to clean out veins", bronchoscopy, rt leg angiogram /angioplasty/stents, angiogram and heart cath 05/24/17. Past Anesthesia/Blood Transfusion Reactions: No Reported Reaction Past Psychological History: No Psychological Hx Reported Smoking Status: Former smoker Past Alcohol Use History: None Reported Past Drug Use History: None Reported - Past Family History Brother(s) Family Medical History: Coronary Artery Disease (CAD), Diabetes Mellitus Father Additional Family Medical History / Comment(s): kidney failure Mother Family Medical History: No Reported History General Exam Limitations: no limitations General appearance: alert, in no apparent distress Head exam: Present: atraumatic, normocephalic, normal inspection Eye exam: Present: normal appearance, PERRL, EOMI. Absent: scleral icterus, conjunctival injection, periorbital swelling ENT exam: Present: normal exam, mucous membranes moist Neck exam: Present: normal inspection. Absent: tenderness, meningismus, lymphadenopathy Respiratory exam: Present: normal lung sounds bilaterally. Absent: respiratory distress, wheezes, rales, rhonchi, stridor Cardiovascular Exam: Present: tachycardia, normal heart sounds. Absent: systolic murmur, diastolic murmur, rubs, gallop, clicks GI/Abdominal exam: Present: soft, normal bowel sounds. Absent: distended, tenderness, guarding, rebound, rigid Extremities exam: Present: normal inspection, full ROM, normal capillary refill. Absent: tenderness, pedal edema, joint swelling, calf tenderness Back exam: Present: normal inspection Neurological exam: Present: alert, oriented X3, CN II-XII intact Psychiatric exam: Present: normal affect, normal mood Skin exam: Present: warm, dry, intact, normal color. Absent: rash Course Vital Signs 06/20/18 06/20/18 06/20/18 12:34 12:57 14:27 Temperature 97.9 F Pulse Rate 146 H 104 H Pulse Rate [ 145 H Rigging Supervisor ] Respiratory 32 H 18 Rate Blood Pressure 116/73 102/81 O2 Sat by Pulse 85 L 96 Oximetry EKG Findings - EKG Comments: EKG Findings:: Twelve-lead EKG shows ventricular rate 144 bpm, no P waves are appreciated, there are T-wave inversions, there is no ST elevation or depression, interpreted by me as supraventricular tachycardia. Medical Decision Making - Medical Decision Making Patient was sent in for elevated heart rate. I was going to give him adenosine for SVT, however he spontaneously converted to atrial flutter. This is his chronic rhythm. There is nothing new about his atrial flutter. Laboratory studies are otherwise unremarkable. His chest x-rays clear. Patient doesn't want to stay in the hospital. He will follow up with his doctor as an outpatient. - Lab Data Result diagrams: 06/20/18 13:00 06/20/18 13:00 Lab Results 06/20/18 06/20/18 06/20/18 Range/Units 13:00 13:00 13:00 WBC 3.4 L (3.8-10.6) k/uL RBC 3.37 L (4.30-5.90) m/uL Hgb 11.2 L (13.0-17.5) gm/dL Hct 35.3 L (39.0-53.0) % MCV 104.6 H (80.0-100.0) fL MCH 33.3 (25.0-35.0) pg MCHC 31.8 (31.0-37.0) g/dL RDW 17.9 H (11.5-15.5) % Plt Count 236 (150-450) k/uL Neutrophils % 74 % Lymphocytes % 19 % Monocytes % 4 % Eosinophils % 2 % Basophils % 0 % Neutrophils # 2.6 (1.3-7.7) k/uL Lymphocytes # 0.7 L (1.0-4.8) k/uL Monocytes # 0.1 (0-1.0) k/uL Eosinophils # 0.1 (0-0.7) k/uL Basophils # 0.0 (0-0.2) k/uL Hypochromasia Moderate Anisocytosis Slight Macrocytosis Moderate PT 10.9 (9.0-12.0) sec INR 1.0 (<1.2) APTT 22.0 (22.0-30.0) sec Sodium 136 L (137-145) mmol/L Potassium 4.1 (3.5-5.1) mmol/L Chloride 107 (98-107) mmol/L Carbon Dioxide 23 (22-30) mmol/L Anion Gap 6 mmol/L BUN 26 H (9-20) mg/dL Creatinine 1.26 H (0.66-1.25) mg/dL Est GFR (CKD-EPI)AfAm 59 (>60 ml/min/1.73 sqM) Est GFR (CKD-EPI)NonAf 51 (>60 ml/min/1.73 sqM) Glucose 188 H (74-99) mg/dL Calcium 8.6 (8.4-10.2) mg/dL Magnesium 2.0 (1.6-2.3) mg/dL Total Bilirubin 0.3 (0.2-1.3) mg/dL AST 29 (17-59) U/L ALT 56 (21-72) U/L Alkaline Phosphatase 66 (38-126) U/L Troponin I (0.000-0.034) ng/mL Total Protein 5.8 L (6.3-8.2) g/dL Albumin 3.4 L (3.5-5.0) g/dL 06/20/18 Range/Units 13:00 WBC (3.8-10.6) k/uL RBC (4.30-5.90) m/uL Hgb (13.0-17.5) gm/dL Hct (39.0-53.0) % MCV (80.0-100.0) fL MCH (25.0-35.0) pg MCHC (31.0-37.0) g/dL RDW (11.5-15.5) % Plt Count (150-450) k/uL Neutrophils % % Lymphocytes % % Monocytes % % Eosinophils % % Basophils % % Neutrophils # (1.3-7.7) k/uL Lymphocytes # (1.0-4.8) k/uL Monocytes # (0-1.0) k/uL Eosinophils # (0-0.7) k/uL Basophils # (0-0.2) k/uL Hypochromasia Anisocytosis Macrocytosis PT (9.0-12.0) sec INR (<1.2) APTT (22.0-30.0) sec Sodium (137-145) mmol/L Potassium (3.5-5.1) mmol/L Chloride (98-107) mmol/L Carbon Dioxide (22-30) mmol/L Anion Gap mmol/L BUN (9-20) mg/dL Creatinine (0.66-1.25) mg/dL Est GFR (CKD-EPI)AfAm (>60 ml/min/1.73 sqM) Est GFR (CKD-EPI)NonAf (>60 ml/min/1.73 sqM) Glucose (74-99) mg/dL Calcium (8.4-10.2) mg/dL Magnesium (1.6-2.3) mg/dL Total Bilirubin (0.2-1.3) mg/dL AST (17-59) U/L ALT (21-72) U/L Alkaline Phosphatase (38-126) U/L Troponin I 0.026 (0.000-0.034) ng/mL Total Protein (6.3-8.2) g/dL Albumin (3.5-5.0) g/dL Disposition Clinical Impression: SVT (supraventricular tachycardia) Disposition: HOME SELF-CARE Condition: Good Instructions (If sedation given, give patient instructions): Heart Palpitations (ED) Is patient prescribed a controlled substance at d/c from ED?: No Referrals: Percy Mike MD [Primary Care Provider] - 1-2 days
[2018-06-20] MEDS: ADENOSINE 3 MG/ML 2 ML VIAL IVP STA ×2 (13:18→14:25)
[2018-06-20 13:19] LABS: Albumin 3.4 g/dL (3.5-5.0); Calcium 8.6 mg/dL (8.4-10.2); Potassium 4.1 mmol/L (3.5-5.1); Total Bilirubin 0.3 mg/dL (0.2-1.3); Total Protein 5.8 g/dL (6.3-8.2)
[2018-06-20 13:29] LABS: Prothrombin Time 10.9 sec (9.0-12.0)
--- NOTE | 2018-06-20 13:47 | XR ---
EXAMINATION TYPE: XR chest 2V DATE OF EXAM: 06/20/2018 COMPARISON: 03/02/2018 HISTORY: Shortness of breath TECHNIQUE: Frontal and lateral views of the chest are obtained. FINDINGS: Scattered senescent parenchymal changes noted. Hyperinflation compatible with COPD. No evidence for infiltrate. No evidence for atelectasis. Heart size is stable. Mediastinal structures are stable and grossly unremarkable. No evidence for hilar prominence. Degenerative changes dorsal spine. IMPRESSION: 1. No evidence for acute pulmonary disease.
[2018-06-20 14:58] VITALS: BP 146/94; PULSE 113; RESP 16; TEMP 98
== END 2018-06-20 15:15 | disposition home or self-care (01) ==
LOC: EC 12:28
DX: I47.1 Supraventricular tachycardia (principal); I48.92 Unspecified atrial flutter; J44.9 Chronic obstructive pulmonary disease, unspecified; E11.9 Type 2 diabetes mellitus without complications; E78.5 Hyperlipidemia, unspecified; I10 Essential (primary) hypertension; Z87.891 Personal history of nicotine dependence; Z79.51 Long term (current) use of inhaled steroids; Z79.899 Other long term (current) drug therapy; Z95.818 Presence of other cardiac implants and grafts; Z82.49 Family history of ischemic heart disease and other diseases of the circulatory system; J96.90 Respiratory failure, unspecified, unspecified whether with hypoxia or hypercapnia; Z99.81 Dependence on supplemental oxygen; Z85.89 Personal history of malignant neoplasm of other organs and systems; Z53.8 Procedure and treatment not carried out for other reasons
CPT/HCPCS: 36415; 71046; 80053; 83735; 84484; 85025; 85610; 85730; 99285

== ENCOUNTER 2018-07-12 13:41 | Inpatient (IN) | payer MEDICARE, BC ==
[2018-07-12] MEDS ORDERED: IPRATROPIUM-ALBUTEROL 3 ML NEB INHALATION STA (14:26)
--- NOTE | 2018-07-12 14:30 | ED ---
SOB HPI - General Chief Complaint: Shortness of Breath Stated Complaint: Leg edema Time Seen by Provider: 07/12/18 14:14 Source: family, RN notes reviewed Mode of arrival: wheelchair Limitations: physical limitation - History of Present Illness Initial Comments: Is a 88-year-old male who presents with complaints of shortness of breath and peripheral edema. He states he's been on Lasix before but not since around February exertional dyspnea some orthopnea and peripheral edema. No fevers chills nausea vomiting sweats over chest pain. He does have a history of. He was in recently with a fast heart rate. He denies any other problems at this time. The patient is a former smoker who quit about 10 years ago. MD Complaint: shortness of breath - Related Data Home Medications Medication Instructions Recorded Confirmed Ipratropium-Albuterol Nebulize 3 ml INHALATION RT-QID 05/20/14 07/12/18 [Duoneb 0.5 mg-3 mg/3 ml Soln] Tamsulosin [Flomax] 0.8 mg PO HS 05/20/14 07/12/18 Budesonide/Formoterol Fumarate 2 puff INHALATION RT-BID 03/02/16 07/12/18 [Symbicort 160-4.5 Mcg Inhaler] Acyclovir [Zovirax] 400 mg PO BID 05/23/17 07/12/18 Vit C/E/Zn/Coppr/Lutein/Zeaxan 1 cap PO BID 05/30/17 07/12/18 [Preservision Areds 2 Softgel] Megestrol [Megace] 800 mg PO DAILY 02/26/18 07/12/18 Sennosides/Docusate Sodium 1 tab PO BID 02/26/18 07/12/18 [Senna-S Laxative Tablet] Alogliptin Benzoate [Alogliptin] 25 mg PO DAILY 07/12/18 07/12/18 Dexamethasone 20 mg PO WE 07/12/18 07/12/18 Digoxin [Lanoxin] 125 mcg PO DAILY 07/12/18 07/12/18 Ergocalciferol (Vitamin D2) 50,000 unit PO Q30D 07/12/18 07/12/18 [Vitamin D2] Melatonin 10 mg PO HS 07/12/18 07/12/18 Metoprolol Tartrate [Lopressor] 25 mg PO TID 07/12/18 07/12/18 Prochlorperazine [Compazine] 10 mg PO Q6H PRN 07/12/18 07/12/18 Sacubitril/Valsartan [Entresto 24 1 tab PO BID 07/12/18 07/12/18 mg-26 mg Tablet] Simply Saline 1 spray EA NOSTRIL DAILY 07/12/18 07/12/18 guaiFENesin [Mucinex] 600 mg PO Q12HR 07/12/18 07/12/18 Previous Rx's Medication Instructions Recorded Apixaban [Eliquis] 2.5 mg PO BID tablet 05/26/17 Atorvastatin [Lipitor] 40 mg PO HS #30 tab 05/26/17 Furosemide [Lasix] 40 mg PO DAILY #30 tab 03/03/18 Sulfamethox-Tmp 800-160Mg [Bactrim 1 tab PO MOWEFR #0 03/03/18 DS 800-160 mg] Allergies Allergy/AdvReac Type Severity Reaction Status Date / Time No Known Allergies Allergy Verified 07/12/18 14:30 Review of Systems ROS Statement: Those systems with pertinent positive or pertinent negative responses have been documented in the HPI. ROS Other: All systems not noted in ROS Statement are negative. Past Medical History Past Medical History: Atrial Flutter, Cancer, Chest Pain / Angina, COPD, Diabetes Mellitus, Eye Disorder, Hyperlipidemia, Hypertension, Pneumonia, Renal Disease, Respiratory Disorder, Vascular Disorder Additional Past Medical History / Comment(s): Chronic respiratory failure with home O2 at 2L n/c. multiple pulmonary nodules(scar tissue), multiple myeloma(oral chemo), carotid stenosis rt side, hx kidney disorder-resolved now per pt, bronchitis, alfonzo eye macular degeneration(gets injectons for tx),past shingles lt lowe leg. History of Any Multi-Drug Resistant Organisms: None Reported Past Surgical History: Heart Catheterization Additional Past Surgical History / Comment(s): left carotid endarterectomy , bilateral cataract removal and intraocular lens implants, surgery on rt eye to remove scar tissue, colonoscopy, rt leg vein surgery, surgery on "left leg to clean out veins", bronchoscopy, rt leg angiogram /angioplasty/stents, angiogram and heart cath 05/24/17. Past Anesthesia/Blood Transfusion Reactions: No Reported Reaction Past Psychological History: No Psychological Hx Reported Smoking Status: Former smoker Past Alcohol Use History: None Reported Past Drug Use History: None Reported - Past Family History Brother(s) Family Medical History: Coronary Artery Disease (CAD), Diabetes Mellitus Father Additional Family Medical History / Comment(s): kidney failure Mother Family Medical History: No Reported History General Exam - General Exam Comments Initial Comments: This is a well-developed asthenic appearing male who is awake alert oriented times 3 male Limitations: physical limitation General appearance: alert, in distress Head exam: Present: atraumatic, normocephalic, normal inspection Eye exam: Present: normal appearance, PERRL, EOMI. Absent: scleral icterus, conjunctival injection, periorbital swelling ENT exam: Present: normal exam, mucous membranes moist Neck exam: Present: normal inspection, full ROM, other (No stridor JVD or bruits). Absent: tenderness, meningismus, lymphadenopathy Respiratory exam: Present: decreased breath sounds, other (Some expiratory wheezes right lower lobe). Absent: respiratory distress, wheezes, rales, rhonchi, stridor Cardiovascular Exam: Present: regular rate, normal rhythm, normal heart sounds. Absent: systolic murmur, diastolic murmur, rubs, gallop, clicks GI/Abdominal exam: Present: soft, normal bowel sounds. Absent: distended, tenderness, guarding, rebound, rigid Extremities exam: Present: full ROM, normal capillary refill, pedal edema. Absent: tenderness, joint swelling, calf tenderness Back exam: Present: normal inspection Neurological exam: Present: alert, oriented X3, CN II-XII intact Psychiatric exam: Present: normal affect, normal mood Skin exam: Present: warm, dry, intact, normal color. Absent: rash Course Vital Signs 07/12/18 07/12/18 07/12/18 14:01 14:20 14:41 Temperature 98.1 F Pulse Rate 91 91 100 Respiratory 28 H 28 H Rate Blood Pressure 135/67 O2 Sat by Pulse 78 L 95 Oximetry 07/12/18 07/12/18 14:50 15:05 Temperature Pulse Rate 97 89 Respiratory 26 H Rate Blood Pressure 113/74 O2 Sat by Pulse 95 Oximetry Medical Decision Making - Medical Decision Making I did reevaluate patient several occasions gain minimal improvement thus far the treatment rendered. I did discuss case and his and with Dr. Mike patient will be treated inpatient for CHF and COPD exacerbation and peripheral edema - Lab Data Result diagrams: 07/12/18 14:18 07/12/18 14:18 Lab Results 07/12/18 07/12/18 07/12/18 Range/Units 14:18 14:18 14:18 WBC 6.6 (3.8-10.6) k/uL RBC 3.52 L (4.30-5.90) m/uL Hgb 11.2 L (13.0-17.5) gm/dL Hct 36.3 L (39.0-53.0) % MCV 103.2 H (80.0-100.0) fL MCH 31.8 (25.0-35.0) pg MCHC 30.8 L (31.0-37.0) g/dL RDW 18.2 H (11.5-15.5) % Plt Count 112 L D (150-450) k/uL Neutrophils % (Manual) 76 % Band Neutrophils % 2 % Lymphocytes % (Manual) 18 % Monocytes % (Manual) 5 % Neutrophils # (Manual) 5.10 (1.3-7.7) k/uL Lymphocytes # (Manual) 1.19 (1.0-4.8) k/uL Monocytes # (Manual) 0.33 (0-1.0) k/uL Nucleated RBCs 1 H (0-0) /100 WBC Manual Slide Review Performed Toxic Vacuolation Present Polychromasia Present Hypochromasia Slight Anisocytosis Slight Macrocytosis Moderate PT (9.0-12.0) sec INR (<1.2) APTT (22.0-30.0) sec VBG pH 7.39 (7.31-7.41) VBG pCO2 36 L (37-51) mmHg VBG HCO3 21 L (24-28) mmol/L Sodium 137 (137-145) mmol/L Potassium 3.6 (3.5-5.1) mmol/L Chloride 105 (98-107) mmol/L Carbon Dioxide 22 (22-30) mmol/L Anion Gap 10 mmol/L BUN 23 H (9-20) mg/dL Creatinine 1.18 (0.66-1.25) mg/dL Est GFR (CKD-EPI)AfAm 64 (>60 ml/min/1.73 sqM) Est GFR (CKD-EPI)NonAf 56 (>60 ml/min/1.73 sqM) Glucose 143 H (74-99) mg/dL Calcium 9.0 (8.4-10.2) mg/dL Magnesium 1.9 (1.6-2.3) mg/dL Total Bilirubin 1.1 (0.2-1.3) mg/dL AST 21 (17-59) U/L ALT 36 (21-72) U/L Alkaline Phosphatase 75 (38-126) U/L Creatine Kinase 43 L (55-170) U/L Troponin I (0.000-0.034) ng/mL NT-Pro-B Natriuret Pep pg/mL Total Protein 5.8 L (6.3-8.2) g/dL Albumin 3.6 (3.5-5.0) g/dL 07/12/18 07/12/18 07/12/18 Range/Units 14:18 14:18 14:18 WBC (3.8-10.6) k/uL RBC (4.30-5.90) m/uL Hgb (13.0-17.5) gm/dL Hct (39.0-53.0) % MCV (80.0-100.0) fL MCH (25.0-35.0) pg MCHC (31.0-37.0) g/dL RDW (11.5-15.5) % Plt Count (150-450) k/uL Neutrophils % (Manual) % Band Neutrophils % % Lymphocytes % (Manual) % Monocytes % (Manual) % Neutrophils # (Manual) (1.3-7.7) k/uL Lymphocytes # (Manual) (1.0-4.8) k/uL Monocytes # (Manual) (0-1.0) k/uL Nucleated RBCs (0-0) /100 WBC Manual Slide Review Toxic Vacuolation Polychromasia Hypochromasia Anisocytosis Macrocytosis PT 12.1 H (9.0-12.0) sec INR 1.2 H (<1.2) APTT 24.2 (22.0-30.0) sec VBG pH (7.31-7.41) VBG pCO2 (37-51) mmHg VBG HCO3 (24-28) mmol/L Sodium (137-145) mmol/L Potassium (3.5-5.1) mmol/L Chloride (98-107) mmol/L Carbon Dioxide (22-30) mmol/L Anion Gap mmol/L BUN (9-20) mg/dL Creatinine (0.66-1.25) mg/dL Est GFR (CKD-EPI)AfAm (>60 ml/min/1.73 sqM) Est GFR (CKD-EPI)NonAf (>60 ml/min/1.73 sqM) Glucose (74-99) mg/dL Calcium (8.4-10.2) mg/dL Magnesium (1.6-2.3) mg/dL Total Bilirubin (0.2-1.3) mg/dL AST (17-59) U/L ALT (21-72) U/L Alkaline Phosphatase (38-126) U/L Creatine Kinase (55-170) U/L Troponin I 0.029 (0.000-0.034) ng/mL NT-Pro-B Natriuret Pep 03874 pg/mL Total Protein (6.3-8.2) g/dL Albumin (3.5-5.0) g/dL - EKG Data -: EKG Interpreted by Me (Atrial fibrillation rate of 92 QRS 90 QT since QTC 340/420 left exodeviatio) - Radiology Data Radiology results: report reviewed (I did review the imaging and report is evidence of chronic changes with a very small right effusion.), image reviewed Disposition Clinical Impression: Diastolic congestive heart failure, Acute exacerbation of chronic obstructive airways disease, Peripheral edema, Chronic atrial fibrillation Disposition: ADMITTED IP TO THIS HOSP Condition: Fair Referrals: Percy Mike MD [Primary Care Provider] - 1-2 days
[2018-07-12 14:39] LABS: Anisocytosis Slight; HCT 36.3 % (39.0-53.0); HGB 11.2 gm/dL (13.0-17.5); Hypochromasia Slight; MCH 31.8 pg (25.0-35.0); MCHC 30.8 g/dL (31.0-37.0); MCV 103.2 fL (80.0-100.0); Macrocytosis Moderate; Mean Platelet Volume 8.8; RBC 3.52 m/uL (4.30-5.90); RDW 18.2 % (11.5-15.5)
[2018-07-12 14:46] LABS: VBG PH 7.39 (7.31-7.41)
[2018-07-12 14:50] LABS: Albumin 3.6 g/dL (3.5-5.0); Magnesium 1.9 mg/dL (1.6-2.3); Potassium 3.6 mmol/L (3.5-5.1); Total Bilirubin 1.1 mg/dL (0.2-1.3); Total Protein 5.8 g/dL (6.3-8.2)
[2018-07-12 14:56] LABS: INR 1.2 (<1.2); Partial Thromboplastin Time 24.2 sec (22.0-30.0); Prothrombin Time 12.1 sec (9.0-12.0)
--- NOTE | 2018-07-12 15:07 | XR ---
EXAMINATION TYPE: XR chest 2V DATE OF EXAM: 07/12/2018 COMPARISON: 06/20/2018 HISTORY: Shortness of breath and lower extremity swelling TECHNIQUE: Frontal and lateral views of the chest are obtained. FINDINGS: Chronic parenchymal changes seen. Chronic left basilar atelectasis is also noted in the re trocardiac airspace. Trace right pleural effusion is unchanged from the prior. Osseous demineralizati on is present throughout. Cardia mediastinal silhouette is mildly enlarged. Underlying COPD is again noted. IMPRESSION: Chronic left basilar atelectasis, chronic interstitial prominence, trace right pleural e ffusion and COPD are all unchanged from the prior.
[2018-07-12 15:21] LABS: Platelet Count 112 k/uL (150-450)
[2018-07-12 15:56] LABS: Band Neutrophils % 2 %; Lymphocytes # (M) 1.19 k/uL (1.0-4.8); Monocytes # (M) 0.33 k/uL (0-1.0); Neutrophils % (M) 76 %; Nucleated Red Blood Cells 1 /100 WBC (0-0); Polychromasia Present; Total Cells Counted 200; WBC 6.6 k/uL (3.8-10.6)
[2018-07-12 15:57] LABS: Toxic Vacuolation Present
[2018-07-12] MEDS ORDERED: methylPREDNISolone SOD SUCCI 125 MG/2 ML VIAL IV STA (16:12)
[2018-07-12] MEDS ORDERED: FUROSEMIDE 10 MG/ML 4 ML VIAL IV STA (16:12)
[2018-07-12] MEDS ORDERED: ASPIRIN 325 MG TAB PO STA (16:56)
[2018-07-12] MEDS ORDERED: PROCHLORPERAZINE 10 MG TAB PO PRN (16:58)
[2018-07-12] MEDS: FUROSEMIDE 10 MG/ML 4 ML VIAL IV SCH (19:03)
[2018-07-12] MEDS ORDERED: IPRATROPIUM-ALBUTEROL 3 ML NEB INHALATION SCH (20:00)
[2018-07-12 20:49] LABS: Glucose,Whole Blood 260 mg/dL (75-99)
[2018-07-12] MEDS: METOPROLOL TARTRATE 25 MG TAB PO SCH (21:19)
[2018-07-12] MEDS: SENNOSIDES-DOCUSATE SODIUM 1 EACH TAB PO SCH (21:19)
[2018-07-12] MEDS: APIXABAN 2.5 MG TABLET PO SCH (21:20)
[2018-07-12] MEDS: VIT A,C & E-LUTEIN-MINERALS 1 EACH TAB PO SCH (21:20)
[2018-07-12] MEDS: ATORVASTATIN 40 MG TAB PO SCH (21:20)
[2018-07-12] MEDS: MELATONIN 5 MG TABLET PO SCH (21:20)
[2018-07-12] MEDS: ACYCLOVIR 200 MG CAP PO SCH (21:20)
[2018-07-12] MEDS: SACUBITRIL/VALSARTAN 24 MG-26 MG TABLET PO SCH (21:20)
[2018-07-12] MEDS: TAMSULOSIN 0.4 MG CAP.ER.24H PO SCH (21:20)
[2018-07-12] MEDS: guaiFENesin 600 MG TABLET.ER PO SCH (21:20)
[2018-07-12] MEDS: INSULIN ASPART (NovoLOG) 100 UNIT/ML VIAL SQ SCH (21:39)
[2018-07-12] MEDS: INSULIN DETEMIR (LEVEMIR) 100 UNIT/ML SYR SQ SCH (21:39)
[2018-07-13] MEDS: methylPREDNISolone SOD SUCCI 125 MG/2 ML VIAL IV SCH ×3 (01:43→11:33)
[2018-07-13 06:10] LABS: Glucose,Whole Blood 173 mg/dL (75-99)
[2018-07-13] MEDS: FUROSEMIDE 10 MG/ML 4 ML VIAL IV SCH ×2 (06:38→17:03)
[2018-07-13] MEDS: INSULIN ASPART (NovoLOG) 100 UNIT/ML VIAL SQ SCH ×4 (06:38→21:10)
[2018-07-13] MEDS: LINAGLIPTIN 5 MG TABLET PO SCH (08:11)
[2018-07-13] MEDS: METOPROLOL TARTRATE 25 MG TAB PO SCH ×3 (08:11→20:24)
[2018-07-13] MEDS: DIGOXIN 125 MCG TAB PO SCH (08:11)
[2018-07-13] MEDS: APIXABAN 2.5 MG TABLET PO SCH ×2 (08:11→20:24)
[2018-07-13] MEDS: MEGESTROL 400 MG/10 ML CUP PO SCH (08:11)
[2018-07-13] MEDS: guaiFENesin 600 MG TABLET.ER PO SCH (08:11)
[2018-07-13] MEDS: SENNOSIDES-DOCUSATE SODIUM 1 EACH TAB PO SCH ×2 (08:11→20:23)
[2018-07-13] MEDS: SACUBITRIL/VALSARTAN 24 MG-26 MG TABLET PO SCH ×2 (08:12→20:24)
[2018-07-13] MEDS: VIT A,C & E-LUTEIN-MINERALS 1 EACH TAB PO SCH ×2 (08:12→20:23)
[2018-07-13] MEDS: ACYCLOVIR 200 MG CAP PO SCH ×2 (08:12→20:23)
[2018-07-13] MEDS: SODIUM CHLORIDE 0.65% NASAL SPRAY 44 ML BTL NASAL SCH (08:13)
[2018-07-13] MEDS: IPRATROPIUM-ALBUTEROL 3 ML NEB INHALATION SCH ×4 (08:20→20:45)
[2018-07-13] MEDS: SYMBICORT 160-4.5 MCG INHALER INHALATION SCH ×2 (08:20→20:45)
[2018-07-13] MEDS ORDERED: FUROSEMIDE 40 MG TAB PO SCH (09:00)
--- NOTE | 2018-07-13 10:12 | P.CRDCN ---
History of Present Illness Consult date: 07/13/18 Requesting physician: Percy Mike Reason for Consult (text): CHF, chronic AF Chief complaint: HARP, edema History of present illness: This is a pleasant 88-year-old gentleman who follows with Dr. Gunderson in the office. He has a known history of diabetes mellitus, hypertension, hyperlipidemia, peripheral vascular disease, macular degeneration, CAD, multiple myeloma, carotid artery disease and prior carotid endarterectomy, nonischemic cardiomyopathy with an ejection fraction of 35-40% per echo done April 2017 and chronic atrial fibrillation. He presented to the emergency department with comp laints of progressively worsening dyspnea on exertion and lower extremity edema. Chest x-ray on admission showed chronic left basilar atelectasis, chronic interstitial prominence, trace right pleural effusion and COPD which appear to be unchanged from prior exam. EKG on admission showed atrial fibrillation with occasional PVCs with controlled ventricular response. Return values on admission show hemoglobin 11.2, BUN of 23, creatinine 1.18. Troponins were negative 3. [place] proBNP is elevated at 12,500. Upon examination, patient is resting comfortably in bed. He is unsure if his breathing has improved as he is not been active since arrival. He feels his edema may be somewhat better. He denies complaints of chest discomfort, palpitations, dizziness, lightheadedness, bleeding, orthopnea or PND. Past Medical History Past Medical History: Atrial Flutter, Cancer, Chest Pain / Angina, COPD, Diabetes Mellitus, Eye Disorder, Hyperlipidemia, Hypertension, Pneumonia, Renal Disease, Respiratory Disorder, Vascular Disorder Additional Past Medical History / Comment(s): Chronic respiratory failure with home O2 at 2L n/c. multiple pulmonary nodules(scar tissue), multiple myeloma(oral chemo), carotid stenosis rt side, hx kidney disorder-resolved now per pt, bronchitis, alfonzo eye macular degeneration(gets injectons for tx),past shingles lt lowe leg. History of Any Multi-Drug Resistant Organisms: None Reported Past Surgical History: Heart Catheterization Additional Past Surgical History / Comment(s): left carotid endarterectomy , bilateral cataract removal and intraocular lens implants, surgery on rt eye to remove scar tissue, colonoscopy, rt leg vein surgery, surgery on "left leg to clean out veins", bronchoscopy, rt leg angiogram /angioplasty/stents, angiogram and heart cath 05/24/17. Past Anesthesia/Blood Transfusion Reactions: No Reported Reaction Past Psychological History: No Psychological Hx Reported Additional Psychological History / Comment(s): . Smoking Status: Former smoker Past Alcohol Use History: None Reported Additional Past Alcohol Use History / Comment(s): Patient started smoking at age 19 and quit in 2012-1/2 packs per day for total of 93 pack year history. Patient was home with his . He does not use any device for ambulation. He has home O2 and nebulizer in place. Past Drug Use History: None Reported - Past Family History Brother(s) Family Medical History: Coronary Artery Disease (CAD), Diabetes Mellitus Father Additional Family Medical History / Comment(s): kidney failure Mother Family Medical History: No Reported History Medications and Allergies Home Medications Medication Instructions Recorded Confirmed Type Ipratropium-Albuterol Nebulize 3 ml INHALATION RT-QID 05/20/14 07/12/18 History [Duoneb 0.5 mg-3 mg/3 ml Soln] Tamsulosin [Flomax] 0.8 mg PO HS 05/20/14 07/12/18 History Budesonide/Formoterol Fumarate 2 puff INHALATION RT-BID 03/02/16 07/12/18 History [Symbicort 160-4.5 Mcg Inhaler] Acyclovir [Zovirax] 400 mg PO BID 05/23/17 07/12/18 History Apixaban [Eliquis] 2.5 mg PO BID tablet 05/26/17 07/12/18 Rx Atorvastatin [Lipitor] 40 mg PO HS #30 tab 05/26/17 07/12/18 Rx Vit C/E/Zn/Coppr/Lutein/Zeaxan 1 cap PO BID 05/30/17 07/12/18 History [Preservision Areds 2 Softgel] Megestrol [Megace] 800 mg PO DAILY 02/26/18 07/12/18 History Sennosides/Docusate Sodium 1 tab PO BID 02/26/18 07/12/18 History [Senna-S Laxative Tablet] Furosemide [Lasix] 40 mg PO DAILY #30 tab 03/03/18 07/12/18 Rx Sulfamethox-Tmp 800-160Mg [Bactrim 1 tab PO MOWEFR #0 03/03/18 07/12/18 Rx DS 800-160 mg] Alogliptin Benzoate [Alogliptin] 25 mg PO DAILY 07/12/18 07/12/18 History Dexamethasone 20 mg PO WE 07/12/18 07/12/18 History Digoxin [Lanoxin] 125 mcg PO DAILY 07/12/18 07/12/18 History Ergocalciferol (Vitamin D2) 50,000 unit PO Q30D 07/12/18 07/12/18 History [Vitamin D2] Melatonin 10 mg PO HS 07/12/18 07/12/18 History Metoprolol Tartrate [Lopressor] 25 mg PO TID 07/12/18 07/12/18 History Prochlorperazine [Compazine] 10 mg PO Q6H PRN 07/12/18 07/12/18 History Sacubitril/Valsartan [Entresto 24 1 tab PO BID 07/12/18 07/12/18 History mg-26 mg Tablet] Simply Saline 1 spray EA NOSTRIL DAILY 07/12/18 07/12/18 History guaiFENesin [Mucinex] 600 mg PO Q12HR 07/12/18 07/12/18 History Allergies Allergy/AdvReac Type Severity Reaction Status Date / Time No Known Allergies Allergy Verified 07/12/18 14:30 Physical Exam Vitals: Vital Signs Temp Pulse Pulse Resp BP BP Pulse Ox 07/13/18 08:45 106 H 07/13/18 08:31 102 H 95 07/13/18 08:00 97.6 F 118 H 20 129/58 95 07/13/18 06:00 97.7 F 84 22 141/71 97 07/13/18 00:30 97.9 F 77 20 122/73 98 07/12/18 21:20 98.1 F 75 20 147/70 90 L 07/12/18 20:15 100 07/12/18 20:07 100 07/12/18 18:30 97.8 F 95 16 180/98 93 L 07/12/18 17:00 101 H 26 H 132/88 95 07/12/18 16:00 95 26 H 125/68 93 L 07/12/18 15:05 89 26 H 113/74 95 07/12/18 15:00 113/74 07/12/18 14:50 97 07/12/18 14:41 100 07/12/18 14:20 91 28 H 95 07/12/18 14:13 75 L 07/12/18 14:01 98.1 F 91 28 H 135/67 78 L Intake and Output 07/12/18 07/13/18 07/13/18 22:59 06:59 14:59 Intake Total 480 Output Total 1350 1400 Balance -1350 -1400 480 Intake: Oral 480 Output: Urine 1350 1400 Other: Weight 65.2 kg 65 kg PHYSICAL EXAMINATION: HEENT: Head is atraumatic, normocephalic. Pupils equal, round. Neck is supple. There is no elevated jugular venous pressure. HEART EXAMINATION: Heart sounds irregularly irregular, S1 and S2 with a systolic murmur. CHEST EXAMINATION: Lungs reveal scattered rhonchi bilaterally with a few bibasilar crackles. No chest wall tenderness is noted on palpation or with deep breathing. ABDOMEN: Soft, nontender. Bowel sounds are heard. No organomegaly noted. EXTREMITIES: 2+ peripheral pulses with no evidence of peripheral edema and no calf tenderness noted. NEUROLOGIC patient is awake, alert and oriented x3. Some memory loss noted. . Results 07/12/18 14:18 07/12/18 14:18 Cardiac Enzymes 07/12/18 07/12/18 07/12/18 Range/Units 14:18 14:18 22:18 AST 21 (17-59) U/L Troponin I 0.029 0.025 (0.000-0.034) ng/mL 07/13/18 Range/Units 01:39 AST (17-59) U/L Troponin I 0.027 (0.000-0.034) ng/mL Coagulation 07/12/18 Range/Units 14:18 PT 12.1 H (9.0-12.0) sec APTT 24.2 (22.0-30.0) sec CBC 07/12/18 Range/Units 14:18 WBC 6.6 (3.8-10.6) k/uL RBC 3.52 L (4.30-5.90) m/uL Hgb 11.2 L (13.0-17.5) gm/dL Hct 36.3 L (39.0-53.0) % Plt Count 112 L D (150-450) k/uL Comprehensive Metabolic Panel 07/12/18 Range/Units 14:18 Sodium 137 (137-145) mmol/L Potassium 3.6 (3.5-5.1) mmol/L Chloride 105 (98-107) mmol/L Carbon Dioxide 22 (22-30) mmol/L BUN 23 H (9-20) mg/dL Creatinine 1.18 (0.66-1.25) mg/dL Glucose 143 H (74-99) mg/dL Calcium 9.0 (8.4-10.2) mg/dL AST 21 (17-59) U/L ALT 36 (21-72) U/L Alkaline Phosphatase 75 (38-126) U/L Total Protein 5.8 L (6.3-8.2) g/dL Albumin 3.6 (3.5-5.0) g/dL Current Medications Generic Name Dose Route Start Last Admin Trade Name Freq PRN Reason Stop Dose Admin Acyclovir 400 mg 07/12/18 21:00 07/13/18 08:12 Zovirax PO 400 mg BID ALEX Administration Albuterol/Ipratropium 3 ml 07/13/18 08:00 07/13/18 08:20 Duoneb 0.5 Mg-3 Mg/3 Ml Soln INHALATION 3 ml RT-QID ALEX Administration Apixaban 2.5 mg 07/12/18 21:00 07/13/18 08:11 Eliquis PO 2.5 mg BID ALEX Administration Atorvastatin Calcium 40 mg 07/12/18 21:00 07/12/18 21:20 Lipitor PO 40 mg HS ALEX Administration Budesonide/Formoterol Fumarate 2 puff 07/13/18 08:00 07/13/18 08:20 Symbicort 160-4.5 Mcg Inhaler INHALATION 2 puff RT-BID ALEX Administration Dexamethasone 20 mg 07/16/18 09:00 Hexadrol PO WE ALEX Digoxin 125 mcg 07/13/18 09:00 07/13/18 08:11 Lanoxin PO 125 mcg DAILY ALEX Administration Ergocalciferol 50,000 unit 08/06/18 17:00 Vitamin D2 PO Q30D ALEX Furosemide 40 mg 07/12/18 17:00 07/13/18 06:38 Lasix IV 40 mg Q12H ALEX Administration Guaifenesin 600 mg 07/12/18 21:00 07/13/18 08:11 Mucinex PO 600 mg Q12HR ALEX Administration Insulin Aspart 0 unit 07/12/18 21:10 07/13/18 06:38 Novolog SQ 2 unit ACHS ALEX Administration Protocol Insulin Detemir 10 unit 07/12/18 21:15 07/12/18 21:39 Levemir SQ 10 unit HS ALEX Administration Linagliptin 5 mg 07/13/18 09:00 07/13/18 08:11 Tradjenta PO 5 mg DAILY ALEX Administration Megestrol Acetate 800 mg 07/13/18 09:00 07/13/18 08:11 Megace PO 800 mg DAILY ALEX Administration Melatonin 10 mg 07/12/18 21:00 07/12/18 21:20 Melatonin PO 10 mg HS ALEX Administration Methylprednisolone Sodium Succinate 60 mg 07/13/18 00:00 07/13/18 06:38 Solu-Medrol IV 60 mg Q6HR ALEX Administration Metoprolol Tartrate 25 mg 07/12/18 22:00 07/13/18 08:11 Lopressor PO 25 mg TID ALEX Administration Multivitamins/Minerals 1 each 07/12/18 21:00 07/13/18 08:12 Ivite PO 1 each BID ALEX Administration Prochlorperazine Maleate 10 mg 07/12/18 16:58 Compazine PO Q6H PRN Nausea Sacubitril/Valsartan 1 each 07/12/18 21:00 07/13/18 08:12 Entresto 24 Mg-26 Mg Tablet PO 1 each BID ALEX Administration Senna/Docusate Sodium 1 each 07/12/18 21:00 07/13/18 08:11 Senokot-S PO 1 each BID ALEX Administration Sodium Chloride 1 spray 07/13/18 09:00 07/13/18 08:13 [place] Sea NASAL 1 spray DAILY ALEX Administration Tamsulosin HCl 0.8 mg 07/12/18 21:00 07/12/18 21:20 Flomax PO 0.8 mg HS ALEX Administration Trimethoprim/Sulfamethoxazole 1 each 07/14/18 09:00 Bactrim Ds PO MOWEFR ALEX Intake and Output 07/12/18 07/13/18 07/13/18 22:59 06:59 14:59 Intake Total 480 Output Total 1350 1400 Balance -1350 -1400 480 Intake: Oral 480 Output: Urine 1350 1400 Other: Weight 65.2 kg 65 kg 07/12/18 14:18 07/12/18 14:18 EKG Interpretations (text) Atrial fibrillation with controlled ventricular response with occasional PVCs Assessment and Plan Assessment: #1 acute on chronic systolic congestive heart failure #2 chronic atrial fibrillation, anticoagulated on Eliquis #3 COPD #4 nonischemic cardiomyopathy with an ejection fraction 35-40% #5 multiple myeloma #6 hypertension #7 hyperlipidemia #8 diabetes mellitus Plan: From cardiology perspective, we will continue IV Lasix. We will continue to follow renal function, electrolytes, daily weights and intake and output. We'll obtain a 2-D echo with Doppler tomorrow. Further recommendations to follow. [employer]INE TENDER note has been reviewed, I agree with a documented findings and plan of care. Patient was seen and examined.
--- NOTE | 2018-07-13 10:49 | P.HPIM ---
History of Present Illness H&P Date: 07/12/18 88-year-old male one of my office patient of known for long time with history of nonischemic arrhythmia cardiopathy, advanced COPD, lung cancer, diabetes, severe peripheral arterial disease along with history of multiple myeloma has been on chemotherapy by oncology. Patient presented to the emergency department at [facility] with severe dyspnea and shortness of breath with inspiratory expiratory wheeze not been able to ambulate and walk severe generalized weakness with mild altered mental status at the time was seen and found to be in A. fib with RVR pulse rates in the 120 beats per minutes was hypoxic require O2 3 to keep his pulse ox above 90 percentile also patient req uire more IV diuretics his testing came back positive for CHF with BNP very high troponin was negative patient chest x-ray was significantly abnormal patient has diagnosed with COPD excessive patient as well will be seen pulmonary but no sign of acute infection or pneumonia at this point. Review of Systems CONSTITUTIONAL: Well-developed no mild respiratory distress. EYES: No icterus sclerae, no conjunctivitis. EARS, NOSE, MOUTH, THROAT, and FACE: No sore throat, lymphadenopathy, carotid bruits or deformity. RESPIRATORY: Positive dyspnea and shortness of breath hypoxia cough and wheezes. CARDIOVASCULAR: Positive PND or to new palpitation with no angina. GASTROINTESTINAL: No Abd pain, Nausea or vomiting, no Diarrhea or constipation, No GI Bleed, no distention or masses. GENITOURINARY: Negative for Hematuria or UTI, no kidney stones. INTEGUMENT/BREAST: Negative for any muscular injury with mild osteoarthritis.. HEMATOLOGIC/LYMPHATIC: Negative for bleed or purpura. MUSCULOSKELTAL: Negative for Myalgia or arthralgia. NEURLOGICAL: Mild mental status change with mild confusion abnormal balance and gait. BEHAVIORAL/PSYCH: Negative. ENDOCRINE: Negative. Past Medical History Past Medical History: Atrial Flutter, Cancer, Chest Pain / Angina, COPD, Diabetes Mellitus, Eye Disorder, Hyperlipidemia, Hypertension, Pneumonia, Renal Disease, Respiratory Disorder, Vascular Disorder Additional Past Medical History / Comment(s): Chronic respiratory failure with home O2 at 2L n/c. multiple pulmonary nodules(scar tissue), multiple myeloma(oral chemo), carotid stenosis rt side, hx kidney disorder-resolved now per pt, bronchitis, alfonzo eye macular degeneration(gets injectons for tx),past shingles lt lowe leg. History of Any Multi-Drug Resistant Organisms: None Reported Past Surgical History: Heart Catheterization Additional Past Surgical History / Comment(s): left carotid endarterectomy , bilateral cataract removal and intraocular lens implants, surgery on rt eye to remove scar tissue, colonoscopy, rt leg vein surgery, surgery on "left leg to clean out veins", bronchoscopy, rt leg angiogram /angioplasty/stents, angiogram and heart cath 05/24/17. Past Anesthesia/Blood Transfusion Reactions: No Reported Reaction Past Psychological History: No Psychological Hx Reported Additional Psychological History / Comment(s): . Smoking Status: Former smoker Past Alcohol Use History: None Reported Additional Past Alcohol Use History / Comment(s): Patient started smoking at age 19 and quit in 2012-1/2 packs per day for total of 93 pack year history. Patient was home with his . He does not use any device for ambulation. He has home O2 and nebulizer in place. Past Drug Use History: None Reported - Past Family History Brother(s) Family Medical History: Coronary Artery Disease (CAD), Diabetes Mellitus Father Additional Family Medical History / Comment(s): kidney failure Mother Family Medical History: No Reported History Medications and Allergies Home Medications Medication Instructions Recorded Confirmed Type Ipratropium-Albuterol Nebulize 3 ml INHALATION RT-QID 05/20/14 07/12/18 History [Duoneb 0.5 mg-3 mg/3 ml Soln] Tamsulosin [Flomax] 0.8 mg PO HS 05/20/14 07/12/18 History Budesonide/Formoterol Fumarate 2 puff INHALATION RT-BID 03/02/16 07/12/18 History [Symbicort 160-4.5 Mcg Inhaler] Acyclovir [Zovirax] 400 mg PO BID 05/23/17 07/12/18 History Apixaban [Eliquis] 2.5 mg PO BID tablet 05/26/17 07/12/18 Rx Atorvastatin [Lipitor] 40 mg PO HS #30 tab 05/26/17 07/12/18 Rx Vit C/E/Zn/Coppr/Lutein/Zeaxan 1 cap PO BID 05/30/17 07/12/18 History [Preservision Areds 2 Softgel] Megestrol [Megace] 800 mg PO DAILY 02/26/18 07/12/18 History Sennosides/Docusate Sodium 1 tab PO BID 02/26/18 07/12/18 History [Senna-S Laxative Tablet] Furosemide [Lasix] 40 mg PO DAILY #30 tab 03/03/18 07/12/18 Rx Sulfamethox-Tmp 800-160Mg [Bactrim 1 tab PO MOWEFR #0 03/03/18 07/12/18 Rx DS 800-160 mg] Alogliptin Benzoate [Alogliptin] 25 mg PO DAILY 07/12/18 07/12/18 History Dexamethasone 20 mg PO WE 07/12/18 07/12/18 History Digoxin [Lanoxin] 125 mcg PO DAILY 07/12/18 07/12/18 History Ergocalciferol (Vitamin D2) 50,000 unit PO Q30D 07/12/18 07/12/18 History [Vitamin D2] Melatonin 10 mg PO HS 07/12/18 07/12/18 History Metoprolol Tartrate [Lopressor] 25 mg PO TID 07/12/18 07/12/18 History Prochlorperazine [Compazine] 10 mg PO Q6H PRN 07/12/18 07/12/18 History Sacubitril/Valsartan [Entresto 24 1 tab PO BID 07/12/18 07/12/18 History mg-26 mg Tablet] Simply Saline 1 spray EA NOSTRIL DAILY 07/12/18 07/12/18 History guaiFENesin [Mucinex] 600 mg PO Q12HR 07/12/18 07/12/18 History Allergies Allergy/AdvReac Type Severity Reaction Status Date / Time No Known Allergies Allergy Verified 07/12/18 14:30 Physical Exam Vitals: Vital Signs Temp Pulse Pulse Resp BP BP Pulse Ox 07/12/18 20:15 100 07/12/18 20:07 100 07/12/18 18:30 97.8 F 95 16 180/98 93 L 07/12/18 17:00 101 H 26 H 132/88 95 07/12/18 16:00 95 26 H 125/68 93 L 07/12/18 15:05 89 26 H 113/74 95 07/12/18 15:00 113/74 07/12/18 14:50 97 07/12/18 14:41 100 07/12/18 14:20 91 28 H 95 07/12/18 14:13 75 L 07/12/18 14:01 98.1 F 91 28 H 135/67 78 L Intake and Output 07/12/18 07/12/18 07/12/18 06:59 14:59 22:59 Output Total 450 Balance -450 Output: Urine 450 Other: Weight 65.771 kg 65.2 kg General Appearance: Alert, cooperative, mild distress, appears stated age. Neck HEENT: Supple, no lymphadenopathy, no thyroid enlargement, no carotid bruits. Lungs: Decreased breaths homolateral it fine rhonchi positive mild his Protonix breath and wheezes. Chest Wall: Decrease expansion with deep inspiration no tenderness and no deformity was found on exam, no costochondral pain or discomfort. Heart: Irregular rate and rhythm, S1, S2 positive S3 positive JVD positive murmur mostly systolic in the apex . Back: Mild scoliosis with L-spine discomfort and scar tissue in the L-spine area. Abdomen: Soft, non-tender, bowel sounds active all four quadrants, no masses, no organomegaly. Extremities: Mild discoloration with decreased pulses bilaterally trace edema. Pulses: 2+ and symmetric. Skin: Skin color, texture, tugor normal, no rashes or lesions. Neurologic: Alert oriented x3 cranial nerves II through XII intact, no motor deficit, no abnormal balance or gait. Results CBC & Chem 7: 07/12/18 14:18 07/12/18 14:18 Labs: Abnormal Lab Results - Last 24 Hours (Table) 07/12/18 07/12/18 07/12/18 Range/Units 14:18 14:18 14:18 RBC 3.52 L (4.30-5.90) m/uL Hgb 11.2 L (13.0-17.5) gm/dL Hct 36.3 L (39.0-53.0) % MCV 103.2 H (80.0-100.0) fL MCHC 30.8 L (31.0-37.0) g/dL RDW 18.2 H (11.5-15.5) % Plt Count 112 L D (150-450) k/uL Nucleated RBCs 1 H (0-0) /100 WBC PT (9.0-12.0) sec INR (<1.2) VBG pCO2 36 L (37-51) mmHg VBG HCO3 21 L (24-28) mmol/L BUN 23 H (9-20) mg/dL Glucose 143 H (74-99) mg/dL POC Glucose (mg/dL) (75-99) mg/dL Creatine Kinase 43 L (55-170) U/L Total Protein 5.8 L (6.3-8.2) g/dL 07/12/18 07/12/18 Range/Units 14:18 20:48 RBC (4.30-5.90) m/uL Hgb (13.0-17.5) gm/dL Hct (39.0-53.0) % MCV (80.0-100.0) fL MCHC (31.0-37.0) g/dL RDW (11.5-15.5) % Plt Count (150-450) k/uL Nucleated RBCs (0-0) /100 WBC PT 12.1 H (9.0-12.0) sec INR 1.2 H (<1.2) VBG pCO2 (37-51) mmHg VBG HCO3 (24-28) mmol/L BUN (9-20) mg/dL Glucose (74-99) mg/dL POC Glucose (mg/dL) 260 H (75-99) mg/dL Creatine Kinase (55-170) U/L Total Protein (6.3-8.2) g/dL Thrombosis Risk Factor Assmnt - DVT/VTE Prophylaxis DVT/VTE Prophylaxis: Pharmacologic Prophylaxis ordered, Mechanical Prophylaxis ordered - Choose All That Apply Each Risk Factor Represents 2 Points: Malignancy Each Risk Factor Represents 3 Points: Age 75 years or older Thrombosis Risk Factor Assessment Total Risk Factor Score: 5 Thrombosis Risk Factor Assessment Level: High Risk Assessment and Plan Plan: 1 Acute respiratory failure: Combination of COPD exacerbation along with worsening congestive heart failure mostly systolic dysfunction. Patient will be continue on Solu-Medrol, updraft, continue fluid restriction along with IV diuretics and consult both pulmonary and cardiology. 2 COPD excessive patient: With worsening symptom with increased tightness wheezes hypoxia and dyspnea, patient be on Solu-Medrol continue Pulmicort continue DuoNeb. 3 congestive heart failure exacerbation mostly systolic dysfunction as nonischemic cardiopathy with low ejection fraction 35-40% along with significantly elevated BNP with patient's current symptoms continue IV diuretics repeat testing in the next 24-48 hours. Patient was started on Entresto 24/26 mg twice a day continue medication along with diuretics. 4 history of multiple myeloma: Has been on chemotherapy and still on oral antibiotics for suppressive treatment. 5 A. fib with RVR: Pulse rates under control remain on metoprolol patient still on Eliquis 2.5 mg twice a day. 6 BPH: Remain on Flomax. 7 hyperlipidemia: Still on atorvastatin 40 mg a day. 8 history of lung cancer: Patient apparently is in remission currently still seen oncology. 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 11 severe PAD: Has been seen Dr. Gonzalez in [place] had multiple angioplasty of the lower extremity with no ulcer been treated lately. 12 chronic iron deficiency anemia: Mostly secondary to chronic medical problem continue iron supplement repeat CBC daily. 13 GI prophylaxis: Patient remain on Pepcid 20 mg daily. 14 DVT prophylaxis: Remain on anticoagulation. 15 significant weight loss: Patient remain on Megace daily. CODE STATUS: Full code. Admit patient to inpatient status for more than 2 nights.
--- NOTE | 2018-07-13 10:52 | P.PN ---
Subjective Progress Note Date: 07/13/18 Principal diagnosis: Acute respiratory failure, COPD exacerbation, CHF exacerbation, A. fib, multiple myeloma, history of lung cancer and diabetes. 88-year-old male one of my office patient of known for long time with history of nonischemic arrhythmia cardiopathy, advanced COPD, lung cancer, diabetes, severe peripheral arterial disease along with history of multiple myeloma has been on chemotherapy by oncology. Patient presented to the emergency department at [facility] with severe dyspnea and shortness of breath with inspiratory expiratory wheeze not been able to ambulate and walk severe generalized weakness with mild altered mental status at the time was seen and found to be in A. fib with RVR pulse rates in the 120 beats per minutes was hypoxic require O2 3 to keep his pulse ox above 90 percentile also patient require more IV diuretics his testing came back positive for CHF with BNP very high troponin was negative patient chest x-ray was significantly abnormal patient has diagnosed with COPD excessive patient as well will be seen pulmonary but no sign of acute infection or pneumonia at this point. 07/13: Patient is seeing cardiology will be seen pulmonary troponin is negative so far continue current management continue Solu-Medrol along with his current antibiotics. Objective - Vital Signs Vital signs: Vital Signs Temp 97.6 F 07/13/18 08:00 Pulse 106 H 07/13/18 08:45 Resp 20 07/13/18 08:00 BP 129/58 07/13/18 08:00 Pulse Ox 95 07/13/18 08:31 Intake & Output 07/12/18 07/13/18 07/13/18 18:59 06:59 18:59 Intake Total 480 Output Total 450 2300 Balance -450 -2300 480 Weight 65.771 kg 65 kg Intake: Oral 480 Output: Urine 450 2300 - Exam Review of Systems CONSTITUTIONAL: Well-developed no mild respiratory distress. EYES: No icterus sclerae, no conjunctivitis. EARS, NOSE, MOUTH, THROAT, and FACE: No sore throat, lymphadenopathy, carotid b ruits or deformity. RESPIRATORY: Positive dyspnea and shortness of breath hypoxia cough and wheezes. CARDIOVASCULAR: Positive PND or to new palpitation with no angina. GASTROINTESTINAL: No Abd pain, Nausea or vomiting, no Diarrhea or constipation, No GI Bleed, no distention or masses. GENITOURINARY: Negative for Hematuria or UTI, no kidney stones. INTEGUMENT/BREAST: Negative for any muscular injury with mild osteoarthritis.. HEMATOLOGIC/LYMPHATIC: Negative for bleed or purpura. MUSCULOSKELTAL: Negative for Myalgia or arthralgia. NEURLOGICAL: Mild mental status change with mild confusion abnormal balance and gait. BEHAVIORAL/PSYCH: Negative. ENDOCRINE: Negative. Physical Exam General Appearance: Alert, cooperative, mild distress, appears stated age. Neck HEENT: Supple, no lymphadenopathy, no thyroid enlargement, no carotid bruits. Lungs: Decreased breaths homolateral it fine rhonchi positive mild his Protonix breath and wheezes. Chest Wall: Decrease expansion with deep inspiration no tenderness and no deformity was found on exam, no costochondral pain or discomfort. Heart: Irregular rate and rhythm, S1, S2 positive S3 positive JVD positive murmur mostly systolic in the apex . Back: Mild scoliosis with L-spine discomfort and scar tissue in the L-spine area. Abdomen: Soft, non-tender, bowel sounds active all four quadrants, no masses, no organomegaly. Extremities: Mild discoloration with decreased pulses bilaterally trace edema. Pulses: 2+ and symmetric. Skin: Skin color, texture, tugor normal, no rashes or lesions. Neurologic: Alert oriented x3 cranial nerves II through XII intact, no motor deficit, no abnormal balance or gait. - Labs CBC & Chem 7: 07/12/18 14:18 07/12/18 14:18 Labs: Abnormal Lab Results - Last 24 Hours (Table) 07/12/18 07/12/18 07/12/18 Range/Units 14:18 14:18 14:18 RBC 3.52 L (4.30-5.90) m/uL Hgb 11.2 L (13.0-17.5) gm/dL Hct 36.3 L (39.0-53.0) % MCV 103.2 H (80.0-100.0) fL MCHC 30.8 L (31.0-37.0) g/dL RDW 18.2 H (11.5-15.5) % Plt Count 112 L D (150-450) k/uL Nucleated RBCs 1 H (0-0) /100 WBC PT (9.0-12.0) sec INR (<1.2) VBG pCO2 36 L (37-51) mmHg VBG HCO3 21 L (24-28) mmol/L BUN 23 H (9-20) mg/dL Glucose 143 H (74-99) mg/dL POC Glucose (mg/dL) (75-99) mg/dL Creatine Kinase 43 L (55-170) U/L Total Protein 5.8 L (6.3-8.2) g/dL 07/12/18 07/12/18 07/13/18 Range/Units 14:18 20:48 06:08 RBC (4.30-5.90) m/uL Hgb (13.0-17.5) gm/dL Hct (39.0-53.0) % MCV (80.0-100.0) fL MCHC (31.0-37.0) g/dL RDW (11.5-15.5) % Plt Count (150-450) k/uL Nucleated RBCs (0-0) /100 WBC PT 12.1 H (9.0-12.0) sec INR 1.2 H (<1.2) VBG pCO2 (37-51) mmHg VBG HCO3 (24-28) mmol/L BUN (9-20) mg/dL Glucose (74-99) mg/dL POC Glucose (mg/dL) 260 H 173 H (75-99) mg/dL Creatine Kinase (55-170) U/L Total Protein (6.3-8.2) g/dL Assessment and Plan Plan: 1 Acute respiratory failure: Combination of COPD exacerbation along with worsening congestive heart failure mostly systolic dysfunction. Patient will be continue on Solu-Medrol, updraft, continue fluid restriction along with IV diuretics and consult both pulmonary and cardiology. 2 COPD excessive patient: With worsening symptom with increased tightness wheezes hypoxia and dyspnea, patient be on Solu-Medrol continue Pulmicort continue DuoNeb. 3 congestive heart failure exacerbation mostly systolic dysfunction as nonischemic cardiopathy with low ejection fraction 35-40% along with significantly elevated BNP with patient's current symptoms continue IV diuretics repeat testing in the next 24-48 hours. Patient was started on Entresto 24/26 mg twice a day continue medication along with diuretics. 4 history of multiple myeloma: Has been on chemotherapy and still on oral antibiotics for suppressive treatment. 5 A. fib with RVR: Pulse rates under control remain on metoprolol patient still on Eliquis 2.5 mg twice a day. 6 BPH: Remain on Flomax. 7 hyperlipidemia: Still on atorvastatin 40 mg a day. 8 history of lung cancer: Patient apparently is in remission currently still seen oncology. 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 11 severe PAD: Has been seen Dr. Gonzalez in [place] had multiple angioplasty of the lower extremity with no ulcer been treated lately. 12 chronic iron deficiency anemia: Mostly secondary to chronic medical problem continue iron supplement repeat CBC daily. Continue aggressive diuretics and aggressive COPD management for now increase activity mobility start PTOT and patient is feeling well hopefully home in 48 hours.
[2018-07-13 11:34] VITALS: BMI 20.5
[2018-07-13 12:04] LABS: Glucose,Whole Blood 294 mg/dL (75-99)
[2018-07-13 17:10] LABS: Glucose,Whole Blood 402 mg/dL (75-99)
[2018-07-13] MEDS ORDERED: INSULIN ASPART (NovoLOG) 100 UNIT/ML VIAL SQ ONE (18:05)
--- NOTE | 2018-07-13 18:20 | CONS ---
CONSULTATION PULMONARY/CRITICAL CARE CONSULTATION: REASON FOR CONSULTATION: Shortness of breath, leg edema and heart failure. DATE OF CONSULTATION: 07/13/2018 This is an 88-year-old gentleman who I see in the office for COPD. He presents to the emergency room, brought in by the family with complaints of shortness of breath, difficulty lying flat, nonproductive cough, weight gain and peripheral edema. His legs were quite enlarged apparently. Anyway, he has not been feeling well for a couple weeks according to his . More recently, he has been eating a lot of food such as TV dinners with lots of salt and he believes that is probably what caused his difficulty. Denies any chest pain or chest discomfort. Denies any fever, chills. No nausea, vomiting or diarrhea. No genitourinary complaints. Anyway, I saw the patient on the floor. He is in room 364, bed 1. The patient looked relatively stable, much improved. He states he is feeling much better. He did have nasal oxygen on. His legs were still edematous, but apparently improved according to him. It does not appear that his COPD was active. HOME MEDICATIONS: Include DuoNeb, Flomax, Symbicort, Zovirax,, eye vitamins, Megace, Senna, alogliptin, dexamethasone, digoxin, vitamin D2, melatonin, metoprolol, Compazine, Entresto, Simply Saline and Mucinex. Other medications include Eliquis, Lipitor, Lasix, and Bactrim. ALLERGIES: Denied. PAST MEDICAL HISTORY: Positive for atrial fibrillation, angina pectoris, COPD, diabetes, hyperlipidemia, hypertension, pneumonia, chronic kidney disease, peripheral vascular disease, chronic hypoxemic respiratory failure on home O2, multiple benign pulmonary nodules, multiple myeloma, right-sided carotid stenosis, bilateral macular degeneration, and shingles. SURGICAL HISTORY: Includes a previous heart catheterization, left carotid endarterectomy, bilateral cataract removal and intraocular lens implant, colonoscopy, right leg vein surgery, surgery on the left leg to clean out veins, bronchoscopy, right leg angiogram, angioplasty with stent and a heart catheterization in 2018 in April. SOCIAL HISTORY: Positive for previous heavy tobacco use. Does not smoke currently. Denies any alcohol or drug use. FAMILY HISTORY: Positive for CAD, diabetes, and kidney failure. REVIEW OF SYSTEMS: CONSTITUTIONAL: Fatigue and weakness. No energy. NEUROLOGIC: Negative. HEENT: Negative. CARDIOVASCULAR: Heart failure. PULMONARY: Shortness of breath. GI: Negative. : Negative. RHEUMATOLOGIC: Negative. IMMUNOLOGIC: Negative. HEMATOLOGIC: Negative. ENDOCRINOLOGIC: Negative. DERMATOLOGIC: Negative. PHYSICAL EXAMINATION: Current vital signs are reviewed. Temperature is 98.2, heart rate 100, respiratory rate 18, blood pressure 108/63, mean 78, 4 L saturation 91%. Appears in no acute distress. HEENT: Grossly unremarkable. Nasal O2 noted. NECK: Supple. Full range of motion. No adenopathy or thyromegaly. Neck veins are flat. CARDIOVASCULAR: Reveals regular rhythm and rate. Heart sounds are distant. S1, S2 normal. No S3 or S4. No distinct murmur. LUNGS: Reveal some bibasilar crackles. Breath sounds equal bilaterally but diminished throughout. No wheezes or rhonchi. ABDOMEN: Soft. Bowel sounds are heard. EXTREMITIES: Intact. There is some is significant 1+ to 2+ pedal and pretibial edema. SKIN: Without rash. NEUROLOGIC: Brief but nonfocal. Chest x-ray in my opinion is consistent with congestive heart failure. LABS: Reviewed. White count 6.6, hemoglobin 11.2, hematocrit 36.3, platelet count 112,000. PT/INR were 12.1 and 1.2, PTT 24.2. Electrolytes look pretty good. BUN and creatinine were 23 and 1.18. His troponins were 0.025 and 0.027. His N-terminal proBNP was quite elevated at 12,500. Medications are reviewed. ASSESSMENT: 1. Shortness of breath, mostly related to or exclusively related to heart failure. 2. History of chronic obstructive pulmonary disease. 3. History of multiple myeloma. 4. History of atrial flutter. 5. History of angina pectoris. 6. Diabetes mellitus. 7. Macular degeneration. 8. History of hyperlipidemia. 9. History of hypertension. 10.History of pneumonia. 11.Peripheral vascular disease. 12.Carotid artery stenosis. PLAN: Please see my orders. Additional recommendations and suggestions are forthcoming. From the pulmonary standpoint, all he needs is his updrafts and Symbicort. Will DC steroids. We will continue to follow. Prognosis is guarded. He is counseled about the importance of eating properly. MMODL / IJN: [id number] /
[2018-07-13] MEDS: MELATONIN 5 MG TABLET PO SCH (20:24)
[2018-07-13] MEDS: ATORVASTATIN 40 MG TAB PO SCH (20:24)
[2018-07-13] MEDS: TAMSULOSIN 0.4 MG CAP.ER.24H PO SCH (20:24)
[2018-07-13 20:46] LABS: Glucose,Whole Blood 272 mg/dL (75-99)
[2018-07-13] MEDS: INSULIN DETEMIR (LEVEMIR) 100 UNIT/ML SYR SQ SCH (21:11)
[2018-07-14 06:02] LABS: Glucose,Whole Blood 192 mg/dL (75-99)
[2018-07-14] MEDS: FUROSEMIDE 10 MG/ML 4 ML VIAL IV SCH ×2 (06:06→16:23)
[2018-07-14] MEDS: INSULIN ASPART (NovoLOG) 100 UNIT/ML VIAL SQ SCH ×4 (06:54→22:29)
--- NOTE | 2018-07-14 07:14 | XR ---
EXAMINATION TYPE: XR chest 2V DATE OF EXAM: 07/14/2018 COMPARISON: 07/12/2018 TECHNIQUE: PA and lateral views submitted. HISTORY: Shortness of breath FINDINGS: Hyperinflation lungs with interstitial pattern. Basilar consolidation noted. There is a nodule at the right lung base measuring 7 mm. Atherosclerotic change aorta. Heart size stable. Subsegmental change s also at the right lung base. IMPRESSION: 1. Bibasilar infiltrate or atelectasis greater on the left correlate for developing pneumonia at the left lung base. 2. COPD with interstitial pattern could be on the basis of chronic interstitial lung disease or super imposed venous congestion or interstitial pneumonitis. 3. There is a 7 mm pulmonary nodule right lung base which could be correlated with CT of the chest.
[2018-07-14] MEDS: DIGOXIN 125 MCG TAB PO SCH (07:47)
[2018-07-14] MEDS: VIT A,C & E-LUTEIN-MINERALS 1 EACH TAB PO SCH ×2 (07:47→22:31)
[2018-07-14] MEDS: SACUBITRIL/VALSARTAN 24 MG-26 MG TABLET PO SCH ×2 (07:47→22:31)
[2018-07-14] MEDS: APIXABAN 2.5 MG TABLET PO SCH ×2 (07:47→22:30)
[2018-07-14] MEDS: METOPROLOL TARTRATE 25 MG TAB PO SCH ×3 (07:47→22:30)
[2018-07-14] MEDS: ACYCLOVIR 200 MG CAP PO SCH ×2 (07:47→22:31)
[2018-07-14] MEDS: MEGESTROL 400 MG/10 ML CUP PO SCH (07:48)
[2018-07-14] MEDS: SENNOSIDES-DOCUSATE SODIUM 1 EACH TAB PO SCH ×2 (07:48→22:36)
[2018-07-14] MEDS: LINAGLIPTIN 5 MG TABLET PO SCH (07:48)
[2018-07-14] MEDS: SODIUM CHLORIDE 0.65% NASAL SPRAY 44 ML BTL NASAL SCH (07:49)
[2018-07-14 07:59] LABS: Anisocytosis Slight; HCT 36.6 % (39.0-53.0); Hypochromasia Slight; MCH 30.9 pg (25.0-35.0); Macrocytosis Moderate; Mean Platelet Volume 8.3; Platelet Count 110 k/uL (150-450); RBC 3.55 m/uL (4.30-5.90); RDW 18.7 % (11.5-15.5); WBC 17.2 k/uL (3.8-10.6)
[2018-07-14 08:07] LABS: Albumin 3.1 g/dL (3.5-5.0); Calcium 8.5 mg/dL (8.4-10.2); Potassium 3.9 mmol/L (3.5-5.1); Total Bilirubin 1.4 mg/dL (0.2-1.3); Total Protein 5.4 g/dL (6.3-8.2)
[2018-07-14] MEDS: SYMBICORT 160-4.5 MCG INHALER INHALATION SCH ×2 (08:13→19:59)
[2018-07-14] MEDS: IPRATROPIUM-ALBUTEROL 3 ML NEB INHALATION SCH ×4 (08:13→19:59)
[2018-07-14 08:55] LABS: Band Neutrophils % 2 %; Neutrophils % (M) 86 %; Nucleated Red Blood Cells 0 /100 WBC (0-0); Total Cells Counted 100
[2018-07-14] MEDS ORDERED: SULFAMETHOX-TMP 800-160MG 1 EACH TAB PO SCH (09:00)
[2018-07-14 09:03] LABS: Lymphocytes # (M) 1.89 k/uL (1.0-4.8); Monocytes # (M) 0.17 k/uL (0-1.0)
[2018-07-14 11:31] LABS: Glucose,Whole Blood 251 mg/dL (75-99)
--- NOTE | 2018-07-14 11:37 | ECHOF ---
Referral Reason:chf MEASUREMENTS -------- HEIGHT: 180.3 cm WEIGHT: 64.9 kg BP: 120/54 RVIDd: 2.9 cm (< 3.3) IVSd: 1.2 cm (0.6 - 1.1) LVIDd: 3.8 cm (3.9 - 5.3) LVPWd: 1.7 cm (0.6 - 1.1) IVSs: 1.8 cm LVIDs: 2.9 cm LVPWs: 1.9 cm Ao Diam: 3.4 cm (2.0 - 3.7) AV Cusp: 1.4 cm (1.5 - 2.6) LA Diam: 3.7 cm (2.7 - 3.8) MV EXCURSION: 17.701 mm (> 18.000) MV EF SLOPE: 140 mm/s (70 - 150) EPSS: 1.0 cm MV E Guerrero: 1.10 m/s MV DecT: 192 ms MV A Guerrero: 0.52 m/s MV E/A Ratio: 2.10 AV maxP.31 mmHg AV meanP.92 mmHg RAP: 5.00 mmHg RVSP: 54.08 mmHg FINDINGS -------- Atrial fibrillation. This was a technically adequate study. The left ventricular size is normal. There is moderate concentric left ventricular hypertrophy. O verall left ventricular systolic function is low-normal with, an EF between 50 - 55 %. The right ventricle is normal in size. The left atrial size is normal. The right atrial size is normal. Interatrial and interventricular septum intact. Aortic valve is trileaflet and is mildly thickened. There is mild aortic valve sclerosis. Peak/me an gradient across the Aortic Valve is 7.31mmHg / 3.92mmHg. The mitral valve leaflets are mildly thickened. Mild mitral annular calcification present. Mild m itral regurgitation is present. Severe tricuspid regurgitation present. There is moderate pulmonary hypertension. The right ventr icular systolic pressure, as measured by Doppler, is 54.08mmHg. There is no pulmonic regurgitation present. The aortic root size is normal. Normal inferior vena cava with normal inspiratory collapse consistent with estimated right atrial pre ssure of 5 mmHg. There is no pericardial effusion. CONCLUSIONS -------- 1. Atrial fibrillation. 2. This was a technically adequate study. 3. The left ventricular size is normal. 4. There is moderate concentric left ventricular hypertrophy. 5. Overall left ventricular systolic function is low-normal with, an EF between 50 - 55 %. 6. The right ventricle is normal in size. 7. The left atrial size is normal. 8. The right atrial size is normal. 9. Interatrial and interventricular septum intact. 10. Aortic valve is trileaflet and is mildly thickened. 11. There is mild aortic valve sclerosis. 12. Peak/mean gradient across the Aortic Valve is 7.31mmHg / 3.92mmHg. 13. The mitral valve leaflets are mildly thickened. 14. Mild mitral annular calcification present. 15. Mild mitral regurgitation is present. 16. Severe tricuspid regurgitation present. 17. There is moderate pulmonary hypertension. 18. The right ventricular systolic pressure, as measured by Doppler, is 54.08mmHg. 19. There is no pulmonic regurgitation present. 20. The aortic root size is normal. 21. Normal inferior vena cava with normal inspiratory collapse consistent with estimated right atrial pressure of 5 mmHg. 22. There is no pericardial effusion. STRUCTURAL BIOLOGIST: Jazmin Sky RDCS
--- NOTE | 2018-07-14 13:17 | P.PN ---
Subjective Progress Note Date: 07/14/18 Principal diagnosis: Acute respiratory failure, COPD exacerbation, CHF exacerbation, A. fib, multiple myeloma, history of lung cancer and diabetes. 88-year-old male one of my office patient of known for long time with history of nonischemic arrhythmia cardiopathy, advanced COPD, lung cancer, diabetes, severe peripheral arterial disease along with history of multiple myeloma has been on chemotherapy by oncology. Patient presented to the emergency department at [facility] with severe dyspnea and shortness of breath with inspiratory expiratory wheeze not been able to ambulate and walk severe generalized weakness with mild altered mental status at the time was seen and found to be in A. fib with RVR pulse rates in the 120 beats per minutes was hypoxic require O2 3 to keep his pulse ox above 90 percentile also patient require more IV diuretics his testing came back positive for CHF with BNP very high troponin was negative patient chest x-ray was significantly abnormal patient has diagnosed with COPD excessive patient as well will be seen pulmonary but no sign of acute infection or pneumonia at this point. 07/13: Patient is seeing cardiology will be seen pulmonary troponin is negative so far continue current management continue Solu-Medrol along with his current antibiotics. 07/14: Patient is doing well was taking off Solu-Medrol by pulmonary and claim his symptoms are mostly congestive heart failure more than pulmonary, we'll continue current treatment management be aggressive with heart failure diuretics. Patient still dyspneic still require 5 to the fourth 2 with the adjustment of medication increase and titrate PTOT and see patient need rehab otherwise possibility of discharge in 48 hours. Objective - Vital Signs Vital signs: Vital Signs Temp 96.6 F L 07/14/18 12:00 Pulse 94 07/14/18 12:15 Resp 20 07/14/18 12:00 BP 126/53 07/14/18 12:00 Pulse Ox 95 07/14/18 12:00 Intake & Output 07/13/18 07/14/18 07/14/18 18:59 06:59 18:59 Intake Total 1200 480 Output Total 375 1250 Balance 825 -1250 480 Weight 65 kg 65.2 kg Intake: Oral 1200 480 Output: Urine 375 1250 - Exam Review of Systems CONSTITUTIONAL: Well-developed no mild respiratory distress. EYES: No icterus sclerae, no conjunctivitis. EARS, NOSE, MOUTH, THROAT, and FACE: No sore throat, lymphadenopathy, carotid bruits or deformity. RESPIRATORY: Positive dyspnea and shortness of breath hypoxia cough and wheezes. CARDIOVASCULAR: Positive PND or to new palpitation with no angina. GASTROINTESTINAL: No Abd pain, Nausea or vomiting, no Diarrhea or constipation, No GI Bleed, no distention or masses. GENITOURINARY: Negative for Hematuria or UTI, no kidney stones. INTEGUMENT/BREAST: Negative for any muscular injury with mild osteoarthritis.. HEMATOLOGIC/LYMPHATIC: Negative for bleed or purpura. MUSCULOSKELTAL: Negative for Myalgia or arthralgia. NEURLOGICAL: Mild mental status change with mild confusion abnormal balance and gait. BEHAVIORAL/PSYCH: Negative. ENDOCRINE: Negative. Physical Exam General Appearance: Alert, cooperative, mild distress, appears stated age. Neck HEENT: Supple, no lymphadenopathy, no thyroid enlargement, no carotid bruits. Lungs: Decreased breaths homolateral it fine rhonchi positive mild his Protonix breath and wheezes. Chest Wall: Decrease expansion with deep inspiration no tenderness and no deformity was found on exam, no costochondral pain or discomfort. Heart: Irregular rate and rhythm, S1, S2 positive S3 positive JVD positive murmur mostly systolic in the apex . Back: Mild scoliosis with L-spine discomfort and scar tissue in the L-spine area. Abdomen: Soft, non-tender, bowel sounds active all four quadrants, no masses, no organomegaly. Extremities: Mild discoloration with decreased pulses bilaterally trace edema. Pulses: 2+ and symmetric. Skin: Skin color, texture, tugor normal, no rashes or lesions. Neurologic: Alert oriented x3 cranial nerves II through XII intact, no motor deficit, no abnormal balance or gait. - Labs CBC & Chem 7: 07/14/18 07:13 07/14/18 07:13 Labs: Abnormal Lab Results - Last 24 Hours (Table) 07/13/18 07/13/18 07/14/18 Range/Units 17:04 20:45 06:01 WBC (3.8-10.6) k/uL RBC (4.30-5.90) m/uL Hgb (13.0-17.5) gm/dL Hct (39.0-53.0) % MCV (80.0-100.0) fL MCHC (31.0-37.0) g/dL RDW (11.5-15.5) % Plt Count (150-450) k/uL Neutrophils # (Manual) (1.3-7.7) k/uL Sodium (137-145) mmol/L BUN (9-20) mg/dL Glucose (74-99) mg/dL POC Glucose (mg/dL) 402 H 272 H 192 H (75-99) mg/dL Total Bilirubin (0.2-1.3) mg/dL Total Protein (6.3-8.2) g/dL Albumin (3.5-5.0) g/dL 07/14/18 07/14/18 07/14/18 Range/Units 07:13 07:13 11:29 WBC 17.2 H (3.8-10.6) k/uL RBC 3.55 L (4.30-5.90) m/uL Hgb 11.0 L (13.0-17.5) gm/dL Hct 36.6 L (39.0-53.0) % MCV 103.0 H (80.0-100.0) fL MCHC 30.0 L (31.0-37.0) g/dL RDW 18.7 H (11.5-15.5) % Plt Count 110 L (150-450) k/uL Neutrophils # (Manual) 15.10 H (1.3-7.7) k/uL Sodium 136 L (137-145) mmol/L BUN 33 H (9-20) mg/dL Glucose 173 H (74-99) mg/dL POC Glucose (mg/dL) 251 H (75-99) mg/dL Total Bilirubin 1.4 H (0.2-1.3) mg/dL Total Protein 5.4 L (6.3-8.2) g/dL Albumin 3.1 L (3.5-5.0) g/dL Assessment and Plan Plan: 1 Acute respiratory failure: Mostly congestive heart failure more than COPD still have mild COPD symptom which well managed currently. 2 COPD excessive patient: With worsening symptom with increased tightness wheezes hypoxia and dyspnea, patient is off Solu-Medrol remain on DuoNeb and Pulmicort still on higher dose of O2 still seen pulmonary regularly. 3 congestive heart failure exacerbation mostly systolic dysfunction as nonischemic cardiopathy with low ejection fraction 35-40% along with significantly elevated BNP with patient's current symptoms continue IV diuretics repeat testing in the next 24-48 hours. Patient was started on Entresto 24/26 mg twice a day continue medication along with diuretics. More adjustment on medication and management long time with patient and his about his symptom specially with ejection fraction below not improving despite using any kind of medication at this point. 4 history of multiple myeloma: Has been on chemotherapy and still on oral antibiotics for suppressive treatment. Chemotherapy was delayed for 4 weeks. 5 A. fib with RVR: Pulse rates under control remain on metoprolol patient still on Eliquis 2.5 mg twice a day. 6 BPH: Remain on Flomax. No sign of urinary retention. 7 hyperlipidemia: Still on atorvastatin 40 mg a day. 8 history of lung cancer: Patient apparently is in remission currently still seen oncology. 9 type 2 diabetes: On Aloglipitin along with long-acting insulin Will add Accu- Chek with sliding scales coverage, blood sugar remain elevated today we will titrate Lantus and NovoLog. 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 11 severe PAD: Has been seen Dr. Gonzalez in [place] had multiple angioplasty of the lower extremity with no ulcer been treated lately. 12 chronic iron deficiency anemia: Mostly secondary to chronic medical problem continue iron supplement repeat CBC daily. Continue aggressive diuretics and aggressive COPD management for now increase activity mobility start PTOT and patient is feeling well hopefully home in 48 hours.
--- NOTE | 2018-07-14 13:53 | P.PN ---
Subjective Progress Note Date: 07/14/18 This is a pleasant 88-year-old gentleman who follows with Dr. Gunderson in the office. He has a known history of diabetes mellitus, hypertension, hyperlipidemia, peripheral vascular disease, macular degeneration, CAD, multiple myeloma, carotid artery disease and prior carotid endarterectomy, nonischemic cardiomyopathy with an ejection fraction of 35-40% per echo done April 2017 and chronic atrial fibrillation. He presented to the emergency department with complaints of progressively worsening dyspnea on exertion and lower extremity edema. Chest x-ray on admission showed chronic left basilar atelectasis, chronic interstitial prominence, trace right pleural effusion and COPD which appear to be unchanged from prior exam. EKG on admission showed atrial fibrillation with occasional PVCs with controlled ventricular response. Return values on admission show hemoglobin 11.2, BUN of 23, creatinine 1.18. Troponins were negative 3. NC proBNP is elevated at 12,500. Upon examination, patient is resting comfortably in bed. He is unsure if his breathing has improved as he is not been active since arrival. He feels his edema may be somewhat better. He denies complaints of chest discomfort, palpitations, dizziness, lightheadedness, bleeding, orthopnea or PND. 07/14/2018 Patient was seen and examined this morning, overall feeling better, continues to be on IV Lasix. BUN today is 33 with creatinine of 1.1. Repeat chest x-ray showed questionable pneumonia with 7 mm nodule. Blood pressure 126/50 with a heart rate in the 90s, 95% on 5 L of oxygen. White blood cell count 17.2, hemoglobin 11, platelet count 110. Sodium 136, potassium 3.9, BUN 33 and creatinine 1.1. Objective - Vital Signs Vital signs: Vital Signs Temp 96.6 F L 07/14/18 12:00 Pulse 94 07/14/18 12:15 Resp 20 07/14/18 12:00 BP 126/53 07/14/18 12:00 Pulse Ox 95 07/14/18 12:00 Intake & Output 07/13/18 07/14/18 07/14/18 18:59 06:59 18:59 Intake Total 1200 480 Output Total 375 1250 Balance 825 -1250 480 Weight 65 kg 65.2 kg Intake: Oral 1200 480 Output: Urine 375 1250 - Exam PHYSICAL EXAMINATION: HEENT: Head is atraumatic, normocephalic. Pupils equal, round. Neck is supple. There is no elevated jugular venous pressure. HEART EXAMINATION: Heart sounds irregularly irregular, S1 and S2 with a systolic murmur. CHEST EXAMINATION: Lungs reveal scattered rhonchi bilaterally with a few bibasilar crackles. No chest wall tenderness is noted on palpation or with deep breathing. ABDOMEN: Soft, nontender. Bowel sounds are heard. No organomegaly noted. EXTREMITIES: 2+ peripheral pulses with no evidence of peripheral edema and no calf tenderness noted. NEUROLOGIC patient is awake, alert and oriented x3. Some memory loss noted. - Labs CBC & Chem 7: 07/14/18 07:13 07/14/18 07:13 Labs: Abnormal Lab Results - Last 24 Hours (Table) 07/13/18 07/13/18 07/14/18 Range/Units 17:04 20:45 06:01 WBC (3.8-10.6) k/uL RBC (4.30-5.90) m/uL Hgb (13.0-17.5) gm/dL Hct (39.0-53.0) % MCV (80.0-100.0) fL MCHC (31.0-37.0) g/dL RDW (11.5-15.5) % Plt Count (150-450) k/uL Neutrophils # (Manual) (1.3-7.7) k/uL Sodium (137-145) mmol/L BUN (9-20) mg/dL Glucose (74-99) mg/dL POC Glucose (mg/dL) 402 H 272 H 192 H (75-99) mg/dL Total Bilirubin (0.2-1.3) mg/dL Total Protein (6.3-8.2) g/dL Albumin (3.5-5.0) g/dL 07/14/18 07/14/18 07/14/18 Range/Units 07:13 07:13 11:29 WBC 17.2 H (3.8-10.6) k/uL RBC 3.55 L (4.30-5.90) m/uL Hgb 11.0 L (13.0-17.5) gm/dL Hct 36.6 L (39.0-53.0) % MCV 103.0 H (80.0-100.0) fL MCHC 30.0 L (31.0-37.0) g/dL RDW 18.7 H (11.5-15.5) % Plt Count 110 L (150-450) k/uL Neutrophils # (Manual) 15.10 H (1.3-7.7) k/uL Sodium 136 L (137-145) mmol/L BUN 33 H (9-20) mg/dL Glucose 173 H (74-99) mg/dL POC Glucose (mg/dL) 251 H (75-99) mg/dL Total Bilirubin 1.4 H (0.2-1.3) mg/dL Total Protein 5.4 L (6.3-8.2) g/dL Albumin 3.1 L (3.5-5.0) g/dL Assessment and Plan Plan: Assessment: #1 acute on chronic systolic congestive heart failure #2 chronic atrial fibrillation, anticoagulated on Eliquis #3 COPD #4 nonischemic cardiomyopathy with an ejection fraction 35-40% #5 multiple myeloma #6 hypertension #7 hyperlipidemia #8 diabetes mellitus Plan From cardiology's perspective, we would recommend to continue the patient on his current medications. Continue to monitor intake and output along with daily weights. DRILL SETUP OPERATOR note
[2018-07-14 16:31] LABS: Glucose,Whole Blood 182 mg/dL (75-99)
--- NOTE | 2018-07-14 16:45 | P.PN ---
Subjective Progress Note Date: 07/14/18 Principal diagnosis: Shortness of breath, orthopnea, nonproductive cough, weight gain and peripheral edema On 07/14/2018 patient seen in follow-up on selective care unit, he is resting comfortably in bed, in no acute distress, resolved liters of oxygen pulse ox is 92-95%, he is afebrile, hemodynamically patient is stable, lung sounds are positive for diffuse rhonchi, patient has a congested cough, and he is starting to bring up some whyte colored phlegm. He is on IV Lasix 40 mg every 12 hours, Entresto, nebulized bronchodilators, Symbicort and oral Bactrim. No complaints of chest pain, he states his breathing is improving, and lower extremity edema is improving. These labs have been reviewed, she reports 17.2, HEMOGLOBIN IS 11.0, ELECTROLYTES WERE REVIEWED, AND ARE FAIRLY UNREMARKABLE WITH THE EXCEPTION OF BUN WHICH HAS INCREASED TO 33, CREATININE IS 1.13. Patient is a negative fluid balance. Repeat chest x-ray was taken and showed a bibasilar infiltrate left greater than the right, with improvement in aeration at the right base. Objective - Vital Signs Vital signs: Vital Signs Temp 98.1 F 07/14/18 15:04 Pulse 102 H 07/14/18 16:07 Resp 18 07/14/18 15:16 BP 112/55 07/14/18 15:04 Pulse Ox 92 L 07/14/18 15:58 Intake & Output 07/13/18 07/14/18 07/14/18 18:59 06:59 18:59 Intake Total 1200 480 Output Total 375 1250 600 Balance 825 -1250 -120 Weight 65 kg 65.2 kg Intake: Oral 1200 480 Output: Urine 375 1250 600 - Exam GENERAL EXAM: Alert, pleasant, 88-year-old white male followed his oxygen with pulse ox 92% comfortable in no apparent distress. HEAD: Normocephalic/atraumatic. EYES: Normal reaction of pupils, equal size. Conjunctiva pink, sclera white. NOSE: Clear with pink turbinates. THROAT: No erythema or exudates. NECK: No masses, no JVD, no thyroid enlargement, no adenopathy. CHEST: No chest wall deformity. Symmetrical expansion. LUNGS: Equal air entry with diffuse rhonchi CVS: Regular rate and rhythm, normal S1 and S2, no gallops, no murmurs, no rubs ABDOMEN: Soft, nontender. No hepatosplenomegaly, normal bowel sounds, no guarding or rigidity. EXTREMITIES: No clubbing, 1+ edema, no cyanosis, 2+ pulses and upper and lower extremities. MUSCULOSKELETAL: Muscle strength and tone normal. SPINE: No scoliosis or deformity SKIN: No rashes CENTRAL NERVOUS SYSTEM: Alert and oriented -3. No focal deficits, tone is normal in all 4 extremities. PSYCHIATRIC: Alert and oriented -3. Appropriate affect. Intact judgment and insight. - Labs CBC & Chem 7: 07/14/18 07:13 07/14/18 07:13 Labs: Abnormal Lab Results - Last 24 Hours (Table) 07/13/18 07/13/18 07/14/18 Range/Units 17:04 20:45 06:01 WBC (3.8-10.6) k/uL RBC (4.30-5.90) m/uL Hgb (13.0-17.5) gm/dL Hct (39.0-53.0) % MCV (80.0-100.0) fL MCHC (31.0-37.0) g/dL RDW (11.5-15.5) % Plt Count (150-450) k/uL Neutrophils # (Manual) (1.3-7.7) k/uL Sodium (137-145) mmol/L BUN (9-20) mg/dL Glucose (74-99) mg/dL POC Glucose (mg/dL) 402 H 272 H 192 H (75-99) mg/dL Total Bilirubin (0.2-1.3) mg/dL Total Protein (6.3-8.2) g/dL Albumin (3.5-5.0) g/dL 07/14/18 07/14/18 07/14/18 Range/Units 07:13 07:13 11:29 WBC 17.2 H (3.8-10.6) k/uL RBC 3.55 L (4.30-5.90) m/uL Hgb 11.0 L (13.0-17.5) gm/dL Hct 36.6 L (39.0-53.0) % MCV 103.0 H (80.0-100.0) fL MCHC 30.0 L (31.0-37.0) g/dL RDW 18.7 H (11.5-15.5) % Plt Count 110 L (150-450) k/uL Neutrophils # (Manual) 15.10 H (1.3-7.7) k/uL Sodium 136 L (137-145) mmol/L BUN 33 H (9-20) mg/dL Glucose 173 H (74-99) mg/dL POC Glucose (mg/dL) 251 H (75-99) mg/dL Total Bilirubin 1.4 H (0.2-1.3) mg/dL Total Protein 5.4 L (6.3-8.2) g/dL Albumin 3.1 L (3.5-5.0) g/dL 07/14/18 Range/Units 16:30 WBC (3.8-10.6) k/uL RBC (4.30-5.90) m/uL Hgb (13.0-17.5) gm/dL Hct (39.0-53.0) % MCV (80.0-100.0) fL MCHC (31.0-37.0) g/dL RDW (11.5-15.5) % Plt Count (150-450) k/uL Neutrophils # (Manual) (1.3-7.7) k/uL Sodium (137-145) mmol/L BUN (9-20) mg/dL Glucose (74-99) mg/dL POC Glucose (mg/dL) 182 H (75-99) mg/dL Total Bilirubin (0.2-1.3) mg/dL Total Protein (6.3-8.2) g/dL Albumin (3.5-5.0) g/dL Assessment and Plan Plan: Assessment: #1. Acute exacerbation of chronic congestive heart failure #2. Acute exacerbation of chronic obstructive pulmonary disease with low normal ejection fraction of 50-55%, moderate pulmonary hypertension with right-sided pressures of 54 mmHg #3. History of multiple myeloma #4. Chronic atrial flutter #5. History of angina pectoris #6. Diabetes mellitus #7. Hypertension, hyperlipidemia #8. Previous episodes of pneumonia #9. Peripheral vascular disease #10. Carotid artery stenosis Plan: We'll continue the IV diuretics, today's chest x-ray has been reviewed with Dr. Mccullough, patient was seen and evaluated by Dr. Mccullough, there is improvement in aeration of the right lower lobe, persistent infiltrate at the left lower lobe, and is in negative fluid balance, he is breathing easier, was obtain a sputum for culture, continue with Bactrim, IV steroids and nebulized bronchodilators. Will continue to follow and make further recommendations I performed a history & physical examination of the patient and discussed their management with my nurse practitioner, Lucy Ruvalcaba. I reviewed the nurse practitioner's note and agree with the documented findings and plan of care. Lung sounds are positive for diffuse rhonchi. The findings and the impression was discussed with the patient. I attest to the documentation by the nurse practitioner. Time with Patient: Less than 30
[2018-07-14 20:47] LABS: Glucose,Whole Blood 254 mg/dL (75-99)
[2018-07-14] MEDS: INSULIN DETEMIR (LEVEMIR) 100 UNIT/ML SYR SQ SCH (22:30)
[2018-07-14] MEDS: TAMSULOSIN 0.4 MG CAP.ER.24H PO SCH (22:30)
[2018-07-14] MEDS: MELATONIN 5 MG TABLET PO SCH (22:30)
[2018-07-14] MEDS: ATORVASTATIN 40 MG TAB PO SCH (22:31)
[2018-07-15 05:51] LABS: Glucose,Whole Blood 55 mg/dL (75-99)
[2018-07-15] MEDS: FUROSEMIDE 10 MG/ML 4 ML VIAL IV SCH (05:55)
[2018-07-15] MEDS: INSULIN ASPART (NovoLOG) 100 UNIT/ML VIAL SQ SCH ×2 (06:13→12:36)
[2018-07-15 06:18] LABS: Glucose,Whole Blood 75 mg/dL (75-99)
[2018-07-15] MEDS: METOPROLOL TARTRATE 25 MG TAB PO SCH (07:40)
[2018-07-15] MEDS: LINAGLIPTIN 5 MG TABLET PO SCH (07:40)
[2018-07-15] MEDS: SENNOSIDES-DOCUSATE SODIUM 1 EACH TAB PO SCH (07:40)
[2018-07-15] MEDS: APIXABAN 2.5 MG TABLET PO SCH (07:40)
[2018-07-15] MEDS: DIGOXIN 125 MCG TAB PO SCH (07:40)
[2018-07-15] MEDS: SACUBITRIL/VALSARTAN 24 MG-26 MG TABLET PO SCH (07:41)
[2018-07-15] MEDS: ACYCLOVIR 200 MG CAP PO SCH (07:41)
[2018-07-15] MEDS: VIT A,C & E-LUTEIN-MINERALS 1 EACH TAB PO SCH (07:41)
[2018-07-15] MEDS: MEGESTROL 400 MG/10 ML CUP PO SCH (07:41)
[2018-07-15] MEDS: SODIUM CHLORIDE 0.65% NASAL SPRAY 44 ML BTL NASAL SCH (07:42)
[2018-07-15] MEDS: IPRATROPIUM-ALBUTEROL 3 ML NEB INHALATION SCH ×2 (08:12→12:00)
[2018-07-15] MEDS: SYMBICORT 160-4.5 MCG INHALER INHALATION SCH (08:12)
[2018-07-15 10:04] VITALS: BP 144/64; RESP 18; TEMP 96.7
[2018-07-15 11:31] LABS: Glucose,Whole Blood 141 mg/dL (75-99)
[2018-07-15 11:55] LABS: Calcium 8.3 mg/dL (8.4-10.2); Potassium 4.2 mmol/L (3.5-5.1)
[2018-07-15 12:11] VITALS: PULSE 91
--- NOTE | 2018-07-15 12:44 | P.PN ---
Subjective Progress Note Date: 07/15/18 Principal diagnosis: Shortness of breath, orthopnea, nonproductive cough, weight gain and peripheral edema On 07/14/2018 patient seen in follow-up on selective care unit, he is resting comfortably in bed, in no acute distress, resolved liters of oxygen pulse ox is 92-95%, he is afebrile, hemodynamically patient is stable, lung sounds are positive for diffuse rhonchi, patient has a congested cough, and he is starting to bring up some whyte colored phlegm. He is on IV Lasix 40 mg every 12 hours, Entresto, nebulized bronchodilators, Symbicort and oral Bactrim. No complaints of chest pain, he states his breathing is improving, and lower extremity edema is improving. These labs have been reviewed, she reports 17.2, HEMOGLOBIN IS 11.0, ELECTROLYTES WERE REVIEWED, AND ARE FAIRLY UNREMARKABLE WITH THE EXCEPTION OF BUN WHICH HAS INCREASED TO 33, CREATININE IS 1.13. Patient is a negative fluid balance. Repeat chest x-ray was taken and showed a bibasilar infiltrate left greater than the right, with improvement in aeration at the right base. On 07/15/2018 patient seen in follow-up on selective care unit, he is awake and alert, in no acute distress, his fluid status continues to improve, his swelling in lower extremities is resolved, patient denies any worsening shortness of breath, lung sounds are positive for diffuse rhonchi, and patient has a productive cough, he is bringing up whitish colored sputum, no fever or chills, he is maintaining negative fluid balance, clinically stable, improving, increase activity as tolerated, patient is being discharged home today. he has a follow- up appointment with Dr. Julius madden office on the August 06 Objective - Vital Signs Vital signs: Vital Signs Temp 96.7 F L 07/15/18 08:00 Pulse 91 07/15/18 12:11 Resp 18 07/15/18 12:11 BP 144/64 07/15/18 08:00 Pulse Ox 92 L 07/15/18 08:15 Intake & Output 07/14/18 07/15/18 07/15/18 18:59 06:59 18:59 Intake Total 720 300 240 Output Total 9309 367 9377 Balance -480 -400 -1310 Weight 61.9 kg Intake: Oral 720 300 240 Output: Urine 2752 316 4607 Other: # Voids 1 1 - Exam GENERAL EXAM: Alert, pleasant, 88-year-old white male followed his oxygen with pulse ox 92% comfortable in no apparent distress. HEAD: Normocephalic/atraumatic. EYES: Normal reaction of pupils, equal size. Conjunctiva pink, sclera white. NOSE: Clear with pink turbinates. THROAT: No erythema or exudates. NECK: No masses, no JVD, no thyroid enlargement, no adenopathy. CHEST: No chest wall deformity. Symmetrical expansion. LUNGS: Equal air entry with diffuse rhonchi CVS: Regular rate and rhythm, normal S1 and S2, no gallops, no murmurs, no rubs ABDOMEN: Soft, nontender. No hepatosplenomegaly, normal bowel sounds, no guarding or rigidity. EXTREMITIES: No clubbing, 1+ edema, no cyanosis, 2+ pulses and upper and lower extremities. MUSCULOSKELETAL: Muscle strength and tone normal. SPINE: No scoliosis or deformity SKIN: No rashes CENTRAL NERVOUS SYSTEM: Alert and oriented -3. No focal deficits, tone is normal in all 4 extremities. PSYCHIATRIC: Alert and oriented -3. Appropriate affect. Intact judgment and insight. - Labs CBC & Chem 7: 07/14/18 07:13 07/15/18 11:22 Labs: Abnormal Lab Results - Last 24 Hours (Table) 07/14/18 07/14/18 07/15/18 Range/Units 16:30 20:46 05:50 Sodium (137-145) mmol/L BUN (9-20) mg/dL Glucose (74-99) mg/dL POC Glucose (mg/dL) 182 H 254 H 55 L (75-99) mg/dL Calcium (8.4-10.2) mg/dL 07/15/18 07/15/18 Range/Units 11:22 11:30 Sodium 136 L (137-145) mmol/L BUN 34 H (9-20) mg/dL Glucose 122 H (74-99) mg/dL POC Glucose (mg/dL) 141 H (75-99) mg/dL Calcium 8.3 L (8.4-10.2) mg/dL Assessment and Plan Plan: Assessment: #1. Acute exacerbation of chronic congestive heart failure #2. Acute exacerbation of chronic obstructive pulmonary disease with low normal ejection fraction of 50-55%, moderate pulmonary hypertension with right-sided pressures of 54 mmHg #3. History of multiple myeloma #4. Chronic atrial flutter #5. History of angina pectoris #6. Diabetes mellitus #7. Hypertension, hyperlipidemia #8. Previous episodes of pneumonia #9. Peripheral vascular disease #10. Carotid artery stenosis Plan: Patient is doing well, improving, being discharged home today, from pulmonary perspective patient is stable for discharge home on a short course of oral antibiotics, prednisone taper, patient has up and move Dr. Madrid in the office on August 06, and he was instructed to call the office sooner if his symptoms worsen. I performed a history & physical examination of the patient and discussed their management with my nurse practitioner, Lucy Ruvalcaba. I reviewed the nurse practitioner's note and agree with the documented findings and plan of care. Lung sounds are positive for diffuse rhonchi. The findings and the impression was discussed with the patient. I attest to the documentation by the nurse practitioner. Time with Patient: Less than 30
[2018-07-15 14:12] LABS: Hemoglobin A1C 8.4 % (4.0-6.0)
--- NOTE | 2018-07-15 15:03 | P.PN ---
Subjective Progress Note Date: 07/15/18 This is a pleasant 88-year-old gentleman who follows with Dr. Gunderson in the office. He has a known history of diabetes mellitus, hypertension, hyperlipidemia, peripheral vascular disease, macular degeneration, CAD, multiple myeloma, carotid artery disease and prior carotid endarterectomy, nonischemic cardiomyopathy with an ejection fraction of 35-40% per echo done April 2017 and chronic atrial fibrillation. He presented to the emergency department with complaints of progressively worsening dyspnea on exertion and lower extremity edema. Chest x-ray on admission showed chronic left basilar atelectasis, chronic interstitial prominence, trace right pleural effusion and COPD which appear to be unchanged from prior exam. EKG on admission showed atrial fibrillation with occasional PVCs with controlled ventricular response. Return values on admission show hemoglobin 11.2, BUN of 23, creatinine 1.18. Troponins were negative 3. [place] proBNP is elevated at 12,500. Upon examination, patient is resting comfortably in bed. He is unsure if his breathing has improved as he is not been active since arrival. He feels his edema may be somewhat better. He denies complaints of chest discomfort, palpitations, dizziness, lightheadedness, bleeding, orthopnea or PND. 07/14/2018 Patient was seen and examined this morning, overall feeling better, continues to be on IV Lasix. BUN today is 33 with creatinine of 1.1. Repeat chest x-ray showed questionable pneumonia with 7 mm nodule. Blood pressure 126/50 with a heart rate in the 90s, 95% on 5 L of oxygen. White blood cell count 17.2, hemoglobin 11, platelet count 110. Sodium 136, potassium 3.9, BUN 33 and creatinine 1.1. 07/15/2018 Patient was seen and examined this morning, he is awake and alert, in no acute distress, his fluid status continues to improve, his swelling in lower extremities is resolved, patient denies any worsening shortness of breath, lung sounds are positive for diffuse rhonchi, and patient has a productive cough, he is bringing up whitish colored sputum, no fever or chills, he is maintaining negative fluid balance, clinically stable, improving, increase activity as tolerated, patient is being discharged home today. Objective - Vital Signs Vital signs: Vital Signs Temp 96.7 F L 07/15/18 08:00 Pulse 91 07/15/18 12:11 Resp 18 07/15/18 12:11 BP 144/64 07/15/18 08:00 Pulse Ox 92 L 07/15/18 08:15 Intake & Output 07/14/18 07/15/18 07/15/18 18:59 06:59 18:59 Intake Total 720 300 240 Output Total 7329 458 1600 Balance -480 400 -1310 Weight 61.9 kg Intake: Oral 720 300 240 Output: Urine [id number] Other: # Voids 1 1 - Exam PHYSICAL EXAMINATION: HEENT: Head is atraumatic, normocephalic. Pupils equal, round. Neck is supple. There is no elevated jugular venous pressure. HEART EXAMINATION: Heart sounds irregularly irregular, S1 and S2 with a systolic murmur. CHEST EXAMINATION: Lungs reveal scattered rhonchi bilaterally with a few bibasilar crackles. No chest wall tenderness is noted on palpation or with deep breathing. ABDOMEN: Soft, nontender. Bowel sounds are heard. No organomegaly noted. EXTREMITIES: 2+ peripheral pulses with no evidence of peripheral edema and no calf tenderness noted. NEUROLOGIC patient is awake, alert and oriented x3. Some memory loss noted. - Labs CBC & Chem 7: 07/14/18 07:13 07/15/18 11:22 Labs: Abnormal Lab Results - Last 24 Hours (Table) 07/14/18 07/14/18 07/14/18 Range/Units 07:13 16:30 20:46 Sodium (137-145) mmol/L BUN (9-20) mg/dL Glucose (74-99) mg/dL POC Glucose (mg/dL) 182 H 254 H (75-99) mg/dL Hemoglobin A1c 8.4 H (4.0-6.0) % Calcium (8.4-10.2) mg/dL 07/15/18 07/15/18 07/15/18 Range/Units 05:50 11:22 11:30 Sodium 136 L (137-145) mmol/L BUN 34 H (9-20) mg/dL Glucose 122 H (74-99) mg/dL POC Glucose (mg/dL) 55 L 141 H (75-99) mg/dL Hemoglobin A1c (4.0-6.0) % Calcium 8.3 L (8.4-10.2) mg/dL Assessment and Plan Plan: Assessment: #1 acute on chronic systolic congestive heart failure #2 chronic atrial fibrillation, anticoagulated on Eliquis #3 COPD #4 nonischemic cardiomyopathy with an ejection fraction 35-40% #5 multiple myeloma #6 hypertension #7 hyperlipidemia #8 diabetes mellitus Plan From cardiology's perspective, patient may be able to be discharged home today, we'll make a follow-up appointment for him in the office post discharge. DNP note has been reviewed, I agree with a documented findings and plan of care. Patient was seen and examined.
[2018-07-16] MEDS ORDERED: DEXAMETHASONE 4 MG TAB PO SCH (09:00)
[2018-08-06] MEDS ORDERED: ERGOCALCIFEROL 50,000 UNIT CAP PO SCH (17:00)
== END 2018-07-15 12:56 | disposition home health service (06) | DRG 291 ==
LOC: EC 13:41 → 3SCARD 16:56
PROVIDERS: ADMIT Internal Medicine Geriatric Medicine; ATTEND Internal Medicine Geriatric Medicine
DX: I13.0 Hypertensive heart and chronic kidney disease with heart failure and stage 1 through stage 4 chronic kidney disease, or unspecified chronic kidney disease (principal); I50.23 Acute on chronic systolic (congestive) heart failure; J96.21 Acute and chronic respiratory failure with hypoxia; C90.00 Multiple myeloma not having achieved remission; J44.1 Chronic obstructive pulmonary disease with (acute) exacerbation; J98.11 Atelectasis; E11.51 Type 2 diabetes mellitus with diabetic peripheral angiopathy without gangrene; E11.22 Type 2 diabetes mellitus with diabetic chronic kidney disease; I27.20 Pulmonary hypertension, unspecified; I48.2 Chronic atrial fibrillation; I42.9 Cardiomyopathy, unspecified; N18.2 Chronic kidney disease, stage 2 (mild); E78.5 Hyperlipidemia, unspecified; I25.10 Atherosclerotic heart disease of native coronary artery without angina pectoris; I49.3 Ventricular premature depolarization; N40.0 Benign prostatic hyperplasia without lower urinary tract symptoms; D50.9 Iron deficiency anemia, unspecified; H35.30 Unspecified macular degeneration; Z99.81 Dependence on supplemental oxygen; Z87.891 Personal history of nicotine dependence; Z79.01 Long term (current) use of anticoagulants; Z79.51 Long term (current) use of inhaled steroids; Z79.2 Long term (current) use of antibiotics; Z79.818 Long term (current) use of other agents affecting estrogen receptors and estrogen levels; Z79.52 Long term (current) use of systemic steroids; Z79.899 Other long term (current) drug therapy; Z86.19 Personal history of other infectious and parasitic diseases; Z86.79 Personal history of other diseases of the circulatory system; Z87.01 Personal history of pneumonia (recurrent); Z95.820 Peripheral vascular angioplasty status with implants and grafts; Z85.118 Personal history of other malignant neoplasm of bronchus and lung; Z98.42 Cataract extraction status, left eye; Z98.41 Cataract extraction status, right eye; Z96.1 Presence of intraocular lens; Z82.49 Family history of ischemic heart disease and other diseases of the circulatory system; Z83.3 Family history of diabetes mellitus; Z84.1 Family history of disorders of kidney and ureter
CPT/HCPCS: 36415; 71046; 80048; 80053; 82550; 82803; 83036; 83735; 83880; 84484; 85025; 85610; 85730; 87070; 87205; 93005; 93306; 94640; 94760; 96374; 96375; 99285

== ENCOUNTER 2018-07-31 22:36 | Emergency (ER) | payer MEDICARE, BC ==
--- NOTE | 2018-07-31 22:48 | ED ---
Recheck HPI - General Chief Complaint: Recheck/Abnormal Lab/Rx Stated Complaint: Slurred Speech, low sugar Time Seen by Provider: 07/31/18 22:47 Source: patient Mode of arrival: ambulatory Limitations: no limitations - History of Present Illness Initial Comments: Miah is a pleasant 82 gentleman is brought to the emergency department today by his family for evaluation of confusion and possible slurred speech. He reports patient's been in his usual state of health, around 6 PM he ate a regular dinner he reports he had a hamburger at that time his glucose was approximately 150. His ports she gave him 2 units of insulin after dinner. At approximately 10 PM he started to feel unwell, family notes that he looked like he was about to pass out and his speech seemed slurred. They checked his glucose and noted that it was only 55. He was then given a fruit bar and began feeling better but reported he still felt unwell. Patient reports feeling as though he is about to pass out though he was laying down. Patient denies any recent fevers, chills, nausea or vomiting or diarrhea. He was prescribed insulin for the first time approximately 2 weeks ago but hasn't had any episodes of hypoglycemia since being prescribed this medication. - Related Data Home Medications Medication Instructions Recorded Confirmed Ipratropium-Albuterol Nebulize 3 ml INHALATION RT-QID 05/20/14 07/31/18 [Duoneb 0.5 mg-3 mg/3 ml Soln] Tamsulosin [Flomax] 0.8 mg PO HS 05/20/14 07/31/18 Budesonide/Formoterol Fumarate 2 puff INHALATION RT-BID 03/02/16 07/31/18 [Symbicort 160-4.5 Mcg Inhaler] Acyclovir [Zovirax] 400 mg PO BID 05/23/17 07/31/18 Vit C/E/Zn/Coppr/Lutein/Zeaxan 1 cap PO BID 05/30/17 07/31/18 [Preservision Areds 2 Softgel] Megestrol [Megace] 800 mg PO DAILY 02/26/18 07/31/18 Sennosides/Docusate Sodium 1 tab PO BID 02/26/18 07/31/18 [Senna-S Laxative Tablet] Alogliptin Benzoate [Alogliptin] 25 mg PO DAILY 07/12/18 07/31/18 Dexamethasone 20 mg PO WE 07/12/18 07/31/18 Digoxin [Lanoxin] 125 mcg PO DAILY 07/12/18 07/31/18 Ergocalciferol (Vitamin D2) 50,000 unit PO Q30D 07/12/18 07/31/18 [Vitamin D2] Melatonin 10 mg PO HS 07/12/18 07/31/18 Metoprolol Tartrate [Lopressor] 25 mg PO TID 07/12/18 07/31/18 Prochlorperazine [Compazine] 10 mg PO Q6H PRN 07/12/18 07/31/18 Sacubitril/Valsartan [Entresto 24 1 tab PO BID 07/12/18 07/31/18 mg-26 mg Tablet] Simply Saline 1 spray EA NOSTRIL DAILY 07/12/18 07/31/18 guaiFENesin [Mucinex] 600 mg PO Q12HR 07/12/18 07/31/18 Previous Rx's Medication Instructions Recorded Apixaban [Eliquis] 2.5 mg PO BID tablet 05/26/17 Atorvastatin [Lipitor] 40 mg PO HS #30 tab 05/26/17 Sulfamethox-Tmp 800-160Mg [Bactrim 1 tab PO MOWEFR #0 03/03/18 DS 800-160 mg] Furosemide [Lasix] 60 mg PO DAILY #30 tab 07/15/18 Insulin Aspart [Novolog Flexpen] 100 unit SQ ACHS #100 insuln.pen 07/15/18 Insulin Detemir (Levemir) [Levemir] 10 unit SQ HS #1 syr 07/15/18 Allergies Allergy/AdvReac Type Severity Reaction Status Date / Time No Known Allergies Allergy Verified 07/31/18 23:17 Review of Systems ROS Statement: Those systems with pertinent positive or pertinent negative responses have been documented in the HPI. ROS Other: All systems not noted in ROS Statement are negative. Past Medical History Past Medical History: Atrial Flutter, Cancer, Chest Pain / Angina, COPD, Diabetes Mellitus, Eye Disorder, Hyperlipidemia, Hypertension, Pneumonia, Renal Disease, Respiratory Disorder, Vascular Disorder Additional Past Medical History / Comment(s): Chronic respiratory failure with home O2 at 2L n/c. multiple pulmonary nodules(scar tissue), multiple myeloma(oral chemo), carotid stenosis rt side, hx kidney disorder-resolved now per pt, bronchitis, alfonzo eye macular degeneration(gets injectons for tx),past shingles lt lowe leg. History of Any Multi-Drug Resistant Organisms: None Reported Past Surgical History: Heart Catheterization Additional Past Surgical History / Comment(s): left carotid endarterectomy , bilateral cataract removal and intraocular lens implants, surgery on rt eye to remove scar tissue, colonoscopy, rt leg vein surgery, surgery on "left leg to clean out veins", bronchoscopy, rt leg angiogram /angioplasty/stents, angiogram and heart cath 05/24/17. Past Anesthesia/Blood Transfusion Reactions: No Reported Reaction Past Psychological History: No Psychological Hx Reported Smoking Status: Former smoker Past Alcohol Use History: None Reported Past Drug Use History: None Reported - Past Family History Brother(s) Family Medical History: Coronary Artery Disease (CAD), Diabetes Mellitus Father Additional Family Medical History / Comment(s): kidney failure Mother Family Medical History: No Reported History General Exam - General Exam Comments Initial Comments: Physical Exam GENERAL: Chronically ill-appearing underweight elderly gentleman HENT: Normocephalic, Atraumatic. EYES: PERRL, EOMI PULMONARY: Unlabored respirations. No audible rales rhonchi or wheezing was noted. CARDIOVASCULAR: Irregularly irregular Cool extremities cap refill less than 3 seconds ABDOMEN: Soft and nontender with normal bowel sounds. SKIN: Skin is cool to the touch, no rashes or lesions : Deferred NEUROLOGIC: Patient is alert and oriented x3. Moving all extremities spontaneously MUSCULOSKELETAL: Normal extremities with adequate strength and full range of motion. No lower extremity swelling or edema. No calf tenderness. PSYCHIATRIC: Normal psychiatric evaluation Limitations: no limitations Course Vital Signs 07/31/18 22:39 Temperature 97.5 F L Pulse Rate 77 Respiratory 18 Rate Blood Pressure 188/87 O2 Sat by Pulse 94 L Oximetry Medical Decision Making - Medical Decision Making Patient was seen and evaluated upon arrival emergency department he was noted to have a glucose of only 67 and reported feeling sweaty and like he was going to pass out Patient awake alert and talking therefore decision was made to give oral apple juice for glucose replacement Labs were ordered Patient with persistent hypoglycemia with sugars in the 70s despite drinking apple juice, patient still feeling unwell. Half an amp of D50 was given. [place] immediately feeling much better, glucose was rechecked and was noted be in the 160s. Patient's labs resulted with mild transaminitis, unknown etiology this is an increase from previous. Patient has had multiple medication changes over the past few weeks. Patient remains stable and ambulatory in the emergency department. Results were discussed with the patient and at bedside. I offered observation versus discharge home they would prefer to be discharged at this point. I advised him to decrease his insulin by half check his glucose frequently, drink or eat when his glucose is getting low, contact Dr. Mike tomorrow for follow-up. In addition I did advise them of his mildly elevated liver enzymes and need for repeat testing. Patient and expressed understanding all questions pertaining care were answered patient was discharged home in stable condition. - Lab Data Result diagrams: 07/31/18 22:55 07/31/18 22:55 Lab Results 07/31/18 07/31/18 07/31/18 Range/Units 22:47 22:55 22:55 WBC 8.2 (3.8-10.6) k/uL RBC 3.85 L (4.30-5.90) m/uL Hgb 12.6 L (13.0-17.5) gm/dL Hct 40.4 (39.0-53.0) % MCV 104.9 H (80.0-100.0) fL MCH 32.7 (25.0-35.0) pg MCHC 31.2 (31.0-37.0) g/dL RDW 18.5 H (11.5-15.5) % Plt Count 210 (150-450) k/uL Neutrophils % (Manual) 75 % Lymphocytes % (Manual) 14 % Monocytes % (Manual) 8 % Eosinophils % (Manual) 3 % Neutrophils # (Manual) 6.15 (1.3-7.7) k/uL Lymphocytes # (Manual) 1.15 (1.0-4.8) k/uL Monocytes # (Manual) 0.66 (0-1.0) k/uL Eosinophils # (Manual) 0.25 (0-0.7) k/uL Nucleated RBCs 0 (0-0) /100 WBC Manual Slide Review Performed Hypochromasia Slight Anisocytosis Slight Macrocytosis Marked A Sodium 140 (137-145) mmol/L Potassium 3.6 (3.5-5.1) mmol/L Chloride 105 (98-107) mmol/L Carbon Dioxide 26 (22-30) mmol/L Anion Gap 9 mmol/L BUN 36 H (9-20) mg/dL Creatinine 1.34 H (0.66-1.25) mg/dL Est GFR (CKD-EPI)AfAm 55 (>60 ml/min/1.73 sqM) Est GFR (CKD-EPI)NonAf 48 (>60 ml/min/1.73 sqM) Glucose 50 L (74-99) mg/dL POC Glucose (mg/dL) 67 L (75-99) mg/dL POC Glu Steamfitter Supervisor ID Courtney Olivas Calcium 9.2 (8.4-10.2) mg/dL Magnesium 2.2 (1.6-2.3) mg/dL Total Bilirubin 0.4 (0.2-1.3) mg/dL AST 127 H (17-59) U/L ALT 186 H (21-72) U/L Alkaline Phosphatase 101 (38-126) U/L Total Protein 6.5 (6.3-8.2) g/dL Albumin 4.2 (3.5-5.0) g/dL Urine Color Urine Appearance (Clear) Urine pH (5.0-8.0) Ur Specific [place] (1.001-1.035) Urine Protein (Negative) Urine Glucose (UA) (Negative) Urine Ketones (Negative) Urine Blood (Negative) Urine Nitrite (Negative) Urine Bilirubin (Negative) Urine Urobilinogen (<2.0) mg/dL Ur Leukocyte Esterase (Negative) Digoxin <0.4 ng/mL 07/31/18 07/31/18 07/31/18 Range/Units 23:01 23:11 23:36 WBC (3.8-10.6) k/uL RBC (4.30-5.90) m/uL Hgb (13.0-17.5) gm/dL Hct (39.0-53.0) % MCV (80.0-100.0) fL MCH (25.0-35.0) pg MCHC (31.0-37.0) g/dL RDW (11.5-15.5) % Plt Count (150-450) k/uL Neutrophils % (Manual) % Lymphocytes % (Manual) % Monocytes % (Manual) % Eosinophils % (Manual) % Neutrophils # (Manual) (1.3-7.7) k/uL Lymphocytes # (Manual) (1.0-4.8) k/uL Monocytes # (Manual) (0-1.0) k/uL Eosinophils # (Manual) (0-0.7) k/uL Nucleated RBCs (0-0) /100 WBC Manual Slide Review Hypochromasia Anisocytosis Macrocytosis Sodium (137-145) mmol/L Potassium (3.5-5.1) mmol/L Chloride (98-107) mmol/L Carbon Dioxide (22-30) mmol/L Anion Gap mmol/L BUN (9-20) mg/dL Creatinine (0.66-1.25) mg/dL Est GFR (CKD-EPI)AfAm (>60 ml/min/1.73 sqM) Est GFR (CKD-EPI)NonAf (>60 ml/min/1.73 sqM) Glucose (74-99) mg/dL POC Glucose (mg/dL) 61 L 73 L 169 H (75-99) mg/dL POC Glu Steamf[employer] Supervisor Courtney Wasserman Matthew Callewaert, Ashley Calcium (8.4-10.2) mg/dL Magnesium (1.6-2.3) mg/dL Total Bilirubin (0.2-1.3) mg/dL AST (17-59) U/L ALT (21-72) U/L Alkaline Phosphatase (38-126) U/L Total Protein (6.3-8.2) g/dL Albumin (3.5-5.0) g/dL Urine Color Urine Appearance (Clear) Urine pH (5.0-8.0) Ur Specific [place] (1.001-1.035) Urine Protein (Negative) Urine Glucose (UA) (Negative) Urine Ketones (Negative) Urine Blood (Negative) Urine Nitrite (Negative) Urine Bilirubin (Negative) Urine Urobilinogen (<2.0) mg/dL Ur Leukocyte Esterase (Negative) Digoxin ng/mL 07/31/18 08/01/18 Range/Units 23:54 01:21 WBC (3.8-10.6) k/uL RBC (4.30-5.90) m/uL Hgb (13.0-17.5) gm/dL Hct (39.0-53.0) % MCV (80.0-100.0) fL MCH (25.0-35.0) pg MCHC (31.0-37.0) g/dL RDW (11.5-15.5) % Plt Count (150-450) k/uL Neutrophils % (Manual) % Lymphocytes % (Manual) % Monocytes % (Manual) % Eosinophils % (Manual) % Neutrophils # (Manual) (1.3-7.7) k/uL Lymphocytes # (Manual) (1.0-4.8) k/uL Monocytes # (Manual) (0-1.0) k/uL Eosinophils # (Manual) (0-0.7) k/uL Nucleated RBCs (0-0) /100 WBC Manual Slide Review Hypochromasia Anisocytosis Macrocytosis Sodium (137-145) mmol/L Potassium (3.5-5.1) mmol/L Chloride (98-107) mmol/L Carbon Dioxide (22-30) mmol/L Anion Gap mmol/L BUN (9-20) mg/dL Creatinine (0.66-1.25) mg/dL Est GFR (CKD-EPI)AfAm (>60 ml/min/1.73 sqM) Est GFR (CKD-EPI)NonAf (>60 ml/min/1.73 sqM) Glucose (74-99) mg/dL POC Glucose (mg/dL) 160 H (75-99) mg/dL POC Glu Steamfitter Supervisor ID Marielos Simons Calcium (8.4-10.2) mg/dL Magnesium (1.6-2.3) mg/dL Total Bilirubin (0.2-1.3) mg/dL AST (17-59) U/L ALT (21-72) U/L Alkaline Phosphatase (38-126) U/L Total Protein (6.3-8.2) g/dL Albumin (3.5-5.0) g/dL Urine Color Light Yellow Urine Appearance Clear (Clear) Urine pH 6.5 (5.0-8.0) Ur Specific [place] 1.008 (1.001-1.035) Urine Protein Trace H (Negative) Urine Glucose (UA) 1+ H (Negative) Urine Ketones Negative (Negative) Urine Blood Negative (Negative) Urine Nitrite Negative (Negative) Urine Bilirubin Negative (Negative) Urine Urobilinogen <2.0 (<2.0) mg/dL Ur Leukocyte Esterase Negative (Negative) Digoxin ng/mL - EKG Data -: EKG Interpreted by Me EKG Comments: EKG was obtained for evaluation of feeling as though he was going to pass out, EKG was obtained at 2254, rate is 85 rhythm is irregularly irregular narrow complex consistent with atrial fibrillation, there is a left anterior fascicular block and no acute ST elevations or depressions or evidence of acute ischemia or infarction. Disposition Clinical Impression: Hypoglycemia due to insulin, Elevated liver enzymes Disposition: HOME SELF-CARE Condition: Stable Instructions (If sedation given, give patient instructions): Hypoglycemia in a Person with Diabetes (ED) Additional Instructions: Decrease insulin to half dose tomorrow and call Dr Mike for follow up, you also need to follow up to have your labs rechecked because your liver enzymes were elevated today. Is patient prescribed a controlled substance at d/c from ED?: No Referrals: Percy Mike MD [Primary Care Provider] - 1-2 days
[2018-07-31 22:58] LABS: Glucose,Whole Blood 67 mg/dL (75-99)
[2018-07-31 23:04] LABS: Glucose,Whole Blood 61 mg/dL (75-99)
[2018-07-31] MEDS ORDERED: DEXTROSE 50% SYRINGE 50 ML IVP STA (23:05)
[2018-07-31 23:09] LABS: Anisocytosis Slight; HCT 40.4 % (39.0-53.0); HGB 12.6 gm/dL (13.0-17.5); Hypochromasia Slight; MCH 32.7 pg (25.0-35.0); MCHC 31.2 g/dL (31.0-37.0); MCV 104.9 fL (80.0-100.0); Macrocytosis Marked; Mean Platelet Volume 7.8; Platelet Count 210 k/uL (150-450); RBC 3.85 m/uL (4.30-5.90); RDW 18.5 % (11.5-15.5); WBC 8.2 k/uL (3.8-10.6)
[2018-07-31 23:19] LABS: ALT 186 U/L (21-72); AST 127 U/L (17-59); Albumin 4.2 g/dL (3.5-5.0); Alkaline Phosphatase 101 U/L (38-126); Anion Gap 9 mmol/L; Blood Urea Nitrogen 36 mg/dL (9-20); Calcium 9.2 mg/dL (8.4-10.2); Carbon Dioxide 26 mmol/L (22-30); Chloride 105 mmol/L (98-107); Digoxin <0.4 ng/mL; Glucose 50 mg/dL (74-99); Magnesium 2.2 mg/dL (1.6-2.3); Potassium 3.6 mmol/L (3.5-5.1); Sodium 140 mmol/L (137-145); Total Bilirubin 0.4 mg/dL (0.2-1.3); Total Protein 6.5 g/dL (6.3-8.2)
[2018-07-31 23:21] LABS: Glucose,Whole Blood 73 mg/dL (75-99)
[2018-07-31 23:38] LABS: Glucose,Whole Blood 169 mg/dL (75-99)
[2018-07-31 23:52] LABS: Eosinophils # (M) 0.25 k/uL (0-0.7); Lymphocytes # (M) 1.15 k/uL (1.0-4.8); Monocytes # (M) 0.66 k/uL (0-1.0); Neutrophils # (M) 6.15 k/uL (1.3-7.7); Neutrophils % (M) 75 %; Nucleated Red Blood Cells 0 /100 WBC (0-0); Total Cells Counted 100
[2018-08-01 00:05] LABS: Appearance,Urine Clear (Clear); Bilirubin,Urine Negative (Negative); Blood,Urine Negative (Negative); Color,Urine Light Yellow; Glucose,Urine (UA) 1+ (Negative); Ketones,Urine Negative (Negative); Leukocyte Esterase,Urine Negative (Negative); Nitrite,Urine Negative (Negative); PH, Urine 6.5 (5.0-8.0); Protein,Urine Trace (Negative); Specific Gravity,Urine 1.008 (1.001-1.035); Urobilinogen,Urine <2.0 mg/dL (<2.0)
[2018-08-01 01:39] LABS: Glucose,Whole Blood 160 mg/dL (75-99)
[2018-08-01 02:08] VITALS: BP 164/99; PULSE 67; RESP 19; TEMP 97.8
== END 2018-08-01 02:08 | disposition home or self-care (01) ==
LOC: EC 22:36
DX: E11.649 Type 2 diabetes mellitus with hypoglycemia without coma (principal); R74.8 Abnormal levels of other serum enzymes; R74.0 Nonspecific elevation of levels of transaminase and lactic acid dehydrogenase [LDH]; I48.92 Unspecified atrial flutter; J44.9 Chronic obstructive pulmonary disease, unspecified; E78.5 Hyperlipidemia, unspecified; I10 Essential (primary) hypertension; H35.30 Unspecified macular degeneration; J96.10 Chronic respiratory failure, unspecified whether with hypoxia or hypercapnia; Z85.89 Personal history of malignant neoplasm of other organs and systems; Z87.891 Personal history of nicotine dependence; Z79.51 Long term (current) use of inhaled steroids; Z79.899 Other long term (current) drug therapy; Z79.4 Long term (current) use of insulin; Z95.818 Presence of other cardiac implants and grafts
CPT/HCPCS: 36415; 80053; 80162; 81003; 83735; 85025; 93005; 96374; 99285

== ENCOUNTER 2018-12-02 11:17 | Inpatient (IN) | payer MEDICARE, BC ==
[2018-12-02] MEDS ORDERED: IPRATROPIUM-ALBUTEROL 3 ML NEB INHALATION STA (11:58)
--- NOTE | 2018-12-02 12:04 | ED ---
General Adult HPI - General Chief complaint: Shortness of Breath Stated complaint: Sob/cough Time Seen by Provider: 12/02/18 11:25 Source: patient, RN notes reviewed Mode of arrival: ambulatory Limitations: physical limitation - History of Present Illness Initial comments: This is an 88-year-old male who presents emergency Department complaining of having a cough but unable to get the sputum out. Patient also states she's been more short of breath lately. Patient went into see Dr. Desire Phipps called and stated his pulse ox was 89% in his blood pressure was low. When patient arrived his pulse ox on 3 L which is his normal amount of oxygen was 99% patient's low pressure was systolic was 136. Patient denies any chest pain or palpitations. Patient denies any fever chills per patient denies any headache patient denies lightheadedness patient denies abdominal pain patient denies nausea vomiting diarrhea - Related Data Home Medications Medication Instructions Recorded Confirmed Ipratropium-Albuterol Nebulize 3 ml INHALATION RT-QID 05/20/14 12/02/18 [Duoneb 0.5 mg-3 mg/3 ml Soln] Tamsulosin [Flomax] 0.8 mg PO HS 05/20/14 12/02/18 Budesonide/Formoterol Fumarate 2 puff INHALATION RT-BID 03/02/16 12/02/18 [Symbicort 160-4.5 Mcg Inhaler] Acyclovir [Zovirax] 400 mg PO BID 05/23/17 12/02/18 Vit C/E/Zn/Coppr/Lutein/Zeaxan 1 cap PO BID 05/30/17 12/02/18 [Preservision Areds 2 Softgel] Megestrol [Megace] 800 mg PO DAILY 02/26/18 12/02/18 Alogliptin Benzoate [Alogliptin] 25 mg PO DAILY 07/12/18 12/02/18 Dexamethasone 20 mg PO WE 07/12/18 12/02/18 Digoxin [Lanoxin] 125 mcg PO DAILY 07/12/18 12/02/18 Melatonin 10 mg PO HS 07/12/18 12/02/18 Metoprolol Tartrate [Lopressor] 25 mg PO TID 07/12/18 12/02/18 Prochlorperazine [Compazine] 10 mg PO Q6H PRN 07/12/18 12/02/18 Sacubitril/Valsartan [Entresto 24 1 tab PO BID 07/12/18 12/02/18 mg-26 mg Tablet] Simply Saline 1 spray EA NOSTRIL DAILY PRN 07/12/18 12/02/18 guaiFENesin [Mucinex] 600 mg PO Q12HR PRN 07/12/18 12/02/18 Cholecalciferol (Vitamin D3) 2,000 unit PO DAILY 12/02/18 12/02/18 [Vitamin D3] Insulin Detemir [Levemir Flextouch] 15 unit SQ SUMOTHFRSA 12/02/18 12/02/18 Insulin Detemir [Levemir Flextouch] 18 unit SQ TUWE 12/02/18 12/02/18 Lenalidomide [Revlimid] 5 mg PO DIRECTED 12/02/18 12/02/18 Sulfamethox-Tmp 800-160Mg [Bactrim 1 tab PO MOWEFR@0900,2100 12/02/18 12/02/18 DS 800-160 mg] Previous Rx's Medication Instructions Recorded Apixaban [Eliquis] 2.5 mg PO BID tablet 05/26/17 Atorvastatin [Lipitor] 40 mg PO HS #30 tab 05/26/17 Furosemide [Lasix] 60 mg PO DAILY #30 tab 07/15/18 Allergies Allergy/AdvReac Type Severity Reaction Status Date / Time No Known Allergies Allergy Verified 12/02/18 12:08 Review of Systems ROS Statement: Those systems with pertinent positive or pertinent negative responses have been documented in the HPI. ROS Other: All systems not noted in ROS Statement are negative. Past Medical History Past Medical History: Atrial Flutter, Cancer, Chest Pain / Angina, COPD, Diabetes Mellitus, Eye Disorder, Hyperlipidemia, Hypertension, Pneumonia, Renal Disease, Respiratory Disorder, Vascular Disorder Additional Past Medical History / Comment(s): Chronic respiratory failure with home O2 at 3L n/c. multiple pulmonary nodules(scar tissue), multiple myeloma(oral chemo), carotid stenosis rt side, hx kidney disorder-resolved now per pt, bronchitis, alfonzo eye macular degeneration(gets injectons for tx),past shingles lt lowe leg. History of Any Multi-Drug Resistant Organisms: None Reported Past Surgical History: Heart Catheterization Additional Past Surgical History / Comment(s): left carotid endarterectomy , bilateral cataract removal and intraocular lens implants, surgery on rt eye to remove scar tissue, colonoscopy, rt leg vein surgery, surgery on "left leg to clean out veins", bronchoscopy, rt leg angiogram /angioplasty/stents, angiogram Past Anesthesia/Blood Transfusion Reactions: No Reported Reaction Past Psychological History: No Psychological Hx Reported Smoking Status: Former smoker Past Alcohol Use History: None Reported Past Drug Use History: None Reported - Past Family History Brother(s) Family Medical History: Coronary Artery Disease (CAD), Diabetes Mellitus Father Additional Family Medical History / Comment(s): kidney failure Mother Family Medical History: No Reported History General Exam - General Exam Comments Initial Comments: GENERAL: Patient is well-developed and well-nourished. Patient is nontoxic and well-hyd rated and is in mild distress. ENT: Neck is soft and supple. No significant lymphadenopathy is noted. Oropharynx is clear. Moist mucous membranes. Neck has full range of motion without eliciting any pain. EYES: The sclera were anicteric and conjunctiva were pink and moist. Extraocular movements were intact and pupils were equal round and reactive to light. Eyelids were unremarkable. PULMONARY: Patient has occasional expiratory wheeze. CARDIOVASCULAR: Patient's heart rate is irregular ABDOMEN: Soft and nontender with normal bowel sounds. No palpable organomegaly was noted. There is no palpable pulsatile mass. SKIN: Skin is clear with no lesions or rashes and otherwise unremarkable. NEUROLOGIC: Patient is alert and oriented x3. Cranial nerves II through XII are grossly intact. Motor and sensory are also intact. Normal speech, volume and content. Symmetrical smile. MUSCULOSKELETAL: Normal extremities with adequate strength and full range of motion. No lower extremity swelling or edema. No calf tenderness. LYMPHATICS: No significant lymphadenopathy is noted PSYCHIATRIC: Normal psychiatric evaluation. Limitations: physical limitation Course Vital Signs 12/02/18 12/02/18 12/02/18 11:26 11:43 13:09 Temperature 97.8 F Pulse Rate 71 71 60 Respiratory 22 18 18 Rate Blood Pressure 108/66 138/69 143/63 O2 Sat by Pulse 87 L 93 L 100 Oximetry 12/02/18 12/02/18 13:32 13:43 Temperature Pulse Rate 66 68 Respiratory 18 18 Rate Blood Pressure O2 Sat by Pulse Oximetry Medical Decision Making - Medical Decision Making EKG shows normal sinus rhythm at 61 bpm OH interval is 206 QRS is 1 week QT interval 380 QTC is 382. Patient's EKG shows no ST segment elevation or depression or T wave abnormalities are noted. Chest x-ray shows no acute abnormality. Patient's troponin was mildly elevated. I spoke with Dr. Mike he agreed to admit the patient admitted the patient I consult Dr. Rodrigez - Lab Data Result diagrams: 12/02/18 12:52 12/02/18 12:52 Lab Results 12/02/18 12/02/18 12/02/18 Range/Units 12:52 12:52 12:52 WBC 2.3 L (3.8-10.6) k/uL RBC 3.29 L (4.30-5.90) m/uL Hgb 11.3 L (13.0-17.5) gm/dL Hct 36.1 L (39.0-53.0) % MCV 109.8 H (80.0-100.0) fL MCH 34.4 (25.0-35.0) pg MCHC 31.4 (31.0-37.0) g/dL RDW 15.5 (11.5-15.5) % Plt Count 118 L (150-450) k/uL Neutrophils % (Manual) 56 % Lymphocytes % (Manual) 26 % Monocytes % (Manual) 17 % Eosinophils % (Manual) 1 % Neutrophils # (Manual) 1.29 L (1.3-7.7) k/uL Lymphocytes # (Manual) 0.60 L (1.0-4.8) k/uL Monocytes # (Manual) 0.39 (0-1.0) k/uL Eosinophils # (Manual) 0.02 (0-0.7) k/uL Nucleated RBCs 0 (0-0) /100 WBC Manual Slide Review Performed Polychromasia Present Macrocytosis Marked A PT (9.0-12.0) sec INR (<1.2) APTT (22.0-30.0) sec Sodium 136 L (137-145) mmol/L Potassium 3.8 (3.5-5.1) mmol/L Chloride 105 (98-107) mmol/L Carbon Dioxide 25 (22-30) mmol/L Anion Gap 6 mmol/L BUN 19 (9-20) mg/dL Creatinine 1.29 H (0.66-1.25) mg/dL Est GFR (CKD-EPI)AfAm 58 (>60 ml/min/1.73 sqM) Est GFR (CKD-EPI)NonAf 50 (>60 ml/min/1.73 sqM) Glucose 99 (74-99) mg/dL Calcium 8.3 L (8.4-10.2) mg/dL Magnesium 2.1 (1.6-2.3) mg/dL Total Bilirubin 0.5 (0.2-1.3) mg/dL AST 40 (17-59) U/L ALT 74 H (21-72) U/L Alkaline Phosphatase 49 (38-126) U/L Troponin I (0.000-0.034) ng/mL NT-Pro-B Natriuret Pep 1240 pg/mL Total Protein 5.5 L (6.3-8.2) g/dL Albumin 3.3 L (3.5-5.0) g/dL 12/02/18 12/02/18 Range/Units 12:52 12:52 WBC (3.8-10.6) k/uL RBC (4.30-5.90) m/uL Hgb (13.0-17.5) gm/dL Hct (39.0-53.0) % MCV (80.0-100.0) fL MCH (25.0-35.0) pg MCHC (31.0-37.0) g/dL RDW (11.5-15.5) % Plt Count (150-450) k/uL Neutrophils % (Manual) % Lymphocytes % (Manual) % Monocytes % (Manual) % Eosinophils % (Manual) % Neutrophils # (Manual) (1.3-7.7) k/uL Lymphocytes # (Manual) (1.0-4.8) k/uL Monocytes # (Manual) (0-1.0) k/uL Eosinophils # (Manual) (0-0.7) k/uL Nucleated RBCs (0-0) /100 WBC Manual Slide Review Polychromasia Macrocytosis PT 10.6 (9.0-12.0) sec INR 1.0 (<1.2) APTT 22.9 (22.0-30.0) sec Sodium (137-145) mmol/L Potassium (3.5-5.1) mmol/L Chloride (98-107) mmol/L Carbon Dioxide (22-30) mmol/L Anion Gap mmol/L BUN (9-20) mg/dL Creatinine (0.66-1.25) mg/dL Est GFR (CKD-EPI)AfAm (>60 ml/min/1.73 sqM) Est GFR (CKD-EPI)NonAf (>60 ml/min/1.73 sqM) Glucose (74-99) mg/dL Calcium (8.4-10.2) mg/dL Magnesium (1.6-2.3) mg/dL Total Bilirubin (0.2-1.3) mg/dL AST (17-59) U/L ALT (21-72) U/L Alkaline Phosphatase (38-126) U/L Troponin I 0.074 H* (0.000-0.034) ng/mL NT-Pro-B Natriuret Pep pg/mL Total Protein (6.3-8.2) g/dL Albumin (3.5-5.0) g/dL Disposition Clinical Impression: Dyspnea, Cough, Elevated troponin Disposition: ADMITTED IP TO THIS HOSP Referrals: Percy Mike MD [Primary Care Provider] - 1-2 days Time of Disposition: 15:33
[2018-12-02 13:11] LABS: Albumin 3.3 g/dL (3.5-5.0); Calcium 8.3 mg/dL (8.4-10.2); Magnesium 2.1 mg/dL (1.6-2.3); Potassium 3.8 mmol/L (3.5-5.1); Total Bilirubin 0.5 mg/dL (0.2-1.3); Total Protein 5.5 g/dL (6.3-8.2)
[2018-12-02 13:13] LABS: Partial Thromboplastin Time 22.9 sec (22.0-30.0); Prothrombin Time 10.6 sec (9.0-12.0)
[2018-12-02 13:17] LABS: HCT 36.1 % (39.0-53.0); HGB 11.3 gm/dL (13.0-17.5); MCH 34.4 pg (25.0-35.0); MCHC 31.4 g/dL (31.0-37.0); MCV 109.8 fL (80.0-100.0); Macrocytosis Marked; Mean Platelet Volume 7.2; Platelet Count 118 k/uL (150-450); RBC 3.29 m/uL (4.30-5.90); RDW 15.5 % (11.5-15.5); WBC 2.3 k/uL (3.8-10.6)
[2018-12-02 14:18] LABS: Eosinophils # (M) 0.02 k/uL (0-0.7); Monocytes # (M) 0.39 k/uL (0-1.0); Neutrophils % (M) 56 %; Nucleated Red Blood Cells 0 /100 WBC (0-0); Polychromasia Present; Total Cells Counted 100
--- NOTE | 2018-12-02 14:29 | XR ---
EXAMINATION TYPE: XR chest 2V DATE OF EXAM: 12/02/2018 COMPARISON: Prior chest x-ray 07/14/2018 HISTORY: Difficulty breathing history COPD TECHNIQUE: Frontal and lateral views of the chest are obtained on 3 images. FINDINGS: There are prominent lung volumes present consistent with COPD. Aorta is dense. Bone mineral ization is reduced. There is no focal air space opacity, pleural effusion, or pneumothorax seen. The cardiac silhouette size is within normal limits. The osseous structures are intact. There are over lying cardiac leads. Interstitium is increased as on prior. Some probable basilar scarring is again n oted. IMPRESSION: No acute cardiopulmonary process.
[2018-12-02] MEDS ORDERED: NITROGLYCERIN SL TABS 0.4 MG TAB SUBLINGUAL PRN (15:35)
[2018-12-02 16:05] LABS: Glucose,Whole Blood 103 mg/dL (75-99)
[2018-12-02] MEDS ORDERED: guaiFENesin 600 MG TABLET.ER PO PRN (19:48)
[2018-12-02] MEDS ORDERED: PROCHLORPERAZINE 10 MG TAB PO PRN (19:48)
[2018-12-02] MEDS: IPRATROPIUM-ALBUTEROL 3 ML NEB INHALATION SCH (19:59)
[2018-12-02] MEDS: SYMBICORT 160-4.5 MCG INHALER INHALATION SCH (19:59)
[2018-12-02] MEDS: NITROGLYCERIN OINT 1 INCH/GM PACKET TOPICAL SCH ×2 (20:22→23:26)
[2018-12-02 20:31] LABS: Glucose,Whole Blood 105 mg/dL (75-99)
[2018-12-02] MEDS: ATORVASTATIN 40 MG TAB PO SCH (20:35)
[2018-12-02] MEDS: ACYCLOVIR 200 MG CAP PO SCH (20:35)
[2018-12-02] MEDS: METOPROLOL TARTRATE 25 MG TAB PO SCH (20:35)
[2018-12-02] MEDS: MELATONIN 5 MG TABLET PO SCH (20:36)
[2018-12-02] MEDS: SACUBITRIL/VALSARTAN 24 MG-26 MG TABLET PO SCH (20:36)
[2018-12-02] MEDS: APIXABAN 2.5 MG TABLET PO SCH (20:36)
[2018-12-03 06:12] LABS: Glucose,Whole Blood 103 mg/dL (75-99)
[2018-12-03 06:13] LABS: Cholesterol 92 mg/dL (<200); HDL Cholesterol 56 mg/dL (40-60); LDL Cholesterol,Calculated 23 mg/dL (0-99); Triglycerides 64 mg/dL (<150)
[2018-12-03] MEDS: NITROGLYCERIN OINT 1 INCH/GM PACKET TOPICAL SCH (06:35)
[2018-12-03] MEDS: IPRATROPIUM-ALBUTEROL 3 ML NEB INHALATION SCH ×4 (07:54→20:56)
[2018-12-03] MEDS: SYMBICORT 160-4.5 MCG INHALER INHALATION SCH ×2 (07:54→20:56)
--- NOTE | 2018-12-03 08:49 | P.CRDCN ---
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 He has a history of diabetes, hypertension, hyperlipidemia, peripheral vascular disease with prior procedures, macular degeneration, multiple myeloma for which she is currently receiving chemotherapy, carotid artery disease with prior carotid endarterectomy, nonischemic cardiomyopathy with prior documented ejection fraction of 35-40%, paroxysmal atrial fibrillation. Patient states he's been having some shortness of breath and heavy feeling in his chest, productive cough. He states that the heavy feeling he's been having in his chest resolves after he coughs up a significant amount of sputum. He went to see his primary care doctor in the office, and was referred to come to the emergency room to have a chest x-ray performed, subsequently the patient got admitted. Cardiology consultation was requested because of abnormal troponins. Chest x-ray on presentation here did not reveal any acute cardiopulmonary process. EKG on presentation here showed a normal sinus rhythm with nonspecific ST-T wave changes. Blood pressure 148/90, heart rate in the 80s, temperature 98.2, he is 92% on oxygen. White blood cell count 2.3, hemoglobin 11.3, platelet count 118. Sodium 136, potassium 3.8, BUN 19, creatinine 1.2. BNP level MCCXL, troponins 0.074, 0.070, 0.066. Most recent echocardiogram with Doppler study was performed in June of this year, showed an ejection fraction of 50-55%, severe tricuspid regurgitation. At the t aspen of my examination this morning, patient denies any chest discomfort, his breathing is overall stable, he continues to have significant productive cough of clear to light yellow sputum. Past Medical History Past Medical History: Atrial Flutter, Cancer, Chest Pain / Angina, COPD, Diabetes Mellitus, Eye Disorder, Hyperlipidemia, Hypertension, Pneumonia, Renal Disease, Respiratory Disorder, Vascular Disorder Additional Past Medical History / Comment(s): Chronic respiratory failure with home O2 at 3L n/c. multiple pulmonary nodules(scar tissue), multiple myeloma(oral chemo), carotid stenosis rt side, hx kidney disorder-resolved now per pt, bronchitis, alfonzo eye macular degeneration(gets injectons for tx),past shingles lt lowe leg. History of Any Multi-Drug Resistant Organisms: None Reported Past Surgical History: Heart Catheterization Additional Past Surgical History / Comment(s): left carotid endarterectomy , bilateral cataract removal and intraocular lens implants, surgery on rt eye to remove scar tissue, colonoscopy, rt leg vein surgery, surgery on "left leg to clean out veins", bronchoscopy, rt leg angiogram /angioplasty/stents, angiogram Past Anesthesia/Blood Transfusion Reactions: No Reported Reaction Past Psychological History: No Psychological Hx Reported Smoking Status: Former smoker Past Alcohol Use History: None Reported Additional Past Alcohol Use History / Comment(s): Patient started smoking at age 19 and quit in 2012-1/2 packs per day for total of 93 pack year history. Patient was home with his . He does not use any device for ambulation. He has home O2 and nebulizer in place. Past Drug Use History: None Reported - Past Family History Brother(s) Family Medical History: Coronary Artery Disease (CAD), Diabetes Mellitus Father Additional Family Medical History / Comment(s): kidney failure Mother Family Medical History: No Reported History Medications and Allergies Home Medications Medication Instructions Recorded Confirmed Type Ipratropium-Albuterol Nebulize 3 ml INHALATION RT-QID 05/20/14 12/02/18 History [Duoneb 0.5 mg-3 mg/3 ml Soln] Tamsulosin [Flomax] 0.8 mg PO HS 05/20/14 12/02/18 History Budesonide/Formoterol Fumarate 2 puff INHALATION RT-BID 03/02/16 12/02/18 History [Symbicort 160-4.5 Mcg Inhaler] Acyclovir [Zovirax] 400 mg PO BID 05/23/17 12/02/18 History Apixaban [Eliquis] 2.5 mg PO BID tablet 05/26/17 12/02/18 Rx Atorvastatin [Lipitor] 40 mg PO HS #30 tab 05/26/17 12/02/18 Rx Vit C/E/Zn/Coppr/Lutein/Zeaxan 1 cap PO BID 05/30/17 12/02/18 History [Preservision Areds 2 Softgel] Megestrol [Megace] 800 mg PO DAILY 02/26/18 12/02/18 History Alogliptin Benzoate [Alogliptin] 25 mg PO DAILY 07/12/18 12/02/18 History Dexamethasone 20 mg PO WE 07/12/18 12/02/18 History Digoxin [Lanoxin] 125 mcg PO DAILY 07/12/18 12/02/18 History Melatonin 10 mg PO HS 07/12/18 12/02/18 History Metoprolol Tartrate [Lopressor] 25 mg PO TID 07/12/18 12/02/18 History Prochlorperazine [Compazine] 10 mg PO Q6H PRN 07/12/18 12/02/18 History Sacubitril/Valsartan [Entresto 24 1 tab PO BID 07/12/18 12/02/18 History mg-26 mg Tablet] Simply Saline 1 spray EA NOSTRIL DAILY PRN 07/12/18 12/02/18 History guaiFENesin [Mucinex] 600 mg PO Q12HR PRN 07/12/18 12/02/18 History Furosemide [Lasix] 60 mg PO DAILY #30 tab 07/15/18 12/02/18 Rx Cholecalciferol (Vitamin D3) 2,000 unit PO DAILY 12/02/18 12/02/18 History [Vitamin D3] Insulin Detemir [Levemir Flextouch] 15 unit SQ SUMOTHFRSA 12/02/18 12/02/18 History Insulin Detemir [Levemir Flextouch] 18 unit SQ TUWE 12/02/18 12/02/18 History Lenalidomide [Revlimid] 5 mg PO DIRECTED 12/02/18 12/02/18 History Sulfamethox-Tmp 800-160Mg [Bactrim 1 tab PO MOWEFR@0900,2100 12/02/18 12/02/18 History DS 800-160 mg] Allergies Allergy/AdvReac Type Severity Reaction Status Date / Time No Known Allergies Allergy Verified 12/02/18 12:08 Physical Exam Vitals: Vital Signs Temp Pulse Pulse Resp BP BP Pulse Ox 12/03/18 08:05 74 12/03/18 07:54 72 12/03/18 04:00 98.2 F 83 17 149/98 92 L 12/03/18 00:00 97.5 F L 73 17 143/56 93 L 12/02/18 20:08 78 16 12/02/18 20:02 96 12/02/18 20:00 97.8 F 78 19 159/85 97 12/02/18 19:59 76 16 12/02/18 17:30 74 16 132/68 95 12/02/18 15:53 73 18 122/60 97 12/02/18 13:43 68 18 12/02/18 13:32 66 18 12/02/18 13:09 60 18 143/63 100 12/02/18 11:43 71 18 138/69 93 L 12/02/18 11:26 97.8 F 71 22 108/66 87 L Intake and Output 12/02/18 12/03/18 12/03/18 22:59 06:59 14:59 Intake Total 240 480 Balance 240 480 Intake: Oral 240 480 Other: Voiding Method Toilet Toilet # Voids 2 Weight 58 kg PHYSICAL EXAMINATION: GENERAL: 88 stroke gentleman in no acute distress at the time of my examination HEENT: Head is atraumatic, normocephalic. Pupils equal, round. Sclera anicteric. Conjunctiva are clear. Mucous membranes of the mouth are moist. Neck is supple. There is no elevated jugular venous pressure. No carotid bruit is heard. HEART EXAMINATION: Heart S1 and S2 systolic murmur is heard. CHEST EXAMINATION: Lungs reveal some scattered wheezing throughout with bibasilar crackles heard. ABDOMEN: Soft, nontender. Bowel sounds are heard. No organomegaly noted. EXTREMITIES: 2+ peripheral pulses with no evidence of peripheral edema and no calf tenderness noted. NEUROLOGIC patient is awake, alert and oriented 3 . . Results 12/02/18 12:52 12/02/18 12:52 Cardiac Enzymes 12/02/18 12/02/18 12/02/18 Range/Units 12:52 12:52 19:53 AST 40 (17-59) U/L Troponin I 0.074 H* 0.070 H* (0.000-0.034) ng/mL 12/03/18 Range/Units 00:22 AST (17-59) U/L Troponin I 0.066 H* (0.000-0.034) ng/mL Coagulation 12/02/18 Range/Units 12:52 PT 10.6 (9.0-12.0) sec APTT 22.9 (22.0-30.0) sec Lipids 12/03/18 Range/Units 05:35 Triglycerides 64 (<150) mg/dL Cholesterol 92 (<200) mg/dL HDL Cholesterol 56 (40-60) mg/dL CBC 12/02/18 Range/Units 12:52 WBC 2.3 L (3.8-10.6) k/uL RBC 3.29 L (4.30-5.90) m/uL Hgb 11.3 L (13.0-17.5) gm/dL Hct 36.1 L (39.0-53.0) % Plt Count 118 L (150-450) k/uL Comprehensive Metabolic Panel 12/02/18 Range/Units 12:52 Sodium 136 L (137-145) mmol/L Potassium 3.8 (3.5-5.1) mmol/L Chloride 105 (98-107) mmol/L Carbon Dioxide 25 (22-30) mmol/L BUN 19 (9-20) mg/dL Creatinine 1.29 H (0.66-1.25) mg/dL Glucose 99 (74-99) mg/dL Calcium 8.3 L (8.4-10.2) mg/dL AST 40 (17-59) U/L ALT 74 H (21-72) U/L Alkaline Phosphatase 49 (38-126) U/L Total Protein 5.5 L (6.3-8.2) g/dL Albumin 3.3 L (3.5-5.0) g/dL Current Medications Generic Name Dose Route Start Last Admin Trade Name Freq PRN Reason Stop Dose Admin Acyclovir 400 mg 12/02/18 21:00 12/02/18 20:35 Zovirax PO 400 mg BID ALEX Administration Albuterol/Ipratropium 3 ml 12/02/18 20:00 12/03/18 07:54 Duoneb 0.5 Mg-3 Mg/3 Ml Soln INHALATION 3 ml RT-QID ALEX Administration Apixaban 2.5 mg 12/02/18 21:00 12/02/18 20:36 Eliquis PO 2.5 mg BID ALEX Administration Aspirin 325 mg 12/03/18 09:00 Aspirin PO DAILY [facility] Atorvastatin Calcium 40 mg 12/02/18 21:00 12/02/18 20:35 Lipitor PO 40 mg HS ALEX Administration Budesonide/Formoterol Fumarate 2 puff 12/02/18 20:00 12/03/18 07:54 Symbicort 160-4.5 Mcg Inhaler INHALATION 2 puff RT-BID [facility] Administration Cholecalciferol 2,000 unit 12/03/18 09:00 Vitamin D3 (25 Mcg = 1000 Iu) PO DAILY [facility] Dexamethasone 20 mg 12/03/18 09:00 Hexadrol PO WE [facility] Digoxin 125 mcg 12/03/18 09:00 Lanoxin PO DAILY [facility] Furosemide 60 mg 12/03/18 09:00 Lasix PO DAILY [facility] Guaifenesin 600 mg 12/02/18 19:48 12/02/18 20:40 Mucinex PO 600 mg Q12HR PRN Administration Congestion Insulin Detemir 15 unit 12/04/18 09:00 Levemir SQ SUMOTHFRSA [facility] Insulin Detemir 18 unit 12/03/18 09:00 Levemir SQ TUWE [facility] Linagliptin 5 mg 12/03/18 09:00 Tradjenta PO DAILY [facility] Megestrol Acetate 800 mg 12/03/18 09:00 Megace PO DAILY [facility] Melatonin 10 mg 12/02/18 21:00 12/02/18 20:36 Melatonin PO 10 mg HS [facility] Administration Metoprolol Tartrate 25 mg 12/02/18 22:00 12/02/18 20:35 Lopressor PO 25 mg TID [facility] Administration Nitroglycerin 0.4 mg 12/02/18 15:35 Nitrostat SUBLINGUAL Q5M PRN Chest Pain Nitroglycerin 1 inch 12/02/18 18:00 12/03/18 06:35 Nitro-Bid Oint TOPICAL 1 inch Q6HR [facility] Administration Lenalidomide [ 5 mg 12/05/18 09:00 Revlimid] 5 Mg PO DAILY [facility] Prochlorperazine Maleate 10 mg 12/02/18 19:48 Compazine PO Q6H PRN Nausea Sacubitril/Valsartan 1 each 12/02/18 21:00 12/02/18 20:36 Entresto 24 Mg-26 Mg Tablet PO 1 each BID [facility] Administration Intake and Output 12/02/18 12/03/18 12/03/18 22:59 06:59 14:59 Intake Total 240 480 Balance 240 480 Intake: Oral 240 480 Other: Voiding Method Toilet Toilet # Voids 2 Weight 58 kg 12/02/18 12:52 12/02/18 12:52 EKG Interpretations (text) EKG shows a normal sinus rhythm with nonspecific ST-T wave changes Assessment and Plan Plan: Assessment and plan #1 symptoms of productive cough and associated shortness of breath, possible acute tracheobronchitis #2 symptoms of chest fullness, improved significantly after coughing up significant amounts of sputum. Atypical for acute coronary syndrome. Troponins 0.074, 0.07, 0.06. EKG shows normal sinus rhythm with nonspecific ST-T wave changes. #3 diabetes #4 hypertension #5 hyperlipidemia #6 COPD #7 PVD with prior vascular procedures #8 carotid artery disease with prior carotid endarterectomy #9 nonischemic cardiomyopathy #10 multiple myeloma for which the patient is currently receiving chemotherapy #10 macular degeneration #11 chronic respiratory failure with chronic home O2 use and multiple pulmonary nodules Plan We will repeat an echocardiogram with Doppler study, patient's abnormality in troponin could be secondary to hypoxia, O2 saturation in the office prior to admission was 88%. We will continue Eliquis 2-1/2 mg one tablet by mouth twice a day, decrease aspirin to 81 mg daily, continue Lipitor 40, continue metoprolol, discontinue Nitropaste, continue Entresto. Further recommendations to follow. DNP note has been reviewed, I agree with a documented findings and plan of care. Patient was seen and examined.
[2018-12-03] MEDS ORDERED: DEXAMETHASONE 4 MG TAB PO SCH (09:00)
[2018-12-03] MEDS ORDERED: INSULIN DETEMIR (LEVEMIR) 100 UNIT/ML SYR SQ SCH (09:00)
[2018-12-03] MEDS ORDERED: ASPIRIN 325 MG TAB PO SCH (09:00)
[2018-12-03] MEDS: LINAGLIPTIN 5 MG TABLET PO SCH (09:45)
[2018-12-03] MEDS: DIGOXIN 125 MCG TAB PO SCH (09:45)
[2018-12-03] MEDS: METOPROLOL TARTRATE 25 MG TAB PO SCH ×3 (09:45→20:30)
[2018-12-03] MEDS: FUROSEMIDE 20 MG TAB PO SCH (09:45)
[2018-12-03] MEDS: CHOLECALCIFEROL 1,000 UNIT TAB PO SCH (09:45)
[2018-12-03] MEDS: APIXABAN 2.5 MG TABLET PO SCH ×2 (09:45→20:29)
[2018-12-03] MEDS: ACYCLOVIR 200 MG CAP PO SCH ×2 (09:46→20:29)
[2018-12-03] MEDS: SACUBITRIL/VALSARTAN 24 MG-26 MG TABLET PO SCH ×2 (09:46→20:30)
[2018-12-03] MEDS: MEGESTROL 400 MG/10 ML CUP PO SCH (09:46)
[2018-12-03 10:19] VITALS: BMI 18.3
[2018-12-03] MEDS ORDERED: predniSONE 20 MG TAB PO SCH (11:30)
[2018-12-03 11:44] LABS: Glucose,Whole Blood 248 mg/dL (75-99)
[2018-12-03] MEDS: ASPIRIN 81 MG PO SCH (11:52)
--- NOTE | 2018-12-03 12:05 | P.HPIM ---
History of Present Illness H&P Date: 12/02/18 Chief Complaint: Respiratory failure, elevated troponin, severe bronchitis, advanced COPD 88-year-old male one of my office patient with history of lung cancer, COPD, atherosclerotic heart disease, A. fib, ischemic cardiomyopathy and severe congestive heart failure medical management who was in the office today to see my partner for worsening dyspnea and shortness of breath, patient was very hypoxic and dyspneic with tachycardia with his pulse ox running in the low 80 with him not feeling well and up being sent to the emergency department at [facility] where was seen and evaluated found to have very hypoxia with A. fib pulse rate running around 90 beats per minutes elevated troponin with mildly elevated BNP and chest x-ray showed more bronchitis with COPD with no pleural effusion at the time. With the current circumstances decided to admit patient to the hospital titrate his O2 start on steroid keep him on updraft treatment [id number] and investigate his elevated troponin furthermore consult cardiology and pulmonary. Review of Systems CONSTITUTIONAL: Well-developed look chronically sick in mild respiratory distress EYES: No icterus sclerae, no conjunctivitis. EARS, NOSE, MOUTH, THROAT, and FACE: No sore throat, lymphadenopathy, carotid bruits or deformity. RESPIRATORY: Positive shortness of breath cough or wheezes CARDIOVASCULAR: + CP, Palpitation, + PND, Orthopnea and angina. GASTROINTESTINAL: No Abd pain, Nausea or vomiting, no Diarrhea or constipation, No GI Bleed, no distention or masses. GENITOURINARY: Negative for Hematuria or UTI, no kidney stones. INTEGUMENT/BREAST: Negative for any muscular injury with mild osteoarthritis.. HEMATOLOGIC/LYMPHATIC: Negative for bleed or purpura. MUSCULOSKELTAL: Negative for Myalgia or arthralgia. NEURLOGICAL: No LOC, Sz or syncope, blurred vision dizziness or abnormality.. BEHAVIORAL/PSYCH: Negative. ENDOCRINE: Negative. Past Medical History Past Medical History: Atrial Flutter, Cancer, Chest Pain / Angina, COPD, Diabetes Mellitus, Eye Disorder, Hyperlipidemia, Hypertension, Pneumonia, Renal Disease, Respiratory Disorder, Vascular Disorder Additional Past Medical History / Comment(s): Chronic respiratory failure with home O2 at 3L n/c. multiple pulmonary nodules(scar tissue), multiple myeloma(oral chemo), carotid stenosis rt side, hx kidney disorder-resolved now per pt, bronchitis, alfonzo eye macular degeneration(gets injectons for tx),past shingles lt lowe leg. History of Any Multi-Drug Resistant Organisms: None Reported Past Surgical History: Heart Catheterization Additional Past Surgical History / Comment(s): left carotid endarterectomy , bilateral cataract removal and intraocular lens implants, surgery on rt eye to remove scar tissue, colonoscopy, rt leg vein surgery, surgery on "left leg to clean out veins", bronchoscopy, rt leg angiogram /angioplasty/stents, angiogram Past Anesthesia/Blood Transfusion Reactions: No Reported Reaction Past Psychological History: No Psychological Hx Reported Smoking Status: Former smoker Past Alcohol Use History: None Reported Additional Past Alcohol Use History / Comment(s): Patient started smoking at age 19 and quit in 2012-1/2 packs per day for total of 93 pack year history. Patient was home with his . He does not use any device for ambulation. He has home O2 and nebulizer in place. Past Drug Use History: None Reported - Past Family History Brother(s) Family Medical History: Coronary Artery Disease (CAD), Diabetes Mellitus Father Additional Family Medical History / Comment(s): kidney failure Mother Family Medical History: No Reported History Medications and Allergies Home Medications Medication Instructions Recorded Confirmed Type Ipratropium-Albuterol Nebulize 3 ml INHALATION RT-QID 05/20/14 12/02/18 History [Duoneb 0.5 mg-3 mg/3 ml Soln] Tamsulosin [Flomax] 0.8 mg PO HS 05/20/14 12/02/18 History Budesonide/Formoterol Fumarate 2 puff INHALATION RT-BID 03/02/16 12/02/18 History [Symbicort 160-4.5 Mcg Inhaler] Acyclovir [Zovirax] 400 mg PO BID 05/23/17 12/02/18 History Apixaban [Eliquis] 2.5 mg PO BID tablet 05/26/17 12/02/18 Rx Atorvastatin [Lipitor] 40 mg PO HS #30 tab 05/26/17 12/02/18 Rx Vit C/E/Zn/Coppr/Lutein/Zeaxan 1 cap PO BID 05/30/17 12/02/18 History [Preservision Areds 2 Softgel] Megestrol [Megace] 800 mg PO DAILY 02/26/18 12/02/18 History Alogliptin Benzoate [Alogliptin] 25 mg PO DAILY 07/12/18 12/02/18 History Dexamethasone 20 mg PO WE 07/12/18 12/02/18 History Digoxin [Lanoxin] 125 mcg PO DAILY 07/12/18 12/02/18 History Melatonin 10 mg PO HS 07/12/18 12/02/18 History Metoprolol Tartrate [Lopressor] 25 mg PO TID 07/12/18 12/02/18 History Prochlorperazine [Compazine] 10 mg PO Q6H PRN 07/12/18 12/02/18 History Sacubitril/Valsartan [Entresto 24 1 tab PO BID 07/12/18 12/02/18 History mg-26 mg Tablet] Simply Saline 1 spray EA NOSTRIL DAILY PRN 07/12/18 12/02/18 History guaiFENesin [Mucinex] 600 mg PO Q12HR PRN 07/12/18 12/02/18 History Furosemide [Lasix] 60 mg PO DAILY #30 tab 07/15/18 12/02/18 Rx Cholecalciferol (Vitamin D3) 2,000 unit PO DAILY 12/02/18 12/02/18 History [Vitamin D3] Insulin Detemir [Levemir Flextouch] 15 unit SQ SUMOTHFRSA 12/02/18 12/02/18 History Insulin Detemir [Levemir Flextouch] 18 unit SQ TUWE 12/02/18 12/02/18 History Lenalidomide [Revlimid] 5 mg PO DIRECTED 12/02/18 12/02/18 History Sulfamethox-Tmp 800-160Mg [Bactrim 1 tab PO MOWEFR@0900,2100 12/02/18 12/02/18 History DS 800-160 mg] Allergies Allergy/AdvReac Type Severity Reaction Status Date / Time No Known Allergies Allergy Verified 12/02/18 12:08 Physical Exam Vitals: Vital Signs Temp Pulse Pulse Resp BP BP Pulse Ox 12/02/18 17:30 74 16 132/68 95 12/02/18 15:53 73 18 122/60 97 12/02/18 13:43 68 18 12/02/18 13:32 66 18 12/02/18 13:09 60 18 143/63 100 12/02/18 11:43 71 18 138/69 93 L 12/02/18 11:26 97.8 F 71 22 108/66 87 L Intake and Output 12/02/18 12/02/18 12/02/18 06:59 14:59 22:59 Intake Total 240 Balance 240 Intake: Oral 240 Other: Weight 60.781 kg General Appearance: Alert, cooperative, mild distress look chronically sick and is age-appropriate Neck HEENT: Supple, no lymphadenopathy, no thyroid enlargement, no carotid bruits. Lungs: Decreased breath some bilateral fine rhonchi positive inspiratory expiratory wheezes with worse crackles in the left side compared to the right. Chest Wall: Decrease expansion with deep inspiration no tenderness and no deformity was found on exam, no costochondral pain or discomfort. Heart: Irregular rhythm and rate S1-S2 positive S3 positive ejection murmur +5 cm JVD. Back: Symmetric, no curvature, ROM normal, no CVA tenderness. Abdomen: Soft, non-tender, bowel sounds active all four quadrants, no masses, no organomegaly. Extremities: Trace edema slight discoloration from the knee down bilaterally with mild arthritis. Pulses: Not palpable both side. Skin: Skin color, texture, tugor normal, no rashes or lesions. Neurologic: Alert oriented x3 cranial nerves II through XII intact, no motor deficit, no abnormal balance or gait. Results CBC & Chem 7: 12/02/18 12:52 12/02/18 12:52 Labs: Abnormal Lab Results - Last 24 Hours (Table) 12/02/18 12/02/18 12/02/18 Range/Units 12:52 12:52 12:52 WBC 2.3 L (3.8-10.6) k/uL RBC 3.29 L (4.30-5.90) m/uL Hgb 11.3 L (13.0-17.5) gm/dL Hct 36.1 L (39.0-53.0) % MCV 109.8 H (80.0-100.0) fL Plt Count 118 L (150-450) k/uL Neutrophils # (Manual) 1.29 L (1.3-7.7) k/uL Lymphocytes # (Manual) 0.60 L (1.0-4.8) k/uL Macrocytosis Marked A Sodium 136 L (137-145) mmol/L Creatinine 1.29 H (0.66-1.25) mg/dL POC Glucose (mg/dL) (75-99) mg/dL Calcium 8.3 L (8.4-10.2) mg/dL ALT 74 H (21-72) U/L Troponin I 0.074 H* (0.000-0.034) ng/mL Total Protein 5.5 L (6.3-8.2) g/dL Albumin 3.3 L (3.5-5.0) g/dL 12/02/18 Range/Units 16:01 WBC (3.8-10.6) k/uL RBC (4.30-5.90) m/uL Hgb (13.0-17.5) gm/dL Hct (39.0-53.0) % MCV (80.0-100.0) fL Plt Count (150-450) k/uL Neutrophils # (Manual) (1.3-7.7) k/uL Lymphocytes # (Manual) (1.0-4.8) k/uL Macrocytosis Sodium (137-145) mmol/L Creatinine (0.66-1.25) mg/dL POC Glucose (mg/dL) 103 H (75-99) mg/dL Calcium (8.4-10.2) mg/dL ALT (21-72) U/L Troponin I (0.000-0.034) ng/mL Total Protein (6.3-8.2) g/dL Albumin (3.5-5.0) g/dL Thrombosis Risk Factor Assmnt - DVT/VTE Prophylaxis DVT/VTE Prophylaxis: Pharmacologic Prophylaxis ordered, Mechanical Prophylaxis ordered - Choose All That Apply Any of the Below Risk Factors Present?: Yes Each Factor Represents 1 point: Abnormal pulmonary function (COPD), Serious lung disease incl. pneumonia (< 1month) Each Risk Factor Represents 3 Points: Age 75 years or older Thrombosis Risk Factor Assessment Total Risk Factor Score: 5 Thrombosis Risk Factor Assessment Level: High Risk Assessment and Plan Plan: 1 acute respiratory failure: Combination of COPD exacerbation with severe purulent tracheal bronchitis which will be treated at this point continue O2 continue updrafts and continue steroid. 2 COPD excessive patient: Patient be on Solu-Medrol 60 mg IV every 6 hours continue DuoNeb and Pulmicort will consult pulmonary continue O2 and titrate his oxygen to keep pulse ox above 90 percentile. 3 purulent tracheal bronchitis with early pneumonitis patient will be on Rocephin and doxycycline sputum culture will be requested. 4 elevated troponin with possibility of non-ST myocardial infarction: Patient will be seen cardiology review his echo and cardiac testing recently will continue medical management for now if his troponin jumped quite bed up will consult cardiology for further invasive procedure. 5 ischemic cardiopathy with advance congestive heart failure systolic dysfunction: Patient has been on Enpresse to along with diuretics and digoxin still on isosorbide. 6 type 2 diabetes: Has been on Levemir and NovoLog still on oral hypoglycemic agent continue Accu-Chek with sliding scales coverage. 7 A. fib with RVR: Pulse rates under control remain on metoprolol and still on L request 2.5 mg twice a day with digoxin 0.125 mg daily. 8 hypertension: Well controlled on current medication. 9 hyperlipidemia: Remain on atorvastatin. 10 BPH: Patient had no obstruction at this point remain on tamsulosin 0.4 mg twice a day. 11 multiple myeloma: Patient still on chemotherapy. 12 history of lung cancer: No recurrent episode at this point. 13 GI prophylaxis: Patient will be on Pepcid 20 mg daily. 14 DVT prophylaxis: Patient will be on L request. CODE STATUS: Full code. Admit patient to inpatient status for more than 2 nights.
--- NOTE | 2018-12-03 12:27 | CONS ---
CONSULTATION PULMONARY/CRITICAL CARE CONSULTATION: DATE OF CONSULTATION: 12/03/2018 This is an 88-year-old male known well to me. He apparently was seen in Dr. Mike's office yesterday with complaints of chest congestion and cough. He states his cough is very wet and congested, but he was not able to bring up any phlegm. In addition to the cough and phlegm, he is feeling more short of breath. He saw one of the doctors in Dr. Mike's office who noted that his pulse ox was down. Apparently, his blood pressure was also low. He was placed on oxygen and sent to the emergency room for a chest x- ray. The patient was told in the emergency room that he had "fluid on his lungs." Anyway, the patient was admitted because of difficulty breathing and cough without phlegm production. He denied any fever or chills. He is always feeling cold now primarily because of his chemotherapy. He denied any nausea, vomiting or diarrhea. There are no genitourinary complaints. He was not coughing up any blood. There was no chest pain or chest discomfort. He had been doing well up until about a day and a half ago. HOME MEDICATIONS: Include DuoNeb, Flomax, Symbicort, acyclovir, eye vitamins, Megace, Alogliptin, Decadron, digoxin, melatonin, metoprolol, Compazine, Entresto, Simply Saline, Mucinex, vitamin D3, insulin, Revlimid, and Bactrim DS. Other medications include Eliquis, Lasix and Lipitor. ALLERGIES: Denied. MEDICAL HISTORY: Quite extensive and includes atrial flutter, angina pectoris, COPD, diabetes mellitus, hyperlipidemia, hypertension, pneumonia, chronic hypoxemic respiratory failure with home O2, multiple myeloma, right-sided carotid stenosis, previous episodes of acute bronchitis, macular degeneration, shingles, and some other minor medical problems. I see him in the office for his COPD. SURGICAL HISTORY: Includes among other things heart catheterization, left carotid endarterectomy, bilateral cataract removal with lens implants, surgery on the right eye to remove scar tissue, colonoscopy, vein surgery on the right leg, bronchoscopy, angiogram, angioplasty and stents, and some other minor procedures. SOCIAL HISTORY: Positive for previous tobacco use. Does not smoke currently. No illicit drug use or alcohol use. FAMILY HISTORY: Positive for a brother with CAD and diabetes. a father with kidney failure and a mother who was healthy. REVIEW OF SYSTEMS: CONSTITUTIONAL: Negative. NEUROLOGIC: Negative. HEENT: Negative. CARDIOVASCULAR: Negative. PULMONARY: Shortness of breath and a congested wet cough without phlegm production. GI: Negative. : Negative. RHEUMATOLOGIC: Negative. IMMUNOLOGIC: Negative. ENDOCRINOLOGIC: Negative. DERMATOLOGIC: Negative. Current vital signs are reviewed, temperature 98.2, heart rate 72, respiratory rate 16, blood pressure 149/98 mean 115 and 3 L saturations 92%. Appears no acute distress. Certainly no respiratory distress. There is no conversational dyspnea, audible wheezing or use of accessory muscles. In fact, he was eating his breakfast or lunch in the room when we saw him this morning. HEENT: Examination is grossly unremarkable. Nasal O2 in place. NECK: Supple. Full range of motion. No adenopathy, thyromegaly, or neck vein distention. CARDIOVASCULAR: Examination reveals regular rhythm and rate. Heart rate mid 70s. No murmur. LUNGS: Reveal coarse inspiratory and expiratory rhonchi. There are some mild expiratory wheezes. Breath sounds equal bilaterally. No crackles. ABDOMEN: Soft, bowel sounds are heard. No masses or tenderness. EXTREMITIES: Intact. No cyanosis or clubbing or edema. SKIN: Without rash. NEUROLOGIC: Examination is nonfocal. Chest x-ray in my opinion shows no acute abnormality. LAB DATA: Reviewed. White count 2.3, hemoglobin 11.3, hematocrit 36.1, platelet count 118,000. PT, INR, PTT all normal, sodium 136, potassium 3.8, chloride 105, CO2 is 25. BUN and creatinine were 19 and 1.29. Glucose was 105, calcium 8.3, ALT 74. Troponins were 0.070 and 0.066. N terminal proBNP 12 40. Albumin 3.3. The rest of his labs look okay. Microbiologic studies are negative or pending. Medications are reviewed. ASSESSMENT: 1. Mild to moderate chronic obstructive pulmonary chronic obstructive pulmonary disease exacerbation complicated by purulent tracheobronchitis, without dallin pneumonia. 2. No evidence of heart failure at this time in my opinion. 3. History of multiple myeloma. 4. Chronic hypoxemic respiratory failure. 5. History of atrial flutter. 6. History of angina pectoris. 7. Diabetes mellitus. 8. Macular degeneration. 9. History of hyperlipidemia. 10.History of hypertension. 11.History of carotid artery stenosis. 12.Multiple other medical problems and comorbidities. PLAN: The patient should be on oral antibiotics and some prednisone. From my perspective or from the pulmonary perspective, the patient could be discharged home. He can follow with me in the office. No additional recommendations are made. No IV steroids or IV antibiotics are needed at this time. Will continue to follow. MMODL / IJN: [id number] /
--- NOTE | 2018-12-03 13:15 | P.PN ---
Subjective Progress Note Date: 12/03/18 88-year-old male one of my office patient with history of lung cancer, COPD, atherosclerotic heart disease, A. fib, ischemic cardiomyopathy and severe congestive heart failure medical management who was in the office today to see my partner for worsening dyspnea and shortness of breath, patient was very hypoxic and dyspneic with tachycardia with his pulse ox running in the low 80 with him not feeling well and up being sent to the emergency department at [facility] where was seen and evaluated found to have very hypoxia with A. fib pulse rate running around 90 beats per minutes elevated troponin with mildly elevated BNP and chest x-ray showed more bronchitis with COPD with no ple ural effusion at the time. With the current circumstances decided to admit patient to the hospital titrate his O2 start on steroid keep him on updraft treatment [id number] and investigate his elevated troponin furthermore consult cardiology and pulmonary. 12/03: Patient has been afebrile, heart rate 91, blood pressure 110/67, pulse ox 96% on room air. He has been seen by Dr. Madrid with plan for follow-up in the office. He was transitioned to oral prednisone. We will plan to give 1 dose of ceftriaxone and then transitioned to doxycycline for the rest of his hospitalization. Patient has also been seen by cardiology and echocardiogram has been repeated. Acute coronary syndrome has been ruled out, and nitro paste discontinued. Anticipate discharge home tomorrow. Patient has been recommended to have a humidifier in his room at home. Objective - Vital Signs Vital signs: Vital Signs Temp 97.7 F 12/03/18 08:00 Pulse 77 12/03/18 11:25 Resp 14 12/03/18 08:00 BP 128/74 12/03/18 08:00 Pulse Ox 94 L 12/03/18 08:00 Intake & Output 12/02/18 12/03/18 12/03/18 18:59 06:59 18:59 Intake Total 240 480 Balance 240 480 Weight 60.781 kg 58 kg 58 kg Intake: Oral 240 480 Other: Voiding Method Toilet Toilet # Voids 2 - Exam Review of Systems CONSTITUTIONAL: Well-developed look chronically sick in no respiratory distress EYES: No icterus sclerae, no conjunctivitis. EARS, NOSE, MOUTH, THROAT, and FACE: No sore throat, lymphadenopathy, carotid bruits or deformity. RESPIRATORY: Positive shortness of breath cough or wheezes CARDIOVASCULAR: + CP, Palpitation, + PND, Orthopnea and angina. GASTROINTESTINAL: No Abd pain, Nausea or vomiting, no Diarrhea or constipation, No GI Bleed, no distention or masses. GENITOURINARY: Negative for Hematuria or UTI, no kidney stones. INTEGUMENT/BREAST: Negative for any muscular injury with mild osteoarthritis.. HEMATOLOGIC/LYMPHATIC: Negative for bleed or purpura. MUSCULOSKELTAL: Negative for Myalgia or arthralgia. NEURLOGICAL: No LOC, Sz or syncope, blurred vision dizziness or abnormality.. BEHAVIORAL/PSYCH: Negative. ENDOCRINE: Negative. General Appearance: Alert, cooperative, no distress look chronically sick and is age-appropriate Neck HEENT: Supple, no lymphadenopathy, no thyroid enlargement, no carotid bruits. Lungs: Decreased breath some bilateral fine rhonchi positive inspiratory expiratory wheezes with worse crackles in the left side compared to the right. Chest Wall: Decrease expansion with deep inspiration no tenderness and no deformity was found on exam, no costochondral pain or discomfort. Heart: Irregular rhythm and rate S1-S2 positive S3 positive ejection murmur. Back: Symmetric, no curvature, ROM normal, no CVA tenderness. Abdomen: Soft, non-tender, bowel sounds active all four quadrants, no masses, no organomegaly. Extremities: Trace edema slight discoloration from the knee down bilaterally with mild arthritis. Pulses: Not palpable both side. Skin: Skin color, texture, tugor normal, no rashes or lesions. Neurologic: Alert oriented x3 cranial nerves II through XII intact, no motor deficit, no abnormal balance or gait. - Labs CBC & Chem 7: 12/02/18 12:52 12/02/18 12:52 Labs: Abnormal Lab Results - Last 24 Hours (Table) 12/02/18 12/02/18 12/02/18 Range/Units 12:52 12:52 12:52 WBC 2.3 L (3.8-10.6) k/uL RBC 3.29 L (4.30-5.90) m/uL Hgb 11.3 L (13.0-17.5) gm/dL Hct 36.1 L (39.0-53.0) % MCV 109.8 H (80.0-100.0) fL Plt Count 118 L (150-450) k/uL Neutrophils # (Manual) 1.29 L (1.3-7.7) k/uL Lymphocytes # (Manual) 0.60 L (1.0-4.8) k/uL Macrocytosis Marked A Sodium 136 L (137-145) mmol/L Creatinine 1.29 H (0.66-1.25) mg/dL POC Glucose (mg/dL) (75-99) mg/dL Calcium 8.3 L (8.4-10.2) mg/dL ALT 74 H (21-72) U/L Troponin I 0.074 H* (0.000-0.034) ng/mL Total Protein 5.5 L (6.3-8.2) g/dL Albumin 3.3 L (3.5-5.0) g/dL 12/02/18 12/02/18 12/02/18 Range/Units 16:01 19:53 20:30 WBC (3.8-10.6) k/uL RBC (4.30-5.90) m/uL Hgb (13.0-17.5) gm/dL Hct (39.0-53.0) % MCV (80.0-100.0) fL Plt Count (150-450) k/uL Neutrophils # (Manual) (1.3-7.7) k/uL Lymphocytes # (Manual) (1.0-4.8) k/uL Macrocytosis Sodium (137-145) mmol/L Creatinine (0.66-1.25) mg/dL POC Glucose (mg/dL) 103 H 105 H (75-99) mg/dL Calcium (8.4-10.2) mg/dL ALT (21-72) U/L Troponin I 0.070 H* (0.000-0.034) ng/mL Total Protein (6.3-8.2) g/dL Albumin (3.5-5.0) g/dL 12/03/18 12/03/18 12/03/18 Range/Units 00:22 06:11 11:42 WBC (3.8-10.6) k/uL RBC (4.30-5.90) m/uL Hgb (13.0-17.5) gm/dL Hct (39.0-53.0) % MCV (80.0-100.0) fL Plt Count (150-450) k/uL Neutrophils # (Manual) (1.3-7.7) k/uL Lymphocytes # (Manual) (1.0-4.8) k/uL Macrocytosis Sodium (137-145) mmol/L Creatinine (0.66-1.25) mg/dL POC Glucose (mg/dL) 103 H 248 H (75-99) mg/dL Calcium (8.4-10.2) mg/dL ALT (21-72) U/L Troponin I 0.066 H* (0.000-0.034) ng/mL Total Protein (6.3-8.2) g/dL Albumin (3.5-5.0) g/dL Assessment and Plan Plan: 1 acute hypoxic respiratory failure: Combination of COPD exacerbation with severe purulent tracheal bronchitis which will be treated at this point continue O2 continue updrafts, Symbicort and continue steroid. One dose of Rocephin to day and patient will be started on doxycycline which will be continued after discharge. 2 COPD exacerbation: Continue prednisone 40 mg daily, DuoNeb and Symbicort will consult pulmonary continue O2 and titrate his oxygen to keep pulse ox above 90 percentile. 3 purulent tracheal bronchitis with early pneumonitis patient will be on Rocephin and doxycycline sputum culture will be requested. 4 elevated troponin. Acute coronary syndrome ruled out. Cardiology consult appreciated. 5 ischemic cardiopathy with advance chronic systolic heart failure: Patient has been on Entresto along with diuretics and digoxin still on isosorbide. 6 type 2 diabetes: Has been on Levemir and NovoLog still on oral hypoglycemic agent continue Accu-Chek with sliding scales coverage. 7 A. fib with RVR, paroxysmal atrial fibrillation: Pulse rates under control remain on metoprolol and still on L request 2.5 mg twice a day with digoxin 0.125 mg daily. 8 hypertension: Well controlled on current medication. 9 hyperlipidemia: Remain on atorvastatin. 10 BPH: Patient had no obstruction at this point remain on tamsulosin 0.4 mg twice a day. 11 multiple myeloma: Patient still on chemotherapy. 12 history of lung cancer: No recurrent episode at this point. 13 GI prophylaxis: Patient will be on Pepcid 20 mg daily. 14 DVT prophylaxis: Patient will be on eliquis. CODE STATUS: Full code. Discharge plan: Home with [facility] tomorrow Impression and plan of care have been directed as dictated by the signing hardik Koehler nurse practitioner acting as scribe for signing physician.
--- NOTE | 2018-12-03 13:45 | ECHOF ---
Referral Reason:abn trop MEASUREMENTS -------- HEIGHT: 180.3 cm WEIGHT: 57.6 kg BP: IVSd: 1.6 cm (0.6 - 1.1) LVIDd: 3.9 cm (3.9 - 5.3) LVPWd: 1.4 cm (0.6 - 1.1) IVSs: 1.5 cm LVIDs: 2.6 cm LVPWs: 2.1 cm Ao Diam: 3.7 cm (2.0 - 3.7) AV Cusp: 1.4 cm (1.5 - 2.6) LA Diam: 2.8 cm (2.7 - 3.8) MV EXCURSION: 14.230 mm (> 18.000) MV EF SLOPE: 65 mm/s (70 - 150) EPSS: 1.2 cm MV E Guerrero: 0.64 m/s MV DecT: 128 ms MV A Guerrero: 0.79 m/s MV E/A Ratio: 0.80 AV maxP.37 mmHg AV meanP.58 mmHg RAP: 5.00 mmHg RVSP: 32.70 mmHg TAPSE: 27.07 mm FINDINGS -------- Sinus rhythm. This was a technically good study. The left ventricular size is normal. There is moderate concentric left ventricular hypertrophy. O verall left ventricular systolic function is normal with, an EF between 55 - 60 %. The diastolic fi lling pattern is normal for the age of the patient 12.00. The right ventricle is normal in size. The left atrial size is normal. The right atrial size is normal. Aortic valve is trileaflet and is mildly thickened. There is mild aortic valve sclerosis. Peak/me an gradient across the Aortic Valve is 10.37mmHg / 5.58mmHg. The mitral valve is normal. The mitral valve leaflets are mildly thickened. Mild mitral annular c alcification present. There is trace mitral regurgitation. The tricuspid valve appears structurally normal. Mild tricuspid regurgitation present. Right vent ricular systolic pressure is normal at < 35 mmHg. There is no pulmonic regurgitation present. The aortic root size is normal. Normal inferior vena cava with normal inspiratory collapse consistent with estimated right atrial pre ssure of 5 mmHg. There is a trivial pericardial effusion present. CONCLUSIONS -------- 1. Sinus rhythm. 2. This was a technically good study. 3. The left ventricular size is normal. 4. There is moderate concentric left ventricular hypertrophy. 5. Overall left ventricular systolic function is normal with, an EF between 55 - 60 %. 6. The diastolic filling pattern is normal for the age of the patient 12.00 7. The right ventricle is normal in size. 8. The left atrial size is normal. 9. The right atrial size is normal. 10. Aortic valve is trileaflet and is mildly thickened. 11. There is mild aortic valve sclerosis. 12. Peak/mean gradient across the Aortic Valve is 10.37mmHg / 5.58mmHg. 13. The mitral valve is normal. 14. The mitral valve leaflets are mildly thickened. 15. Mild mitral annular calcification present. 16. There is trace mitral regurgitation. 17. The tricuspid valve appears structurally normal. 18. Mild tricuspid regurgitation present. 19. Right ventricular systolic pressure is normal at < 35 mmHg. 20. There is no pulmonic regurgitation present. 21. The aortic root size is normal. 22. Normal inferior vena cava with normal inspiratory collapse consistent with estimated right atrial pressure of 5 mmHg. 23. There is a trivial pericardial effusion present. REGISTERED ROUTE ASSOCIATE: Jazmin Sky RDCS
[2018-12-03 14:36] LABS: Hemoglobin A1C 6.9 % (4.0-6.0)
[2018-12-03 16:48] LABS: Glucose,Whole Blood 381 mg/dL (75-99)
[2018-12-03] MEDS: DOXYCYCLINE 100 MG CAP PO SCH (20:30)
[2018-12-03] MEDS: ATORVASTATIN 40 MG TAB PO SCH (20:30)
[2018-12-03] MEDS: MELATONIN 5 MG TABLET PO SCH (20:30)
[2018-12-03 20:50] LABS: Glucose,Whole Blood 348 mg/dL (75-99)
[2018-12-04 04:45] VITALS: TEMP 97.7
[2018-12-04 06:17] LABS: Glucose,Whole Blood 188 mg/dL (75-99)
[2018-12-04] MEDS: FUROSEMIDE 20 MG TAB PO SCH (08:31)
[2018-12-04] MEDS: METOPROLOL TARTRATE 25 MG TAB PO SCH (08:31)
[2018-12-04] MEDS: ACYCLOVIR 200 MG CAP PO SCH (08:32)
[2018-12-04] MEDS: APIXABAN 2.5 MG TABLET PO SCH (08:32)
[2018-12-04] MEDS: LINAGLIPTIN 5 MG TABLET PO SCH (08:32)
[2018-12-04] MEDS: ASPIRIN 81 MG PO SCH (08:32)
[2018-12-04] MEDS: CHOLECALCIFEROL 1,000 UNIT TAB PO SCH (08:32)
[2018-12-04] MEDS: DIGOXIN 125 MCG TAB PO SCH (08:32)
[2018-12-04] MEDS: DOXYCYCLINE 100 MG CAP PO SCH (08:33)
[2018-12-04] MEDS: MEGESTROL 400 MG/10 ML CUP PO SCH (08:33)
[2018-12-04] MEDS: SACUBITRIL/VALSARTAN 24 MG-26 MG TABLET PO SCH (08:34)
[2018-12-04] MEDS: IPRATROPIUM-ALBUTEROL 3 ML NEB INHALATION SCH ×2 (08:54→12:06)
[2018-12-04] MEDS: SYMBICORT 160-4.5 MCG INHALER INHALATION SCH (08:54)
[2018-12-04] MEDS ORDERED: predniSONE 20 MG TAB PO SCH (09:00)
[2018-12-04] MEDS ORDERED: INSULIN DETEMIR (LEVEMIR) 100 UNIT/ML SYR SQ SCH (09:00)
[2018-12-04 10:23] VITALS: BP 124/61; RESP 16
--- NOTE | 2018-12-04 11:20 | P.PN ---
Subjective Progress Note Date: 12/04/18 Principal diagnosis: Acute exacerbation of mild to moderate chronic obstructive pulmonary disease, complicated by purulent tracheobronchitis. No clear evidence of pneumonia. The patient is seen today 12/04/2018 in follow-up on the selective care unit. He is currently resting comfortably in bed. Awake and alert in no acute distress. He continues with a loose nonproductive cough. No fever, chills or night sweats. Maintaining good O2 saturations in the mid 90s on 3 L/m per nasal cannula. He is afebrile. Hemodynamically stable. Blood glucose 188. He is continued on DuoNeb inhalations, Symbicort, oral prednisone and antibiotics in the form of doxycycline. He is anticoagulated with Eliquis. Objective - Vital Signs Vital signs: Vital Signs Temp 97.7 F 12/04/18 04:00 Pulse 73 12/04/18 09:11 Resp 16 12/04/18 08:00 BP 124/61 12/04/18 08:00 Pulse Ox 97 12/04/18 08:54 Intake & Output 12/03/18 12/04/18 12/04/18 18:59 06:59 18:59 Intake Total 1590 180 Balance 1590 180 Weight 58 kg 58 kg Intake: Intake, IV Titration 50 Amount cefTRIAXone 1 gm In 50 Sodium Chloride 0.9% 50 ml @ 100 mls/hr IVPB ONCE STA Rx#:[id number] Oral 1540 180 Other: Voiding Method Toilet Toilet # Voids 1 - Exam GENERAL EXAM: Alert, pleasant 88-year-old gentleman, on 3 L nasal cannula,, comfortable in no apparent distress. HEAD: Normocephalic. EYES: Normal reaction of pupils, equal size. NOSE: Clear with pink turbinates. THROAT: No erythema or exudates. NECK: No masses, no JVD. CHEST: No chest wall deformity. LUNGS: Equal air entry with few scattered rhonchi. CVS: S1 and S2 normal with no audible murmur, regular rhythm. ABDOMEN: No hepatosplenomegaly, normal bowel sounds, no guarding or rigidity. SPINE: No scoliosis or deformity SKIN: No rashes CENTRAL NERVOUS SYSTEM: No focal deficits, tone is normal in all 4 extremities. EXTREMITIES: There is no peripheral edema. No clubbing, no cyanosis. Peripheral pulses are intact. - Labs CBC & Chem 7: 10/08/19 12:52 12/02/18 12:52 Labs: Abnormal Lab Results - Last 24 Hours (Table) 12/03/18 12/03/18 12/03/18 Range/Units 05:35 11:42 16:46 POC Glucose (mg/dL) 248 H 381 H (75-99) mg/dL Hemoglobin A1c 6.9 H (4.0-6.0) % 12/03/18 12/04/18 Range/Units 20:48 06:16 POC Glucose (mg/dL) 348 H 188 H (75-99) mg/dL Hemoglobin A1c (4.0-6.0) % Assessment and Plan Assessment: Impression: #1 Acute on chronic hypoxic respiratory failure secondary to acute exacerbation of mild to moderate chronic obstructive pulmonary disease, complicated by purulent tracheobronchitis. No clear evidence of pneumonia. #2 History of multiple myeloma. #3 History of atrial flutter anticoagulated with Eliquis. #4 History of angina. #5 Diabetes mellitus. #6 Macular degeneration. #7 Hyperlipidemia. #8 Hypertension. #9 History of carotid artery stenosis. #10 History of tobacco dependence. Plan: The patient was seen and evaluated by Dr. Madrid. He is improved today as compared to yesterday. He could be discharged home once cleared medically. He'll continue on his home pulmonary medications. Home oxygen. Complete course of antibiotics. Complete prednisone taper. Follow-up in the office in 1-2 weeks' time. I, the cosigning physician, performed a history & physical examination of the patient. Lungs sounds with few scattered rhonchi. Maintaining good O2 saturations in the 90s on 3 L/m per nasal cannula. I discussed the assessment and plan of care with my nurse practitioner, Debby Reyes. I attest to the above note as dictated by her.
[2018-12-04 11:50] LABS: Glucose,Whole Blood 167 mg/dL (75-99)
[2018-12-04 12:10] VITALS: PULSE 92
--- NOTE | 2018-12-04 12:44 | P.DS ---
Providers Date of admission: 12/02/18 15:35 Attending physician: Percy Mike Consults: 12/02/18 15:35 Consult Physician Urgent Consulting Provider: Alexey Madrid Consult Reason/Comments: Dyspnea Do you want consulting provider notified?: Yes Consult Physician Urgent Consulting Provider: [facility] Consult Reason/Comments: Elevated troponin Do you want consulting provider notified?: Yes Primary care physician: Percy Mike [facility] Course: Chief Complaint: Respiratory failure, elevated troponin, severe bronchitis, advanced COPD 88-year-old male one of my office patient with history of lung cancer, COPD, atherosclerotic heart disease, A. fib, ischemic cardiomyopathy and severe congestive heart failure medical management who was in the office today to see my partner for worsening dyspnea and shortness of breath, patient was very hypoxic and dyspneic with tachycardia with his pulse ox running in the low 80 with him not feeling well and up being sent to the emergency department at [facility] where was seen and evaluated found to have very hypoxia with A. fib pulse rate running around 90 beats per minutes elevated troponin with mildly elevated BNP and chest x-ray showed more bronchitis with COPD with no pleural effusion at the time. With the current circumstances decided to admit patient to the hospital titrate his O2 start on steroid keep him on updraft treatment [id number] and investigate his elevated troponin furthermore consult cardiology and pulmonary. 12/04 2019: Patient is doing very well she was cleared by cardiology and pulmonary no sign of non-ST AR at this point with the slight change of medication and continue antibiotic along with steroid patient breathing and hypoxia is much better will be able to go home today. Review of Systems CONSTITUTIONAL: Well-developed look chronically sick in no respiratory distress EYES: No icterus sclerae, no conjunctivitis. EARS, NOSE, MOUTH, THROAT, and FACE: No sore throat, lymphadenopathy, carotid bruits or deformity. RESPIRATORY: Positive shortness of breath cough or wheezes CARDIOVASCULAR: + CP, Palpitation, + PND, Orthopnea and angina. GASTROINTESTINAL: No Abd pain, Nausea or vomiting, no Diarrhea or constipation, No GI Bleed, no distention or masses. GENITOURINARY: Negative for Hematuria or UTI, no kidney stones. INTEGUMENT/BREAST: Negative for any muscular injury with mild osteoarthritis.. HEMATOLOGIC/LYMPHATIC: Negative for bleed or purpura. MUSCULOSKELTAL: Negative for Myalgia or arthralgia. NEURLOGICAL: No LOC, Sz or syncope, blurred vision dizziness or abnormality.. BEHAVIORAL/PSYCH: Negative. ENDOCRINE: Negative. General Appearance: Alert, cooperative, no distress look chronically sick and is age-appropriate Neck HEENT: Supple, no lymphadenopathy, no thyroid enlargement, no carotid bruits. Lungs: Decreased breath some bilateral fine rhonchi positive inspiratory expiratory wheezes with worse crackles in the left side compared to the right. Chest Wall: Decrease expansion with deep inspiration no tenderness and no deformity was found on exam, no costochondral pain or discomfort. Heart: Irregular rhythm and rate S1-S2 positive S3 positive ejection murmur. Back: Symmetric, no curvature, ROM normal, no CVA tenderness. Abdomen: Soft, non-tender, bowel sounds active all four quadrants, no masses, no organomegaly. Extremities: Trace edema slight discoloration from the knee down bilaterally with mild arthritis. Pulses: Not palpable both side. Skin: Skin color, texture, tugor normal, no rashes or lesions. Neurologic: Alert oriented x3 cranial nerves II through XII intact, no motor deficit, no abnormal balance or gait. Assessment and Plan Plan: 1 acute hypoxic respiratory failure: Combination of COPD exacerbation with severe purulent tracheal bronchitis which will be treated at this point continue O2 continue updrafts, Symbicort and continue steroid. One dose of Rocephin today and patient will be started on doxycycline which will be continued after discharge. 2 COPD exacerbation: Continue prednisone 40 mg daily, DuoNeb and Symbicort will consult pulmonary continue O2 and titrate his oxygen to keep pulse ox above 90 percentile. 3 purulent tracheal bronchitis with early pneumonitis patient will be on Rocephin and doxycycline sputum culture will be requested. 4 elevated troponin. Acute coronary syndrome ruled out. Cardiology consult appreciated. 5 ischemic cardiopathy with advance chronic systolic heart failure: Patient has been on Entresto along with diuretics and digoxin still on isosorbide. 6 type 2 diabetes: Has been on Levemir and NovoLog still on oral hypoglycemic agent continue Accu-Chek with sliding scales coverage. 7 A. fib with RVR, paroxysmal atrial fibrillation: Pulse rates under control remain on metoprolol and still on L request 2.5 mg twice a day with digoxin 0.125 mg daily. 8 hypertension: Well controlled on current medication. 9 hyperlipidemia: Remain on atorvastatin. 10 BPH: Patient had no obstruction at this point remain on tamsulosin 0.4 mg twice a day. 11 multiple myeloma: Patient still on chemotherapy. 12 history of lung cancer: No recurrent episode at this point. 13 GI prophylaxis: Patient will be on Pepcid 20 mg daily. 14 DVT prophylaxis: Patient will be on eliquis. CODE STATUS: Full code. Patient be discharged home today with visiting nurse apparently him and his had declined going with palliative care this point. Plan - Discharge Summary Discharge Rx Participant: No New Discharge Prescriptions: New Aspirin [Adult Low Dose Aspirin EC] 81 mg PO DAILY #30 tablet. predniSONE 10 mg PO DIRECTED #60 tab Doxycycline [Vibramycin] 100 mg PO BID #14 cap Continue Ipratropium-Albuterol Nebulize [Duoneb 0.5 mg-3 mg/3 ml Soln] 3 ml INHALATION RT-QID Tamsulosin [Flomax] 0.8 mg PO HS Budesonide/Formoterol Fumarate [Symbicort 160-4.5 Mcg Inhaler] 2 puff INHALATION RT-BID Acyclovir [Zovirax] 400 mg PO BID Apixaban [Eliquis] 2.5 mg PO BID tablet Atorvastatin [Lipitor] 40 mg PO HS #30 tab Vit C/E/Zn/Coppr/Lutein/Zeaxan [Preservision Areds 2 Softgel] 1 cap PO BID Megestrol [Megace] 800 mg PO DAILY Digoxin [Lanoxin] 125 mcg PO DAILY Alogliptin Benzoate [Alogliptin] 25 mg PO DAILY Simply Saline 1 spray EA NOSTRIL DAILY PRN PRN Reason: Congestion Prochlorperazine [Compazine] 10 mg PO Q6H PRN PRN Reason: Nausea Dexamethasone 20 mg PO WE Melatonin 10 mg PO HS Metoprolol Tartrate [Lopressor] 25 mg PO TID guaiFENesin [Mucinex] 600 mg PO Q12HR PRN PRN Reason: Congestion Sacubitril/Valsartan [Entresto 24 mg-26 mg Tablet] 1 tab PO BID Furosemide [Lasix] 60 mg PO DAILY #30 tab Cholecalciferol (Vitamin D3) [Vitamin D3] 2,000 unit PO DAILY Insulin Detemir [Levemir Flextouch] 18 unit SQ TUWE Insulin Detemir [Levemir Flextouch] 15 unit SQ SUMOTHFRSA Lenalidomide [Revlimid] 5 mg PO DIRECTED Sulfamethox-Tmp 800-160Mg [Bactrim DS 800-160 mg] 1 tab PO MOWEFR@0900,2100 Discharge Medication List Ipratropium-Albuterol Nebulize [Duoneb 0.5 mg-3 mg/3 ml Soln] 3 ml INHALATION RT-QID 05/20/14 [History] Tamsulosin [Flomax] 0.8 mg PO HS 05/20/14 [History] Budesonide/Formoterol Fumarate [Symbicort 160-4.5 Mcg Inhaler] 2 puff INHALATION RT-BID 03/02/16 [History] Acyclovir [Zovirax] 400 mg PO BID 05/23/17 [History] Apixaban [Eliquis] 2.5 mg PO BID tablet 05/26/17 [Rx] Atorvastatin [Lipitor] 40 mg PO HS #30 tab 05/26/17 [Rx] Vit C/E/Zn/Coppr/Lutein/Zeaxan [Preservision Areds 2 Softgel] 1 cap PO BID 05/30/17 [History] Megestrol [Megace] 800 mg PO DAILY 02/26/18 [History] Alogliptin Benzoate [Alogliptin] 25 mg PO DAILY 07/12/18 [History] Dexamethasone 20 mg PO WE 07/12/18 [History] Digoxin [Lanoxin] 125 mcg PO DAILY 07/12/18 [History] Melatonin 10 mg PO HS 07/12/18 [History] Metoprolol Tartrate [Lopressor] 25 mg PO TID 07/12/18 [History] Prochlorperazine [Compazine] 10 mg PO Q6H PRN 07/12/18 [History] Sacubitril/Valsartan [Entresto 24 mg-26 mg Tablet] 1 tab PO BID 07/12/18 [History] Simply Saline 1 spray EA NOSTRIL DAILY PRN 07/12/18 [History] guaiFENesin [Mucinex] 600 mg PO Q12HR PRN 07/12/18 [History] Furosemide [Lasix] 60 mg PO DAILY #30 tab 07/15/18 [Rx] Cholecalciferol (Vitamin D3) [Vitamin D3] 2,000 unit PO DAILY 12/02/18 [History] Insulin Detemir [Levemir Flextouch] 15 unit SQ SUMOTHFRSA 12/02/18 [History] Insulin Detemir [Levemir Flextouch] 18 unit SQ TUWE 12/02/18 [History] Lenalidomide [Revlimid] 5 mg PO DIRECTED 12/02/18 [History] Sulfamethox-Tmp 800-160Mg [Bactrim DS 800-160 mg] 1 tab PO MOWEFR@0900,2100 12/02/18 [History] Aspirin [Adult Low Dose Aspirin EC] 81 mg PO DAILY #30 tablet.dr 12/04/18 [Rx] Doxycycline [Vibramycin] 100 mg PO BID #14 cap 12/04/18 [Rx] predniSONE 10 mg PO DIRECTED #60 tab 12/04/18 [Rx] Follow up Appointment(s)/Referral(s): Percy Mike MD [Primary Care Provider] - 1-2 days (Office is closed for lunch. Please call to schedule appointment) Alexey Madrid DO [Doctor of Osteopathic Medicine] - 1 Week (Office is closed for lunch. Plese call to schedule appointment) Anselmo Gunderson MD [STAFF PHYSICIAN] - 12/18/18 9:15 am () [facility] Visiting Nurse, [NON-STAFF] - Discharge Disposition: HOME WITH HOME HEALTH SERVICES
== END 2018-12-04 13:28 | disposition home health service (06) | DRG 190 ==
LOC: EC 11:17 → 3SCARD 15:35
PROVIDERS: ADMIT Internal Medicine Geriatric Medicine; ATTEND Internal Medicine Geriatric Medicine
DX: J44.1 Chronic obstructive pulmonary disease with (acute) exacerbation (principal); J96.21 Acute and chronic respiratory failure with hypoxia; J18.9 Pneumonia, unspecified organism; C90.00 Multiple myeloma not having achieved remission; I50.22 Chronic systolic (congestive) heart failure; J44.0 Chronic obstructive pulmonary disease with (acute) lower respiratory infection; E11.51 Type 2 diabetes mellitus with diabetic peripheral angiopathy without gangrene; I11.0 Hypertensive heart disease with heart failure; I48.0 Paroxysmal atrial fibrillation; I65.21 Occlusion and stenosis of right carotid artery; I07.1 Rheumatic tricuspid insufficiency; I25.5 Ischemic cardiomyopathy; E78.5 Hyperlipidemia, unspecified; H35.30 Unspecified macular degeneration; I25.10 Atherosclerotic heart disease of native coronary artery without angina pectoris; N40.0 Benign prostatic hyperplasia without lower urinary tract symptoms; J20.9 Acute bronchitis, unspecified; R77.9 Abnormality of plasma protein, unspecified; R91.8 Other nonspecific abnormal finding of lung field; Z79.01 Long term (current) use of anticoagulants; Z79.4 Long term (current) use of insulin; Z79.51 Long term (current) use of inhaled steroids; Z79.899 Other long term (current) drug therapy; Z96.1 Presence of intraocular lens; Z98.41 Cataract extraction status, right eye; Z98.42 Cataract extraction status, left eye; Z99.81 Dependence on supplemental oxygen; Z87.891 Personal history of nicotine dependence; Z85.118 Personal history of other malignant neoplasm of bronchus and lung; Z82.49 Family history of ischemic heart disease and other diseases of the circulatory system; Z83.3 Family history of diabetes mellitus; Z84.1 Family history of disorders of kidney and ureter
CPT/HCPCS: 36415; 71046; 80053; 80061; 83036; 83735; 83880; 84484; 85025; 85610; 85730; 93005; 93306; 94640; 94760; 99285

== ENCOUNTER → 2019-01-09 | Outpatient (CLI) | payer MEDICARE, BC | END | disposition home or self-care (01) | LOC: CPPFTMAIN 12-29 12:54 | PROVIDERS: ATTEND Internal Medicine Critical Care Medicine | DX: J44.9 Chronic obstructive pulmonary disease, unspecified (principal); R94.2 Abnormal results of pulmonary function studies | CPT/HCPCS: 94060; 94726; 94729 ==

== ENCOUNTER 2019-02-21 15:16 | Inpatient (IN) | payer MEDICARE, BC ==
[2019-02-21] MEDS ORDERED: SODIUM CHLORIDE 0.9% 500 ML 500 ML IV STA (15:56)
--- NOTE | 2019-02-21 16:21 | ED ---
General Adult HPI - General Chief complaint: Weakness Stated complaint: SOB Time Seen by Provider: 02/21/19 15:49 Source: patient, RN notes reviewed, old records reviewed Mode of arrival: ambulatory Limitations: no limitations - History of Present Illness Initial comments: 88-year-old male presenting for evaluation of near syncope, lightheadedness. Patient has multiple medical problems including COPD on home oxygen, currently wearing 3 L. He is on treatment for multiple myeloma and received chemotherapy most recently 2 weeks ago. He states he has been eating and drinking normally. Denies any pain complaints, no chest pain or abdominal pain. He denies fever. Denies significant cough. Denies vomiting or diarrhea. Denies rash. He does report some generalized weakness and fatigue. - Related Data Home Medications Medication Instructions Recorded Confirmed Ipratropium-Albuterol Nebulize 3 ml INHALATION RT-QID 05/20/14 12/02/18 [Duoneb 0.5 mg-3 mg/3 ml Soln] Tamsulosin [Flomax] 0.8 mg PO HS 05/20/14 12/02/18 Budesonide/Formoterol Fumarate 2 puff INHALATION RT-BID 03/02/16 12/02/18 [Symbicort 160-4.5 Mcg Inhaler] Acyclovir [Zovirax] 400 mg PO BID 05/23/17 12/02/18 Vit C/E/Zn/Coppr/Lutein/Zeaxan 1 cap PO BID 05/30/17 12/02/18 [Preservision Areds 2 Softgel] Megestrol [Megace] 800 mg PO DAILY 02/26/18 12/02/18 Alogliptin Benzoate [Alogliptin] 25 mg PO DAILY 07/12/18 12/02/18 Dexamethasone 20 mg PO WE 07/12/18 12/02/18 Digoxin [Lanoxin] 125 mcg PO DAILY 07/12/18 12/02/18 Melatonin 10 mg PO HS 07/12/18 12/02/18 Metoprolol Tartrate [Lopressor] 25 mg PO TID 07/12/18 12/02/18 Prochlorperazine [Compazine] 10 mg PO Q6H PRN 07/12/18 12/02/18 Sacubitril/Valsartan [Entresto 24 1 tab PO BID 07/12/18 12/02/18 mg-26 mg Tablet] Simply Saline 1 spray EA NOSTRIL DAILY PRN 07/12/18 12/02/18 guaiFENesin [Mucinex] 600 mg PO Q12HR PRN 07/12/18 12/02/18 Cholecalciferol (Vitamin D3) 2,000 unit PO DAILY 12/02/18 12/02/18 [Vitamin D3] Insulin Detemir [Levemir Flextouch] 15 unit SQ SUMOTHFRSA 12/02/18 12/02/18 Insulin Detemir [Levemir Flextouch] 18 unit SQ TUWE 12/02/18 12/02/18 Lenalidomide [Revlimid] 5 mg PO DIRECTED 12/02/18 12/02/18 Sulfamethox-Tmp 800-160Mg [Bactrim 1 tab PO MOWEFR@0900,2100 12/02/18 12/02/18 DS 800-160 mg] Previous Rx's Medication Instructions Recorded Apixaban [Eliquis] 2.5 mg PO BID tablet 05/26/17 Atorvastatin [Lipitor] 40 mg PO HS #30 tab 05/26/17 Furosemide [Lasix] 60 mg PO DAILY #30 tab 07/15/18 Aspirin [Adult Low Dose Aspirin EC] 81 mg PO DAILY #30 tablet. 12/04/18 Doxycycline [Vibramycin] 100 mg PO BID #14 cap 12/04/18 predniSONE 10 mg PO DIRECTED #60 tab 12/04/18 Allergies Allergy/AdvReac Type Severity Reaction Status Date / Time No Known Allergies Allergy Verified 02/21/19 15:29 Review of Systems ROS Statement: Those systems with pertinent positive or pertinent negative responses have been documented in the HPI. ROS Other: All systems not noted in ROS Statement are negative. Past Medical History Past Medical History: Atrial Flutter, Cancer, Chest Pain / Angina, COPD, Diabetes Mellitus, Eye Disorder, Hyperlipidemia, Hypertension, Pneumonia, Renal Disease, Respiratory Disorder, Vascular Disorder Additional Past Medical History / Comment(s): Chronic respiratory failure with home O2 at 3L n/c. multiple pulmonary nodules(scar tissue), multiple myeloma(oral chemo), carotid stenosis rt side, hx kidney disorder-resolved now per pt, bronchitis, alfonzo eye macular degeneration(gets injectons for tx),past shingles lt lowe leg. History of Any Multi-Drug Resistant Organisms: None Reported Past Surgical History: Heart Catheterization Additional Past Surgical History / Comment(s): left carotid endarterectomy , bilateral cataract removal and intraocular lens implants, surgery on rt eye to remove scar tissue, colonoscopy, rt leg vein surgery, surgery on "left leg to clean out veins", bronchoscopy, rt leg angiogram /angioplasty/stents, angiogram Past Anesthesia/Blood Transfusion Reactions: No Reported Reaction Past Psychological History: No Psychological Hx Reported Smoking Status: Former smoker Past Alcohol Use History: None Reported Past Drug Use History: None Reported - Past Family History Brother(s) Family Medical History: Coronary Artery Disease (CAD), Diabetes Mellitus Father Additional Family Medical History / Comment(s): kidney failure Mother Family Medical History: No Reported History General Exam Limitations: no limitations General appearance: alert, in no apparent distress Head exam: Present: atraumatic, normocephalic Eye exam: Present: normal appearance, PERRL ENT exam: Present: mucous membranes dry Neck exam: Present: normal inspection. Absent: tenderness, meningismus Respiratory exam: Present: wheezes, decreased breath sounds. Absent: respiratory distress Cardiovascular Exam: Present: normal rhythm, bradycardia GI/Abdominal exam: Present: soft. Absent: distended, tenderness Extremities exam: Present: normal inspection, normal capillary refill. Absent: pedal edema Neurological exam: Present: alert, oriented X3, CN II-XII intact. Absent: motor sensory deficit Psychiatric exam: Present: normal affect, normal mood Skin exam: Present: warm, dry, intact. Absent: cyanosis, diaphoretic Course Vital Signs 02/21/19 02/21/19 02/21/19 15:29 16:35 16:56 Temperature 97.4 F L Pulse Rate 48 L 73 Respiratory 26 H 18 21 Rate Blood Pressure 73/35 104/53 O2 Sat by Pulse 80 L 95 Oximetry 02/21/19 17:09 Temperature Pulse Rate 87 Respiratory 18 Rate Blood Pressure 134/57 O2 Sat by Pulse 95 Oximetry EKG Findings - EKG Comments: EKG Findings:: EKG: Normal sinus rhythm, left axis deviation, pulmonary disease pattern, rate of 78, CO interval and 76, QRS duration 96, QTC 419, no ST segment elevation Medical Decision Making - Medical Decision Making 88 -year-old male presenting with general malaise weakness, near-syncope. Patient presents with low blood pressure, low oxygen saturation. He is on home oxygen with history COPD and emphysema. He has pancytopenia secondary to chemotherapy. He has acute renal failure with a creatinine of 3.2 I suspect this is prerenal in this patient who is hypotensive and appears dehydrated. He has a chest x-ray which is negative for focal pneumonia. He's given saline bolus, started on saline infusion for dehydration and acute kidney injury. He will be admitted for close monitoring and reevaluation. Case is discussed with the admitting physician Dr. Del Rosario. - Lab Data Result diagrams: 02/21/19 16:25 02/21/19 16:25 Lab Results 02/21/19 02/21/19 02/21/19 Range/Units 16:25 16:25 16:25 WBC 3.2 L (3.8-10.6) k/uL RBC 3.02 L (4.30-5.90) m/uL Hgb 11.0 L (13.0-17.5) gm/dL Hct 32.6 L (39.0-53.0) % MCV 108.0 H (80.0-100.0) fL MCH 36.4 H (25.0-35.0) pg MCHC 33.7 (31.0-37.0) g/dL RDW 14.2 (11.5-15.5) % Plt Count 106 L (150-450) k/uL Neutrophils % 61 % Lymphocytes % 20 % Monocytes % 11 % Eosinophils % 5 % Basophils % 1 % Neutrophils # 2.0 (1.3-7.7) k/uL Lymphocytes # 0.7 L (1.0-4.8) k/uL Monocytes # 0.3 (0-1.0) k/uL Eosinophils # 0.2 (0-0.7) k/uL Basophils # 0.0 (0-0.2) k/uL Macrocytosis Moderate PT (9.0-12.0) sec INR (<1.2) APTT (22.0-30.0) sec Sodium 133 L (137-145) mmol/L Potassium 4.3 (3.5-5.1) mmol/L Chloride 97 L (98-107) mmol/L Carbon Dioxide 27 (22-30) mmol/L Anion Gap 9 mmol/L BUN 68 H (9-20) mg/dL Creatinine 3.22 H (0.66-1.25) mg/dL Est GFR (CKD-EPI)AfAm 19 (>60 ml/min/1.73 sqM) Est GFR (CKD-EPI)NonAf 17 (>60 ml/min/1.73 sqM) Glucose 165 H (74-99) mg/dL Plasma Lactic Acid Demetrio 1.5 (0.7-2.0) mmol/L Calcium 8.4 (8.4-10.2) mg/dL Magnesium 2.2 (1.6-2.3) mg/dL Total Bilirubin 0.5 (0.2-1.3) mg/dL AST 27 (17-59) U/L ALT 51 H (4-49) U/L Alkaline Phosphatase 40 (38-126) U/L Creatine Kinase 64 (55-170) U/L Troponin I (0.000-0.034) ng/mL Total Protein 5.2 L (6.3-8.2) g/dL Albumin 3.2 L (3.5-5.0) g/dL Urine Color Urine Appearance (Clear) Urine pH (5.0-8.0) Ur Specific Bowie (1.001-1.035) Urine Protein (Negative) Urine Glucose (UA) (Negative) Urine Ketones (Negative) Urine Blood (Negative) Urine Nitrite (Negative) Urine Bilirubin (Negative) Urine Urobilinogen (<2.0) mg/dL Ur Leukocyte Esterase (Negative) 02/21/19 02/21/19 02/21/19 Range/Units 16:25 16:25 16:51 WBC (3.8-10.6) k/uL RBC (4.30-5.90) m/uL Hgb (13.0-17.5) gm/dL Hct (39.0-53.0) % MCV (80.0-100.0) fL MCH (25.0-35.0) pg MCHC (31.0-37.0) g/dL RDW (11.5-15.5) % Plt Count (150-450) k/uL Neutrophils % % Lymphocytes % % Monocytes % % Eosinophils % % Basophils % % Neutrophils # (1.3-7.7) k/uL Lymphocytes # (1.0-4.8) k/uL Monocytes # (0-1.0) k/uL Eosinophils # (0-0.7) k/uL Basophils # (0-0.2) k/uL Macrocytosis PT 10.5 (9.0-12.0) sec INR 1.0 (<1.2) APTT 21.2 L (22.0-30.0) sec Sodium (137-145) mmol/L Potassium (3.5-5.1) mmol/L Chloride (98-107) mmol/L Carbon Dioxide (22-30) mmol/L Anion Gap mmol/L BUN (9-20) mg/dL Creatinine (0.66-1.25) mg/dL Est GFR (CKD-EPI)AfAm (>60 ml/min/1.73 sqM) Est GFR (CKD-EPI)NonAf (>60 ml/min/1.73 sqM) Glucose (74-99) mg/dL Plasma Lactic Acid Demetrio (0.7-2.0) mmol/L Calcium (8.4-10.2) mg/dL Magnesium (1.6-2.3) mg/dL Total Bilirubin (0.2-1.3) mg/dL AST (17-59) U/L ALT (4-49) U/L Alkaline Phosphatase (38-126) U/L Creatine Kinase (55-170) U/L Troponin I 0.081 H* (0.000-0.034) ng/mL Total Protein (6.3-8.2) g/dL Albumin (3.5-5.0) g/dL Urine Color Yellow Urine Appearance Clear (Clear) Urine pH 6.0 (5.0-8.0) Ur Specific Bowie 1.012 (1.001-1.035) Urine Protein Negative (Negative) Urine Glucose (UA) Negative (Negative) Urine Ketones Negative (Negative) Urine Blood Negative (Negative) Urine Nitrite Negative (Negative) Urine Bilirubin Negative (Negative) Urine Urobilinogen <2.0 (<2.0) mg/dL Ur Leukocyte Esterase Negative (Negative) Disposition Clinical Impression: Dehydration, Elevated troponin, JEFF (acute kidney injury) Disposition: ADMITTED IP TO THIS [facility] Condition: Stable Is patient prescribed a controlled substance at d/c from ED?: No Referrals: Percy Mike MD [Primary Care Provider] - 1-2 days Decision to Admit Reason: Admit from EC Decision Date: 02/21/19 Decision Time: 17:46
--- NOTE | 2019-02-21 16:31 | XR ---
EXAMINATION TYPE: XR chest 2V DATE OF EXAM: 02/21/2019 COMPARISON: 12/02/2018 HISTORY: Difficulty breathing TECHNIQUE: 2 views FINDINGS: There is some coarsening of the interstitial markings in the lower lobes and more on the le ft side. There is no heart failure. Heart size is normal. Costophrenic angles are clear. There is eulalia e coarse reticular density right upper lobe. Bony thorax is intact. IMPRESSION: Pulmonary fibrotic changes not significantly different than last exam. Normal heart. COPD .
[2019-02-21 16:42] LABS: Basophils % (A) 1 %; Eosinophils # (A) 0.2 k/uL (0-0.7); Eosinophils % (A) 5 %; HCT 32.6 % (39.0-53.0); Lymphocytes # (A) 0.7 k/uL (1.0-4.8); Lymphocytes % (A) 20 %; MCH 36.4 pg (25.0-35.0); MCHC 33.7 g/dL (31.0-37.0); Macrocytosis Moderate; Mean Platelet Volume 8.2; Monocytes # (A) 0.3 k/uL (0-1.0); Monocytes % (A) 11 %; Neutrophils % (A) 61 %; Platelet Count 106 k/uL (150-450); RBC 3.02 m/uL (4.30-5.90); RDW 14.2 % (11.5-15.5); WBC 3.2 k/uL (3.8-10.6)
[2019-02-21 16:51] LABS: Albumin 3.2 g/dL (3.5-5.0); Calcium 8.4 mg/dL (8.4-10.2); Magnesium 2.2 mg/dL (1.6-2.3); Potassium 4.3 mmol/L (3.5-5.1); Total Bilirubin 0.5 mg/dL (0.2-1.3); Total Protein 5.2 g/dL (6.3-8.2)
[2019-02-21 17:01] LABS: Appearance,Urine Clear (Clear); Bilirubin,Urine Negative (Negative); Blood,Urine Negative (Negative); Color,Urine Yellow; Glucose,Urine (UA) Negative (Negative); Ketones,Urine Negative (Negative); Leukocyte Esterase,Urine Negative (Negative); Nitrite,Urine Negative (Negative); Protein,Urine Negative (Negative); Specific Gravity,Urine 1.012 (1.001-1.035); Urobilinogen,Urine <2.0 mg/dL (<2.0)
[2019-02-21] MEDS ORDERED: SODIUM CHLORIDE 0.9% 500 ML 500 ML IV ONE (17:02)
[2019-02-21 17:04] LABS: Prothrombin Time 10.5 sec (9.0-12.0)
[2019-02-21] MEDS: SODIUM CHLORIDE 0.9% 1,000 ML IV SCH (17:06)
[2019-02-21 17:29] LABS: Partial Thromboplastin Time 21.2 sec (22.0-30.0)
[2019-02-21] MEDS ORDERED: NALOXONE 0.4 MG/ML 1 ML VIAL IV PRN (17:42)
[2019-02-21] MEDS ORDERED: HYDROmorphone 0.5 MG/0.5 ML SYRINGE IVP PRN (17:42)
[2019-02-21] MEDS ORDERED: ACETAMINOPHEN TAB 325 MG TAB PO PRN (17:42)
[2019-02-21] MEDS: SYMBICORT 160-4.5 MCG INHALER INHALATION SCH (20:03)
[2019-02-21 21:45] LABS: Glucose,Whole Blood 132 mg/dL (75-99)
[2019-02-22] MEDS: SODIUM CHLORIDE 0.9% 1,000 ML IV SCH ×3 (04:17→22:41)
[2019-02-22 07:07] LABS: Glucose,Whole Blood 128 mg/dL (75-99)
[2019-02-22] MEDS: INSULIN ASPART (NovoLOG) 100 UNIT/ML VIAL SQ SCH ×4 (07:32→20:28)
[2019-02-22] MEDS: INSULIN DETEMIR (LEVEMIR) 100 UNIT/ML SYR SQ SCH (07:40)
[2019-02-22] MEDS: SYMBICORT 160-4.5 MCG INHALER INHALATION SCH ×2 (07:52→19:02)
[2019-02-22 08:37] LABS: Albumin 2.8 g/dL (3.5-5.0); Calcium 8.1 mg/dL (8.4-10.2); Magnesium 2.1 mg/dL (1.6-2.3); Potassium 3.9 mmol/L (3.5-5.1); Total Bilirubin 0.9 mg/dL (0.2-1.3); Total Protein 4.9 g/dL (6.3-8.2)
[2019-02-22 08:38] LABS: Basophils % (A) 1 %; Eosinophils # (A) 0.2 k/uL (0-0.7); Eosinophils % (A) 8 %; HCT 31.3 % (39.0-53.0); HGB 10.8 gm/dL (13.0-17.5); Lymphocytes # (A) 0.8 k/uL (1.0-4.8); Lymphocytes % (A) 25 %; MCH 37.2 pg (25.0-35.0); MCHC 34.3 g/dL (31.0-37.0); MCV 108.3 fL (80.0-100.0); Macrocytosis Marked; Mean Platelet Volume 8.8; Monocytes # (A) 0.3 k/uL (0-1.0); Monocytes % (A) 10 %; Neutrophils # (A) 1.6 k/uL (1.3-7.7); Neutrophils % (A) 54 %; Platelet Count 107 k/uL (150-450); RBC 2.89 m/uL (4.30-5.90); RDW 14.3 % (11.5-15.5)
[2019-02-22] MEDS: DIGOXIN 125 MCG TAB PO SCH (09:30)
[2019-02-22] MEDS ORDERED: PROCHLORPERAZINE 10 MG TAB PO PRN (10:05)
[2019-02-22] MEDS ORDERED: guaiFENesin 600 MG TABLET.ER PO PRN (10:05)
[2019-02-22] MEDS ORDERED: SODIUM CHLORIDE 0.65% NASAL SPRAY 44 ML BTL INTRANASAL PRN (10:05)
[2019-02-22] MEDS: Alogliptin Benzoate [Alogliptin] 25 MG PO SCH (10:39)
[2019-02-22] MEDS: SACUBITRIL/VALSARTAN 24 MG-26 MG TABLET PO SCH ×2 (10:49→21:34)
[2019-02-22] MEDS: METOPROLOL TARTRATE 25 MG TAB PO SCH ×3 (10:50→22:04)
[2019-02-22] MEDS: MEGESTROL 400 MG/10 ML CUP PO SCH (10:50)
[2019-02-22] MEDS: ASPIRIN 81 MG PO SCH (10:50)
[2019-02-22] MEDS: ACYCLOVIR 200 MG CAP PO SCH ×2 (10:50→21:34)
[2019-02-22] MEDS: APIXABAN 2.5 MG TABLET PO SCH ×2 (10:50→21:33)
[2019-02-22 11:58] LABS: Glucose,Whole Blood 160 mg/dL (75-99)
[2019-02-22 14:25] LABS: Poikilocytosis (M) Present
--- NOTE | 2019-02-22 16:41 | P.HPIM ---
History of Present Illness H&P Date: 02/22/19 88-year-old male one of my office patient with history of lung cancer, COPD, multiple myeloma atherosclerotic heart disease, A. fib, ischemic cardiomyopathy and severe congestive heart failure medical management hypertension, who was admitted to the emergency room secondary to new syncope. Patient has increasing confusion, recently completed chemotherapy, day #17 of , Revlimid, on Bactrim as well as dexamethasone, admitted secondary to very low blood pressure. Patient was seen by EMS, blood pressure was 70/40, heart rate was 40, also has low oxygen, patient states that he drinks okay, however he drinks at least 4 propel per day, no diarrhea, has fatigue, and increasing weakness, there is no NSAID use, also has weight loss, and insomnia. Patient she denies any GI bleeding, no nausea vomiting or diarrhea, no headache no chest pain or palpitations fever or cough. Patient resides at home, has no O2 requirements, no CPAP needs, uses a walker at home, lives with the In emergency room, blood pressure was urinalysis was negative, troponin of 0.081, WBC count of 3.2, MCV of 108, she follows routinely for Dr. Roberson, his creatinine was 3.22 from a baseline of 1.2-1.3, for the past 3 months, patient's admitted with acute kidney failure, secondary dehydration, and medication effect. Patient's Lasix and Bactrim has been discontinued, consult with nephrology , IV hydration Review of Systems Constitutional: Reports anorexia, Reports fatigue, Reports poor appetite Ears, nose, mouth and throat: Reports as per HPI Cardiovascular: Reports as per HPI, Reports decreased exercise tolerance Respiratory: Reports as per HPI Gastrointestinal: Reports as per HPI, Denies abdominal pain, Denies belching, Denies bloating, Denies BRBPR, Denies change in bowel habits, Denies coffee ground emesis, Denies constipation, Denies diarrhea, Denies dyspepsia, Denies early satiety, Denies excessive gas, Denies heartburn, Denies hematemesis, Den ies hematochezia, Denies indigestion, Denies jaundice, Denies lactose intolerance, Denies loss of appetite, Denies melena, Denies nausea, Denies vomiting Genitourinary: Reports as per HPI Musculoskeletal: Reports gait dysfunction, Reports limitation of motion Integumentary: Reports as per HPI Neurological: Reports as per HPI, Reports gait dysfunction, Reports weakness Psychiatric: Reports as per HPI Endocrine: Reports as per HPI Hematologic/Lymphatic: Reports as per HPI, Denies easy bleeding, Denies easy bruising, Denies lymphadenopathy, Denies lymphedema, Denies thrombophilia Allergic/Immunologic: Reports as per HPI, Denies allergic rhinitis, Denies anaphylaxis, Denies angioedema, Denies gluten intolerance, Denies persistent infections, Denies seasonal allergies, Denies urticaria, Denies wheezing Past Medical History Past Medical History: Atrial Flutter, Cancer, Chest Pain / Angina, COPD, Diabetes Mellitus, Eye Disorder, Hyperlipidemia, Hypertension, Pneumonia, Renal Disease, Respiratory Disorder, Vascular Disorder Additional Past Medical History / Comment(s): Chronic respiratory failure with home O2 at 3L n/c. multiple pulmonary nodules(scar tissue), multiple myeloma(oral chemo), carotid stenosis rt side, hx kidney disorder-resolved now per pt, bronchitis, alfonzo eye macular degeneration(gets injectons for tx),past shingles lt lowe leg. History of Any Multi-Drug Resistant Organisms: None Reported Past Surgical History: Heart Catheterization Additional Past Surgical History / Comment(s): left carotid endarterectomy , bilateral cataract removal and intraocular lens implants, surgery on rt eye to remove scar tissue, colonoscopy, rt leg vein surgery, surgery on "left leg to clean out veins", bronchoscopy, rt leg angiogram /angioplasty/stents, angiogram Past Anesthesia/Blood Transfusion Reactions: No Reported Reaction Past Psychological History: No Psychological Hx Reported Additional Psychological History / Comment(s): . Smoking Status: Former smoker Past Alcohol Use History: None Reported Additional Past Alcohol Use History / Comment(s): Patient started smoking at age 19 and quit in 2012-1/2 packs per day for total of 93 pack year history. Patient was home with his . He does not use any device for ambulation. He has home O2 and nebulizer in place. Past Drug Use History: None Reported - Past Family History Brother(s) Family Medical History: Coronary Artery Disease (CAD), Diabetes Mellitus Father Family Medical History: Congestive Heart Failure (CHF), Hypertension Additional Family Medical History / Comment(s): kidney failure Mother Family Medical History: No Reported History Medications and Allergies Home Medications Medication Instructions Recorded Confirmed Type Ipratropium-Albuterol Nebulize 3 ml INHALATION RT-QID 05/20/14 02/21/19 History [Duoneb 0.5 mg-3 mg/3 ml Soln] Tamsulosin [Flomax] 0.8 mg PO HS 05/20/14 02/21/19 History Budesonide/Formoterol Fumarate 2 puff INHALATION RT-BID 03/02/16 02/21/19 History [Symbicort 160-4.5 Mcg Inhaler] Acyclovir [Zovirax] 400 mg PO BID 05/23/17 02/21/19 History Apixaban [Eliquis] 2.5 mg PO BID tablet 05/26/17 02/21/19 Rx Atorvastatin [Lipitor] 40 mg PO HS #30 tab 05/26/17 02/21/19 Rx Vit C/E/Zn/Coppr/Lutein/Zeaxan 1 cap PO BID 05/30/17 02/21/19 History [Preservision Areds 2 Softgel] Megestrol [Megace] 800 mg PO DAILY 02/26/18 02/21/19 History Alogliptin Benzoate [Alogliptin] 25 mg PO DAILY 07/12/18 02/21/19 History Dexamethasone 20 mg PO WE 07/12/18 02/21/19 History Digoxin [Lanoxin] 125 mcg PO DAILY 07/12/18 02/21/19 History Melatonin 10 mg PO HS 07/12/18 02/21/19 History Metoprolol Tartrate [Lopressor] 25 mg PO TID 07/12/18 02/21/19 History Prochlorperazine [Compazine] 10 mg PO Q6H PRN 07/12/18 02/21/19 History Sacubitril/Valsartan [Entresto 24 1 tab PO BID 07/12/18 02/21/19 History mg-26 mg Tablet] Simply Saline 1 spray EA NOSTRIL DAILY PRN 07/12/18 02/21/19 History guaiFENesin [Mucinex] 600 mg PO Q12HR PRN 07/12/18 02/21/19 History Insulin Detemir [Levemir Flextouch] 15 unit SQ SUMOTHFRSA 12/02/18 02/21/19 History Insulin Detemir [Levemir Flextouch] 18 unit SQ TUWE 12/02/18 02/21/19 History Lenalidomide [Revlimid] 5 mg PO DIRECTED 12/02/18 02/21/19 History Sulfamethox-Tmp 800-160Mg [Bactrim 1 tab PO MOWEFR@0900,2100 12/02/18 02/21/19 History DS 800-160 mg] Aspirin [Adult Low Dose Aspirin EC] 81 mg PO DAILY #30 tablet.dr 12/04/18 02/21/19 Rx Ergocalciferol (Vitamin D2) 50,000 unit PO Q7D 02/21/19 02/21/19 History [Drisdol] Furosemide [Lasix] 40 mg PO DAILY 02/21/19 02/21/19 History Insulin Aspart [NovoLOG Flexpen] See Protocol SQ DIRECTED PRN 02/21/19 02/21/19 History Sennosides [Senna] 17.2 mg PO DAILY 02/21/19 02/21/19 History Allergies Allergy/AdvReac Type Severity Reaction Status Date / Time No Known Allergies Allergy Verified 02/21/19 23:07 Physical Exam Vitals: Vital Signs Temp Pulse Pulse Resp BP BP Pulse Ox 02/22/19 10:42 83 124/61 02/22/19 09:30 84 116/64 02/22/19 07:35 98.3 F 83 16 167/79 91 L 02/22/19 03:21 98.3 F 89 16 111/47 98 02/21/19 21:38 98.6 F 75 16 153/68 100 02/21/19 18:21 78 18 98 02/21/19 17:45 77 18 134/74 95 02/21/19 17:09 87 18 134/57 95 02/21/19 16:56 21 02/21/19 16:35 73 18 104/53 95 02/21/19 15:29 97.4 F L 48 L 26 H 73/35 80 L Intake and Output 02/21/19 02/22/19 02/22/19 22:59 06:59 14:59 Intake Total 20 Output Total 300 Balance 20 -300 Intake: Oral 20 Output: Urine 300 Other: Voiding Method Urinal Urinal Weight 65.771 kg - Constitutional General appearance: cooperative, no acute distress - EENT Eyes: anicteric sclerae, PERRLA, dentition normal ENT: NA/AT, normal oropharynx - Neck Neck: normal ROM - Respiratory Respiratory: bilateral: CTA, negative: diminished, dullness - Cardiovascular Rhythm: regular Heart sounds: normal: S1, S2 Abnormal Heart Sounds: no systolic murmur, no diastolic murmur, no rub, no S3 Gallop, no S4 Gallop, no click, no other - Integumentary 1 focalicular eruption with a scab, no cellulitis, in the left perirectal area, no fistula Integumentary: decreased turgor, normal - Neurologic Neurologic: CNII-XII intact - Musculoskeletal Musculoskeletal: generalized weakness, strength equal bilaterally - Psychiatric Psychiatric: A&O x's 3, appropriate affect, intact judgment & insight Results CBC & Chem 7: 02/22/19 07:17 02/22/19 07:17 Labs: Abnormal Lab Results - Last 24 Hours (Table) 02/21/19 02/21/19 02/21/19 Range/Units 16:25 16:25 16:25 WBC 3.2 L (3.8-10.6) k/uL RBC 3.02 L (4.30-5.90) m/uL Hgb 11.0 L (13.0-17.5) gm/dL Hct 32.6 L (39.0-53.0) % MCV 108.0 H (80.0-100.0) fL MCH 36.4 H (25.0-35.0) pg Plt Count 106 L (150-450) k/uL Lymphocytes # 0.7 L (1.0-4.8) k/uL Macrocytosis APTT 21.2 L (22.0-30.0) sec Sodium 133 L (137-145) mmol/L Chloride 97 L (98-107) mmol/L BUN 68 H (9-20) mg/dL Creatinine 3.22 H (0.66-1.25) mg/dL Glucose 165 H (74-99) mg/dL POC Glucose (mg/dL) (75-99) mg/dL Calcium (8.4-10.2) mg/dL ALT 51 H (4-49) U/L Troponin I (0.000-0.034) ng/mL Total Protein 5.2 L (6.3-8.2) g/dL Albumin 3.2 L (3.5-5.0) g/dL 02/21/19 02/21/19 02/22/19 Range/Units 16:25 21:43 06:54 WBC (3.8-10.6) k/uL RBC (4.30-5.90) m/uL Hgb (13.0-17.5) gm/dL Hct (39.0-53.0) % MCV (80.0-100.0) fL MCH (25.0-35.0) pg Plt Count (150-450) k/uL Lymphocytes # (1.0-4.8) k/uL Macrocytosis APTT (22.0-30.0) sec Sodium (137-145) mmol/L Chloride (98-107) mmol/L BUN (9-20) mg/dL Creatinine (0.66-1.25) mg/dL Glucose (74-99) mg/dL POC Glucose (mg/dL) 132 H 128 H (75-99) mg/dL Calcium (8.4-10.2) mg/dL ALT (4-49) U/L Troponin I 0.081 H* (0.000-0.034) ng/mL Total Protein (6.3-8.2) g/dL Albumin (3.5-5.0) g/dL 02/22/19 02/22/19 02/22/19 Range/Units 07:17 07:17 11:46 WBC 3.0 L (3.8-10.6) k/uL RBC 2.89 L (4.30-5.90) m/uL Hgb 10.8 L (13.0-17.5) gm/dL Hct 31.3 L (39.0-53.0) % MCV 108.3 H (80.0-100.0) fL MCH 37.2 H (25.0-35.0) pg Plt Count 107 L (150-450) k/uL Lymphocytes # (1.0-4.8) k/uL Macrocytosis Marked A APTT (22.0-30.0) sec Sodium (137-145) mmol/L Chloride (98-107) mmol/L BUN 47 H (9-20) mg/dL Creatinine 2.15 H (0.66-1.25) mg/dL Glucose 106 H (74-99) mg/dL POC Glucose (mg/dL) 160 H (75-99) mg/dL Calcium 8.1 L (8.4-10.2) mg/dL ALT (4-49) U/L Troponin I (0.000-0.034) ng/mL Total Protein 4.9 L (6.3-8.2) g/dL Albumin 2.8 L (3.5-5.0) g/dL Thrombosis Risk Factor Assmnt - DVT/VTE Prophylaxis DVT/VTE Prophylaxis: Pharmacologic Prophylaxis ordered - Choose All That Apply Each Factor Represents 1 point: Abnormal pulmonary function (COPD) Each Risk Factor Represents 2 Points: Malignancy Each Risk Factor Represents 3 Points: Age 75 years or older Thrombosis Risk Factor Assessment Total Risk Factor Score: 6 Thrombosis Risk Factor Assessment Level: High Risk Assessment and Plan Plan: 1 acute kidney failure, underlying CK D stage III, baseline creatinine 1.2, over the past 3 months. 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 Multiple myeloma, on Revlimid series ,, dexamethasone 20 mg every week once they, hold Bactrim, consult oncology, regarding prophylaxis, 3. COPD . Without exacerbation, on when necessary nebs solution, Symbicort 4. BPH without lower tract symptomatology, patient is on high-dose Flomax 0.8 mg at bedtime, we'll going to check for orthostatic hypotension, 5 ischemic cardiopathy with advance congestive heart failure systolic dysfunction: Patient has been on entresto along with diuretics which is on hold secondary to dehydration and metoprolol 25 3 times a day digoxin still on isosorbide. 6 type 2 diabetes: Has been on Levemir and NovoLog still on oral hypoglycemic agent continue Accu-Chek with sliding scales coverage. 7 A. fib chronic Pulse rates under control remain on metoprolol and still on eliquis 2.5 mg twice a day with digoxin 0.125 mg daily. 8 hypertension: Well controlled on current medication. 9 hyperlipidemia: Remain on atorvastatin. 10 BPH: Patient had no obstruction at this point remain on tamsulosin 0.4 mg twice a day. 11 history of lung cancer: No recurrent episode at this point. 12 GI prophylaxis: Patient will be on Pepcid 20 mg daily. 13 DVT prophylaxis: Patient will be on L request. CODE STATUS: Full code. Admit patient to inpatient status for more than 2 nights.
[2019-02-22 17:21] LABS: Glucose,Whole Blood 63 mg/dL (75-99)
[2019-02-22 17:36] LABS: Glucose,Whole Blood 96 mg/dL (75-99)
[2019-02-22 20:10] LABS: Glucose,Whole Blood 151 mg/dL (75-99)
[2019-02-22] MEDS: ATORVASTATIN 40 MG TAB PO SCH (21:33)
[2019-02-22] MEDS: TAMSULOSIN 0.4 MG CAP.ER.24H PO SCH (21:33)
[2019-02-22] MEDS: MELATONIN 5 MG TABLET PO SCH (21:33)
[2019-02-23 07:10] LABS: Glucose,Whole Blood 100 mg/dL (75-99)
[2019-02-23] MEDS: INSULIN ASPART (NovoLOG) 100 UNIT/ML VIAL SQ SCH ×4 (07:15→20:41)
[2019-02-23 07:56] LABS: Albumin 2.5 g/dL (3.5-5.0); Calcium 7.8 mg/dL (8.4-10.2); Total Protein 4.6 g/dL (6.3-8.2)
[2019-02-23] MEDS: METOPROLOL TARTRATE 25 MG TAB PO SCH ×3 (08:44→20:45)
[2019-02-23] MEDS: ACYCLOVIR 200 MG CAP PO SCH ×2 (08:44→20:46)
[2019-02-23] MEDS: ASPIRIN 81 MG PO SCH (08:44)
[2019-02-23] MEDS: APIXABAN 2.5 MG TABLET PO SCH ×2 (08:44→20:46)
[2019-02-23] MEDS: SENNOSIDES 8.6 MG TAB PO SCH (08:44)
[2019-02-23] MEDS: SACUBITRIL/VALSARTAN 24 MG-26 MG TABLET PO SCH ×2 (08:44→20:46)
[2019-02-23] MEDS: Alogliptin Benzoate [Alogliptin] 25 MG PO SCH (08:45)
[2019-02-23] MEDS: DIGOXIN 125 MCG TAB PO SCH (08:45)
[2019-02-23] MEDS: MEGESTROL 400 MG/10 ML CUP PO SCH (08:45)
[2019-02-23] MEDS: INSULIN DETEMIR (LEVEMIR) 100 UNIT/ML SYR SQ SCH (08:46)
[2019-02-23] MEDS ORDERED: SULFAMETHOX-TMP 800-160MG 1 EACH TAB PO SCH (09:00)
[2019-02-23] MEDS: SYMBICORT 160-4.5 MCG INHALER INHALATION SCH ×2 (09:46→20:48)
--- NOTE | 2019-02-23 10:30 | P.NPCON ---
History of Present Illness - Reason for Consult acute renal failure - History of Present Illness Reason for consultation: Acute kidney injury History of present illness: Patient is a 88-year-old male seen in renal consultation for acute kidney injury. Patient presented to the hospital after he sustained a fall. Patient states he just felt weak. According to the family members his eyes had rolled back and he was subsequently brought to the hospital. Patient denies losing consciousness. Denies vomiting or diarrhea. Patient's creatinine was 3.22 on admission and he is currently maintained on IV fluids. Renal function has been improving with creatinine down to 1.29 today. Urinalysis is benign. Patient's blood pressure on admission was noted to be low at 73/35. Orthostatic vitals yesterday were negative. Denies use of nonsteroidals. Patient does have history of diabetes mellitus. He denies family history of renal disease. He admits to good urine output. No hematuria or dysuria. No edema. Vital signs are stable. General: The patient appeared well nourished and normally developed. HEENT: Head exam is unremarkable. Neck is without jugular venous distension. LUNGS: Lungs are clear to auscultation and percussion. Breath sounds decreased. HEART: Rate and Rhythm are regular. First and second heart sounds normal. No murmurs, rubs or gallops. ABDOMEN: Abdominal exam reveals normal bowel sounds. Non-tender and non- distended. No evidence of peritonitis. EXTREMITITES: No clubbing, cyanosis, or edema. Past Medical History Past Medical History: Atrial Flutter, Cancer, Chest Pain / Angina, COPD, Diabetes Mellitus, Eye Disorder, Hyperlipidemia, Hypertension, Pneumonia, Renal Disease, Respiratory Disorder, Vascular Disorder Additional Past Medical History / Comment(s): Chronic respiratory failure with home O2 at 3L n/c. multiple pulmonary nodules(scar tissue), multiple myeloma(oral chemo), carotid stenosis rt side, hx kidney disorder-resolved now per pt, bronchitis, alfonzo eye macular degeneration(gets injectons for tx),past shingles lt lowe leg. History of Any Multi-Drug Resistant Organisms: None Reported Past Surgical History: Heart Catheterization Additional Past Surgical History / Comment(s): left carotid endarterectomy , bilateral cataract removal and intraocular lens implants, surgery on rt eye to remove scar tissue, colonoscopy, rt leg vein surgery, surgery on "left leg to clean out veins", bronchoscopy, rt leg angiogram /angioplasty/stents, angiogram Past Anesthesia/Blood Transfusion Reactions: No Reported Reaction Past Psychological History: No Psychological Hx Reported Additional Psychological History / Comment(s): . Smoking Status: Former smoker Past Alcohol Use History: None Reported Additional Past Alcohol Use History / Comment(s): Patient started smoking at age 19 and quit in 2012-1/2 packs per day for total of 93 pack year history. Patient was home with his . He does not use any device for ambulation. He has home O2 and nebulizer in place. Past Drug Use History: None Reported - Past Family History Brother(s) Family Medical History: Coronary Artery Disease (CAD), Diabetes Mellitus Father Family Medical History: Congestive Heart Failure (CHF), Hypertension Additional Family Medical History / Comment(s): kidney failure Mother Family Medical History: No Reported History Medications and Allergies Home Medications Medication Instructions Recorded Confirmed Type Ipratropium-Albuterol Nebulize 3 ml INHALATION RT-QID 05/20/14 02/21/19 History [Duoneb 0.5 mg-3 mg/3 ml Soln] Tamsulosin [Flomax] 0.8 mg PO HS 05/20/14 02/21/19 History Budesonide/Formoterol Fumarate 2 puff INHALATION RT-BID 03/02/16 02/21/19 History [Symbicort 160-4.5 Mcg Inhaler] Acyclovir [Zovirax] 400 mg PO BID 05/23/17 02/21/19 History Apixaban [Eliquis] 2.5 mg PO BID tablet 05/26/17 02/21/19 Rx Atorvastatin [Lipitor] 40 mg PO HS #30 tab 05/26/17 02/21/19 Rx Vit C/E/Zn/Coppr/Lutein/Zeaxan 1 cap PO BID 05/30/17 02/21/19 History [Preservision Areds 2 Softgel] Megestrol [Megace] 800 mg PO DAILY 02/26/18 02/21/19 History Alogliptin Benzoate [Alogliptin] 25 mg PO DAILY 07/12/18 02/21/19 History Dexamethasone 20 mg PO WE 07/12/18 02/21/19 History Digoxin [Lanoxin] 125 mcg PO DAILY 07/12/18 02/21/19 History Melatonin 10 mg PO HS 07/12/18 02/21/19 History Metoprolol Tartrate [Lopressor] 25 mg PO TID 07/12/18 02/21/19 History Prochlorperazine [Compazine] 10 mg PO Q6H PRN 07/12/18 02/21/19 History Sacubitril/Valsartan [Entresto 24 1 tab PO BID 07/12/18 02/21/19 History mg-26 mg Tablet] Simply Saline 1 spray EA NOSTRIL DAILY PRN 07/12/18 02/21/19 History guaiFENesin [Mucinex] 600 mg PO Q12HR PRN 07/12/18 02/21/19 History Insulin Detemir [Levemir Flextouch] 15 unit SQ SUMOTHFRSA 12/02/18 02/21/19 History Insulin Detemir [Levemir Flextouch] 18 unit SQ TUWE 12/02/18 02/21/19 History Lenalidomide [Revlimid] 5 mg PO DIRECTED 12/02/18 02/21/19 History Sulfamethox-Tmp 800-160Mg [Bactrim 1 tab PO MOWEFR@0900,2100 12/02/18 02/21/19 History DS 800-160 mg] Aspirin [Adult Low Dose Aspirin EC] 81 mg PO DAILY #30 tablet. 12/04/18 02/21/19 Rx Ergocalciferol (Vitamin D2) 50,000 unit PO Q7D 02/21/19 02/21/19 History [Drisdol] Furosemide [Lasix] 40 mg PO DAILY 02/21/19 02/21/19 History Insulin Aspart [NovoLOG Flexpen] See Protocol SQ DIRECTED PRN 02/21/19 02/21/19 History Sennosides [Senna] 17.2 mg PO DAILY 02/21/19 02/21/19 History Allergies Allergy/AdvReac Type Severity Reaction Status Date / Time No Known Allergies Allergy Verified 02/21/19 23:07 Physical Exam Vitals: Vital Signs Temp Pulse Resp BP BP BP BP 02/23/19 07:20 98.2 F 90 18 02/23/19 01:45 98.1 F 60 16 141/51 02/22/19 20:31 98.5 F 74 16 152/56 02/22/19 17:59 146/63 160/63 181/84 02/22/19 14:00 98 F 69 17 110/51 02/22/19 13:48 97.7 F 82 16 142/69 02/22/19 10:42 83 124/61 BP Pulse Ox 02/23/19 07:20 143/58 91 L 02/23/19 01:45 91 L 02/22/19 20:31 93 L 02/22/19 17:59 02/22/19 14:00 94 L 02/22/19 13:48 100 02/22/19 10:42 Intake and Output 02/22/19 02/23/19 02/23/19 22:59 06:59 14:59 Intake Total 590 590 300 Output Total 850 500 300 Balance -260 90 0 Intake: Oral 590 590 300 Output: Urine 850 500 300 Other: Voiding Method Urinal # Voids 1 2 Results - Lab Results Most recent lab results Calcium 7.8 mg/dL (8.4-10.2) L 02/23/19 06:42 Magnesium 2.1 mg/dL (1.6-2.3) 02/22/19 07:17 02/22/19 07:17 02/23/19 06:42 Assessment and Plan Plan: Assessment: 1. Acute kidney injury mostly prerenal secondary to hypotension and intravascular volume depletion from diuresis. Creatinine was 3.22 on admission and is down to 1.29 today. UA benign. 2. Insulin-dependent diabetes mellitus. 3. Benign hypertension. Controlled. 4. Chronic diastolic CHF. Currently compensated. 5. Multiple myeloma. Oncology following. 6. Hyperchloremic metabolic acidosis secondary to IV fluids. Plan: Hep-Lock IV fluids. Encouraged oral intake. Hold diuretics. Follow-up kidney ultrasound. Thank you for the consultation. I will continue to follow the patient with you during his hospital stay.
--- NOTE | 2019-02-23 10:43 | US ---
EXAMINATION TYPE: US kidneys/renal and bladder DATE OF EXAM: 02/23/2019 COMPARISON: US CLINICAL HISTORY: arf. Renal failure EXAM MEASUREMENTS: Right Kidney: 10.8 x 5.6 x 5.6 cm Left Kidney: 9.6 x 4.5 x 3.9 cm Right Kidney: Cortical thinning, difficult to visualize due to overlying bowel gas Left Kidney: Cortical thinning, calculus mid/lateral= 6mm Bladder: Suboptimally distended but anechoic Bilateral Jets seen: Only right jet visualized Prominent prostate Incidental AAA visualized= 3.5 cm TRV measurement There is diminished cortical medullary differentiation bilaterally. There is no evidence for hydronep hrosis at this point in time. No masses are identified. The urinary bladder is suboptimally disten ded. Bilateral ureteral jets are not seen. IMPRESSION: 1. Sonographic sequela medical renal disease. Nonobstructing left renal calculus is also seen. 2. Incidentally noted abdominal aortic aneurysm measuring up to 3.5 cm. Full characterization with ao rta specific ultrasound or CT abdomen pelvis could be considered. 3. Partially visualized prominent prostate gland.
--- NOTE | 2019-02-23 11:55 | P.PN ---
Subjective Progress Note Date: 02/23/19 88-year-old male one of my office patient with history of lung cancer, COPD, multiple myeloma atherosclerotic heart disease, A. fib, ischemic cardiomyopathy and severe congestive heart failure medical management hypertension, who was admitted to the emergency room secondary to new syncope. Patient has increasing confusion, recently completed chemotherapy, day #17 of , Revlimid, on Bactrim as well as dexamethasone, admitted secondary to very low blood pressure. Patient was seen by EMS, blood pressure was 70/40, heart rate was 40, also has low oxygen, patient states that he drinks okay, however he drinks at least 4 propel per day, no diarrhea, has fatigue, and increasing weakness, there is no NSAID use, also has weight loss, and insomnia. Patient she denies any GI bleeding, no nausea vomiting or diarrhea, no headache no chest pain or palpitations fever or cough. Patient resides at home, has no O2 requirements, no CPAP needs, uses a walker at home, lives with the In emergency room, blood pressure was urinalysis was negative, troponin of 0.081, WBC count of 3.2, MCV of 108, she follows routinely for Dr. Roberson, his creatinine was 3.22 from a baseline of 1.2-1.3, for the past 3 months, patient's admitted with acute kidney failure, secondary dehydration, and medication e ffect. Patient's Lasix and Bactrim has been discontinued, consult with nephrology , IV hydration 02/23 patient examined bedside appears weak and lethargic today. He had difficult time coming out of bed today. Vitals assess suggested patient's saturation in the low 90s on 4 L of oxygen with blood pressure 141/78. Patient's baseline oxygen need is 3 L. We will have PT OT evaluation today. On the assessment of the blood per patient's creatinine has come down to the patient's baseline of 1.28. Ultrasound abdomen and bladder was done that was negative for any hydronephrosis. IV fluids will be discontinued ROS Constitutional: Denies chills, Denies fever, endorses lethargy multiple falls at home Eyes: denies decreased vision, denies diplopia, denies discharge, denies pain Ears: deny: decreased hearing Ears, nose, mouth and throat: Denies dental pain, Denies headache, Denies nasal discharge, Denies nose pain Cardiovascular: Denies chest pain, Denies decreased exercise tolerance, Denies edema, Denies high blood pressure, Denies irregular heart beat, Denies palpitations, Denies paroxysmal nocturnal dyspnea, Denies rapid heart beat, Denies shortness of breath Respiratory: Endorses congestion, Denies cough, Denies cough with sputum, Denies dyspnea, Denies home oxygen, Denies wheezing Gastrointestinal: Denies abdominal pain, Denies change in bowel habits, Denies coffee ground emesis, Denies early satiety, Denies excessive gas, Denies heartburn, Denies hematemesis, Denies hematochezia, Denies loss of appetite, Denies nausea, Denies vomiting Genitourinary: Denies dysuria, Denies flank pain, Denies kidney stones, Denies menorrhagia, Denies urgency, Denies urinary frequency Musculoskeletal: Denies gait dysfunction, Denies limitation of motion, Denies morning stiffness, Denies muscle cramps Integumentary: Denies rash, Denies wounds, Denies brittle nails, Denies change in hair/nails, Denies darkening of skin Neurological: Denies balance difficulties, Denies change in speech, Denies double vision, Denies gait dysfunction, Denies loss of vision, Denies motor disturbance, Denies numbness, Denies paralysis, Denies paresthesias, Denies seizures Psychiatric: Denies anxiety, Denies depression Endocrine: Denies excessive sweating, Denies excessive thirst, Denies high blood sugars, Denies palpitations Hematologic/Lymphatic: Denies easy bruising, Denies lymphadenopathy Objective - Vital Signs Vital signs: Vital Signs Temp 98.2 F 02/23/19 07:20 Pulse 90 02/23/19 07:20 Resp 18 02/23/19 07:20 BP 143/58 02/23/19 07:20 Pulse Ox 91 L 02/23/19 07:20 Intake & Output 02/22/19 02/23/19 02/23/19 18:59 06:59 18:59 Intake Total 800 1180 300 Output Total 1350 300 Balance 800 -170 0 Intake: Intake, IV Titration 800 Amount Sodium Chloride 0.9% 1, 800 000 ml @ 100 mls/hr IV . Q10H ALEX Rx#:[id number] Oral 1180 300 Output: Urine 1350 300 Other: Voiding Method Urinal Urinal # Voids 1 2 - Exam - Constitutional General appearance: cooperative, no acute distress, thin-appearing on oxygen - EENT Eyes: anicteric sclerae, PERRLA, normal appearance ENT: hearing grossly normal - Neck Neck: no lymphadenopathy, normal ROM, no other, no rigidity, no stridor, no thyromegaly - Respiratory Respiratory: bilateral: CTA, negative: diminished, dullness, rales, rhonchi - Cardiovascular Rhythm: regular Heart sounds: normal: S1, S2 Abnormal Heart Sounds: no systolic murmur, no diastolic murmur, no rub, no S3 Gallop, no S4 Gallop, no click, no other - Gastrointestinal General gastrointestinal: normal bowel sounds, soft - Integumentary Integumentary: no rash - Neurologic Neurologic: CNII-XII intact - Musculoskeletal Musculoskeletal: gait normal, strength equal bilaterally - Psychiatric Psychiatric: A&O x's 3, appropriate affect - Labs CBC & Chem 7: 02/22/19 07:17 02/23/19 06:42 Labs: Abnormal Lab Results - Last 24 Hours (Table) 02/22/19 02/22/19 02/22/19 Range/Units 07:17 11:46 17:08 WBC 3.0 L (3.8-10.6) k/uL RBC 2.89 L (4.30-5.90) m/uL Hgb 10.8 L (13.0-17.5) gm/dL Hct 31.3 L (39.0-53.0) % MCV 108.3 H (80.0-100.0) fL MCH 37.2 H (25.0-35.0) pg Plt Count 107 L (150-450) k/uL Lymphocytes # 0.8 L (1.0-4.8) k/uL Macrocytosis Marked A Sodium (137-145) mmol/L Chloride (98-107) mmol/L Carbon Dioxide (22-30) mmol/L BUN (9-20) mg/dL Creatinine (0.66-1.25) mg/dL POC Glucose (mg/dL) 160 H 63 L (75-99) mg/dL Calcium (8.4-10.2) mg/dL Total Protein (6.3-8.2) g/dL Albumin (3.5-5.0) g/dL 02/22/19 02/23/19 02/23/19 Range/Units 20:08 06:42 06:59 WBC (3.8-10.6) k/uL RBC (4.30-5.90) m/uL Hgb (13.0-17.5) gm/dL Hct (39.0-53.0) % MCV (80.0-100.0) fL MCH (25.0-35.0) pg Plt Count (150-450) k/uL Lymphocytes # (1.0-4.8) k/uL Macrocytosis Sodium 136 L (137-145) mmol/L Chloride 110 H (98-107) mmol/L Carbon Dioxide 20 L (22-30) mmol/L BUN 26 H (9-20) mg/dL Creatinine 1.29 H (0.66-1.25) mg/dL POC Glucose (mg/dL) 151 H 100 H (75-99) mg/dL Calcium 7.8 L (8.4-10.2) mg/dL Total Protein 4.6 L (6.3-8.2) g/dL Albumin 2.5 L (3.5-5.0) g/dL Microbiology - Last 24 Hours (Table) 02/21/19 16:25 Blood Culture - Preliminary Blood No Growth after 24 hours Assessment and Plan Plan: 1 acute kidney failure, underlying CK D stage III, baseline creatinine 1.2, over the past 3 months. Patient has ATN from hypotension, also interstitial nephritis suspected secondary to Bactrim use or Lasix improved creatinine since yesterday 2. Multiple myeloma, on Revlimid series ,, dexamethasone 20 mg every week once they, hold Bactrim, consult oncology, regarding prophylaxis, 3. COPD . Without exacerbation, on when necessary nebs solution, Symbicort 4. BPH without lower tract symptomatology, patient is on high-dose Flomax 0.8 mg at bedtime, we'll going to check for orthostatic hypotension, 5 ischemic cardiopathy with advance congestive heart failure systolic dysfunction: Patient has been on entresto along with diuretics which is on hold secondary to dehydration and metoprolol 25 3 times a day digoxin still on isosorbide. 6 type 2 diabetes: Has been on Levemir and NovoLog still on oral hypoglycemic agent continue Accu-Chek with sliding scales coverage. 7 A. fib chronic Pulse rates under control remain on metoprolol and still on eliquis 2.5 mg twice a day with digoxin 0.125 mg daily. 8 hypertension: Well controlled on current medication. 9 hyperlipidemia: Remain on atorvastatin. 10 BPH: Patient had no obstruction at this point remain on tamsulosin 0.4 mg twice a day. 11 history of lung cancer: No recurrent episode at this point. 12 GI prophylaxis: Patient will be on Pepcid 20 mg daily. 13 DVT prophylaxis: Patient on eliquis CODE STATUS: Full code.
[2019-02-23 12:13] LABS: Glucose,Whole Blood 137 mg/dL (75-99)
[2019-02-23] MEDS: ALOGLIPTIN BENZOATE 25 MG PO SCH (17:07)
[2019-02-23] MEDS: SODIUM CHLORIDE 0.9% 1,000 ML IV SCH (17:07)
[2019-02-23 17:12] LABS: Glucose,Whole Blood 128 mg/dL (75-99)
--- NOTE | 2019-02-23 19:29 | P.CONS ---
History of Present Illness - Reason for Consult Consult date: 02/23/19 MM treatment with prophylactic abx/antiviral Requesting physician: Ruby Del Rosario - Chief Complaint progressive weakness - History of Present Illness Mister Mendoza is a very pleasant male patient of Dr. mott with a complicated past medical history and multiple medical problems. He sees Dr. Honeycutt for a history of multiple myeloma. He has a history of bilateral lung nodules, COPD, CHF, chronic kidney disease. On Nephrology routine lab work July 24, 2016 that showed an elevated lambda light chain, additional labs were ordered, markedly abnormal kappa lambda ratios, bone survey revealed a lytic focus in the skull and possibly in the humerus, bone marrow on 10/25/16 indicative of myeloma with marrow involvement in the 20-25% range. Patient started treatment with Velcade and Decadron 6 cycles completed in late 03/14. He only had a partial response so, he was started on Revlimid and dexamethasone. His dose had to be adjusted for renal function, and then adjusted due to lack of response. His dose has been held over the years for unrelated illnesses and hospitalizations, has required PT/OT and had decubitus ulcer treatment. Received IVIg on 03/26/18. His counts began to drop so, regimen was changed to Daratumumab/Rev/Dex which he started 06/19/18. He follows with Cardiology. He is currently on Revlimid 5 mg days 1 through 21 every 28 days, 20 mg of dexamethasone weekly on Saturday, and darzalex IV monthly, last dose was on 01/30. Patient admitted to the hospital with complaints of progressive, generalized weakness, severe lack of energy with inability to get around much. Patient does admit he was doing a lot of things around the holidays, on admission he was noted to have increased renal function, this has declined since admission with hydration, patient states he is feeling a little bit better. He is current on his follow-up with Dr. Honeycutt. He continues on his medications as prescribed, he has 3 more days in the cycle of Revlimid. Review of Systems 14 point review of systems is negative except as stated in HPI Past Medical History Past Medical History: Atrial Flutter, Cancer, Chest Pain / Angina, COPD, Diabetes Mellitus, Eye Disorder, Hyperlipidemia, Hypertension, Pneumonia, Renal Disease, Respiratory Disorder, Vascular Disorder Additional Past Medical History / Comment(s): Chronic respiratory failure with home O2 at 3L n/c. multiple pulmonary nodules(scar tissue), multiple myeloma(oral chemo), carotid stenosis rt side, hx kidney disorder-resolved now per pt, bronchitis, alfonzo eye macular degeneration(gets injectons for tx),past shingles lt lowe leg. History of Any Multi-Drug Resistant Organisms: None Reported Past Surgical History: Heart Catheterization Additional Past Surgical History / Comment(s): left carotid endarterectomy , bilateral cataract removal and intraocular lens implants, surgery on rt eye to remove scar tissue, colonoscopy, rt leg vein surgery, surgery on "left leg to clean out veins", bronchoscopy, rt leg angiogram /angioplasty/stents, angiogram Past Anesthesia/Blood Transfusion Reactions: No Reported Reaction Past Psychological History: No Psychological Hx Reported Additional Psychological History / Comment(s): . Smoking Status: Former smoker Past Alcohol Use History: None Reported Additional Past Alcohol Use History / Comment(s): Patient started smoking at age 19 and quit in 2012-1/2 packs per day for total of 93 pack year history. Patient was home with his . He does not use any device for ambulation. He has home O2 and nebulizer in place. Past Drug Use History: None Reported - Past Family History Brother(s) Family Medical History: Coronary Artery Disease (CAD), Diabetes Mellitus Father Family Medical History: Congestive Heart Failure (CHF), Hypertension Additional Family Medical History / Comment(s): kidney failure Mother Family Medical History: No Reported History Medications and Allergies Home Medications Medication Instructions Recorded Confirmed Type Ipratropium-Albuterol Nebulize 3 ml INHALATION RT-QID 05/20/14 02/21/19 History [Duoneb 0.5 mg-3 mg/3 ml Soln] Tamsulosin [Flomax] 0.8 mg PO HS 05/20/14 02/21/19 History Budesonide/Formoterol Fumarate 2 puff INHALATION RT-BID 03/02/16 02/21/19 History [Symbicort 160-4.5 Mcg Inhaler] Acyclovir [Zovirax] 400 mg PO BID 05/23/17 02/21/19 History Apixaban [Eliquis] 2.5 mg PO BID tablet 05/26/17 02/21/19 Rx Atorvastatin [Lipitor] 40 mg PO HS #30 tab 05/26/17 02/21/19 Rx Vit C/E/Zn/Coppr/Lutein/Zeaxan 1 cap PO BID 05/30/17 02/21/19 History [Preservision Areds 2 Softgel] Megestrol [Megace] 800 mg PO DAILY 02/26/18 02/21/19 History Alogliptin Benzoate [Alogliptin] 25 mg PO DAILY 07/12/18 02/21/19 History Dexamethasone 20 mg PO WE 07/12/18 02/21/19 History Digoxin [Lanoxin] 125 mcg PO DAILY 07/12/18 02/21/19 History Melatonin 10 mg PO HS 07/12/18 02/21/19 History Metoprolol Tartrate [Lopressor] 25 mg PO TID 07/12/18 02/21/19 History Prochlorperazine [Compazine] 10 mg PO Q6H PRN 07/12/18 02/21/19 History Sacubitril/Valsartan [Entresto 24 1 tab PO BID 07/12/18 02/21/19 History mg-26 mg Tablet] Simply Saline 1 spray EA NOSTRIL DAILY PRN 07/12/18 02/21/19 History guaiFENesin [Mucinex] 600 mg PO Q12HR PRN 07/12/18 02/21/19 History Insulin Detemir [Levemir Flextouch] 15 unit SQ SUMOTHFRSA 12/02/18 02/21/19 History Insulin Detemir [Levemir Flextouch] 18 unit SQ TUWE 12/02/18 02/21/19 History Lenalidomide [Revlimid] 5 mg PO DIRECTED 12/02/18 02/21/19 History Sulfamethox-Tmp 800-160Mg [Bactrim 1 tab PO MOWEFR@0900,2100 12/02/18 02/21/19 History DS 800-160 mg] Aspirin [Adult Low Dose Aspirin EC] 81 mg PO DAILY #30 tablet. 12/04/18 02/21/19 Rx Ergocalciferol (Vitamin D2) 50,000 unit PO Q7D 02/21/19 02/21/19 History [Drisdol] Furosemide [Lasix] 40 mg PO DAILY 02/21/19 02/21/19 History Insulin Aspart [NovoLOG Flexpen] See Protocol SQ DIRECTED PRN 02/21/19 02/21/19 History Sennosides [Senna] 17.2 mg PO DAILY 02/21/19 02/21/19 History Allergies Allergy/AdvReac Type Severity Reaction Status Date / Time No Known Allergies Allergy Verified 02/21/19 23:07 Physical Exam Vitals: Vital Signs Temp Pulse Resp BP BP BP Pulse Ox 02/23/19 14:45 97.5 F L 81 18 99/54 99 02/23/19 07:20 98.2 F 90 18 143/58 91 L 02/23/19 01:45 98.1 F 60 16 141/51 91 L 02/22/19 20:31 98.5 F 74 16 152/56 93 L Intake and Output 02/23/19 02/23/19 02/23/19 06:59 14:59 22:59 Intake Total 590 300 250 Output Total 500 500 Balance 90 -200 250 Intake: Oral 590 300 250 Output: Urine 500 500 Other: # Voids 2 - Constitutional General appearance: average body habitus, cooperative, no acute distress - EENT Eyes: anicteric sclerae, EOMI ENT: hearing grossly normal, normal oropharynx - Neck Neck: no lymphadenopathy - Respiratory Respiratory: bilateral: CTA - Cardiovascular Rhythm: regular Heart sounds: normal: S1, S2 Abnormal Heart Sounds: no systolic murmur, no diastolic murmur, no rub, no S3 Gallop, no S4 Gallop, no click, no other leg Peripheral Edema: bilateral: None - Gastrointestinal General gastrointestinal: no absent bowel sounds, no decreased bowel sounds, no distended, no hepatomegaly, no hyperactive bowel sounds, normal bowel sounds, no organomegaly, no rigid, no scaphoid, soft, no splenomegaly, no tenderness, no umbilical hernia, no ventral hernia - Neurologic Neurologic: CNII-XII intact - Musculoskeletal Musculoskeletal: generalized weakness, strength equal bilaterally - Psychiatric Psychiatric: A&O x's 3, appropriate affect, intact judgment & insight Results CBC & Chem 7: 02/22/19 07:17 02/23/19 06:42 Labs: Abnormal Lab Results - Last 24 Hours (Table) 02/22/19 02/23/19 02/23/19 Range/Units 20:08 06:42 06:59 Sodium 136 L (137-145) mmol/L Chloride 110 H (98-107) mmol/L Carbon Dioxide 20 L (22-30) mmol/L BUN 26 H (9-20) mg/dL Creatinine 1.29 H (0.66-1.25) mg/dL POC Glucose (mg/dL) 151 H 100 H (75-99) mg/dL Calcium 7.8 L (8.4-10.2) mg/dL Total Protein 4.6 L (6.3-8.2) g/dL Albumin 2.5 L (3.5-5.0) g/dL 02/23/19 02/23/19 Range/Units 12:02 17:00 Sodium (137-145) mmol/L Chloride (98-107) mmol/L Carbon Dioxide (22-30) mmol/L BUN (9-20) mg/dL Creatinine (0.66-1.25) mg/dL POC Glucose (mg/dL) 137 H 128 H (75-99) mg/dL Calcium (8.4-10.2) mg/dL Total Protein (6.3-8.2) g/dL Albumin (3.5-5.0) g/dL Microbiology - Last 24 Hours (Table) 02/21/19 16:25 Blood Culture - Preliminary Blood No Growth after 48 hours US - abdomen: report reviewed Assessment and Plan (1) Weakness Narrative/Plan: From patient description of how things came on in the things that he was doing surrounding that time, highly suspect the patient wore himself out without taking into consideration that he has fluid requirements and does need to balance rest and activity. Patient seems to be doing well since admission. Continue supportive care and plans per Internal Medicine Current Visit: Yes Status: Acute Priority: High Code(s): R53.1 - WEAKNESS SNOMED Code(s): 71863194 (2) Dehydration Current Visit: Yes Status: Acute Priority: High Code(s): E86.0 - DEHYDRATION SNOMED Code(s): 59382460 (3) Multiple myeloma Narrative/Plan: Continue to completion of this cycle of Revlimid, 3 more days. Patient's did bring his medication. Patient takes 20 mg of Dexon Saturday. He will keep this plan. Patient is due for darzalex in February, this appointment is placed in the discharge summary Current Visit: No Status: Chronic Priority: Medium Code(s): C90.00 - MULTIPLE MYELOMA NOT HAVING ACHIEVED REMISSION SNOMED Code(s): 371338933
[2019-02-23 20:10] LABS: Glucose,Whole Blood 193 mg/dL (75-99)
[2019-02-23] MEDS: MELATONIN 5 MG TABLET PO SCH (20:45)
[2019-02-23] MEDS: TAMSULOSIN 0.4 MG CAP.ER.24H PO SCH (20:46)
[2019-02-23] MEDS: ATORVASTATIN 40 MG TAB PO SCH (20:46)
[2019-02-24] MEDS ORDERED: INSULIN DETEMIR (LEVEMIR) 100 UNIT/ML SYR SQ SCH (07:00)
[2019-02-24 07:16] LABS: Glucose,Whole Blood 104 mg/dL (75-99)
[2019-02-24] MEDS: INSULIN ASPART (NovoLOG) 100 UNIT/ML VIAL SQ SCH ×2 (07:27→12:19)
[2019-02-24 08:30] VITALS: BP 121/64; PULSE 89; RESP 20; TEMP 98.1
[2019-02-24] MEDS: ASPIRIN 81 MG PO SCH (08:49)
[2019-02-24] MEDS: SENNOSIDES 8.6 MG TAB PO SCH (08:49)
[2019-02-24] MEDS: APIXABAN 2.5 MG TABLET PO SCH (08:49)
[2019-02-24] MEDS: ALOGLIPTIN BENZOATE 25 MG PO SCH (08:49)
[2019-02-24] MEDS: DIGOXIN 125 MCG TAB PO SCH (08:52)
[2019-02-24] MEDS: ACYCLOVIR 200 MG CAP PO SCH (08:52)
[2019-02-24] MEDS: SACUBITRIL/VALSARTAN 24 MG-26 MG TABLET PO SCH (08:53)
[2019-02-24] MEDS: MEGESTROL 400 MG/10 ML CUP PO SCH (08:53)
[2019-02-24] MEDS: METOPROLOL TARTRATE 25 MG TAB PO SCH (08:57)
[2019-02-24] MEDS ORDERED: ERGOCALCIFEROL 50,000 UNIT CAP PO SCH (09:00)
[2019-02-24] MEDS: SYMBICORT 160-4.5 MCG INHALER INHALATION SCH (09:21)
[2019-02-24 12:01] LABS: Glucose,Whole Blood 134 mg/dL (75-99)
--- NOTE | 2019-02-24 12:12 | P.PN ---
Subjective Progress Note Date: 02/24/19 Follow-up for acute kidney injury. Objective - Vital Signs Vital signs: Vital Signs Temp 98.1 F 02/24/19 07:45 Pulse 89 02/24/19 07:45 Resp 20 02/24/19 07:45 BP 121/64 02/24/19 07:45 Pulse Ox 99 02/24/19 09:24 Intake & Output 02/23/19 02/24/19 02/24/19 18:59 06:59 18:59 Intake Total 550 590 200 Output Total 500 Balance 50 590 200 Intake: Oral 550 590 200 Output: Urine 500 Other: Voiding Method Toilet Toilet # Voids 1 - Exam No acute distress S1-S2 heard Lungs clear Abdomen soft Trace edema - Labs CBC & Chem 7: 02/22/19 07:17 02/23/19 06:42 Labs: Abnormal Lab Results - Last 24 Hours (Table) 02/23/19 02/23/19 02/23/19 Range/Units 12:02 17:00 20:02 POC Glucose (mg/dL) 137 H 128 H 193 H (75-99) mg/dL 02/24/19 02/24/19 Range/Units 07:03 11:50 POC Glucose (mg/dL) 104 H 134 H (75-99) mg/dL Microbiology - Last 24 Hours (Table) 02/21/19 16:25 Blood Culture - Preliminary Blood No Growth after 48 hours Assessment and Plan Assessment: #1 nonoliguric acute kidney injury secondary to prerenal process. #2 insulin-dependent diabetes #3 benign hypertension #4 diastolic CHF #5 multiple myeloma #6 metabolic acidosis Plan: #1 creatinine improving #2 avoid nephrotoxic agents and hypotensive episodes. #3 stable from nephrology for discharge to be followed up in the clinic in 1-2 weeks. #4 20 mg by mouth daily Lasix at discharge.
--- NOTE | 2019-02-24 16:29 | P.DS ---
Providers Date of admission: 02/21/19 17:42 Attending physician: Ruby Del Rosario Consults: 02/22/19 12:15 Consult Physician Routine Consulting Provider: Cesia Roberson Consult Reason/Comments: acute kidney failure Do you want consulting provider notified?: Yes 02/22/19 16:41 Consult Physician Routine Consulting Provider: Joe Honeycutt Consult Reason/Comments: antibiotic prophyalxis, has acute renal failure, underlying multiple myelom Do you want consulting provider notified?: Yes Primary care physician: [facility] Course: 88-year-old male Dr. Del Rosario patient with history of lung cancer, COPD, multiple myeloma atherosclerotic heart disease, A. fib, ischemic cardiomyopathy and severe congestive heart failure medical management hypertension, who was admitted to the emergency room secondary to new syncope. Patient has increasing confusion, recently completed chemotherapy, day #17 of , Revlimid, on Bactrim as well as dexamethasone, admitted secondary to very low blood pressure. Patient was seen by EMS, blood pressure was 70/40, heart rate was 40, also has low oxygen, patient states that he drinks okay, however he drinks at least 4 propel per day, no diarrhea, has fatigue, and increasing weakness, there is no NSAID use, also has weight loss, and insomnia. Patient she denies any GI bleeding, no nausea vomiting or diarrhea, no headache no chest pain or palpitations fever or cough. Patient resides at home, has no O2 requirements, no CPAP needs, uses a walker at home, lives with the In emergency room, blood pressure was urinalysis was negative, troponin of 0.081, WBC count of 3.2, MCV of 108, she follows routinely for Dr. Roberson, his creatinine was 3.22 from a baseline of 1.2-1.3, for the past 3 months, patient's admitted with acute kidney failure, secondary dehydration, and medication effect. Patient's Lasix and Bactrim has been discontinued, consult with nephrology , IV hydration 02/23 patient examined bedside appears weak and lethargic today. He had difficult time coming out of bed today. Vitals assess suggested patient's saturation in the low 90s on 4 L of oxygen with blood pressure 141/78. Patien t's baseline oxygen need is 3 L. We will have PT OT evaluation today. On the assessment of the blood per patient's creatinine has come down to the patient's baseline of 1.28. Ultrasound abdomen and bladder was done that was negative for any hydronephrosis. IV fluids will be discontinued 02/24 patient examined bedside. Denies any dizziness, vertigo, chest pain, shortness of breath, bilateral lower extremity edema, diarrhea or nausea or vomiting. Patient is comfortable on room air. Creatinine says improved to 1.26 which is patient's baseline we'll hold patient's Lasix, Bactrim and acyclovir will on discharge Discharge diagnosis 1 acute kidney failure, underlying CK D stage III, baseline creatinine 1.2 2. Multiple myeloma, on Revlimid series ,, dexamethasone 20 mg every week 3. COPD . 4. BPH without lower tract symptomatology 5 ischemic cardiopathy with advance congestive heart failure systolic dysfunction 6 type 2 diabetes 7 A. fib chronic 8 hypertension 9 hyperlipidemia 10 BPH 11 history of lung cancer Disposition home with homecare Patient Condition at Discharge: Stable Plan - Discharge Summary New Discharge Prescriptions: New Furosemide [Lasix] 20 mg PO DAILY #30 tab Continue Ipratropium-Albuterol Nebulize [Duoneb 0.5 mg-3 mg/3 ml Soln] 3 ml INHALATION RT-QID Tamsulosin [Flomax] 0.8 mg PO HS Budesonide/Formoterol Fumarate [Symbicort 160-4.5 Mcg Inhaler] 2 puff INHALATION RT-BID Apixaban [Eliquis] 2.5 mg PO BID tablet Atorvastatin [Lipitor] 40 mg PO HS #30 tab Vit C/E/Zn/Coppr/Lutein/Zeaxan [Preservision Areds 2 Softgel] 1 cap PO BID Megestrol [Megace] 800 mg PO DAILY Digoxin [Lanoxin] 125 mcg PO DAILY Alogliptin Benzoate [Alogliptin] 25 mg PO DAILY Simply Saline 1 spray EA NOSTRIL DAILY PRN PRN Reason: Congestion Prochlorperazine [Compazine] 10 mg PO Q6H PRN PRN Reason: Nausea Dexamethasone 20 mg PO WE Melatonin 10 mg PO HS Metoprolol Tartrate [Lopressor] 25 mg PO TID guaiFENesin [Mucinex] 600 mg PO Q12HR PRN PRN Reason: Congestion Sacubitril/Valsartan [Entresto 24 mg-26 mg Tablet] 1 tab PO BID Insulin Detemir [Levemir Flextouch] 18 unit SQ Insulin Detemir [Levemir Flextouch] 15 unit SQ SUMOTHFRSA Lenalidomide [Revlimid] 5 mg PO DIRECTED Aspirin [Adult Low Dose Aspirin EC] 81 mg PO DAILY #30 tablet. Ergocalciferol (Vitamin D2) [Drisdol] 50,000 unit PO Q7D Sennosides [Senna] 17.2 mg PO DAILY Insulin Aspart [NovoLOG Flexpen] See Protocol SQ DIRECTED PRN PRN Reason: HIGH BLOOD SUGAR Discontinued Acyclovir [Zovirax] 400 mg PO BID Sulfamethox-Tmp 800-160Mg [Bactrim DS 800-160 mg] 1 tab PO MOWEFR@0900,2100 Furosemide [Lasix] 40 mg PO DAILY Discharge Medication List Ipratropium-Albuterol Nebulize [Duoneb 0.5 mg-3 mg/3 ml Soln] 3 ml INHALATION RT-QID 05/20/14 [History] Tamsulosin [Flomax] 0.8 mg PO HS 05/20/14 [History] Budesonide/Formoterol Fumarate [Symbicort 160-4.5 Mcg Inhaler] 2 puff INHALATION RT-BID 03/02/16 [History] Apixaban [Eliquis] 2.5 mg PO BID tablet 05/26/17 [Rx] Atorvastatin [Lipitor] 40 mg PO HS #30 tab 05/26/17 [Rx] Vit C/E/Zn/Coppr/Lutein/Zeaxan [Preservision Areds 2 Softgel] 1 cap PO BID 05/30/17 [History] Megestrol [Megace] 800 mg PO DAILY 02/26/18 [History] Alogliptin Benzoate [Alogliptin] 25 mg PO DAILY 07/12/18 [History] Dexamethasone 20 mg PO WE 07/12/18 [History] Digoxin [Lanoxin] 125 mcg PO DAILY 07/12/18 [History] Melatonin 10 mg PO HS 07/12/18 [History] Metoprolol Tartrate [Lopressor] 25 mg PO TID 07/12/18 [History] Prochlorperazine [Compazine] 10 mg PO Q6H PRN 07/12/18 [History] Sacubitril/Valsartan [Entresto 24 mg-26 mg Tablet] 1 tab PO BID 07/12/18 [History] Simply Saline 1 spray EA NOSTRIL DAILY PRN 07/12/18 [History] guaiFENesin [Mucinex] 600 mg PO Q12HR PRN 07/12/18 [History] Insulin Detemir [Levemir Flextouch] 15 unit SQ SUMOTHFRSA 12/02/18 [History] Insulin Detemir [Levemir Flextouch] 18 unit SQ TUWE 12/02/18 [History] Lenalidomide [Revlimid] 5 mg PO DIRECTED 12/02/18 [History] Aspirin [Adult Low Dose Aspirin EC] 81 mg PO DAILY #30 tablet. 12/04/18 [Rx] Ergocalciferol (Vitamin D2) [Drisdol] 50,000 unit PO Q7D 02/21/19 [History] Insulin Aspart [NovoLOG Flexpen] See Protocol SQ DIRECTED PRN 02/21/19 [H istory] Sennosides [Senna] 17.2 mg PO DAILY 02/21/19 [History] Furosemide [Lasix] 20 mg PO DAILY #30 tab 02/24/19 [Rx] Follow up Appointment(s)/Referral(s): Joe Honeycutt MD [STAFF PHYSICIAN] - 02/27/19 8:30 am (this is for darzalex) Percy Mike MD [Primary Care Provider] - 1-2 days [facility] Visiting Nurse, [NON-STAFF] - Patient Instructions/Handouts: Dehydration (DC), Acute Kidney Injury (DC), Weakness (DC) Discharge Disposition: HOME SELF-CARE
[2019-02-25] MEDS ORDERED: DEXAMETHASONE 4 MG TAB PO SCH (09:00)
== END 2019-02-24 15:36 | disposition home or self-care (01) | DRG 682 ==
LOC: EC 15:16 → 4SSUR 17:42
PROVIDERS: ADMIT Family Medicine; ATTEND Family Medicine
DX: N17.0 Acute kidney failure with tubular necrosis (principal); D61.810 Antineoplastic chemotherapy induced pancytopenia; J96.10 Chronic respiratory failure, unspecified whether with hypoxia or hypercapnia; C90.00 Multiple myeloma not having achieved remission; E87.2 Acidosis; I13.0 Hypertensive heart and chronic kidney disease with heart failure and stage 1 through stage 4 chronic kidney disease, or unspecified chronic kidney disease; I48.20 Chronic atrial fibrillation, unspecified; I50.42 Chronic combined systolic (congestive) and diastolic (congestive) heart failure; J43.9 Emphysema, unspecified; Z99.81 Dependence on supplemental oxygen; E11.22 Type 2 diabetes mellitus with diabetic chronic kidney disease; E78.5 Hyperlipidemia, unspecified; E86.0 Dehydration; I25.10 Atherosclerotic heart disease of native coronary artery without angina pectoris; I25.5 Ischemic cardiomyopathy; N18.3 Chronic kidney disease, stage 3 (moderate); N40.0 Benign prostatic hyperplasia without lower urinary tract symptoms; T45.1X5A Adverse effect of antineoplastic and immunosuppressive drugs, initial encounter; W19.XXXA Unspecified fall, initial encounter; Z79.01 Long term (current) use of anticoagulants; Z79.4 Long term (current) use of insulin; Z79.51 Long term (current) use of inhaled steroids; Z79.82 Long term (current) use of aspirin; Z79.899 Other long term (current) drug therapy; Z82.49 Family history of ischemic heart disease and other diseases of the circulatory system; Z83.3 Family history of diabetes mellitus; Z85.118 Personal history of other malignant neoplasm of bronchus and lung; Z87.891 Personal history of nicotine dependence; Z98.42 Cataract extraction status, left eye; Z98.41 Cataract extraction status, right eye; Z96.1 Presence of intraocular lens; Z95.820 Peripheral vascular angioplasty status with implants and grafts; Z87.01 Personal history of pneumonia (recurrent); R63.4 Abnormal weight loss; Z68.21 Body mass index [BMI] 21.0-21.9, adult; G47.00 Insomnia, unspecified; H35.30 Unspecified macular degeneration
CPT/HCPCS: 36415; 71046; 76770; 80053; 81003; 82550; 83605; 83735; 84484; 85025; 85610; 85730; 86850; 86870; 86880; 86900; 86901; 86970; 86971; 86976; 87040; 93005; 94640; 94760; 96360; 99285

== ENCOUNTER 2019-08-02 14:05 | Inpatient (IN) | payer MEDICARE, BC ==
[2019-08-02] MEDS ORDERED: IPRATROPIUM 0.5 MG/2.5 ML NEBU INHALATION STA (14:20)
[2019-08-02] MEDS ORDERED: ALBUTEROL NEBULIZED 2.5 MG/3 ML INHALATION STA (14:20)
[2019-08-02] MEDS ORDERED: SODIUM CHLORIDE 0.9% 1,000 ML IV STA (14:20)
--- NOTE | 2019-08-02 14:35 | ED ---
SOB HPI - General Chief Complaint: Shortness of Breath Stated Complaint: LEVY Time Seen by Provider: 08/02/19 14:20 Source: patient, RN notes reviewed, old records reviewed Mode of arrival: ambulatory Limitations: no limitations, physical limitation - History of Present Illness Initial Comments: This is a 89-year-old male DF for evaluation patient Dese for evaluation regards to severe shortness of breath patient unable to give history secondary to sign ificant difficulty breathing currently severely low oxygen unable to give conversation as he currently has significant shortness of breath started this morning getting progressively worse history obtained from patient's prior charting MD Complaint: shortness of breath, cough, anxiety -: hour(s) Severity: severe Severity scale (1-10): 10 Consistency: constant Worsens With: nothing Known History Of: COPD, congestive heart failure Context: recent URI, anxiety Associated Symptoms: chest pain, cough Treatments Prior to Arrival: none - Related Data Home Medications Medication Instructions Recorded Confirmed Ipratropium-Albuterol Nebulize 3 ml INHALATION RT-QID 05/20/14 02/21/19 [Duoneb 0.5 mg-3 mg/3 ml Soln] Tamsulosin [Flomax] 0.8 mg PO HS 05/20/14 02/21/19 Budesonide/Formoterol Fumarate 2 puff INHALATION RT-BID 03/02/16 02/21/19 [Symbicort 160-4.5 Mcg Inhaler] Vit C/E/Zn/Coppr/Lutein/Zeaxan 1 cap PO BID 05/30/17 02/21/19 [Preservision Areds 2 Softgel] Megestrol [Megace] 800 mg PO DAILY 02/26/18 02/21/19 Alogliptin Benzoate [Alogliptin] 25 mg PO DAILY 07/12/18 02/21/19 Dexamethasone 20 mg PO WE 07/12/18 02/21/19 Digoxin [Lanoxin] 125 mcg PO DAILY 07/12/18 02/21/19 Melatonin 10 mg PO HS 07/12/18 02/21/19 Metoprolol Tartrate [Lopressor] 25 mg PO TID 07/12/18 02/21/19 Prochlorperazine [Compazine] 10 mg PO Q6H PRN 07/12/18 02/21/19 Sacubitril/Valsartan [Entresto 24 1 tab PO BID 07/12/18 02/21/19 mg-26 mg Tablet] Simply Saline 1 spray EA NOSTRIL DAILY PRN 07/12/18 02/21/19 guaiFENesin [Mucinex] 600 mg PO Q12HR PRN 07/12/18 02/21/19 Insulin Detemir [Levemir Flextouch] 15 unit SQ SUMOTHFRSA 12/02/18 02/21/19 Insulin Detemir [Levemir Flextouch] 18 unit SQ TUWE 12/02/18 02/21/19 Lenalidomide [Revlimid] 5 mg PO DIRECTED 12/02/18 02/21/19 Ergocalciferol (Vitamin D2) 50,000 unit PO Q7D 02/21/19 02/21/19 [Drisdol] Insulin Aspart [NovoLOG Flexpen] See Protocol SQ DIRECTED PRN 02/21/19 02/21/19 Sennosides [Senna] 17.2 mg PO DAILY 02/21/19 02/21/19 Previous Rx's Medication Instructions Recorded Apixaban [Eliquis] 2.5 mg PO BID tablet 05/26/17 Atorvastatin [Lipitor] 40 mg PO HS #30 tab 05/26/17 Aspirin [Adult Low Dose Aspirin EC] 81 mg PO DAILY #30 tablet. 12/04/18 Furosemide [Lasix] 20 mg PO DAILY #30 tab 02/24/19 Allergies Allergy/AdvReac Type Severity Reaction Status Date / Time No Known Allergies Allergy Verified 08/02/19 14:13 Review of Systems ROS Statement: Those systems with pertinent positive or pertinent negative responses have been documented in the HPI. ROS Other: All systems not noted in ROS Statement are negative. Past Medical History Past Medical History: Atrial Flutter, Cancer, Chest Pain / Angina, COPD, Diabetes Mellitus, Eye Disorder, Hyperlipidemia, Hypertension, Pneumonia, Renal Disease, Respiratory Disorder, Vascular Disorder Additional Past Medical History / Comment(s): Chronic respiratory failure with home O2 at 3L n/c. multiple pulmonary nodules(scar tissue), multiple myeloma(or al chemo), carotid stenosis rt side, hx kidney disorder-resolved now per pt, bronchitis, alfonzo eye macular degeneration(gets injectons for tx),past shingles lt lowe leg. History of Any Multi-Drug Resistant Organisms: None Reported Past Surgical History: Heart Catheterization Additional Past Surgical History / Comment(s): left carotid endarterectomy , bilateral cataract removal and intraocular lens implants, surgery on rt eye to remove scar tissue, colonoscopy, rt leg vein surgery, surgery on "left leg to clean out veins", bronchoscopy, rt leg angiogram /angioplasty/stents, angiogram Past Anesthesia/Blood Transfusion Reactions: No Reported Reaction Past Psychological History: No Psychological Hx Reported Smoking Status: Former smoker Past Alcohol Use History: None Reported Past Drug Use History: None Reported - Past Family History Brother(s) Family Medical History: Coronary Artery Disease (CAD), Diabetes Mellitus Father Family Medical History: Congestive Heart Failure (CHF), Hypertension Additional Family Medical History / Comment(s): kidney failure Mother Family Medical History: No Reported History General Exam Limitations: no limitations, physical limitation General appearance: alert, anxious, in distress Head exam: Present: atraumatic, normocephalic, normal inspection Eye exam: Present: normal appearance, PERRL, EOMI. Absent: scleral icterus, conjunctival injection, periorbital swelling ENT exam: Present: normal exam, mucous membranes moist Neck exam: Present: normal inspection. Absent: tenderness, meningismus, lymphadenopathy Respiratory exam: Present: respiratory distress, wheezes, chest wall tenderness, accessory muscle use, decreased breath sounds, prolonged expiratory. Absent: rales, rhonchi, stridor Cardiovascular Exam: Present: regular rate, normal rhythm, normal heart sounds. Absent: systolic murmur, diastolic murmur, rubs, gallop, clicks GI/Abdominal exam: Present: soft, normal bowel sounds. Absent: distended, tenderness, guarding, rebound, rigid Extremities exam: Present: normal inspection, full ROM, normal capillary refill. Absent: tenderness, pedal edema, joint swelling, calf tenderness Back exam: Present: normal inspection Neurological exam: Present: alert, oriented X3, CN II-XII intact Psychiatric exam: Present: normal affect, normal mood Skin exam: Present: warm, dry, intact, normal color. Absent: rash Course Vital Signs 08/02/19 08/02/19 08/02/19 14:11 14:40 14:44 Temperature 97.8 F Pulse Rate 75 89 104 H Respiratory 24 34 H Rate Blood Pressure 124/71 169/95 O2 Sat by Pulse 64 L 97 Oximetry 08/02/19 08/02/19 08/02/19 14:58 15:00 16:00 Temperature Pulse Rate 105 H 93 93 Respiratory 30 H 31 H Rate Blood Pressure 169/95 135/63 O2 Sat by Pulse 99 97 Oximetry - Reevaluation(s) Reevaluation #1: 08/02/19 16:17 Medical record is reviewed Reevaluation #2: 08/02/19 16:17 Patient is significantly improving on BiPAP Reevaluation #3: 08/02/19 16:17 Patient has pneumonia spoke with family updated and results to be placed in ICU - Consultations Consultation #1: Spoke with Dr. Mike regarding admission and he agrees Spoke with Dr. Mccullough regarding ICU admission he agrees Medical Decision Making - Medical Decision Making 89 male DF for evaluation patient with us today for evaluation regards to significant shortness of breath unable to give current history patient is to be admitted ICU for treatment of pneumonia and sepsis - Lab Data Result diagrams: 08/02/19 14:27 08/02/19 14:27 Lab Results 08/02/19 08/02/19 08/02/19 Range/Units 14:27 14:27 14:27 WBC 3.0 L (3.8-10.6) k/uL RBC 3.73 L (4.30-5.90) m/uL Hgb 12.2 L (13.0-17.5) gm/dL Hct 38.3 L (39.0-53.0) % MCV 102.9 H (80.0-100.0) fL MCH 32.6 (25.0-35.0) pg MCHC 31.7 (31.0-37.0) g/dL RDW 16.1 H (11.5-15.5) % Plt Count 179 (150-450) k/uL Neutrophils % (Manual) 40 % Band Neutrophils % 26 % Lymphocytes % (Manual) 15 % Monocytes % (Manual) 18 % Metamyelocytes % 2 % Neutrophils # (Manual) 1.90 (1.3-7.7) k/uL Lymphocytes # (Manual) 0.45 L (1.0-4.8) k/uL Monocytes # (Manual) 0.54 (0-1.0) k/uL Metamyelocytes # (Man) 0.06 H (0) k/uL Nucleated RBCs 0 (0-0) /100 WBC Manual Slide Review Performed Polychromasia Present Hypochromasia Slight Anisocytosis Slight Anisocytosis (manual) Present Macrocytosis Moderate Ovalocytes Present PT 14.3 H (9.0-12.0) sec INR 1.4 H (<1.2) APTT 26.9 (22.0-30.0) sec Sodium 130 L (137-145) mmol/L Potassium 3.8 (3.5-5.1) mmol/L Chloride 95 L (98-107) mmol/L Carbon Dioxide 23 (22-30) mmol/L Anion Gap 12 mmol/L BUN 26 H (9-20) mg/dL Creatinine 1.49 H (0.66-1.25) mg/dL Est GFR (CKD-EPI)AfAm 48 (>60 ml/min/1.73 sqM) Est GFR (CKD-EPI)NonAf 42 (>60 ml/min/1.73 sqM) Glucose 204 H (74-99) mg/dL Plasma Lactic Acid Demetrio (0.7-2.0) mmol/L Calcium 8.6 (8.4-10.2) mg/dL Magnesium 2.1 (1.6-2.3) mg/dL Total Bilirubin 1.5 H (0.2-1.3) mg/dL AST 51 (17-59) U/L ALT 55 H (4-49) U/L Alkaline Phosphatase 67 (38-126) U/L Troponin I (0.000-0.034) ng/mL NT-Pro-B Natriuret Pep pg/mL Total Protein 5.7 L (6.3-8.2) g/dL Albumin 3.4 L (3.5-5.0) g/dL 08/02/19 08/02/19 08/02/19 Range/Units 14:27 14:27 14:27 WBC (3.8-10.6) k/uL RBC (4.30-5.90) m/uL Hgb (13.0-17.5) gm/dL Hct (39.0-53.0) % MCV (80.0-100.0) fL MCH (25.0-35.0) pg MCHC (31.0-37.0) g/dL RDW (11.5-15.5) % Plt Count (150-450) k/uL Neutrophils % (Manual) % Band Neutrophils % % Lymphocytes % (Manual) % Monocytes % (Manual) % Metamyelocytes % % Neutrophils # (Manual) (1.3-7.7) k/uL Lymphocytes # (Manual) (1.0-4.8) k/uL Monocytes # (Manual) (0-1.0) k/uL Metamyelocytes # (Man) (0) k/uL Nucleated RBCs (0-0) /100 WBC Manual Slide Review Polychromasia Hypochromasia Anisocytosis Anisocytosis (manual) Macrocytosis Ovalocytes PT (9.0-12.0) sec INR (<1.2) APTT (22.0-30.0) sec Sodium (137-145) mmol/L Potassium (3.5-5.1) mmol/L Chloride (98-107) mmol/L Carbon Dioxide (22-30) mmol/L Anion Gap mmol/L BUN (9-20) mg/dL Creatinine (0.66-1.25) mg/dL Est GFR (CKD-EPI)AfAm (>60 ml/min/1.73 sqM) Est GFR (CKD-EPI)NonAf (>60 ml/min/1.73 sqM) Glucose (74-99) mg/dL Plasma Lactic Acid Demetrio 5.0 H* (0.7-2.0) mmol/L Calcium (8.4-10.2) mg/dL Magnesium (1.6-2.3) mg/dL Total Bilirubin (0.2-1.3) mg/dL AST (17-59) U/L ALT (4-49) U/L Alkaline Phosphatase (38-126) U/L Troponin I 0.141 H* (0.000-0.034) ng/mL NT-Pro-B Natriuret Pep 74848 pg/mL Total Protein (6.3-8.2) g/dL Albumin (3.5-5.0) g/dL - EKG Data -: EKG Interpreted by Me (EKG shows sinus rhythm rate of 100. 176 QRS 148 QTc 490) - Radiology Data Radiology results: report reviewed (Chest x-ray shows pneumonia), image reviewed Critical Care Time Critical Care Time: Yes Total Critical Care Time: 31 Disposition Clinical Impression: COPD exacerbation, Weakness, JEFF (acute kidney injury), Acute exacerbation of chronic obstructive airways disease, NSTEMI (non-ST elevated myocardial infarction), Hypoxia, Nosocomial pneumonia, Elevated troponin Narrative: r/o COVID Disposition: ADMITTED IP TO THIS HOSP Condition: Serious Is patient prescribed a controlled substance at d/c from ED?: No Referrals: Percy Mike MD [Primary Care Provider] - 1-2 days
[2019-08-02 14:51] LABS: Albumin 3.4 g/dL (3.5-5.0); Calcium 8.6 mg/dL (8.4-10.2); Magnesium 2.1 mg/dL (1.6-2.3); Potassium 3.8 mmol/L (3.5-5.1); Total Bilirubin 1.5 mg/dL (0.2-1.3); Total Protein 5.7 g/dL (6.3-8.2)
[2019-08-02 14:58] LABS: INR 1.4 (<1.2); Partial Thromboplastin Time 26.9 sec (22.0-30.0); Prothrombin Time 14.3 sec (9.0-12.0)
--- NOTE | 2019-08-02 14:58 | XR ---
EXAMINATION TYPE: XR chest 1V portable DATE OF EXAM: 08/02/2019 COMPARISON: 02/21/2019 HISTORY: Short of breath, difficulty in breathing TECHNIQUE: Single frontal view of the chest is obtained. FINDINGS: There is patchy infiltrate within the left midlung. Some mild perihilar infiltrates are pr esent. Correlate for pneumonia. Atypical pneumonia should be considered. The heart size is normal. The pulmonary vasculature is normal. EKG leads overlie the chest. Scoliosis is within the thoracic spine. IMPRESSION: 1. Patchy infiltrate within the left midlung and in the perihilar regions. Correlate for pneumonia an d atypical pneumonia.
[2019-08-02 15:06] LABS: Anisocytosis Slight; HCT 38.3 % (39.0-53.0); HGB 12.2 gm/dL (13.0-17.5); Hypochromasia Slight; MCH 32.6 pg (25.0-35.0); MCHC 31.7 g/dL (31.0-37.0); MCV 102.9 fL (80.0-100.0); Macrocytosis Moderate; Mean Platelet Volume 8.8; Platelet Count 179 k/uL (150-450); RBC 3.73 m/uL (4.30-5.90); RDW 16.1 % (11.5-15.5)
[2019-08-02] MEDS ORDERED: PNEUMONIA PROTOCOL UTILIZED 1 EACH MISC PO PRN (15:07)
[2019-08-02] MEDS ORDERED: PIPERACILLIN-TAZOBACTAM 3.375 GM in SODIUM CHLORIDE 0.9% 100 ML IVPB STA (15:07)
[2019-08-02] MEDS ORDERED: LEVOFLOXACIN 750MG-D5W PMX 750 MG in DEXTROSE/WATER 1 150ML.BAG IVPB STA (15:07)
[2019-08-02] MEDS ORDERED: ALBUTEROL NEBULIZED 2.5 MG/3 ML INHALATION PRN (15:07)
[2019-08-02] MEDS ORDERED: ASPIRIN 81 MG PO STA (15:50)
[2019-08-02] MEDS ORDERED: NITROGLYCERIN SL TABS 0.4 MG TAB SUBLINGUAL PRN (15:50)
[2019-08-02] MEDS ORDERED: MORPHINE SULFATE 4 MG/ML SYRINGE IV PRN (15:50)
[2019-08-02 15:52] LABS: Anisocytosis (M) Present; Band Neutrophils % 26 %; Lymphocytes # (M) 0.45 k/uL (1.0-4.8); Metamyelocytes # (M) 0.06 k/uL (0); Metamyelocytes % 2 %; Monocytes # (M) 0.54 k/uL (0-1.0); Neutrophils % (M) 40 %; Nucleated Red Blood Cells 0 /100 WBC (0-0); Ovalocytes Present; Polychromasia Present; Total Cells Counted 200
[2019-08-02] MEDS ORDERED: NALOXONE 0.4 MG/ML 1 ML VIAL IV PRN (16:15)
[2019-08-02] MEDS: IPRATROPIUM-ALBUTEROL 3 ML NEB INHALATION SCH ×2 (16:18→19:48)
[2019-08-02 17:21] LABS: Glucose,Whole Blood 215 mg/dL (75-99)
[2019-08-02] MEDS ORDERED: SODIUM CHLORIDE 0.9% 500 ML 500 ML IV ONE (18:56)
[2019-08-02] MEDS ORDERED: hydrALAZINE HCL 20 MG/ML 1 ML VIAL IVP PRN (18:56)
[2019-08-02 20:35] LABS: Glucose,Whole Blood 253 mg/dL (75-99)
[2019-08-02] MEDS: SODIUM CHLORIDE 0.9% 1,000 ML IV SCH (20:55)
[2019-08-02] MEDS: INSULIN ASPART (NovoLOG) 100 UNIT/ML VIAL SQ SCH (20:55)
[2019-08-02] MEDS: HEPARIN SODIUM,PORCINE 5,000 UNIT/ML 1 ML VIAL SQ SCH (20:55)
[2019-08-02] MEDS ORDERED: MIDODRINE 5 MG TAB PO PRN (21:47)
[2019-08-02] MEDS ORDERED: FUROSEMIDE 20 MG TAB PO SCH (22:00)
[2019-08-02] MEDS ORDERED: METOPROLOL TARTRATE 25 MG TAB PO SCH (22:00)
[2019-08-02] MEDS: PIPERACILLIN-TAZOBACTAM 3.375 GM in SODIUM CHLORIDE 0.9% 100 ML IVPB SCH (23:29)
[2019-08-03 02:15] LABS: Amorphous Sediment,Urine Rare /hpf; Appearance,Urine Clear (Clear); Bilirubin,Urine Negative (Negative); Blood,Urine Negative (Negative); Color,Urine Yellow; Glucose,Urine (UA) Negative (Negative); Hyaline Casts,Urine 7 /lpf (0-2); Ketones,Urine Negative (Negative); Leukocyte Esterase,Urine Negative (Negative); Nitrite,Urine Negative (Negative); Protein,Urine 1+ (Negative); RBC,Urine 1 /hpf (0-5); Specific Gravity,Urine 1.015 (1.001-1.035); Urobilinogen,Urine <2.0 mg/dL (<2.0); WBC,Urine 1 /hpf (0-5)
[2019-08-03 02:55] LABS: Anisocytosis Slight; HCT 30.4 % (39.0-53.0); Hypochromasia Slight; MCH 33.1 pg (25.0-35.0); MCHC 32.5 g/dL (31.0-37.0); MCV 101.7 fL (80.0-100.0); Macrocytosis Slight; Mean Platelet Volume 8.1; Platelet Count 142 k/uL (150-450); RBC 2.99 m/uL (4.30-5.90); RDW 16.1 % (11.5-15.5); WBC 1.7 k/uL (3.8-10.6)
[2019-08-03 03:04] LABS: HGB 9.9 gm/dL (13.0-17.5)
[2019-08-03 03:08] LABS: Calcium 7.8 mg/dL (8.4-10.2); Potassium 3.2 mmol/L (3.5-5.1)
[2019-08-03 04:56] LABS: Band Neutrophils % 3 %; Lymphocytes # (M) 0.36 k/uL (1.0-4.8); Monocytes # (M) 0.29 k/uL (0-1.0); Neutrophils % (M) 59 %; Nucleated Red Blood Cells 0 /100 WBC (0-0); Total Cells Counted 100; Toxic Vacuolation Present
[2019-08-03] MEDS: INSULIN ASPART (NovoLOG) 100 UNIT/ML VIAL SQ SCH ×2 (06:35→12:58)
[2019-08-03] MEDS: POTASSIUM CHLORIDE ER 20 MEQ TAB.ER PO SCH ×2 (06:42→09:01)
[2019-08-03] MEDS: SODIUM CHLORIDE 0.9% 1,000 ML IV SCH ×2 (06:42→10:42)
[2019-08-03] MEDS ORDERED: INSULIN DETEMIR (LEVEMIR) 100 UNIT/ML SYR SQ SCH (07:00)
--- NOTE | 2019-08-03 07:29 | XR ---
EXAMINATION TYPE: XR chest 1V DATE OF EXAM: 08/03/2019 COMPARISON: 08/02/2019 HISTORY: Pneumonia. Follow-up exam. TECHNIQUE: Single frontal view of the chest is obtained. FINDINGS: Improving left midlung opacity on a background of chronic interstitial prominence however right basilar opacity has slightly increased in the interim. Left upper lobe peripheral opacity is al so appear slightly increased in subpleural location. Stable right suprahilar and infrahilar interstit ial opacities. No new pleural effusion or pneumothorax. Cardiomediastinal silhouette remains mildly e nlarged. Diffuse osseous demineralization seen. Background interstitial lung disease suspected. IMPRESSION: Improvement of the left midlung opacity however worsening multifocal bilateral opacities . Evolving multifocal pneumonia is a primary consideration. Chronic background interstitial lung dise ase suspected.
[2019-08-03] MEDS ORDERED: INSULIN ASPART (NovoLOG) 100 UNIT/ML VIAL SQ SCH (07:30)
[2019-08-03] MEDS ORDERED: SYMBICORT 160-4.5 MCG INHALER INHALATION SCH (08:00)
[2019-08-03] MEDS: PANTOPRAZOLE 40 MG/10 ML VIAL IV SCH (08:59)
[2019-08-03] MEDS ORDERED: ASPIRIN 325 MG TAB PO SCH (09:00)
[2019-08-03] MEDS ORDERED: MEGESTROL 400 MG/10 ML CUP PO SCH (09:00)
[2019-08-03] MEDS ORDERED: APIXABAN 2.5 MG TABLET PO SCH (09:00)
[2019-08-03] MEDS ORDERED: FERROUS SULFATE 325 MG TAB PO SCH (09:00)
[2019-08-03] MEDS ORDERED: ASPIRIN 81 MG PO SCH (09:00)
[2019-08-03] MEDS ORDERED: SACUBITRIL/VALSARTAN 24 MG-26 MG TABLET PO SCH (09:00)
[2019-08-03] MEDS: METOPROLOL TARTRATE 50 MG TAB PO SCH ×2 (09:01→21:12)
[2019-08-03] MEDS: PIPERACILLIN-TAZOBACTAM 3.375 GM in SODIUM CHLORIDE 0.9% 100 ML IVPB SCH (09:01)
[2019-08-03] MEDS: FUROSEMIDE 10 MG/ML 4 ML VIAL IV SCH ×2 (09:01→21:12)
[2019-08-03] MEDS: HEPARIN SODIUM,PORCINE 5,000 UNIT/ML 1 ML VIAL SQ SCH (09:02)
[2019-08-03] MEDS: SENNOSIDES 8.6 MG TAB PO SCH (09:02)
[2019-08-03] MEDS: IPRATROPIUM-ALBUTEROL 3 ML NEB INHALATION SCH ×3 (09:36→12:58)
--- NOTE | 2019-08-03 09:46 | P.HPIM ---
History of Present Illness H&P Date: 08/03/19 Chief Complaint: LEVY HISTORY AND PHYSICAL AND DISCHARGE SUMMARY: This is an 89-year-old male patient of Dr. Mike with past medical hi story of lung cancer, COPD, multiple myeloma, coronary artery disease, paroxysmal atrial fibrillation on eliquis, chronic systolic heart failure with ischemic cardiomyopathy, diabetes mellitus type 2 insulin requiring, benign prostatic hypertrophy. Patient complained of difficulty breathing and apparently started in the morning and progressively worsened. He denies fever or chills. Patient is somewhat confused and unable to give a full history. Patient came into [facility] emergency center for evaluation. Pulse ox was 64% on 3 L nasal cannula, respiratory rate 24. Patient was placed on BiPAP. He was afebrile, heart rate 75, blood pressure 124/71. WBC 3.0, hemoglobin 12.2, platelet count 179. INR 1.4. Sodium 130, potassium 3.8, chloride 95, CO2 23, BUN 26 and creatinine 1.49. Blood sugar 253. Total bilirubin 1.5, ALT 55. Troponins 0.141, 0.138, 0.113. Triglycerides 37, cholesterol 63, LDL 19, HDL 37. Urinalysis 1+ protein. EKG is a normal sinus rhythm and heart rate of 100, RBBB. Chest x-ray reveals patchy infiltrate within the left midlung and perihilar regions. Correlate for pneumonia and atypical pneumonia. Patient was placed on BiPAP and admitted into the intensive care unit. He has been in A. fib with RVR this morning. There are consults in place with cardiology and pulmonary medicine. Repeat chest x-ray reveals improvement of the left midlung opacities however worsening multifocal bilateral opacities. Evolving multifocal pneumonia as a primary consideration. Chronic background interstitial lung disease suspected. Patient continues to have some mild confusion for which CAT scan of the brain will be ordered. Patient's has been contacted and updated regarding current condition and prognosis. Discussed possibility of hospice care in the future. At this time, aggressive treatment will be pursued and monitor progress. Patient is NO CODE status. Patient's has decided to pursue hospice care at the [facility] home. inventory control manager is following closely and making arrangements for discharge today. Restasis treatment will be discontinued. Review of Systems Constitutional: Reports fatigue, Reports weakness, Denies chills, Denies fever Eyes: denies blurred vision, denies pain Ears, nose, mouth and throat: Denies dysphagia, Denies headache, Denies nasal congestion, Denies nasal discharge, Denies sore throat, Denies vertigo Cardiovascular: Reports dyspnea on exertion, Reports shortness of breath, Denies chest pain Respiratory: Reports cough, Reports cough with sputum, Reports dyspnea, Reports home oxygen, Reports respiratory infections, Reports wheezing, Denies excessive sputum, Denies hemoptysis Gastrointestinal: Denies abdominal pain, Denies diarrhea, Denies nausea, Denies vomiting Genitourinary: Denies dysuria, Denies hematuria, Denies urinary frequency, Denies urinary retention Musculoskeletal: Reports muscle weakness, Denies frequent falls, Denies myalgias Integumentary: Denies pruritus, Denies rash, Denies wounds Neurological: Reports change in mentation, Denies change in speech, Denies head injury, Denies headaches, Denies numbness, Denies seizures, Denies weakness Psychiatric: Denies anxiety, Denies depression Endocrine: Denies fatigue, Denies weight change Past Medical History Past Medical History: Atrial Flutter, Cancer, Chest Pain / Angina, COPD, Diabetes Mellitus, Eye Disorder, Hearing Disorder / Deafness, Hyperlipidemia, Hypertension, Memory Impairment, Pneumonia, Renal Disease, Respiratory Disorder, Vascular Disorder Additional Past Medical History / Comment(s): Chronic respiratory failure with home O2 at 3L n/c. multiple pulmonary nodules(scar tissue), multiple myeloma(oral chemo), carotid stenosis rt side, hx kidney disorder-resolved now per pt, bronchitis, alfonzo eye macular degeneration(gets injectons for tx),past shingles lt lowe leg. History of Any Multi-Drug Resistant Organisms: None Reported Past Surgical History: Heart Catheterization Additional Past Surgical History / Comment(s): left carotid endarterectomy , bilateral cataract removal and intraocular lens implants, surgery on rt eye to remove scar tissue, colonoscopy, rt leg vein surgery, surgery on "left leg to clean out veins", bronchoscopy, rt leg angiogram /angioplasty/stents, angiogram Past Anesthesia/Blood Transfusion Reactions: No Reported Reaction Past Psychological History: No Psychological Hx Reported Additional Psychological History / Comment(s): . Smoking Status: Former smoker Past Alcohol Use History: None Reported Additional Past Alcohol Use History / Comment(s): Patient started smoking at age 19 and quit in 2012-1/2 packs per day for total of 93 pack year history. Patient was home with his . He does not use any device for ambulation. He has home O2 and nebulizer in place. Past Drug Use History: None Reported - Past Family History Brother(s) Family Medical History: Coronary Artery Disease (CAD), Diabetes Mellitus Father Family Medical History: Congestive Heart Failure (CHF), Hypertension Additional Family Medical History / Comment(s): kidney failure Mother Family Medical History: No Reported History Medications and Allergies Home Medications Medication Instructions Recorded Confirmed Type Ipratropium-Albuterol Nebulize 3 ml INHALATION RT-QID 05/20/14 08/03/19 History [Duoneb 0.5 mg-3 mg/3 ml Soln] Budesonide/Formoterol Fumarate 2 puff INHALATION RT-BID 03/02/16 08/03/19 History [Symbicort 160-4.5 Mcg Inhaler] Melatonin 10 mg PO HS 07/12/18 08/03/19 History Metoprolol Tartrate [Lopressor] 25 mg PO TID 07/12/18 08/03/19 History Sennosides [Senna] 17.2 mg PO DAILY 02/21/19 08/03/19 History Furosemide [Lasix] 20 mg PO TID 08/02/19 08/03/19 History Midodrine HCl [ProAmatine] 10 mg PO TID PRN 08/02/19 08/03/19 History Allergies Allergy/AdvReac Type Severity Reaction Status Date / Time No Known Allergies Allergy Verified 08/03/19 09:47 Physical Exam Vitals: Vital Signs Temp Pulse Resp BP Pulse Ox 08/03/19 08:00 97.8 F 112 H 25 H 121/81 100 08/03/19 07:30 105 H 12 120/103 100 08/03/19 07:00 123 H 25 H 123/87 99 08/03/19 06:30 101 H 19 105/81 100 08/03/19 06:00 113 H 23 118/74 98 08/03/19 05:30 102 H 17 96/80 98 08/03/19 05:00 102 H 24 124/77 95 08/03/19 04:30 86 12 92/59 96 08/03/19 04:00 97.8 F 94 23 92/59 94 L 08/03/19 03:41 92 L 08/03/19 03:30 102 H 21 92 L 08/03/19 03:00 97 19 93/67 96 08/03/19 02:30 101 H 28 H 107/43 98 08/03/19 02:00 90 24 90/73 98 08/03/19 01:30 86 16 92/52 98 08/03/19 01:00 89 24 84/53 99 08/03/19 00:30 89 28 H 102/52 100 08/03/19 00:17 91 08/03/19 00:00 98.0 F 83 21 112/52 99 08/02/19 23:45 99 08/02/19 23:30 86 25 H 111/80 100 08/02/19 23:00 89 23 131/71 100 08/02/19 22:30 87 30 H 116/86 100 08/02/19 22:00 89 27 H 108/96 99 08/02/19 21:30 98 23 100 08/02/19 21:00 93 30 H 155/101 100 08/02/19 20:30 96 24 165/115 100 08/02/19 20:01 88 08/02/19 20:00 97.7 F 92 31 H 169/112 93 L 08/02/19 19:57 95 08/02/19 19:49 84 08/02/19 19:30 94 25 H 132/115 97 08/02/19 19:00 96 27 H 143/110 97 08/02/19 18:30 86 24 96 08/02/19 18:14 96 08/02/19 18:00 82 28 H 135/94 98 08/02/19 17:30 97.4 F L 92 24 134/78 99 08/02/19 17:00 98 F 84 27 H 138/89 100 08/02/19 16:26 92 08/02/19 16:20 87 08/02/19 16:00 93 31 H 135/63 97 08/02/19 15:00 93 30 H 169/95 99 08/02/19 14:58 105 H 08/02/19 14:44 104 H 08/02/19 14:40 89 34 H 169/95 97 08/02/19 14:11 97.8 F 75 24 124/71 64 L Intake and Output 08/02/19 08/03/19 08/03/19 22:59 06:59 14:59 Intake Total 1500 600 200 Output Total 590 65 Balance 1500 10 135 Intake: IV 1500 500 200 Sodium Chloride 0.9% 1, 500 500 200 000 ml @ 100 mls/hr IV . Q10H [facility] Rx#:[id number] Sodium Chloride 0.9% 500 1000 ml 500 ml @ 999 mls/hr IV .Q31M [facility] Rx#:[id number] Intake, IV Titration 100 Amount Piperacillin-Tazobactam 3 100 .375 gm In Sodium Chloride 0.9% 100 ml @ 25 mls/hr IVPB Q8HR [facility] Rx# :[id number] Output: Urine 590 65 Other: Voiding Method Urinal Indwelling Catheter Indwelling Catheter Weight 69.853 kg 74.7 kg Gen: This is an 89-year-old male. Patient is resting in the ICU bed. Patient appears to be somewhat anxious with mild confused. Patient is a poor historian. HEENT: Head is atraumatic, normocephalic. Pupils equal, round. Sclerae is anicteric. Patient is currently on Airvo. NECK: Supple. No JVD. No lymphadenopathy. No thyromegaly. LUNGS: Decreased breath sounds with rhonchi bilaterally. No intercostal retractions. HEART: Irregular rate and rhythm. Systolic murmur at the apex. monitor worker atrial fibrillation with RVR. ABDOMEN: Soft. Bowel sounds are present. No masses. No tenderness. Zapata catheter draining clear lisa urine. EXTREMITIES: No pedal edema. No calf tenderness. Dorsalis pedis +2 bilaterally. NEUROLOGICAL: Patient is awake, alert and oriented to person and place with mild confusion. Cranial nerves 2 through 12 are grossly intact. Generalized weakness noted. Results CBC & Chem 7: 08/03/19 02:39 08/03/19 02:39 Labs: Abnormal Lab Results - Last 24 Hours (Table) 08/02/19 08/02/19 08/02/19 Range/Units 00:45 14:27 14:27 WBC 3.0 L (3.8-10.6) k/uL RBC 3.73 L (4.30-5.90) m/uL Hgb 12.2 L (13.0-17.5) gm/dL Hct 38.3 L (39.0-53.0) % MCV 102.9 H (80.0-100.0) fL RDW 16.1 H (11.5-15.5) % Plt Count (150-450) k/uL Neutrophils # (Manual) (1.3-7.7) k/uL Lymphocytes # (Manual) 0.45 L (1.0-4.8) k/uL Metamyelocytes # (Man) 0.06 H (0) k/uL PT 14.3 H (9.0-12.0) sec INR 1.4 H (<1.2) Sodium (137-145) mmol/L Potassium (3.5-5.1) mmol/L Chloride (98-107) mmol/L BUN (9-20) mg/dL Creatinine (0.66-1.25) mg/dL Glucose (74-99) mg/dL POC Glucose (mg/dL) (75-99) mg/dL Plasma Lactic Acid Demetrio (0.7-2.0) mmol/L Calcium (8.4-10.2) mg/dL Total Bilirubin (0.2-1.3) mg/dL ALT (4-49) U/L Troponin I (0.000-0.034) ng/mL Total Protein (6.3-8.2) g/dL Albumin (3.5-5.0) g/dL HDL Cholesterol (40-60) mg/dL Urine Protein 1+ H (Negative) Amorphous Sediment Rare H (None) /hpf Hyaline Casts 7 H (0-2) /lpf 08/02/19 08/02/19 08/02/19 Range/Units 14:27 14:27 14:27 WBC (3.8-10.6) k/uL RBC (4.30-5.90) m/uL Hgb (13.0-17.5) gm/dL Hct (39.0-53.0) % MCV (80.0-100.0) fL RDW (11.5-15.5) % Plt Count (150-450) k/uL Neutrophils # (Manual) (1.3-7.7) k/uL Lymphocytes # (Manual) (1.0-4.8) k/uL Metamyelocytes # (Man) (0) k/uL PT (9.0-12.0) sec INR (<1.2) Sodium 130 L (137-145) mmol/L Potassium (3.5-5.1) mmol/L Chloride 95 L (98-107) mmol/L BUN 26 H (9-20) mg/dL Creatinine 1.49 H (0.66-1.25) mg/dL Glucose 204 H (74-99) mg/dL POC Glucose (mg/dL) (75-99) mg/dL Plasma Lactic Acid Demetrio 5.0 H* (0.7-2.0) mmol/L Calcium (8.4-10.2) mg/dL Total Bilirubin 1.5 H (0.2-1.3) mg/dL ALT 55 H (4-49) U/L Troponin I 0.141 H* (0.000-0.034) ng/mL Total Protein 5.7 L (6.3-8.2) g/dL Albumin 3.4 L (3.5-5.0) g/dL HDL Cholesterol (40-60) mg/dL Urine Protein (Negative) Amorphous Sediment (None) /hpf Hyaline Casts (0-2) /lpf 08/02/19 08/02/19 08/02/19 Range/Units 17:19 17:34 20:04 WBC (3.8-10.6) k/uL RBC (4.30-5.90) m/uL Hgb (13.0-17.5) gm/dL Hct (39.0-53.0) % MCV (80.0-100.0) fL RDW (11.5-15.5) % Plt Count (150-450) k/uL Neutrophils # (Manual) (1.3-7.7) k/uL Lymphocytes # (Manual) (1.0-4.8) k/uL Metamyelocytes # (Man) (0) k/uL PT (9.0-12.0) sec INR (<1.2) Sodium (137-145) mmol/L Potassium (3.5-5.1) mmol/L Chloride (98-107) mmol/L BUN (9-20) mg/dL Creatinine (0.66-1.25) mg/dL Glucose (74-99) mg/dL POC Glucose (mg/dL) 215 H (75-99) mg/dL Plasma Lactic Acid Demetrio 2.2 H* (0.7-2.0) mmol/L Calcium (8.4-10.2) mg/dL Total Bilirubin (0.2-1.3) mg/dL ALT (4-49) U/L Troponin I 0.138 H* (0.000-0.034) ng/mL Total Protein (6.3-8.2) g/dL Albumin (3.5-5.0) g/dL HDL Cholesterol (40-60) mg/dL Urine Protein (Negative) Amorphous Sediment (None) /hpf Hyaline Casts (0-2) /lpf 08/02/19 08/02/19 08/03/19 Range/Units 20:04 20:34 02:39 WBC (3.8-10.6) k/uL RBC (4.30-5.90) m/uL Hgb (13.0-17.5) gm/dL Hct (39.0-53.0) % MCV (80.0-100.0) fL RDW (11.5-15.5) % Plt Count (150-450) k/uL Neutrophils # (Manual) (1.3-7.7) k/uL Lymphocytes # (Manual) (1.0-4.8) k/uL Metamyelocytes # (Man) (0) k/uL PT (9.0-12.0) sec INR (<1.2) Sodium (137-145) mmol/L Potassium (3.5-5.1) mmol/L Chloride (98-107) mmol/L BUN (9-20) mg/dL Creatinine (0.66-1.25) mg/dL Glucose (74-99) mg/dL POC Glucose (mg/dL) 253 H (75-99) mg/dL Plasma Lactic Acid Demetrio 2.4 H* (0.7-2.0) mmol/L Calcium (8.4-10.2) mg/dL Total Bilirubin (0.2-1.3) mg/dL ALT (4-49) U/L Troponin I 0.113 H* (0.000-0.034) ng/mL Total Protein (6.3-8.2) g/dL Albumin (3.5-5.0) g/dL HDL Cholesterol (40-60) mg/dL Urine Protein (Negative) Amorphous Sediment (None) /hpf Hyaline Casts (0-2) /lpf 08/03/19 08/03/19 Range/Units 02:39 02:39 WBC 1.7 L (3.8-10.6) k/uL RBC 2.99 L (4.30-5.90) m/uL Hgb 9.9 L D (13.0-17.5) gm/dL Hct 30.4 L (39.0-53.0) % MCV 101.7 H (80.0-100.0) fL RDW 16.1 H (11.5-15.5) % Plt Count 142 L (150-450) k/uL Neutrophils # (Manual) 1.00 L (1.3-7.7) k/uL Lymphocytes # (Manual) 0.36 L (1.0-4.8) k/uL Metamyelocytes # (Man) (0) k/uL PT (9.0-12.0) sec INR (<1.2) Sodium 130 L (137-145) mmol/L Potassium 3.2 L (3.5-5.1) mmol/L Chloride (98-107) mmol/L BUN 30 H (9-20) mg/dL Creatinine 1.42 H (0.66-1.25) mg/dL Glucose (74-99) mg/dL POC Glucose (mg/dL) (75-99) mg/dL Plasma Lactic Acid Demetrio (0.7-2.0) mmol/L Calcium 7.8 L (8.4-10.2) mg/dL Total Bilirubin (0.2-1.3) mg/dL ALT (4-49) U/L Troponin I (0.000-0.034) ng/mL Total Protein (6.3-8.2) g/dL Albumin (3.5-5.0) g/dL HDL Cholesterol 37 L (40-60) mg/dL Urine Protein (Negative) Amorphous Sediment (None) /hpf Hyaline Casts (0-2) /lpf Thrombosis Risk Factor Assmnt - DVT/VTE Prophylaxis DVT/VTE Prophylaxis: Pharmacologic Prophylaxis ordered - Choose All That Apply Any of the Below Risk Factors Present?: Yes Each Factor Represents 1 point: Abnormal pulmonary function (COPD), Medical pt on bed rest Other Risk Factors: Yes Each Risk Factor Represents 3 Points: Age 75 years or older Thrombosis Risk Factor Assessment Total Risk Factor Score: 5 Thrombosis Risk Factor Assessment Level: High Risk Assessment and Plan Plan: 1. Acute on chronic hypoxic respiratory failure secondary to a combination of aspiration pneumonia, acute on chronic systolic heart failure, with underlying COPD. Continue DuoNeb treatments 4 times daily, Symbicort twice daily, Lasix 40 mg IV every 12 hours, Mucinex twice daily. Continue IV Levaquin and IV Zosyn. Consult with cardiology and pulmonary medicine. Patient may benefit from speech therapy evaluation once stabilized. Continue O2 therapy. 2. Aspiration pneumonia. Continue as in #1 3. Acute on chronic systolic heart failure. Monitor I&O and daily weights, electrolytes and renal function. Continue IV Lasix and Entresto. 4. Paroxysmal atrial fibrillation with RVR. Continue eliquis 2.5 mg twice daily, Lopressor 50 mg twice daily. 5. Possible non-ST elevated myocardial infarction. Cardiology on consult. Continue aspirin 81 mg daily, atorvastatin 40 mg at bedtime, Lopressor. 6. Acute kidney injury with chronic kidney disease stage III with baseline creatinine of 1.2. Avoid nephrotoxic agents. Recheck renal function in the morning. 7. Metabolic encephalopathy secondary to hypoxia, hospitalization, rule out metastatic disease. CAT scan of the brain ordered. 8. Ischemic cardiomyopathy with chronic systolic heart failure. Continue Lasix, Entresto, Lopressor. 9. Hypertension. Continue Entresto and Lopressor. 10. Hyperlipidemia. Continue atorvastatin. 11. Multiple myeloma. Hold Revlimid. 12. History of lung cancer. 13. Benign prostatic hypertrophy. Continue Flomax. Zapata catheter in place. 14. Anemia of chronic disease. Continue ferrous sulfate. 15. COVID-19 infection testing and process. CODE STATUS: No code Patient will be admitted to the hospital for a minimum of 2 night stay. Discharge plan: [facility] home. Impression and plan of care have been directed as dictated by the signing physician. Dot Koehler nurse practitioner acting as scribe for signing physician.
--- NOTE | 2019-08-03 09:46 | CONS ---
CONSULTATION Mr. Mendoza is an 89-year-old male who is followed by Dr. Gunderson, has a history of paroxysmal atrial fibrillation-flutter, history of coronary artery disease, history of chronic kidney disease, chronic obstructive lung disease, who presented with a history of multiple myeloma, who presented with symptoms of progressive dyspnea with cough, productive of yellowish sputum. He denies any fever or chest pain, but he noted worsening peripheral edema. He continues to be dyspneic this morning. He denies any chest pain. He denies any dizziness, palpitation. He denies any PND. He had a prior echocardiogram that revealed ejection fraction that was moderately impaired, although most recent echocardiogram revealed a preserved systolic function. He has a history of hypertension, diabetes and hyperlipidemia. He is a nonsmoker. MEDICATIONS: Include Eliquis 2.5 mg twice a day, aspirin once a day, Lipitor 40 mg daily, iron, Lasix 20 mg 3 times a day, Revlimid, midodrine, Entresto 24-26 mg twice a day and metoprolol tartrate 25 mg 3 times a day. REVIEW OF SYSTEMS: RESPIRATORY SYSTEM: He had dyspnea on exertion, cough. He carries diagnosis of COPD. GI SYSTEM: No recent GI bleeding. No peptic ulcer disease. SYSTEM: No dysuria or hematuria. He has a history of chronic kidney disease. NERVOUS SYSTEM: No history of stroke or seizure. PHYSICAL EXAMINATION: He is an 89-year-old male, alert, oriented, mildly dyspneic, blood pressure 118/70 with a heart rate in the 110s. HEAD: Normocephalic. EYES: Sclerae nonicteric. NECK: Mildly elevated jugular venous pressure. LUNGS: With scattered rhonchi bilaterally with wheezes and decreased air exchange. HEART: Regular, irregular, S1-S2, no S3, with systolic murmur, no diastolic murmur, no rub. ABDOMEN: Soft, nontender, positive bowel sounds, no organomegaly. EXTREMITIES: +2 edema bilaterally with decreased distal pulses. LAB DATA: On presentation his white blood cell is 3.0, hemoglobin 12.2, platelets are 179. His BUN and creatinine 26 and 1.49, NT proBNP 29,500. Troponin of 0.141, point 0.138 and 0.13. His plasma lactic acid was 5.0 on admission. This morning, his white blood cells down to 1.7. BUN and creatinine 30 and 1.42. His EKG baseline was quite irregular, but it appears to be probably sinus mechanism with right bundle branch block. On the monitor today, he looks atrial fibrillation. His chest x-ray revealed patchy infiltrate suggestive of pneumonia. His boyce virus PCR is pending. IMPRESSION: 1. Symptoms of progressive dyspnea with possible pulmonary infection. The possibility of boyce virus infection cannot be excluded. On top of, there appears to be findings of congestive heart failure and fluid overload with prior definite history of cardiomyopathy. 2. History of coronary artery disease. 3. Mild elevation of troponin, probably a presenting a type 2 event could be worsened by the renal function abnormalities. 4. History of atrial fibrillation in the past, anticoagulated. 5. History of hypertension. 6. Hyperlipidemia. 7. Diabetes mellitus. 8. Chronic kidney disease. 9. Multiple myeloma. 10.Peripheral vessel disease. RECOMMENDATION: From the cardiac standpoint, I will increase the dose of his beta debbie to control his ventricular response. I will obtain a repeat echocardiogram. I will give him intravenous diuretics. Will await the results of his workup. The patient has been started on antibiotics and he will be seen by Dr. Oneill for further evaluation. Depending on his progress, further recommendation will be made. Unfortunately, the prognosis is guarded. Thank you for this consult. Will follow with you. MMODL / IJN: [id number] /
--- NOTE | 2019-08-03 11:44 | ECHOF ---
Referral Reason:elevTrop,CHF MEASUREMENTS -------- HEIGHT: 175.3 cm WEIGHT: 74.4 kg BP: 123/87 RVIDd: 3.5 cm (< 3.3) IVSd: 1.5 cm (0.6 - 1.1) LVIDd: 3.7 cm (3.9 - 5.3) LVPWd: 1.5 cm (0.6 - 1.1) IVSs: 1.9 cm LVIDs: 2.9 cm LVPWs: 2.0 cm LA Diam: 3.7 cm (2.7 - 3.8) LAESV Index (A-L): 39.22 ml/m IVSd: 3.6 cm (0.6 - 1.1) Ao Diam: 3.7 cm (2.0 - 3.7) AV Cusp: 1.4 cm (1.5 - 2.6) MV EXCURSION: 16.920 mm (> 18.000) MV EF SLOPE: 82 mm/s (70 - 150) EPSS: 0.6 cm AV maxP.00 mmHg AV meanP.90 mmHg RAP: 15.00 mmHg RVSP: 64.52 mmHg FINDINGS -------- Atrial fibrillation. This was a technically adequate study. The left ventricular size is normal. There is moderate concentric left ventricular hypertrophy. O verall left ventricular systolic function is moderately impaired with, an EF between 35 - 40 %. The right ventricle is mildly enlarged. LA is moderately dilated 34-39 ml/m2 The right atrium is normal in size. Interatrial and interventricular septum intact. There is mild aortic valve sclerosis. There is mild aortic stenosis present by area 14 mm The mitral valve leaflets are mildly thickened. Mild mitral annular calcification present. [id number] tricuspid regurgitation present. There is severe pulmonary hypertension. The rig ht ventricular systolic pressure, as measured by Doppler, is 64.52mmHg. Trace/mild (physiologic) pulmonic regurgitation. The aortic root size is normal. Normal inferior vena cava with less than 50% inspiratory collapse consistent with estimated right atr ial pressure of 15 mmHg. There is no pericardial effusion. CONCLUSIONS -------- 1. Atrial fibrillation. 2. This was a technically adequate study. 3. The left ventricular size is normal. 4. There is moderate concentric left ventricular hypertrophy. 5. Overall left ventricular systolic function is moderately impaired with, an EF between 35 - 40 %. 6. The right ventricle is mildly enlarged. 7. LA is moderately dilated 34-39 ml/m2 8. The right atrium is normal in size. 9. Interatrial and interventricular septum intact. 10. There is mild aortic valve sclerosis. 11. There is mild aortic stenosis present by area 14 mm 12. The mitral valve leaflets are mildly thickened. 13. Mild mitral annular calcification present. 14. [id number] tricuspid regurgitation present. 15. There is severe pulmonary hypertension. 16. The right ventricular systolic pressure, as measured by Doppler, is 64.52mmHg. 17. Trace/mild (physiologic) pulmonic regurgitation. 18. The aortic root size is normal. 19. Normal inferior vena cava with less than 50% inspiratory collapse consistent with estimated right atrial pressure of 15 mmHg. 20. There is no pericardial effusion. MUSHROOM GROWTH MEDIA MIXER: Stefania Salazar RDCS
[2019-08-03 11:57] LABS: Glucose,Whole Blood 254 mg/dL (75-99)
[2019-08-03] MEDS ORDERED: guaiFENesin 600 MG TABLET.ER PO SCH (12:00)
[2019-08-03 12:03] LABS: Hemoglobin A1C 6.7 % (4.0-6.0)
--- NOTE | 2019-08-03 12:39 | P.CNPUL ---
History of Present Illness Consult date: 08/03/19 Requesting physician: Percy Mike Reason for consult: dyspnea Chief complaint: Shortness of breath History of present illness: This is an 89-year-old white male with history of multiple medical problems including multiple myeloma, severe chronic obstructive pulmonary disease, paroxysmal atrial fibrillation, history of non-small cell lung cancer, severe cardiomyopathy and LV dysfunction, felt to be ischemic in nature, type 2 diabetes, patient presented to the ER this morning mostly with 2 days history of increased shortness of breath. Patient describes the cough, wheezing, no fever no chills, no hemoptysis, and no chest pain. Chest x-ray is suggestive of interstitial edema, possibility of underlying pneumonia is not entirely ruled out. His workup since admission included a CBC which showed pancytopenia with WBC count of 1.7 hemoglobin of 9.9 and platelets 1 42,000. He had abnormal renal functioning with creatinine of 1.42. Sodium of 130 potassium of 3.2. And significantly elevated BNP level of 29,500. Echocardiogram showed LV dysfunction with ejection fraction of 40%. Patient was also noted to be in atrial fibrillation with RVR, being addressed by cardiology on the case. CODE STATUS on admission was noted to be DO NOT RESUSCITATE. After evaluating the patient, I recommended mostly diuretics, bronchodilators, and antibiotics empirically. Review of Systems Constitutional: Patient described generalized weakness and fatigue. Eyes: Denies diplopia denies blurred vision Ears, nose, mouth and throat: Denies sore throat or earache. Denies nasal congestion. Cardiovascular: Patient is complaining of shortness of breath at rest and on exertion. No chest pain. No palpitations. Respiratory: As noted in HPI. Gastrointestinal: Denies nausea vomiting abdominal pain melena or hematemesis. Genitourinary: Denied dysuria frequency urgency or hematuria Musculoskeletal: Mostly report generalized weakness. And fatigue. Integumentary: Denies skin rashes. Neurological: Denies headache blurred vision dizziness denies syncope Psychiatric: Denies active symptoms of depression. Endocrine: Denies heat or cold intolerance. Past Medical History Past Medical History: Atrial Flutter, Cancer, Chest Pain / Angina, COPD, Diab etes Mellitus, Eye Disorder, Hearing Disorder / Deafness, Hyperlipidemia, Hypertension, Memory Impairment, Pneumonia, Renal Disease, Respiratory Disorder, Vascular Disorder Additional Past Medical History / Comment(s): Chronic respiratory failure with home O2 at 3L n/c. multiple pulmonary nodules(scar tissue), multiple myeloma(oral chemo), carotid stenosis rt side, hx kidney disorder-resolved now per pt, bronchitis, alfonzo eye macular degeneration(gets injectons for tx),past shingles lt lowe leg. History of Any Multi-Drug Resistant Organisms: None Reported Past Surgical History: Heart Catheterization Additional Past Surgical History / Comment(s): left carotid endarterectomy , bilateral cataract removal and intraocular lens implants, surgery on rt eye to remove scar tissue, colonoscopy, rt leg vein surgery, surgery on "left leg to clean out veins", bronchoscopy, rt leg angiogram /angioplasty/stents, angiogram Past Anesthesia/Blood Transfusion Reactions: No Reported Reaction Past Psychological History: No Psychological Hx Reported Additional Psychological History / Comment(s): . Smoking Status: Former smoker Past Alcohol Use History: None Reported Additional Past Alcohol Use History / Comment(s): Patient started smoking at age 19 and quit in 2012-1/2 packs per day for total of 93 pack year history. Patient was home with his . He does not use any device for ambulation. He has home O2 and nebulizer in place. Past Drug Use History: None Reported - Past Family History Brother(s) Family Medical History: Coronary Artery Disease (CAD), Diabetes Mellitus Father Family Medical History: Congestive Heart Failure (CHF), Hypertension Additional Family Medical History / Comment(s): kidney failure Mother Family Medical History: No Reported History Medications and Allergies Home Medications Medication Instructions Recorded Confirmed Type Ipratropium-Albuterol Nebulize 3 ml INHALATION RT-QID 05/20/14 08/03/19 History [Duoneb 0.5 mg-3 mg/3 ml Soln] Tamsulosin [Flomax] 0.8 mg PO HS 05/20/14 08/03/19 History Budesonide/Formoterol Fumarate 2 puff INHALATION RT-BID 03/02/16 08/03/19 History [Symbicort 160-4.5 Mcg Inhaler] Apixaban [Eliquis] 2.5 mg PO BID tablet 05/26/17 08/03/19 Rx Atorvastatin [Lipitor] 40 mg PO HS #30 tab 05/26/17 08/03/19 Rx Vit C/E/Zn/Coppr/Lutein/Zeaxan 1 cap PO BID 05/30/17 08/03/19 History [Preservision Areds 2 Softgel] Megestrol [Megace] 800 mg PO DAILY 02/26/18 08/03/19 History Dexamethasone 20 mg PO WE 07/12/18 08/03/19 History Melatonin 10 mg PO HS 07/12/18 08/03/19 History Metoprolol Tartrate [Lopressor] 25 mg PO TID 07/12/18 08/03/19 History Sacubitril/Valsartan [Entresto 24 1 tab PO BID 07/12/18 08/03/19 History mg-26 mg Tablet] Simply Saline 1 spray EA NOSTRIL DAILY PRN 07/12/18 08/03/19 History guaiFENesin [Mucinex] 600 mg PO BID@1200,199907/12/18 08/03/19 History Insulin Detemir [Levemir Flextouch] 15 unit SQ SUMOTHFRSA 12/02/18 08/03/19 History Insulin Detemir [Levemir Flextouch] 18 unit SQ TUWE 12/02/18 08/03/19 History Lenalidomide [Revlimid] 5 mg PO DIRECTED 12/02/18 08/03/19 History Aspirin [Adult Low Dose Aspirin EC] 81 mg PO DAILY #30 tablet. 12/04/18 08/03/19 Rx Ergocalciferol (Vitamin D2) 50,000 unit PO FR 02/21/19 08/03/19 History [Drisdol] Insulin Aspart [NovoLOG Flexpen] See Protocol SQ DIRECTED PRN 02/21/19 08/03/19 History Sennosides [Senna] 17.2 mg PO DAILY 02/21/19 08/03/19 History Ferrous Sulfate [Iron] 325 mg PO DAILY 08/02/19 08/03/19 History Furosemide [Lasix] 20 mg PO TID 08/02/19 08/03/19 History Midodrine HCl [ProAmatine] 10 mg PO TID PRN 08/02/19 08/03/19 History Allergies Allergy/AdvReac Type Severity Reaction Status Date / Time No Known Allergies Allergy Verified 08/03/19 09:47 Physical Exam Vitals: Vital Signs Temp Pulse Resp BP Pulse Ox 08/03/19 11:00 106 H 22 101/67 94 L 08/03/19 10:30 82 30 H 108/92 98 08/03/19 10:00 112 H 32 H 92/60 94 L 08/03/19 09:30 108 H 29 H 118/93 94 L 08/03/19 09:00 124 H 26 H 112/85 94 L 08/03/19 08:30 101 H 33 H 134/101 98 08/03/19 08:00 97.8 F 112 H 25 H 121/81 100 08/03/19 07:30 105 H 12 120/103 100 08/03/19 07:00 123 H 25 H 123/87 99 08/03/19 06:30 101 H 19 105/81 100 08/03/19 06:00 113 H 23 118/74 98 08/03/19 05:30 102 H 17 96/80 98 08/03/19 05:00 102 H 24 124/77 95 08/03/19 04:30 86 12 92/59 96 08/03/19 04:00 97.8 F 94 23 92/59 94 L 08/03/19 03:41 92 L 08/03/19 03:30 102 H 21 92 L 08/03/19 03:00 97 19 93/67 96 08/03/19 02:30 101 H 28 H 107/43 98 08/03/19 02:00 90 24 90/73 98 08/03/19 01:30 86 16 92/52 98 08/03/19 01:00 89 24 84/53 99 08/03/19 00:30 89 28 H 102/52 100 08/03/19 00:17 91 08/03/19 00:00 98.0 F 83 21 112/52 99 08/02/19 23:45 99 08/02/19 23:30 86 25 H 111/80 100 08/02/19 23:00 89 23 131/71 100 08/02/19 22:30 87 30 H 116/86 100 08/02/19 22:00 89 27 H 108/96 99 08/02/19 21:30 98 23 100 08/02/19 21:00 93 30 H 155/101 100 08/02/19 20:30 96 24 165/115 100 08/02/19 20:01 88 08/02/19 20:00 97.7 F 92 31 H 169/112 93 L 08/02/19 19:57 95 08/02/19 19:49 84 08/02/19 19:30 94 25 H 132/115 97 08/02/19 19:00 96 27 H 143/110 97 08/02/19 18:30 86 24 96 08/02/19 18:14 96 08/02/19 18:00 82 28 H 135/94 98 08/02/19 17:30 97.4 F L 92 24 134/78 99 08/02/19 17:00 98 F 84 27 H 138/89 100 08/02/19 16:26 92 08/02/19 16:20 87 08/02/19 16:00 93 31 H 135/63 97 08/02/19 15:00 93 30 H 169/95 99 08/02/19 14:58 105 H 08/02/19 14:44 104 H 08/02/19 14:40 89 34 H 169/95 97 08/02/19 14:11 97.8 F 75 24 124/71 64 L Intake and Output 08/02/19 08/03/19 08/03/19 22:59 06:59 14:59 Intake Total 1500 600 330 Output Total 590 360 Balance 1500 10 -30 Intake: IV 1500 500 330 0.9 20 Sodium Chloride 0.9% 1, 500 500 310 000 ml @ 100 mls/hr IV . Q10H [facility] Rx#:[id number] Sodium Chloride 0.9% 500 1000 ml 500 ml @ 999 mls/hr IV .Q31M [facility] Rx#:[id number] Intake, IV Titration 100 Amount Piperacillin-Tazobactam 3 100 .375 gm In Sodium Chloride 0.9% 100 ml @ 25 mls/hr IVPB Q8HR [facility] Rx# :[id number] Output: Urine 590 360 Other: Voiding Method Urinal Indwelling Catheter Indwelling Catheter Weight 69.853 kg 74.7 kg Physical Exam: Revealed elderly white male, on airvo at FiO2 of 45% and 45 L/m flow. Head: Atraumatic, normocephalic. HEENT:[Neck is supple.] [No neck masses.] [No thyromegaly.] [No JVD.] PERRLA, EOMI, no icterus. Chest: [Symmetrical chest expansion, crackles bilaterally, rhonchi and wheezes noted also on forced expiratory maneuver. Cardiac Exam: Irregular irregular rhythm, 2/6 systolic murmur throughout the precordium. Abdomen: [Soft, nontender, no megaly, no rebound, no guarding, normal bowel sounds.] Extremities: [No clubbing, no edema, no cyanosis.] Good pulses bilaterally Neurological Exam: Alert and oriented 3, no gross focal neurologic deficits, minimal confusion is noted. Psychiatric: Normal mood, normal affect, and mental status as above Skin: No rashes. Results - Laboratory Findings CBC and BMP: 08/03/19 02:39 08/03/19 02:39 PT/INR, D-dimer PT 14.3 sec (9.0-12.0) H 08/02/19 14:27 INR 1.4 (<1.2) H 08/02/19 14:27 Abnormal lab findings: Abnormal Labs 08/02/19 08/02/19 08/02/19 00:45 14:27 14:27 WBC 3.0 L RBC 3.73 L Hgb 12.2 L Hct 38.3 L MCV 102.9 H RDW 16.1 H Plt Count Neutrophils # (Manual) Lymphocytes # (Manual) 0.45 L Metamyelocytes # (Man) 0.06 H PT 14.3 H INR 1.4 H Sodium Potassium Chloride BUN Creatinine Glucose POC Glucose (mg/dL) Hemoglobin A1c Plasma Lactic Acid Demetrio Calcium Total Bilirubin ALT Troponin I Total Protein Albumin HDL Cholesterol Urine Protein 1+ H Amorphous Sediment Rare H Hyaline Casts 7 H 08/02/19 08/02/19 08/02/19 14:27 14:27 14:27 WBC RBC Hgb Hct MCV RDW Plt Count Neutrophils # (Manual) Lymphocytes # (Manual) Metamyelocytes # (Man) PT INR Sodium 130 L Potassium Chloride 95 L BUN 26 H Creatinine 1.49 H Glucose 204 H POC Glucose (mg/dL) Hemoglobin A1c Plasma Lactic Acid Demetrio 5.0 H* Calcium Total Bilirubin 1.5 H ALT 55 H Troponin I 0.141 H* Total Protein 5.7 L Albumin 3.4 L HDL Cholesterol Urine Protein Amorphous Sediment Hyaline Casts 08/02/19 08/02/19 08/02/19 17:19 17:34 20:04 WBC RBC Hgb Hct MCV RDW Plt Count Neutrophils # (Manual) Lymphocytes # (Manual) Metamyelocytes # (Man) PT INR Sodium Potassium Chloride BUN Creatinine Glucose POC Glucose (mg/dL) 215 H Hemoglobin A1c Plasma Lactic Acid Demetrio 2.2 H* Calcium Total Bilirubin ALT Troponin I 0.138 H* Total Protein Albumin HDL Cholesterol Urine Protein Amorphous Sediment Hyaline Casts 08/02/19 08/02/19 08/03/19 20:04 20:34 02:39 WBC RBC Hgb Hct MCV RDW Plt Count Neutrophils # (Manual) Lymphocytes # (Manual) Metamyelocytes # (Man) PT INR Sodium Potassium Chloride BUN Creatinine Glucose POC Glucose (mg/dL) 253 H Hemoglobin A1c Plasma Lactic Acid Demetrio 2.4 H* Calcium Total Bilirubin ALT Troponin I 0.113 H* Total Protein Albumin HDL Cholesterol Urine Protein Amorphous Sediment Hyaline Casts 08/03/19 08/03/19 08/03/19 02:39 02:39 02:39 WBC 1.7 L RBC 2.99 L Hgb 9.9 L D Hct 30.4 L MCV 101.7 H RDW 16.1 H Plt Count 142 L Neutrophils # (Manual) 1.00 L Lymphocytes # (Manual) 0.36 L Metamyelocytes # (Man) PT INR Sodium 130 L Potassium 3.2 L Chloride BUN 30 H Creatinine 1.42 H Glucose POC Glucose (mg/dL) Hemoglobin A1c 6.7 H Plasma Lactic Acid Demetrio Calcium 7.8 L Total Bilirubin ALT Troponin I Total Protein Albumin HDL Cholesterol 37 L Urine Protein Amorphous Sediment Hyaline Casts 08/03/19 11:55 WBC RBC Hgb Hct MCV RDW Plt Count Neutrophils # (Manual) Lymphocytes # (Manual) Metamyelocytes # (Man) PT INR Sodium Potassium Chloride BUN Creatinine Glucose POC Glucose (mg/dL) 254 H Hemoglobin A1c Plasma Lactic Acid Demetrio Calcium Total Bilirubin ALT Troponin I Total Protein Albumin HDL Cholesterol Urine Protein Amorphous Sediment Hyaline Casts - Diagnostic Findings Chest x-ray: image reviewed (As noted in HPI) Assessment and Plan Assessment: Impression: Acute hypoxic respiratory failure secondary to acute on chronic systolic congestive heart failure, underlying COPD, and possibly aspiration pneumonia. History of ischemic cardiomyopathy and LV dysfunction. Paroxysmal atrial fibrillation with RVR, maintained on Eliquis and Lopressor. Possible non-ST elevation myocardial infarction. Acute on chronic kidney injury. Benign essential hypertension Dyslipidemia History of multiple myeloma History of non-small cell lung cancer diagnosed at [facility] Anemia of chronic disease Recommendation: Continue diuretics. Patient is presently on Lasix 40 mg IV push every 12 hours. Continue bronchodilators. Continue cardiac meds and beta blockers for atrial fibrillation with RVR. Continue antibiotics empirically. Patient is presently on Levaquin and Zosyn. Monitor daily x-rays of the chest. Monitor daily I's and O's. Monitor daily renal functioning. Resume Eliquis. Continue Megace. Decrease IV fluid to KVO. Continue insulin as per scale. We'll continue to follow Time with Patient: Greater than 30
[2019-08-03] MEDS ORDERED: ATROPINE OPHTH SOLN 1% 5ML BTL SUBLINGUAL PRN (14:02)
[2019-08-03] MEDS ORDERED: ACETAMINOPHEN TAB 325 MG TAB PO PRN (14:02)
[2019-08-03] MEDS ORDERED: LORazepam 2 MG/ML INJ IV PRN (14:02)
[2019-08-03 17:22] LABS: Glucose,Whole Blood 70 mg/dL (75-99)
[2019-08-03 20:30] LABS: Glucose,Whole Blood 49 mg/dL (75-99)
[2019-08-03 20:51] LABS: Glucose,Whole Blood 97 mg/dL (75-99)
[2019-08-03] MEDS ORDERED: TAMSULOSIN 0.4 MG CAP.ER.24H PO SCH (21:00)
[2019-08-03] MEDS ORDERED: MELATONIN 5 MG TABLET PO SCH (21:00)
[2019-08-03] MEDS ORDERED: ATORVASTATIN 40 MG TAB PO SCH (21:00)
[2019-08-04 05:09] VITALS: BP 130/103; PULSE 56; RESP 18; TEMP 96.8
[2019-08-04 06:04] LABS: Potassium 3.3 mmol/L (3.5-5.1)
[2019-08-04 06:30] LABS: Glucose,Whole Blood 81 mg/dL (75-99)
[2019-08-04] MEDS: POTASSIUM BICARBONATE/CIT AC 20 MEQ TABLET.EFF NG-TUBE SCH ×2 (06:55→09:10)
[2019-08-04] MEDS ORDERED: INSULIN DETEMIR (LEVEMIR) 100 UNIT/ML SYR SQ SCH (07:00)
--- NOTE | 2019-08-04 09:08 | PN ---
PROGRESS NOTE Mr. Mendoza is an 89-year-old male who presented with symptoms of progressive dyspnea and evidence of congestive heart failure. He is feeling better this morning. His breathing is better. He slept better. He denies any dizziness, palpitation, no chest pain. He has a history of atrial fibrillation, history of coronary artery disease and chronic kidney disease. He underwent an echocardiogram yesterday that revealed an ejection fraction of 35% to 40% with mild to moderate tricuspid regurgitation and right- sided pressure of 65 mmHg. He continues to be at this time on Lasix 40 mg IV q.12 hours, metoprolol 50 mg twice a day, midodrine. PHYSICAL EXAMINATION: Blood pressure running in the 130s to 140 with a heart rate in the 70s, afebrile. LUNGS: With few crackles, no wheezes. HEART: Irregular, regular, S1, S2. No S3. No rub. ABDOMEN: Soft, nontender. EXTREMITIES: +1 edema, improved compared to yesterday. LAB DATA: Revealed BUN and creatinine 33 and 1.7, potassium 3.3. His renal function better in comparison to yesterday. He is -600 mL. IMPRESSION: 1. Symptoms of progressive dyspnea with evidence of congestive heart failure with a systolic dysfunction. 2. Atrial fibrillation. 3. Chronic kidney disease. 4. Hypertension. 5. Hyperlipidemia. 6. Diabetes mellitus. 7. Multiple myeloma. 8. Peripheral vascular disease. RECOMMENDATION: I will continue the IV diuretic for another 24 hours. Follow his renal function, increase his activity gradually and depending on his progress, further recommendation will be made. MMODL / IJN: [id number] /
[2019-08-04] MEDS: METOPROLOL TARTRATE 50 MG TAB PO SCH (09:09)
[2019-08-04] MEDS: SENNOSIDES 8.6 MG TAB PO SCH (09:10)
[2019-08-04] MEDS: PANTOPRAZOLE 40 MG/10 ML VIAL IV SCH (09:10)
[2019-08-04] MEDS: FUROSEMIDE 10 MG/ML 4 ML VIAL IV SCH (09:10)
--- NOTE | 2019-08-04 14:08 | P.DS ---
Providers Date of admission: 08/02/19 15:08 Expected date of discharge: 08/04/19 Attending physician: Percy Mike Consults: 08/02/19 15:07 Consult Physician Routine Consulting Provider: Dayanna Mccullough Consult Reason/Comments: icu Do you want consulting provider notified?: Yes 08/02/19 15:50 Consult Physician Urgent Consulting Provider: Marily De La Cruz Consult Reason/Comments: nstemi Do you want consulting provider notified?: Yes Primary care physician: Percy Mike [facility] Course: This is an 89-year-old male patient of Dr. Mike with past medical history of lung cancer, COPD, multiple myeloma, coronary artery disease, paroxysmal atrial fibrillation on eliquis, chronic systolic heart failure with ischemic cardiomyopathy, diabetes mellitus type 2 insulin requiring, benign prostatic hypertrophy. Patient complained of difficulty breathing and apparently started in the morning and progressively worsened. He denies fever or chills. Patient is somewhat confused and unable to give a full history. Patient came into [facility] emergency center for evaluation. Pulse ox was 64% on 3 L nasal cannula, respiratory rate 24. Patien t was placed on BiPAP. He was afebrile, heart rate 75, blood pressure 124/71. WBC 3.0, hemoglobin 12.2, platelet count 179. INR 1.4. Sodium 130, potassium 3.8, chloride 95, CO2 23, BUN 26 and creatinine 1.49. Blood sugar 253. Total bilirubin 1.5, ALT 55. Troponins 0.141, 0.138, 0.113. Triglycerides 37, cholesterol 63, LDL 19, HDL 37. Urinalysis 1+ protein. EKG is a normal sinus rhythm and heart rate of 100, RBBB. Chest x-ray reveals patchy infiltrate within the left midlung and perihilar regions. Correlate for pneumonia and atypical pneumonia. Patient was placed on BiPAP and admitted into the intensive care unit. He has been in A. fib with RVR this morning. There are consults in place with cardiology and pulmonary medicine. Repeat chest x-ray reveals improvement of the left midlung opacities however worsening multifocal bilateral opacities. Evolving multifocal pneumonia as a primary consideration. Chronic background interstitial lung disease suspected. Patient continues to have some mild confusion for which CAT scan of the brain will be ordered. Patient's has been contacted and updated regarding current condition and prognosis. Discussed possibility of hospice care in the future. At this time, aggressive treatment will be pursued and monitor progress. Patient is NO CODE status. Patient's has decided to pursue hospice care at the [facility]. project program manager is following closely and making arrangements for discharge today. All aggressive treatment will be discontinued. Discharge was delayed due to coordination of hospice at home. Currently there is no data available at the [facility] and patient will be going home with his and family. Patient will be discharged home this morning once arrangements are completed. Discharge Diagnoses: 1. Acute on chronic hypoxic respiratory failure secondary to a combination of aspiration pneumonia, acute on chronic systolic heart failure, with underlying COPD. 2. Aspiration pneumonia. 3. Acute on chronic systolic heart failure. 4. Paroxysmal atrial fibrillation with RVR. 5. Possible non-ST elevated myocardial infarction ruled out by cardiology. 6. Acute kidney injury with chronic kidney disease stage III with baseline creatinine of 1.2. 7. Metabolic encephalopathy secondary to hypoxia, hospitalization, rule out metastatic disease. 8. Ischemic cardiomyopathy with chronic systolic heart failure. 9. Hypertension. 10. Hyperlipidemia. 11. Multiple myeloma. 12. History of lung cancer. 13. Benign prostatic hypertrophy. 14. Anemia of chronic disease. 15. COVID-19 infection not present. Discharge plan: Home with [facility]. Impression and plan of care have been directed as dictated by the signing physician. Dot Koehler nurse practitioner acting as scribe for signing physician. Patient Condition at Discharge: Good Plan - Discharge Summary New Discharge Prescriptions: Continue Ipratropium-Albuterol Nebulize [Duoneb 0.5 mg-3 mg/3 ml Soln] 3 ml INHALATION RT-QID Budesonide/Formoterol Fumarate [Symbicort 160-4.5 Mcg Inhaler] 2 puff INHALATION RT-BID Melatonin 10 mg PO HS Metoprolol Tartrate [Lopressor] 25 mg PO TID Sennosides [Senna] 17.2 mg PO DAILY Furosemide [Lasix] 20 mg PO TID Midodrine HCl [ProAmatine] 10 mg PO TID PRN PRN Reason: LOW BLOOD PRESSURE Discontinued Tamsulosin [Flomax] 0.8 mg PO HS Apixaban [Eliquis] 2.5 mg PO BID tablet Atorvastatin [Lipitor] 40 mg PO HS #30 tab Vit C/E/Zn/Coppr/Lutein/Zeaxan [Preservision Areds 2 Softgel] 1 cap PO BID Megestrol [Megace] 800 mg PO DAILY Simply Saline 1 spray EA NOSTRIL DAILY PRN PRN Reason: Congestion Dexamethasone 20 mg PO WE guaiFENesin [Mucinex] 600 mg PO BID@1200,2000 Sacubitril/Valsartan [Entresto 24 mg-26 mg Tablet] 1 tab PO BID Insulin Detemir [Levemir Flextouch] 18 unit SQ TUWE Insulin Detemir [Levemir Flextouch] 15 unit SQ SUMOTHFRSA Lenalidomide [Revlimid] 5 mg PO DIRECTED Aspirin [Adult Low Dose Aspirin EC] 81 mg PO DAILY #30 tablet. Ergocalciferol (Vitamin D2) [Drisdol] 50,000 unit PO FR Insulin Aspart [NovoLOG Flexpen] See Protocol SQ DIRECTED PRN PRN Reason: HIGH BLOOD SUGAR Ferrous Sulfate [Iron] 325 mg PO DAILY Discharge Medication List Ipratropium-Albuterol Nebulize [Duoneb 0.5 mg-3 mg/3 ml Soln] 3 ml INHALATION RT-QID 05/20/14 [History] Budesonide/Formoterol Fumarate [Symbicort 160-4.5 Mcg Inhaler] 2 puff INHALATION RT-BID 03/02/16 [History] Melatonin 10 mg PO HS 07/12/18 [History] Metoprolol Tartrate [Lopressor] 25 mg PO TID 07/12/18 [History] Sennosides [Senna] 17.2 mg PO DAILY 02/21/19 [History] Furosemide [Lasix] 20 mg PO TID 08/02/19 [History] Midodrine HCl [ProAmatine] 10 mg PO TID PRN 08/02/19 [History] Follow up Appointment(s)/Referral(s): Percy Mike MD [Primary Care Provider] - As Needed [facility] Visiting Nurse, [NON-STAFF] - (This is the main contact number for [facility] and [facility]. If you have questions please contact them. ) Discharge Disposition: DISCH TO [facility]
[2019-08-04] MEDS ORDERED: LEVOFLOXACIN 750MG-D5W PMX 750 MG in DEXTROSE/WATER 1 150ML.BAG IVPB SCH (17:00)
--- NOTE | 2019-08-05 11:36 | CDI ---
Documentation Clarification Form Date: 08/05/19 From: Gertrude Baird Phone: If you have a question about this query, please contact Ofelia Raygoza, Assistant Store Leader at [phone] between 8am and 5pm. Admit Date: 08/02/19 Discharge Date:08/04/19 Patient Name: Miah Mendoza Visit Number: [id number] ATTENTION: The Clinical Documentation Specialists (CDI) and [facility] Coding Staff appreciate your assistance in clarifying documentation. Please respond to the clarification below the line at the bottom and electronically sign. The CDI & [facility] Coding staff will review the response and follow-up if needed. Please note: Queries are made part of the Legal Health Record. If you have any questions, please contact the author of this message via ITS. Dear Dr. Mike The patient presented with the following: hypoxia, elevated troponin, COPD exacerbation and pneumonia. History/Risk Factors: Aspiration pneumonia, systolic CHF exacerbation, JEFF, acute on chronic hypoxic respiratory failure, multiple myeloma Clinical Indicators: Decreased WBC, elevated lactic acid WBC: 3.0 Lactic acid: 5.0 Blood cultures: No growth Vitals signs on admission: T. 97.8, P. 75, R. 24, BP 124/71 Treatment: Antibiotics: IV Levaquin, IV Zosyn IV Bolus:1 liter NS then at 130 mls/hr In your professional opinion, please clarify if these findings signify one of the following conditions, if known: Condition Sepsis ruled out Sepsis Severe Sepsis Other, please specify Unable to determine Link or clarify if there is associated (due to/with): Organ failure Shock Sepsis POA MTDD
[2019-08-06] MEDS ORDERED: Lenalidomide [Revlimid] 5 MG PO SCH (09:00)
[2019-08-07] MEDS ORDERED: ERGOCALCIFEROL 50,000 UNIT CAP PO SCH (09:00)
== END 2019-08-04 10:40 | disposition hospice, home (50) | DRG 871 ==
LOC: EC 14:05 → 2SICU 15:08
PROVIDERS: ADMIT Internal Medicine Geriatric Medicine; ATTEND Internal Medicine Geriatric Medicine
DX: A41.9 Sepsis, unspecified organism (principal); J69.0 Pneumonitis due to inhalation of food and vomit; I50.23 Acute on chronic systolic (congestive) heart failure; I21.A1 Myocardial infarction type 2; G93.41 Metabolic encephalopathy; J96.21 Acute and chronic respiratory failure with hypoxia; I13.0 Hypertensive heart and chronic kidney disease with heart failure and stage 1 through stage 4 chronic kidney disease, or unspecified chronic kidney disease; C90.00 Multiple myeloma not having achieved remission; D61.818 Other pancytopenia; I48.92 Unspecified atrial flutter; J44.1 Chronic obstructive pulmonary disease with (acute) exacerbation; N17.9 Acute kidney failure, unspecified; J84.9 Interstitial pulmonary disease, unspecified; Z20.828 Contact with and (suspected) exposure to other viral communicable diseases; D63.1 Anemia in chronic kidney disease; E11.22 Type 2 diabetes mellitus with diabetic chronic kidney disease; E11.51 Type 2 diabetes mellitus with diabetic peripheral angiopathy without gangrene; E78.5 Hyperlipidemia, unspecified; F41.9 Anxiety disorder, unspecified; H91.90 Unspecified hearing loss, unspecified ear; I07.1 Rheumatic tricuspid insufficiency; I25.10 Atherosclerotic heart disease of native coronary artery without angina pectoris; I25.5 Ischemic cardiomyopathy; I45.10 Unspecified right bundle-branch block; I48.0 Paroxysmal atrial fibrillation; N18.3 Chronic kidney disease, stage 3 (moderate); N40.0 Benign prostatic hyperplasia without lower urinary tract symptoms; H35.30 Unspecified macular degeneration; I65.21 Occlusion and stenosis of right carotid artery; Z66 Do not resuscitate; Z79.01 Long term (current) use of anticoagulants; Z79.4 Long term (current) use of insulin; Z79.51 Long term (current) use of inhaled steroids; Z79.82 Long term (current) use of aspirin; Z79.899 Other long term (current) drug therapy; Z96.1 Presence of intraocular lens; Z87.891 Personal history of nicotine dependence; Z85.118 Personal history of other malignant neoplasm of bronchus and lung; Z87.01 Personal history of pneumonia (recurrent); Z98.42 Cataract extraction status, left eye; Z98.41 Cataract extraction status, right eye; Z82.49 Family history of ischemic heart disease and other diseases of the circulatory system; Z83.3 Family history of diabetes mellitus
CPT/HCPCS: 36415; 71045; 80048; 80053; 80061; 81001; 83036; 83605; 83735; 83880; 84484; 85025; 85610; 85730; 87040; 87070; 87205; 93005; 93306; 94640; 94660; 96361; 96365; 96367; 99291